=== PATIENT | male | born 1940 | race Caucasian/White ===

== ENCOUNTER 2018-02-12 11:02 | Inpatient (IN) | payer OTHER ==
[2018-02-12] MEDS ORDERED: ACETAMINOPHEN 1000 MG/100 ML VIAL (NON FORMULARY) IVPB ONE (12:28)
[2018-02-12] MEDS ORDERED: ACETAMINOPHEN INJECTION 100 ML IVPB ONE (12:29)
[2018-02-12 12:42] LABS: BASO % 0.3 % (0-2.0); EOS % 0.1 % (0-4.5); HEMATOCRIT 31.4 % (35.4-49); HEMOGLOBIN 10.2 GM/dL (11.7-16.9); LYMPH % 8.9 % (8-40); MCH 31.3 pg (25.7-33.7); MCHC 32.5 g/dl (32.0-35.9); MEAN CELL VOLUME 96.2 fl (80-96); MEAN PLT VOLUME 6.4 fl (7.5-11.1); MONO % 3.1 % (3.8-10.2); NEUT % 87.6 % (42.8-82.8); PLATELET COUNT 450 K/MM3 (134-434); RBC 3.26 M/mm3 (4.00-5.60); RDW 17.2 % (11.9-15.9); WHITE BLOOD COUNT 12.2 K/mm3 (4.0-10.0)
[2018-02-12 12:44] LABS: URINE APPEARANCE CLEAR; URINE BILIRUBIN NEGATIVE (<2.0 mg/dL); URINE COLOR LTYELLOW; URINE GLUCOSE (UA) NEGATIVE (NEGATIVE); URINE KETONE NEGATIVE (NEGATIVE); URINE LEUK ESTERASE NEGATIVE (NEGATIVE); URINE NITRITE NEGATIVE (NEGATIVE); URINE PROTEIN NEGATIVE (NEGATIVE); URINE UROBILINOGEN NEGATIVE mg/dL (0.2-1.0)
[2018-02-12] MEDS ORDERED: SODIUM CHLORIDE 500 ML IV STA (12:49)
[2018-02-12 12:55] LABS: INR 1.45 (0.83-1.09); PROTHROMBIN TIME (PATIENT) 16.4 SEC (9.7-13.0)
[2018-02-12 13:27] LABS: ALBUMIN 2.5 g/dl (3.4-5.0); ANION GAP 10 MMOL/L (8-16); BILIRUBIN,TOTAL 0.6 mg/dL (0.2-1.0); BLOOD UREA NITROGEN 9 mg/dL (7-18); CALCIUM 9.1 mg/dL (8.5-10.1); CHLORIDE 96 mmol/L (98-107); CO2 26 mmol/L (21-32); CREATININE 0.7 mg/dL (0.7-1.3); GLUCOSE,RANDOM 108 mg/dL (74-106); POTASSIUM 4.2 mmol/L (3.5-5.1); SGOT/AST 48 U/L (15-37); SGPT/ALT 34 U/L (12-78); SODIUM 132 mmol/L (136-145); TOT PROT 9.1 g/dl (6.4-8.2)
[2018-02-12 13:28] LABS: ALK PHOS 238 U/L (45-117)
--- NOTE | 2018-02-12 13:48 | PDOC ---
History of Present Illness - History of Present Illness Initial Comments: Fr. Rod is a 77 year old male with PMHx of 03/2014 (left occipital en plaque meningioma (removed) and smaller sub centimeter meningioma arising from floor of the anterior crainial fossa. 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 Patient reports right sided abdominal pain began last night and describes it as stabbing, worse with standing,worse with coughing, better when laying down, exacerbated when palpated. He states that his last bowel movement was yesterday during lunch time. Denies any nausea, vomiting, dysuria, or back pain. PCP: Denis Blanchard Allergies: NKA Surgical Hx: -Occipital craniotomy for meningioma resection (03/24/14) -Left total hip replacement (06/19/10) -B/L cataract extractions (2010) -Colonoscopy w/ lesion removal (2007) <Rajani Esteves - Last Filed: 02/12/18 14:51> <Edwar Sanchez - Last Filed: 02/12/18 17:13> - General Chief Complaint: Pain, Acute Stated Complaint: ABD PAIN Time Seen by Provider: 02/12/18 11:59 Past History <Rajani Esteves - Last Filed: 02/12/18 14:51> - Past Medical History CVA: Yes COPD: No HTN: Yes - Suicide/Smoking/Psychosocial Hx Smoking History: Former smoker Have you smoked in the past 12 months: No Information on smoking cessation initiated: No Hx Alcohol Use: No Drug/Substance Use Hx: No Hx Substance Use Treatment: No <Edwar Sanchez - Last Filed: 02/12/18 17:13> - Past Medical History Allergies/Adverse Reactions: Allergies Allergy/AdvReac Type Severity Reaction Status Date / Time No Known Allergies Allergy Verified 02/12/18 11:12 Home Medications: Ambulatory Orders Cholecalciferol (Vitamin D3) [Vitamin D3] 1,000 unit PO DAILY #0 07/22/14 Finasteride 5 mg PO DAILY #0 07/22/14 Latanoprost 0.005% Eye Drops [Xalatan 0.005% Eye Drops -] 1 drop OU HS #0 Lisinopril [Prinivil] 20 mg PO DAILY #0 07/22/14 Primidone 100 mg PO HS #0 07/22/14 Tamsulosin HCl [Flomax -] 0.4 mg PO HS #0 07/22/14 Timolol 0.5% [Timoptic 0.5%] 1 drop OU BID #0 07/22/14 levETIRAcetam [Keppra -] 750 mg PO HS #0 07/22/14 Amlodipine Besylate [Norvasc -] 7.5 mg PO DAILY 02/12/18 Aspirin [Ecotrin] 81 mg PO DAILY 02/12/18 Mag Hydrox/Al Hydrox/Simeth [Mylanta Oral Suspension -] 30 ml PO PRN PRN Magnesium Hydrox 2400MG/30Ml [Milk of Magnesia -] 30 ml PO PRN PRN 02/12/18 Mirtazapine [Remeron -] 15 mg PO DAILY 02/12/18 Sertraline HCl [Zoloft] 25 mg PO DAILY 02/12/18 Review of Systems - Review of Systems Comments:: CONSTITUTIONAL: No fever, no chills, no fatigue EYES: No visual changes ENT: No ear pain, no sore throat CARDIOVASCULAR: No chest pain, no palpitations RESPIRATORY: +cough, no SOB GI: +abdominal pain, no nausea, no vomiting, no constipation, no diarrhea GENITOURINARY: No dysuria, no frequency, no hematuria MUSKULOSKELETAL: No back pain, no joint pain, no myalgias SKIN: No rash NEURO: No headache <Rajani Esteves - Last Filed: 02/12/18 14:51> *Physical Exam - Vital Signs Last Vital Signs Temp Pulse Resp BP Pulse Ox 100.2 F H 72 16 124/68 98 02/12/18 13:03 02/12/18 13:03 02/12/18 13:03 02/12/18 13:03 02/12/18 13:03 - Physical Exam Comments: CONSTITUTIONAL: Well-appearing; well-nourished; in no apparent distress HEAD: Normocephalic; atraumatic EYES: PERRL; EOM intact ENMT: External appears normal; normal oropharynx NECK: Supple; nontender; no cervical lymphadenopathy CARD: Normal S1, S2; no murmurs, rubs, or gallops RESP: Normal chest excursion with respiration; breath sounds clear and equal bilaterally; no wheezes, rhonchi, or rales ABD: Soft, non-distended; RUQ and RLQ tenderness, no guarding or rebound; no palpable organomegaly, no palpable hernias EXT: Right upper extremity tremor. Normal ROM in all four extremities; non- tender to palpation; distal pulses intact SKIN: Warm, dry, no rash NEURO: Right upper extremity tremor. Normal testicular exam - no hernias. <Rajani Esteves - Last Filed: 02/12/18 14:51> - Vital Signs Last Vital Signs Temp Pulse Resp BP Pulse Ox 100.2 F H 72 16 124/68 98 02/12/18 13:03 02/12/18 13:03 02/12/18 13:03 02/12/18 13:03 02/12/18 13:03 <Edwar Sanchez - Last Filed: 02/12/18 17:13> ED Treatment Course - LABORATORY CBC & Chemistry Diagram: 02/12/18 12:20 02/12/18 12:20 - ADDITIONAL ORDERS Additional order review: Laboratory Results 02/12/18 02/12/18 02/12/18 12:20 12:20 12:20 PT with INR 16.40 H INR 1.45 H Sodium 132 L Potassium 4.2 Chloride 96 L Carbon Dioxide 26 Anion Gap 10 BUN 9 Creatinine 0.7 Creat Clearance w eGFR > 60 Random Glucose 108 H Calcium 9.1 Total Bilirubin 0.6 AST 48 H D ALT 34 D Alkaline Phosphatase 238 H Total Protein 9.1 H Albumin 2.5 L Urine Color Ltyellow Urine Appearance Clear Urine pH 7.0 Ur Specific [place] 1.009 Urine Protein Negative Urine Glucose (UA) Negative Urine Ketones Negative Urine Blood Negative Urine Nitrite Negative Urine Bilirubin Negative Urine Urobilinogen Negative Ur Leukocyte Esterase Negative 02/12/18 12:20 RBC 3.26 L MCV 96.2 H MCHC 32.5 RDW 17.2 H MPV 6.4 L D Neutrophils % 87.6 H Lymphocytes % 8.9 D Monocytes % 3.1 L Eosinophils % 0.1 D Basophils % 0.3 - Medications Given in the ED: ED Medications Discontinued Medications Generic Name Dose Route Start Last Admin Trade Name Adrienne PRN Reason Stop Dose Admin Acetaminophen 1,000 mg 02/12/18 12:28 02/12/18 12:40 Ofirmev Injection - IVPB 02/12/18 12:29 1,000 mg ONCE ONE Administration Sodium Chloride 500 mls @ 500 mls/hr 02/12/18 12:49 02/12/18 12:56 Normal Saline - IV 02/12/18 13:48 500 mls/hr ASDIR STA Administration <Rajani Esteves - Last Filed: 02/12/18 14:51> - LABORATORY CBC & Chemistry Diagram: 02/12/18 12:20 02/12/18 12:20 - ADDITIONAL ORDERS Additional order review: Laboratory Results 02/12/18 02/12/18 02/12/18 12:20 12:20 12:20 PT with INR 16.40 H INR 1.45 H Sodium 132 L Potassium 4.2 Chloride 96 L Carbon Dioxide 26 Anion Gap 10 BUN 9 Creatinine 0.7 Creat Clearance w eGFR > 60 Random Glucose 108 H Calcium 9.1 Total Bilirubin 0.6 AST 48 H D ALT 34 D Alkaline Phosphatase 238 H Total Protein 9.1 H Albumin 2.5 L Urine Color Ltyellow Urine Appearance Clear Urine pH 7.0 Ur Specific [place] 1.009 Urine Protein Negative Urine Glucose (UA) Negative Urine Ketones Negative Urine Blood Negative Urine Nitrite Negative Urine Bilirubin Negative Urine Urobilinogen Negative Ur Leukocyte Esterase Negative 02/12/18 12:20 RBC 3.26 L MCV 96.2 H MCHC 32.5 RDW 17.2 H MPV 6.4 L D Neutrophils % 87.6 H Lymphocytes % 8.9 D Monocytes % 3.1 L Eosinophils % 0.1 D Basophils % 0.3 - RADIOLOGY Radiology Studies Ordered: Category Date Time Status ABDOMEN & PELVIS CT W/O CONTR [CT] Stat CT Scan 02/12/18 12:48 Ordered - Medications Given in the ED: ED Medications Discontinued Medications Generic Name Dose Route Start Last Admin Trade Name Adrienne PRN Reason Stop Dose Admin Acetaminophen 1,000 mg 02/12/18 12:28 02/12/18 12:40 Ofirmev Injection - IVPB 02/12/18 12:29 1,000 mg ONCE ONE Administration Sodium Chloride 500 mls @ 500 mls/hr 02/12/18 12:49 02/12/18 12:56 Normal Saline - IV 02/12/18 13:48 500 mls/hr ASDIR STA Administration <Edwar Sanchez - Last Filed: 02/12/18 17:13> Medical Decision Making - Medical Decision Making 02/12/18 17:11 77-year-old male with multiple comorbidities presents with localized right lower quadrant pain. CBC reveals mild leukocytosis with predominance of neutrophils. Urinalysis reveals no evidence of pyuria. CT that and pelvis reveals a large cecal mass effacing the cecum, with a localized perforation, large amount of pericecal fat stranding, questionable L-spine involvement as well as fifth rib involvement. Metastatic cancer suspected. Case discussed with Dr. Salinas's and surgery. Will review the CAT scan. Of administered IV antibiotics and IV fluids. I discussed the case with Dr. Garcia and Dr. Altamirano of surgery. Will admit to the ICU further management. <Edwar Sanchez - Last Filed: 02/12/18 17:13> *DC/Admit/Observation/Transfer - Attestations Scribe Attestion: 02/12/18 14:57 Documentation prepared by Rajani Esteves, acting as certified medical technician for Edwar Sanchez MD. <Rajani Esteves - Last Filed: 02/12/18 14:51> - Discharge Dispostion Decision to Admit order: Yes <Edwar Sanchez - Last Filed: 02/12/18 17:13> Diagnosis at time of Disposition: Cecum mass, Pneumoperitoneum, Rib lesion - Discharge Dispostion Condition at time of disposition: Guarded
[2018-02-12] MEDS ORDERED: PIPERACILLIN/TAZOB 3.375 GM 3.375 GM in DEXTROSE 5%-WATER - 50 ML IVPB ONE (16:38)
[2018-02-12] MEDS ORDERED: PIPERACILLIN/TAZOB 3.375 GM 3.375 GM/50 ML BAG IVPB ONE (16:43)
[2018-02-12] MEDS ORDERED: DEXTROSE 5%-0.45% SALINE 1,000 ML IV SCH (16:45)
--- NOTE | 2018-02-12 17:59 | CONSULT ---
Consultation: REQUESTING PROVIDER: Dr. Sanchez CONSULT REQUEST: We have been asked to medically evaluate this patient for Dr. Sanchez. HISTORY OF PRESENT ILLNESS: Pt. states that he has been feeling under the weather for a few days now with "cold-like" symptoms. He says that the suprapubic pain began around 4am this morning. Pt. was unable to qualify and quantify the pain at that time. Pt. has a Hx. wilbert brain surgery and since the procedure has been "aphasic" as his fellow colleague states. Pt. denies change in BM but endorses varying bowel movements. Pt. denies difficulty passing stool , blood in stool or dark stool. Pt. denies pain on defecation. Pt. last had bowel movement this morning at 4 am. Pt. endorses frequent urination up to 4x per night. Pt denies dysuria, hematuria or urinary hesitancy. Pt. endorses medication compliance. Family Hx.: Mom-blood problem? Maternal Grandfather- Cancer(unable to qualify) Social Hx. Drinks 2 glasses of Red wine a day, Started smoking cigars and pipes in high school quit smoking 6-8 years ago, No other drugs. 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 Pt. ambulates at home with cane/ Allergies: None REVIEW OF SYSTEMS: CONSTITUTIONAL: Present: malaise Absent: fever, chills, diaphoresis, loss of appetite HEENT: Present: rhinorrhea, nasal congestion Absent: ear pain, eye pain, visual changes CARDIOVASCULAR: Absent: chest pain, syncope, palpitations, irregular heart rate , peripheral edema RESPIRATORY: Present:cough Absent: shortness of breath, dyspnea with exertion, orthopnea GASTROINTESTINAL: Present:abdominal pain Absent: abdominal distension, nausea, vomiting, diarrhea, constipation, melena, hematochezia GENITOURINARY: Present: frequency, urgency Absent: dysuria, hesitancy, hematuria , flank pain, genital pain MUSCULOSKELETAL: Absent: myalgia, arthralgia, joint swelling, back pain, neck pain SKIN: Absent: rash, itching, pallor ENDOCRINE: Present:cold intolerance NEUROLOGIC: Absent: headache, focal weakness or paresthesias, dizziness, unsteady gait, seizure, mental status changes, bladder or bowel incontinence PHYSICAL EXAMINATION Vital Signs - 24 hr 09/05/2002/12/18 02/12/18 11:12 11:55 13:03 Temperature 100.2 F H 100.8 F H 100.2 F H Pulse Rate 93 H Pulse Rate [ 72 Left Apical] Respiratory 20 16 Rate Blood Pressure 166/94 Blood Pressure 124/68 [Left Arm] O2 Sat by Pulse 96 98 Oximetry (%) 02/12/18 02/12/18 17:01 17:42 Temperature 100.1 F H Pulse Rate Pulse Rate [ 76 80 Left Apical] Respiratory 16 16 Rate Blood Pressure Blood Pressure 130/60 147/66 [Left Arm] O2 Sat by Pulse 95 98 Oximetry (%) GENERAL: Awake, alert, and fully oriented, in no acute distress. HEAD: Normal with no signs of trauma. EYES: Pupils equal, round and reactive to light, extraocular movements intact, sclera anicteric, conjunctiva clear. No lid lag. EARS, NOSE, THROAT: Ears normal, nares patent, oropharynx clear without exudates. Moist mucous membranes. NECK: no JVD LUNGS: Breath sounds equal, clear to auscultation bilaterally. No wheezes, and no crackles. No accessory muscle use. HEART: Regular rate and rhythm, normal S1 and S2 without murmur ABDOMEN: Soft, not distended, sluggish bowel sounds, tender to palpation in lower abdomen, with exquisite tenderness in RLQ, rebound tenderness present, guarding present, dull to percussion UPPER EXTREMITIES: warm, well-perfused. No cyanosis. No clubbing. No peripheral edema. LOWER EXTREMITIES: 2+ dorsal pedal pulses, warm, well-perfused. No calf tenderness. No peripheral edema. NEUROLOGICAL: Cranial nerves II-XII intact. Normal speech. Gait not assessed PSYCHIATRIC: Cooperative. Good eye contact. Appropriate mood and affect. SKIN: Warm, dry, normal turgor, no rashes or lesions noted. Laboratory Results - last 24 hr 02/12/18 02/12/18 02/12/18 12:20 12:20 12:20 WBC 12.2 H RBC 3.26 L Hgb 10.2 L Hct 31.4 L D MCV 96.2 H MCH 31.3 MCHC 32.5 RDW 17.2 H Plt Count 450 H D MPV 6.4 L D Absolute Neuts (auto) 10.7 H Neutrophils % 87.6 H Lymphocytes % 8.9 D Monocytes % 3.1 L Eosinophils % 0.1 D Basophils % 0.3 Nucleated RBC % 0 PT with INR 16.40 H INR 1.45 H Sodium Potassium Chloride Carbon Dioxide Anion Gap BUN Creatinine Creat Clearance w eGFR Random Glucose Calcium Total Bilirubin AST ALT Alkaline Phosphatase Total Protein Albumin Urine Color Ltyellow Urine Appearance Clear Urine pH 7.0 Ur Specific [place] 1.009 Urine Protein Negative Urine Glucose (UA) Negative Urine Ketones Negative Urine Blood Negative Urine Nitrite Negative Urine Bilirubin Negative Urine Urobilinogen Negative Ur Leukocyte Esterase Negative 02/12/18 12:20 WBC RBC Hgb Hct MCV MCH MCHC RDW Plt Count MPV Absolute Neuts (auto) Neutrophils % Lymphocytes % Monocytes % Eosinophils % Basophils % Nucleated RBC % PT with INR INR Sodium 132 L Potassium 4.2 Chloride 96 L Carbon Dioxide 26 Anion Gap 10 BUN 9 Creatinine 0.7 Creat Clearance w eGFR > 60 Random Glucose 108 H Calcium 9.1 Total Bilirubin 0.6 AST 48 H D ALT 34 D Alkaline Phosphatase 238 H Total Protein 9.1 H Albumin 2.5 L Urine Color Urine Appearance Urine pH Ur Specific [place] Urine Protein Urine Glucose (UA) Urine Ketones Urine Blood Urine Nitrite Urine Bilirubin Urine Urobilinogen Ur Leukocyte Esterase Active Medications Current Medications Chlorhexidine Gluconate (Hibiclens For Decolonization -) 1 applic TP HS BRIAN Dextrose/Sodium Chloride (D5-1/2ns -) 1,000 mls @ 100 mls/hr IV ASDIR BRIAN Last Admin: 02/12/18 16:41 Dose: 100 mls/hr Mupirocin (Bactroban Ointment (For Decolonization) -) 1 applic NS BID [facility] Stop: 02/17/18 21:59 ASSESSMENT/PLAN: A 77 y.o. M w/ PMHx. 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 Scan shows a mass in the cecum, air that is contained in the nini-cecal fat and osteolytic lesions in the right 5th rib and L3 vertebral body. #Gastroenterology -Abdominal pain 2/[address] Scan appreciated Surgical consult appreciated, Pt. will go straight to OR for Ex. Lap. f/u FOBT results Last colonoscopy was in 2007 with lesion removal. F/u with PCP Dose of Zosyn given in the ED. #F/E/N -c/w IVF -NPO for surgery -replete electrolytes as necessary #DVT Ppx. -SCDs Dispo: We will continue to follow the patient. Thank you for this consultative opportunity. Visit type - Emergency Visit Emergency Visit: Yes ED Registration Date: 02/12/18 Care time: The patient presented to the Emergency Department on the above date and was hospitalized for further evaluation of their emergent condition. - New Patient This patient is new to me today: Yes Date on this admission: 02/12/18 - Critical Care Critical Care patient: No
[2018-02-12] MEDS ORDERED: LIDOCAINE HCL/PF 2% SDV 5ML VIAL ONE (19:40)
[2018-02-12] MEDS ORDERED: PROPOFOL 20 ML ONE (19:40)
[2018-02-12] MEDS ORDERED: fentaNYL CITRATE 250 MCG/5 ML VIAL ONE (19:40)
[2018-02-12] MEDS ORDERED: ROCURONIUM BROMIDE 50 MG/5 ML VIAL ONE (19:44)
--- NOTE | 2018-02-12 20:20 | PN ---
Progress Note (short form) - Note Progress Note: surgery pt seen and examined. full consult dictated. 77m with rlq pain, fever, leukocytosis, and ct showing perforated cecal tumor with extraluminal air as well as lesions in right chest coming off of 5th rib and a vertebrae. On exam pt with peritoneal findings in rlq and tenderness in remainder of abd. Plan- peforated cecal neoplasm with peritonitis and early sepsis. will proceed with urgent exploratory surgery and likely right colectomy. Pt would do poorly without resection of this perforated tumor.
[2018-02-12] MEDS ORDERED: DEXAMETHASONE SOD PHOSPHATE 4 MG/1 ML VIAL ONE (20:46)
--- NOTE | 2018-02-12 21:02 | CONS ---
DATE OF CONSULTATION: 02/12/2018 The patient was seen and examined in the ER. REASON FOR CONSULTATION: Perforated viscus/colon. 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 He had a CAT scan of his abdomen and pelvis, which showed a large tumor in his cecum with a localized, contained perforation within the pericecal fat. He was also noted to have a tumor emanating from his right 5th rib. The patient was noted to have localized peritonitis by the emergency room physician as well as the automatic driller and reamer, low-grade fever of 100.8, and elevated white blood cell count of 12.2. Request was made for surgical evaluation. PAST MEDICAL HISTORY: Significant for brain tumor, glaucoma, arthritis, depression, hypertension. PAST SURGICAL HISTORY: Includes the brain surgery and an arm surgery. Never any surgeries on his abdomen. ALLERGIES: He has no known drug allergies. FAMILY HISTORY: Negative for malignancy in immediate family. HOME MEDICATIONS: Has been reviewed and include Norvasc, aspirin, Remeron, Zoloft, finasteride, Keppra, primidone, lisinopril, Flomax, and Timoptic eye drops. REVIEW OF SYSTEMS: General: Admits to fatigue. Cardiac: Denies chest pain. Respiratory: Denies shortness of breath or wheeze. Gastrointestinal: Denies diarrhea. Denies blood in the stool. Denies recent weight loss. Genitourinary: Denies dysuria. Musculoskeletal: Admits to some arthritic pain. Psychiatric: Admits to depression. PHYSICAL EXAMINATION: General: This is a well-developed, well-nourished 77-year-old male in no distress. Vital Signs: He is currently febrile at 100.1. His heart rate is 80. His blood pressure is 147/66. HEENT: His head is normocephalic. Sclerae anicteric. Neck: Supple. Chest: Clear. Abdomen: Soft. It is moderately distended. He has no surgical scars. He has severe tenderness in the right lower quadrant and moderate tenderness in the remaining portions of his abdomen. He has guarding in the right lower quadrant without guarding in the remainder of his abdomen. He also has rebound in the right lower quadrant. Extremities: Trace edema. LABORATORY: White blood cell count is elevated at 12.2, platelet count elevated at 450. He does have a shift. His INR is 1.45. His chemistry show hyponatremia with sodium 132, hypochloremia with a chloride of 96. His AST is mildly elevated at 48. His alkaline phosphatase is elevated at 238 possibly consistent with bone metastasis. On review of his imaging, his CAT scan is as stated in the HPI. In addition to the perforated tumor in the cecum and the tumor located inside his chest, he also appears to have a lesion at the L3 vertebral body. ASSESSMENT: This is a 77-year-old male with right lower quadrant pain, peritonitis localized to the right lower quadrant with tenderness in the remainder of the abdomen, a perforated colon tumor with currently contained air, and signs of possible metastasis in the spine and in the chest. At this point, the patient does have fever, leukocytosis, and likely developing sepsis. I agree with admission. I agree with Zosyn antibiotic. At this point, based on the patient's age, it is best to proceed with urgent surgical exploration and likely partial colectomy. If this is a perforated cancer, he will need to have the tumor removed even though he is metastatic because it is perforated, and he will be unable to undergo chemotherapy or have food and likely worsen with sepsis and . If this is an inflammatory process, he still is at risk of worsening sepsis and , and the safest thing would be to proceed with surgery at this point. I have explained this to the patient in detail. He is very agreeable to surgery, and we will move in that direction. Risks and benefits of surgery have been explained to the patient in detail. These are including, but not limited to, the possibility of injury to his ureter, injury to viscera, the possibility of requiring an ileostomy, the possibility of anastomotic breakdown, the possibility of blood loss requiring blood transfusion, the possibility of infection, the possibility of hernia, the possibility of future obstruction plus a multitude of medical risks including, but not limited to, cardiac, neurologic, pulmonary, and vascular complications even . The patient also understands that this may be a cancer, and it may have already metastasized making the surgery more emergent/palliative and not curative. Drummond catheter was already placed by the emergency room team. We will proceed with surgery. DO RAMON MUELLER/[id number]
[2018-02-12] MEDS ORDERED: GLYCOPYRROLATE 0.2 MG/1 ML VIAL ONE (21:29)
[2018-02-12] MEDS ORDERED: NEOSTIGMINE METHYLSULFATE 0.5 MG/ML - 10 ML MDV ONE (21:29)
[2018-02-12] MEDS ORDERED: MUPIROCIN 2% TOPICAL OINTMENT FOR DECOLONIZATION NS SCH (22:00)
[2018-02-12] MEDS ORDERED: CHLORHEXIDINE GLUCONATE 4% CLEANSER FOR DECOLONIZATION TP SCH (22:00)
--- NOTE | 2018-02-12 22:02 | OP ---
Operative Note - Note: Operative Date: 02/12/18 Pre-Operative Diagnosis: perforated viscous, sepsis, colon neoplasm Operation: exploratory laparotomy, right shmuel-colectomy, drainage of abscess, lavage Findings: large colon tumor invading abdominal wall and retroperitoneum, no metastatic disease seen, no ascites, contained abscess lateral to right colon Post-Operative Diagnosis: Same as Pre-op Surgeon: Papa Altamirano Anesthesiologist/SILVER PLATER: Nagi Farrell Anesthesia: General Specimens Removed: right colon with tumor and perforation Estimated Blood Loss (mls): 100 Drains & Tubes with Location: linda abscess cavity rlq Operative Report Dictated: Yes
[2018-02-12] MEDS ORDERED: oxyCODONE HCL 5 MG TABLET PO PRN (22:04)
[2018-02-12] MEDS ORDERED: ONDANSETRON 4 MG/2 ML VIAL IVPUSH PRN (22:04)
[2018-02-12] MEDS: DEXTROSE 5%-0.45% SALINE 1,000 ML IV SCH (22:15)
[2018-02-12] MEDS: morphine SULFATE 4 MG/ML VIAL IVPB PRN (23:27)
[2018-02-13] MEDS ORDERED: PIPERACILLIN/TAZOBACTAM 3.375 GM VIAL IVPB ONE ×3 (01:31→08:33)
[2018-02-13] MEDS ORDERED: DEXTROSE 5%-WATER - 50 ML IVPB ONE ×3 (01:31→08:33)
[2018-02-13] MEDS: PIPERACILLIN/TAZOB 3.375 GM 3.375 GM in DEXTROSE 5%-WATER - 50 ML IVPB SCH ×4 (03:00→12:57)
[2018-02-13] MEDS: morphine SULFATE 4 MG/ML VIAL IVPB PRN ×3 (03:19→21:25)
[2018-02-13] MEDS ORDERED: HYDROmorphone HCL CARPU-JECT 2 MG/1 ML DISP.SYRIN IVPB ONE (04:22)
[2018-02-13] MEDS ORDERED: MORPHINE SULFATE 2 MG/ML VIAL IVPUSH ONE (04:35)
[2018-02-13] MEDS ORDERED: ACETAMINOPHEN 1000 MG/100 ML VIAL (NON FORMULARY) IVPB ONE ×2 (04:35→17:01)
[2018-02-13 06:02] LABS: BASO % 0.2 % (0-2.0); HEMATOCRIT 28.5 % (35.4-49); HEMOGLOBIN 9.3 GM/dL (11.7-16.9); LYMPH % 7.1 % (8-40); MCH 31.3 pg (25.7-33.7); MCHC 32.6 g/dl (32.0-35.9); MEAN CELL VOLUME 96.2 fl (80-96); MEAN PLT VOLUME 6.7 fl (7.5-11.1); MONO % 5.1 % (3.8-10.2); NEUT % 87.6 % (42.8-82.8); PLATELET COUNT 429 K/MM3 (134-434); RBC 2.96 M/mm3 (4.00-5.60); RDW 17.2 % (11.9-15.9); WHITE BLOOD COUNT 11.4 K/mm3 (4.0-10.0)
[2018-02-13 06:33] LABS: ALBUMIN 1.8 g/dl (3.4-5.0); ANION GAP 10 MMOL/L (8-16); BILIRUBIN,TOTAL 0.5 mg/dL (0.2-1.0); BLOOD UREA NITROGEN 9 mg/dL (7-18); CALCIUM 8.1 mg/dL (8.5-10.1); CHLORIDE 100 mmol/L (98-107); CO2 23 mmol/L (21-32); CREATININE 0.6 mg/dL (0.7-1.3); GLUCOSE,RANDOM 198 mg/dL (74-106); MAGNESIUM 1.8 mg/dL (1.8-2.4); POTASSIUM 4.3 mmol/L (3.5-5.1); SGOT/AST 32 U/L (15-37); SGPT/ALT 45 U/L (13-61); SODIUM 133 mmol/L (136-145); TOT PROT 7.2 g/dl (6.4-8.2)
[2018-02-13 06:34] LABS: ALK PHOS 192 U/L (45-117); PHOSPHOROUS 2.7 mg/dL (2.5-4.9)
--- NOTE | 2018-02-13 08:21 | PN ---
Progress Note (short form) - Note Progress Note: POD #1 - s/p ex-lap/right colectomy. VSS. Pt. doing well, resting comfortably in bed. No complaints. No apparent anesthetic complications noted. Continue current care.
[2018-02-13] MEDS ORDERED: NAPH,MB-DB/K PH,MBDB POWDER PACKET PO ONE (08:45)
--- NOTE | 2018-02-13 09:00 | OP ---
DATE OF OPERATION: 02/12/2018 PREOPERATIVE DIAGNOSIS: Perforated viscus, colon neoplasm, sepsis. POSTOPERATIVE DIAGNOSIS: Perforated viscus, colon neoplasm, sepsis. PROCEDURE: Exploratory laparotomy, right colectomy, drainage of abscess, lavage. SURGEON: Papa Altamirano DO MANAGER CRITICAL CARE: None. ANESTHESIOLOGIST: Nagi Farrell MD (general) INTRAOPERATIVE FINDINGS: A large perforated colon mass with an abscess located contained between the right colon and the abdominal wall, with gross tumor invading the abdominal wall and the retroperitoneum without signs of metastatic disease. BLOOD LOSS: Approximately 100 mL. DRAINS: Cesar-Brandt drain in the right lower quadrant abscess cavity. SPECIMENS: Right colon. DISPOSITION: Intensive care unit. BRIEF HISTORY: A 77-year-old male who presented to [facility] with abdominal pain, fever, leukocytosis, and CAT scan evidence of a likely perforated right colon neoplasm. Patient was noted to have peritoneal findings in right lower quadrant and presents now for surgery. He was also noted to have possible metastatic disease in his chest as well as his spine. DESCRIPTION OF PROCEDURE: The patient was placed in supine position. After general anesthesia was initiated, the abdomen was prepped and draped in sterile fashion. A Drummond catheter had already been inserted. Next, a midline incision was made from approximately 4 inches above the umbilicus to approximately 3 inches below. Scalpel was used to go through the skin. Electrocautery was used to cut the subcutaneous tissue. The fascia was opened in the midline and the peritoneum was entered sharply. Upon entering the abdominal cavity, there was no ascites noted. Gross palpation was done of the liver, which was smooth. The spleen appeared to be smooth. The left colon had no obvious masses. The omentum appeared to be clean. Upon palpating the right lower quadrant, there was noted to be a large mass. The entire cecum and appendix appeared to be involving a large tumor that was adhesed to the abdominal wall. The cecum was carefully teased off the abdominal wall, exposing an abscess and abscess cavity. This was sent for culture and irrigated. At this point, finger fracture was done of the abnormal attachments between the cecum and this tumor and the abdominal wall. Posteriorly, the tumor appeared to be involving the mesentery of the cecum and the terminal ileum and eating into the retroperitoneum. The right colon was mobilized. The hepatic flexure was taken down. Attachments of the terminal ileum were also taken down. At this point, decision was made not to explore the retroperitoneum as this would be high risk of injury to the ureter or the iliacs, and the mesentery of the cecum and terminal ileum was divided very close to the cecum through obvious tumor, leaving clinical disease behind in the abdominal wall and the retroperitoneum. At this point, with the colon completely mobilized, metal clips were placed at the area of tumor invasion into the retroperitoneum and the abdominal wall for potential radiation targeting in the future. Next, a location was located approximately 10 cm from the terminal ileum as well as the proximal transverse colon. A jgme-me-cedi anastomosis was then created using a SASHA-80 blue load stapler. A TA90 green load stapler was used to close the enterotomy. The anastomosis was inspected. It was patent on visual inspection as well as palpation. A was able to be passed from proximal to distal, distal to proximal. At this point, with the anastomosis satisfactory, the LigaSure device was used to divided the mesentery of the resected portion of ileum as well as the mesocolon of the right colon. A clamp was used to tie the right colic artery. At this point, the specimen was sent to Pathology, marked as right colectomy with tumor and perforation. Next, the mesenteric defect was closed with running chromic suture. A vigorous lavage was done in all 4 quadrants of approximately 6 L of warm saline. The abscess cavity had clips placed in it from the tumor, and a Cesar-Brandt drain was placed in this area and brought out through the right lower quadrant and secured with a silk drain stitch. At this point, the fascia was closed with a combination of running No. 1 PDS sutures and interrupted No. 1 Vicryl sutures. The wound was irrigated and left open and packed with Iodoform gauze. At this point the operation terminated. The patient was brought to the intensive care unit where he was in guarded condition. Anesthesia was to make decisions regarding extubation. Drummond catheter which was placed prior to the operation was to remain in at the end, and the patient would remain without a nasogastric tube but be kept strict n.p.o. while we await return of bowel function. The patient would need to be evaluated by the oncology service as either an inpatient or an outpatient, where he will likely require chemotherapy and need further workup of his chest and spine lesions. DO RAMON MUELLER/[id number] MTDD
[2018-02-13] MEDS ORDERED: PANTOPRAZOLE SODIUM 40 MG VIAL IVPUSH SCH (10:00)
[2018-02-13] MEDS ORDERED: ENOXAPARIN NA (PORCINE) 40 MG/0.4 ML DISP.SYRIN SQ SCH (10:00)
[2018-02-13] MEDS ORDERED: MUPIROCIN 2% TOPICAL OINTMENT FOR DECOLONIZATION NS SCH (10:00)
[2018-02-13] MEDS: MUPIROCIN 2% TOPICAL OINTMENT FOR DECOLONIZATION NS SCH ×2 (10:24→21:46)
[2018-02-13] MEDS: DEXTROSE 5%-0.45% SALINE 1,000 ML IV SCH ×2 (10:30→22:30)
--- NOTE | 2018-02-13 10:57 | PN ---
Progress Note (short form) - Note Progress Note: 77 y/o male found sleeping comfortably, POD #1. States that he feels better than yesterday. Vital Signs Period Temp Pulse Resp BP Sys/Olivo Pulse Ox Last 24 Hr 97.6 F-100.8 F 71-93 15-29 124-175/60-94 89-98 CBC, BMP 02/13/18 05:30 02/13/18 05:30 HEENT- NL Neck- Supple Lungs- CTAB Heart- S1/S2 Abd- Soft, tender on palpation. Dsgs intact. JUNE Drain in place in RLQ Ext- No LE edema Active Medications Chlorhexidine Gluconate (Hibiclens For Decolonization -) 1 applic TP HS [facility] Enoxaparin Sodium (Lovenox -) 40 mg SQ DAILY BRIAN Piperacillin Sod/Tazobactam (Sod 3.375 gm/ Dextrose) 50 mls @ 100 mls/hr IVPB Q6H-IV BRIAN; Protocol Dextrose/Sodium Chloride (D5-1/2ns -) 1,000 mls @ 100 mls/hr IV ASDIR [facility] Last Admin: 02/13/18 10:30 Dose: 100 mls/hr Morphine Sulfate (Morphine Sulfate) 4 mg IVPB Q3H PRN PRN Reason: PAIN LEVEL 7 - 10 Last Admin: 02/13/18 03:19 Dose: 4 mg Mupirocin (Bactroban Ointment (For Decolonization) -) 1 applic NS BID [facility] Stop: 02/18/18 09:59 Last Admin: 02/13/18 10:24 Dose: 1 applic Ondansetron HCl (Zofran Injection) 4 mg IVPUSH Q6H PRN PRN Reason: NAUSEA Oxycodone HCl (Roxicodone -) 7.5 mg PO Q4H PRN PRN Reason: PAIN LEVEL 4 - 6 Pantoprazole Sodium (Protonix Iv) 40 mg IVPUSH DAILY [facility] Last Admin: 02/13/18 10:23 Dose: 40 mg #Colon Ca S/p rt shmuel-colectomy Drainage of abscess and lavage Cont IV antibiotics/ IV fluids Cont IV Zofran/ Protonix Trend WBC/ Renal #Abd Wd Local Wd care with Bactroban BID #Pain controlled with Morphine and Oxycodone Continue to monitor pain mgmt
--- NOTE | 2018-02-13 12:37 | PN ---
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
--- NOTE | 2018-02-13 12:53 | PN ---
Physical Exam: SUBJECTIVE: Patient seen and examined. Pt. underwent Exploratory laparotomy w/ right shmuel-colectomy. Pt. received pain medication to good effect and endorses decreased abdominal pain compared yesterday. Pt. is NPO and has not passed gas or stool since the procedure. Pt. had no additional complaints and denies n/v/f/ c CP or SOB. OBJECTIVE: Vital Signs Period Temp Pulse Resp BP Sys/Olivo Pulse Ox Last 24 Hr 97.6 F-100.2 F 71-87 15-29 124-175/60-87 89-98 GENERAL: The patient is awake, alert, and fully oriented, lying in bed in no acute distress. EYES: PERRL, extraocular movements intact, sclera anicteric, conjunctiva clear. No ptosis. ENT: Ears normal, nares patent dry mucous membranes. NECK: Trachea midline, full range of motion, supple. LUNGS: Breath sounds equal, clear to auscultation bilaterally, no wheezes, no crackles, no accessory muscle use. HEART: Regular rate and rhythm, S1, S2 without murmur, rub or gallop. ABDOMEN: Soft, nondistended, normoactive bowel sounds, no guarding, mild rebound tenderness, tender to palpation in RUQ and at incision site. Drummond was in place draining clear yellow urine. JUNE drain in place draining serosanguinous fluid. EXTREMITIES: 2+ dorsal pedal pulses, warm, well-perfused, no edema, no calf tenderness. NEUROLOGICAL: Normal speech, gait not observed. PSYCH: Normal mood, normal affect. SKIN: Warm, dry, normal turgor, small 1 cm scattered hemangiomas were visible on the patient's abdomen. Laboratory Results - last 24 hr 02/12/18 02/12/18 02/12/18 12:20 12:20 19:50 WBC RBC Hgb Hct MCV MCH MCHC RDW Plt Count MPV Absolute Neuts (auto) Neutrophils % Lymphocytes % Monocytes % Eosinophils % Basophils % Nucleated RBC % PT with INR 16.40 H INR 1.45 H Sodium 132 L Potassium 4.2 Chloride 96 L Carbon Dioxide 26 Anion Gap 10 BUN 9 Creatinine 0.7 Creat Clearance w eGFR > 60 Random Glucose 108 H Lactic Acid Calcium 9.1 Phosphorus Magnesium Total Bilirubin 0.6 AST 48 H D ALT 34 D Alkaline Phosphatase 238 H Total Protein 9.1 H Albumin 2.5 L Blood Type O POSITIVE Antibody Screen Negative 02/13/18 02/13/18 02/13/18 05:30 05:30 05:30 WBC 11.4 H RBC 2.96 L Hgb 9.3 L Hct 28.5 L MCV 96.2 H MCH 31.3 MCHC 32.6 RDW 17.2 H Plt Count 429 MPV 6.7 L Absolute Neuts (auto) 10.0 H Neutrophils % 87.6 H Lymphocytes % 7.1 L D Monocytes % 5.1 Eosinophils % 0.0 D Basophils % 0.2 Nucleated RBC % 0 PT with INR INR Sodium 133 L Potassium 4.3 Chloride 100 Carbon Dioxide 23 Anion Gap 10 BUN 9 Creatinine 0.6 L Creat Clearance w eGFR > 60 Random Glucose 198 H D Lactic Acid 1.6 Calcium 8.1 L Phosphorus 2.7 Magnesium 1.8 Total Bilirubin 0.5 AST 32 ALT 45 Alkaline Phosphatase 192 H D Total Protein 7.2 Albumin 1.8 L Blood Type Antibody Screen Active Medications Current Medications Chlorhexidine Gluconate (Hibiclens For Decolonization -) 1 applic TP HS [facility] Enoxaparin Sodium (Lovenox -) 40 mg SQ DAILY [facility] Last Admin: 02/13/18 12:36 Dose: 40 mg Dextrose/Sodium Chloride (D5-1/2ns -) 1,000 mls @ 100 mls/hr IV ASDIR [facility] Last Admin: 02/13/18 10:30 Dose: 100 mls/hr Piperacillin Sod/Tazobactam (Sod 4.5 gm/ Dextrose) 100 mls @ 200 mls/hr IVPB Q8H-IV [facility]; Protocol Morphine Sulfate (Morphine Sulfate) 4 mg IVPB Q3H PRN PRN Reason: PAIN LEVEL 7 - 10 Last Admin: 02/13/18 03:19 Dose: 4 mg Mupirocin (Bactroban Ointment (For Decolonization) -) 1 applic NS BID [facility] Stop: 02/18/18 09:59 Last Admin: 02/13/18 10:24 Dose: 1 applic Ondansetron HCl (Zofran Injection) 4 mg IVPUSH Q6H PRN PRN Reason: NAUSEA Oxycodone HCl (Roxicodone -) 7.5 mg PO Q4H PRN PRN Reason: PAIN LEVEL 4 - 6 Pantoprazole Sodium (Protonix Iv) 40 mg IVPUSH DAILY [facility] Last Admin: 02/13/18 10:23 Dose: 40 mg ASSESSMENT/PLAN: A 77 y.o. M w/ PMHx. 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 Scan shows a mass in the cecum, air that is contained in the nini-cecal fat and osteolytic lesions in the right 5th rib and L3 vertebral body. #Gastroenterology -Abdominal pain 2/[address] Scan appreciated Surgical consult appreciated, Pt. completed Ex. Lap. w/ right shmuel-colectomy Monitor drain output Last colonoscopy was in 2007 with lesion removal. F/u with PCP -Sepsis 2/2 cecal perforation C/w Zosyn TID per ID ID consult( Dr. Ferraro) appreciated #F/E/N -c/w D5-1/2NS -D/C-ed Drummond -NPO for surgery -replete electrolytes as necessary #DVT Ppx. -SCDs Dispo: We will continue to follow the patient. Thank you for this consultative opportunity. Visit type - Emergency Visit Emergency Visit: Yes ED Registration Date: 02/12/18 Care time: The patient presented to the Emergency Department on the above date and was hospitalized for further evaluation of their emergent condition. - New Patient This patient is new to me today: No - Critical Care Critical Care patient: No - Discharge Referral Referred to [facility] No
--- NOTE | 2018-02-13 13:43 | CONS ---
DATE OF CONSULTATION: DATE OF DICTATION: 02/13/2018 INFECTIOUS DISEASE CONSULTATION The patient is a 77-year-old male who was evaluated for sepsis. He presented to the hospital on February 12, 2018, with a 1-day history of abdominal pain. He reported onset of right lower quadrant abdominal pain described as constant and exacerbated by movement. He was evaluated in the emergency room where a CAT scan showed a large cecal mass and evidence of what appears to be metastatic lesions to the right fifth rib and L3 vertebral body. The patient was taken to the operating room where an exploratory laparotomy was performed. He underwent a right hemicolectomy with drainage of what appeared to be an intraabdominal abscess and lavage. The cecal mass appeared to be invading the abdominal wall and retroperitoneum. No gross metastases were seen. There was a contained abscess lateral to the right colon. Postoperatively he was transferred to the intensive care unit. His hospital course has been complicated by fever and elevated white blood cell count. At the present time, he is in the intensive care unit awake and alert and complains of right-sided abdominal pain with movement. Prior to admission, patient states he had been having normal bowel movements. He denied any constipation, no nausea or vomiting. Denied any otoniel red blood per rectum or melena. No recent hospitalizations. PAST MEDICAL HISTORY: Positive for meningioma resection 2013, history of stroke, diabetes mellitus, hypertension, glaucoma, osteoarthritis. PAST SURGICAL HISTORY: Status post left total hip replacement. ALLERGIES: No known allergies. OUTPATIENT MEDICATIONS: Included vitamin D, lisinopril, Flomax, Keppra, Norvasc, Ecotrin, Remeron, Zoloft. 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 SYSTEM REVIEW: Neurologic: No loss of consciousness, seizure activity, focal weakness. Cardiac: Negative for chest pain or palpitations. Respiratory: Negative cough or sputum production. Gastrointestinal: As per HPI. Genitourinary: Negative for urinary tract infection. LABORATORY DATA: White count on admission 12.2, presently 11.4, hematocrit 28.5, platelet count 429, creatinine 0.6. Liver enzymes normal. Urinalysis negative. Chest x-ray no acute disease. There is atelectasis at the bases. No evidence of free air. Preoperative CAT scan of the abdomen and pelvis showed a large cecal mass with a trace amount of localized pneumoperitoneum along the lateral aspect of the lesion suggestive of perforation, pericolonic soft tissue stranding, concentric wall thickening involving the terminal ileum, an osteolytic lesion involving the right fifth rib and possible L3 vertebral body osteolytic lesion. PHYSICAL EXAMINATION: General: On exam, he is awake and alert. He is supine in bed. He is in no acute distress lying still. Vital Signs: Temperature 97.6, T-max 100.8, blood pressure 135/66, pulse 71 regular, respirations 17 per minute. Eyes: Sclerae anicteric. Dry mucous membranes. Heart: Sounds S1, S2. Lungs: Diminished breath sounds bilaterally. Abdomen: Diffusely tender. There is a Cesar-Brandt drain present with serosanguinous fluid. Extremities: Negative for edema. Negative Brent sign. IMPRESSION: 1. Postoperative day number 1 exploratory laparotomy. 2. Resection of cecal mass and drainage of abscess. 3. Fever/leukocytosis, possible sepsis secondary to gastrointestinal source. 4. Probable metastatic lesions to the right fifth rib and L3 vertebral body. OPERATIVE FINDINGS NOTE: Patient with large tumor which appears to have perforated and caused a localized intraabdominal abscess. RECOMMENDATIONS: Await operative culture results. Blood cultures have been obtained. Pathology is pending. Empiric antibiotic coverage pending cultures with Zosyn 4.5 g IV piggyback every 8 hours. Continue IV fluid hydration and analgesics. Case discussed with family member present at the time of the examination. CRITICAL CARE TIME: Spent 35 minutes. Thank you for the kind referral. SHIMA MITCHELL M.D. [id number]
--- NOTE | 2018-02-13 14:16 | PN ---
Teaching Attending Note Name of Resident: Hima Lama ATTENDING PHYSICIAN STATEMENT I saw and evaluated the patient. I reviewed the resident's note and discussed the case with the resident. I agree with the resident's findings and plan as documented. SUBJECTIVE: Patient seen and examined in the ICU. Awake and alert. Reports abdominal pain , especially when moving and being examined. No CP or SOB. Urine appears dark and concentrated. No flatus or BM. JUNE drains intact and draining dark blood. CXR: Increased bibasilar rhonchi OBJECTIVE: Intake & Output 02/10/18 02/11/18 02/12/18 02/13/18 23:59 23:59 23:59 23:59 Intake Total 2500 950 Output Total 700 795 Balance 1800 155 Weight 176 lb 11.2 oz 176 lb 9.6 oz Last Vital Signs Temp Pulse Resp BP Pulse Ox 98.0 F 86 18 132/59 98 02/13/18 14:00 02/13/18 14:00 02/13/18 14:00 02/13/18 14:00 02/13/18 08:00 Active Medications Chlorhexidine Gluconate (Hibiclens For Decolonization -) 1 applic TP HS [facility] Enoxaparin Sodium (Lovenox -) 40 mg SQ DAILY [facility] Last Admin: 02/13/18 12:36 Dose: 40 mg Dextrose/Sodium Chloride (D5-1/2ns -) 1,000 mls @ 100 mls/hr IV ASDIR [facility] Last Admin: 02/13/18 10:30 Dose: 100 mls/hr Piperacillin Sod/Tazobactam (Sod 4.5 gm/ Dextrose) 100 mls @ 200 mls/hr IVPB Q8H-IV [facility]; Protocol Morphine Sulfate (Morphine Sulfate) 4 mg IVPB Q3H PRN PRN Reason: PAIN LEVEL 7 - 10 Last Admin: 02/13/18 13:04 Dose: 4 mg Mupirocin (Bactroban Ointment (For Decolonization) -) 1 applic NS BID [facility] Stop: 02/18/18 09:59 Last Admin: 02/13/18 10:24 Dose: 1 applic Ondansetron HCl (Zofran Injection) 4 mg IVPUSH Q6H PRN PRN Reason: NAUSEA Oxycodone HCl (Roxicodone -) 7.5 mg PO Q4H PRN PRN Reason: PAIN LEVEL 4 - 6 Pantoprazole Sodium (Protonix Iv) 40 mg IVPUSH DAILY [facility] Last Admin: 02/13/18 10:23 Dose: 40 mg GENERAL: awake, alert, and oriented, Mildly uncomfortable due to pain HEAD: Normal with no signs of trauma. EYES: PERRL, extraocular movements intact, sclera anicteric, conjunctiva clear. No ptosis. ENT: Ears normal, nares patent, oropharynx clear without exudates, dry mucous membranes. NECK: Trachea midline, supple. LUNGS: diminished at the bases HEART: Regular rate and rhythm, S1, S2 without murmur, rub or gallop. ABDOMEN: Soft, (+) tenderness to palpation, Hypoactive BS, no rebound, (+) intact JUNE drain EXTREMITIES: 2+ pulses, warm, well-perfused, no edema. NEUROLOGICAL: non-focal PSYCH: Normal mood, normal affect. Laboratory Results - last 24 hr 02/12/18 02/12/18 02/12/18 12:20 12:20 19:50 WBC RBC Hgb Hct MCV MCH MCHC RDW Plt Count MPV Absolute Neuts (auto) Neutrophils % Lymphocytes % Monocytes % Eosinophils % Basophils % Nucleated RBC % PT with INR 16.40 H INR 1.45 H Sodium 132 L Potassium 4.2 Chloride 96 L Carbon Dioxide 26 Anion Gap 10 BUN 9 Creatinine 0.7 Creat Clearance w eGFR > 60 Random Glucose 108 H Lactic Acid Calcium 9.1 Phosphorus Magnesium Total Bilirubin 0.6 AST 48 H D ALT 34 D Alkaline Phosphatase 238 H Total Protein 9.1 H Albumin 2.5 L Blood Type O POSITIVE Antibody Screen Negative 02/13/18 02/13/18 02/13/18 05:30 05:30 05:30 WBC 11.4 H RBC 2.96 L Hgb 9.3 L Hct 28.5 L MCV 96.2 H MCH 31.3 MCHC 32.6 RDW 17.2 H Plt Count 429 MPV 6.7 L Absolute Neuts (auto) 10.0 H Neutrophils % 87.6 H Lymphocytes % 7.1 L D Monocytes % 5.1 Eosinophils % 0.0 D Basophils % 0.2 Nucleated RBC % 0 PT with INR INR Sodium 133 L Potassium 4.3 Chloride 100 Carbon Dioxide 23 Anion Gap 10 BUN 9 Creatinine 0.6 L Creat Clearance w eGFR > 60 Random Glucose 198 H D Lactic Acid 1.6 Calcium 8.1 L Phosphorus 2.7 Magnesium 1.8 Total Bilirubin 0.5 AST 32 ALT 45 Alkaline Phosphatase 192 H D Total Protein 7.2 Albumin 1.8 L Blood Type Antibody Screen ASSESSMENT/PLAN: POD # 1: Ex. Lap. 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
--- NOTE | 2018-02-13 15:40 | EKG ---
Test Reason : Blood Pressure : / mmHG Vent. Rate : 108 BPM Atrial Rate : 108 BPM P-R Int : 174 ms QRS Dur : 132 ms QT Int : 362 ms P-R-T Axes : 064 -60 049 degrees QTc Int : 485 ms SINUS TACHYCARDIA WITH OCCASIONAL PREMATURE VENTRICULAR COMPLEXES RIGHT BUNDLE BRANCH BLOCK LEFT ANTERIOR FASCICULAR BLOCK BIFASCICULAR BLOCK ABNORMAL ECG WHEN COMPARED WITH ECG OF 16-JUL-2014 17:48, PREMATURE VENTRICULAR COMPLEXES ARE NOW PRESENT VENT. RATE HAS INCREASED BY 46 BPM RIGHT BUNDLE BRANCH BLOCK IS NOW PRESENT Confirmed by VENITA DOMINGO MD ([id number]) on 02/13/2018 3:40:05 PM Referred By: Confirmed By:VENITA DOMINGO MD
[2018-02-13] MEDS ORDERED: PIPERACILLIN/TAZOBACTAM 4.5 GM VIAL IVPB ONE (17:24)
[2018-02-13] MEDS ORDERED: DEXTROSE 5%-WATER 100 ML IVPB ONE (17:24)
[2018-02-13] MEDS: PIPERACILLIN/TAZOB 4.5 GM 4.5 GM in DEXTROSE 5%-WATER 100 ML IVPB SCH (17:32)
--- NOTE | 2018-02-13 20:18 | PN ---
Progress Note (short form) - Note Progress Note: surgery pt seen and examined. feels well. resting in bed. oob some earlier afebrile abd-soft, mild tenderness, dressing c/d/i, linda sero-sanguinous Laboratory Tests 02/13/18 02/13/18 05:30 05:30 WBC 11.4 H Hgb 9.3 L Plt Count 429 Albumin 1.8 L A/p 1) Pod#1- cont npo, ivf, linda. martinez per icu 2) pain- morphine, lortab 3) prophylaxis- lovenox, protonix. oob 4) perforated colon- suspect cancer. follow path. 5) lung lesion, bone lesion- unlikely related to colon neoplasm. per medical team.
--- NOTE | 2018-02-13 20:41 | CON.GI ---
Consult Consult Specialty:: Gastroenterology Referred by:: Dr Sanchez Reason for Consultation:: Perforated colon - History of Present Illness Chief Complaint: Abdominal pain History of Present Illness: I became aware of this consult upon entering the hospital tonight to do rounds. He has already undergone surgery. [facility] 77[facility] with RLQ pain. He denies recent constipation or rectal bleeding. He has noted recent weight loss. He has never had a colonoscopy and denies a FH of colon cancer. He was found to have a perforated tumor of the cecum with local wall invasion by Dr. Altamirano who performed a R hemicolectomy today. 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), Seizure, Other (occipital meningioma resected with residual meningioma, essential tremor) Cardio/Vascular: Yes: HTN Gastrointestinal: Yes: Cancer (cecal cancer just discovered), Diverticulosis, Other Renal/: Yes: BPH Psych: Yes: Depression Additional Medical History: Glaucoma - Past Surgical History Past Surgical History: Yes: Cataract Removal, Craniotomy (for ocipital meningioma), Joint Replacement (L THR) - Alcohol/Substance Use Hx Alcohol Use: Yes (2 glasses wine nightly) - Smoking History Smoking history: Former smoker Have you smoked in the past 12 months: No If you are a former smoker, when did you quit?: 6 years ago - Social History Usual Living Arrangement: Assisted Living ([facility]) ADL: Support Services Place of : [facility] Home Medications - Allergies Allergies/Adverse Reactions: Allergies Allergy/AdvReac Type Severity Reaction Status Date / Time No Known Allergies Allergy Verified 02/12/18 11:12 - Home Medications Home Medications: Ambulatory Orders Cholecalciferol (Vitamin D3) [Vitamin D3] 1,000 unit PO DAILY #0 07/22/14 Finasteride 5 mg PO DAILY #0 07/22/14 Latanoprost 0.005% Eye Drops [Xalatan 0.005% Eye Drops -] 1 drop OU HS #0 Lisinopril [Prinivil] 20 mg PO DAILY #0 07/22/14 Primidone 100 mg PO HS #0 07/22/14 Tamsulosin HCl [Flomax -] 0.4 mg PO HS #0 07/22/14 Timolol 0.5% [Timoptic 0.5%] 1 drop OU BID #0 07/22/14 levETIRAcetam [Keppra -] 750 mg PO HS #0 07/22/14 Amlodipine Besylate [Norvasc -] 7.5 mg PO DAILY 02/12/18 Aspirin [Ecotrin] 81 mg PO DAILY 02/12/18 Mag Hydrox/Al Hydrox/Simeth [Mylanta Oral Suspension -] 30 ml PO PRN PRN Magnesium Hydrox 2400MG/30Ml [Milk of Magnesia -] 30 ml PO PRN PRN 02/12/18 Mirtazapine [Remeron -] 15 mg PO DAILY 02/12/18 Sertraline HCl [Zoloft] 25 mg PO DAILY 02/12/18 Family Disease History - Family Disease History Family Disease History: Diabetes: Mother ( after leg amputations), CA: Father ( lung cancer) Other Family History: Grandfather had unknown cancer Review of Systems - Review of Systems Constitutional: reports: Unintentional Wgt. Loss Eyes: reports: No Symptoms HENT: reports: No Symptoms Neck: reports: No Symptoms Cardiovascular: reports: No Symptoms Respiratory: reports: No Symptoms Gastrointestinal: reports: No Symptoms Musculoskeletal: reports: Joint Pain Physical Exam-GI Vital Signs: Vital Signs Temperature 98.0 F 02/13/18 18:00 Pulse Rate 85 02/13/18 18:00 Respiratory Rate 15 02/13/18 18:00 Blood Pressure 122/99 02/13/18 18:00 O2 Sat by Pulse Oximetry (%) 98 02/13/18 08:00 CBC,CMP WBC 11.4 K/mm3 (4.0-10.0) H 02/13/18 05:30 RBC 2.96 M/mm3 (4.00-5.60) L 02/13/18 05:30 Hgb 9.3 GM/dL (11.7-16.9) L 02/13/18 05:30 Hct 28.5 % (35.4-49) L 02/13/18 05:30 MCV 96.2 fl (80-96) H 02/13/18 05:30 MCH 31.3 pg (25.7-33.7) 02/13/18 05:30 MCHC 32.6 g/dl (32.0-35.9) 02/13/18 05:30 RDW 17.2 % (11.9-15.9) H 02/13/18 05:30 Plt Count 429 K/MM3 (134-434) 02/13/18 05:30 MPV 6.7 fl (7.5-11.1) L 02/13/18 05:30 Absolute Neuts (auto) 10.0 K/mm3 (1.5-8.0) H 02/13/18 05:30 Neutrophils % 87.6 % (42.8-82.8) H 02/13/18 05:30 Lymphocytes % 7.1 % (8-40) L D 02/13/18 05:30 Monocytes % 5.1 % (3.8-10.2) 02/13/18 05:30 Eosinophils % 0.0 % (0-4.5) D 02/13/18 05:30 Basophils % 0.2 % (0-2.0) 02/13/18 05:30 Nucleated RBC % 0 % (0-0) 02/13/18 05:30 Sodium 133 mmol/L (136-145) L 02/13/18 05:30 Potassium 4.3 mmol/L (3.5-5.1) 02/13/18 05:30 Chloride 100 mmol/L (98-107) 02/13/18 05:30 Carbon Dioxide 23 mmol/L (21-32) 02/13/18 05:30 Anion Gap 10 MMOL/L (8-16) 02/13/18 05:30 BUN 9 mg/dL (7-18) 02/13/18 05:30 Creatinine 0.6 mg/dL (0.7-1.3) L 02/13/18 05:30 Creat Clearance w eGFR > 60 (>60) 02/13/18 05:30 Random Glucose 198 mg/dL (74-106) H D 02/13/18 05:30 Lactic Acid 1.6 mmol/L (0.0-2.0) 02/13/18 05:30 Calcium 8.1 mg/dL (8.5-10.1) L 02/13/18 05:30 Phosphorus 2.7 mg/dL (2.5-4.9) 02/13/18 05:30 Magnesium 1.8 mg/dL (1.8-2.4) 02/13/18 05:30 Total Bilirubin 0.5 mg/dL (0.2-1.0) 02/13/18 05:30 AST 32 U/L (15-37) 02/13/18 05:30 ALT 45 U/L (13-61) 02/13/18 05:30 Alkaline Phosphatase 192 U/L (45-117) H D 02/13/18 05:30 Total Protein 7.2 g/dl (6.4-8.2) 02/13/18 05:30 Albumin 1.8 g/dl (3.4-5.0) L 02/13/18 05:30 Current Medications Generic Name Dose Route Start Last Admin Trade Name Freq PRN Reason Stop Dose Admin Chlorhexidine Gluconate 1 applic 02/13/18 22:00 Hibiclens For Decolonization - TP HS BRIAN Enoxaparin Sodium 40 mg 02/13/18 10:00 02/13/18 12:36 Lovenox - SQ 40 mg DAILY BRIAN Administration Dextrose/Sodium Chloride 1,000 mls @ 100 mls/hr 02/12/18 22:11 02/13/18 10:30 D5-1/2ns - IV 100 mls/hr ASDIR BRIAN Administration Piperacillin Sod/Tazobactam 100 mls @ 200 mls/hr 02/13/18 18:00 02/13/18 17: 32 Sod 4.5 gm/ Dextrose IVPB 200 mls/hr Q8H-IV BRIAN Administration Protocol Morphine Sulfate 4 mg 02/12/18 22:04 02/13/18 13:04 Morphine Sulfate IVPB 4 mg Q3H PRN Administration PAIN LEVEL 7 - 10 Mupirocin 1 applic 02/13/18 10:00 02/13/18 10:24 Bactroban Ointment (For Decolonization) - NS 02/18/18 09:59 1 applic BID BRIAN Administration Ondansetron HCl 4 mg 02/12/18 22:04 Zofran Injection IVPUSH Q6H PRN NAUSEA Oxycodone HCl 7.5 mg 02/12/18 22:04 Roxicodone - PO Q4H PRN PAIN LEVEL 4 - 6 Pantoprazole Sodium 40 mg 02/13/18 10:00 02/13/18 10:23 Protonix Iv IVPUSH 40 mg DAILY BRIAN Administration Constitutional: Yes: Calm Eyes: Yes: Conjunctiva Clear HENT: Yes: Atraumatic Neck: Yes: Supple Cardiovascular: Yes: Regular Rate and Rhythm Respiratory: Yes: CTA Bilaterally Gastrointestinal Inspection: Yes: Other (bandaged incisions not removed, JUNE drain in place) ...Auscultate: Yes: No Bowel Sounds ...Palpate: Yes: Tenderness (at incisions) ...Rectal Exam: Yes: Deferred Labs: CBC, BMP 02/13/18 05:30 02/13/18 05:30 INR, PTT INR 1.45 (0.83-1.09) H 02/12/18 12:20 Imaging - Results Cat Scan: Image Reviewed (Natalya Albaradoesteban Name: [facility]PARTMENT OF RADIOLOG[facility] Phys: Edwar Sanchez MD : 1940 Age: 77 Sex: M [facility] Acct: [id number] Loc: [address] Exam Date: 02/12/18 Status: [place] [address] Unit Number: [id number] EXAM#: TYPE/EXAM: RESULT: [id number] CT/ABDOMEN PELVIS CT W/O CONTR Abdomen and pelvis CT (without contrast) CLINICAL INFORMATION: right lower quadrant pain Multiplanar imaging was performed. As requested intravenous contrast was not administered. Oral contrast was administered. No prior imaging studies are available at this facility for direct comparison. An expansile osteolytic lesion is seen involving the right fifth rib laterally with an associated extraosseous subpleural soft tissue component. There is a possible 1 cm nonexpansile osteolytic lesion within the ventral superior aspect of the L3 vertebral body. The remaining visualized osseous structures demonstrate diffusely a diffuse low -attenuation appearance which may be on the basis of osteoporosis and/or diffuse neoplastic infiltration. An approximate 8.7 x 5.4 cm oval-shaped soft tissue lesion is seen replacing the cecum suggestive of neoplastic disease and less likely representing an inflammatory lesion. Associated pericolonic soft tissue stranding is seen at that level as well several mildly enlarged adjacent mesenteric lymph nodes. There is associated mild concentric wall thickening involving the terminal ileum. There is a probable trace amount of extraluminal air along the lateral aspect of this lesion. The appendix cannot be definitely visualized. No evidence of abscess, ascites or bowel obstruction. Sigmoid diverticulosis is noted without evidence of acute diverticulitis The liver, spleen, pancreas, gallbladder, adrenal glands and kidneys demonstrate no obvious noncontrast pathology. Left renal cortical cyst. There is no aortic aneurysm. Moderate to marked prostate enlargement. Left hip prosthesis. IMPRESSION: An expansile osteolytic lesion is seen involving the right fifth rib laterally with associated extraosseous soft tissue component suggestive of neoplastic disease. There is a possible additional 1 cm L3 vertebral body osteolytic lesion. There is replacement of the cecum with an approximately 8.7 x 5.4 cm soft tissue lesion suggestive of neoplastic disease. There appears to be a trace amount of localized pneumoperitoneum along the lateral aspect of the lesion which may be due to focal perforation. Pericolonic soft tissue stranding is noted adjacent to the replaced cecum. Note is also made of mild concentric wall thickening involving the terminal ileum. There is also mild right lower quadrant mesenteric lymphadenopathy. 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 The patient is now postop. Will leave postop management to the surgical team. Will order CEA. The lumbar spine and ribs mets are not likely related to the cecal tumor and prostate cancer is suspected. Will order PSA. 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
[2018-02-13] MEDS ORDERED: PT OWN MED DRAWER 7, Y5N ONE (21:59)
[2018-02-13] MEDS ORDERED: CHLORHEXIDINE GLUCONATE 4% CLEANSER FOR DECOLONIZATION TP SCH (22:00)
[2018-02-14] MEDS ORDERED: ACETAMINOPHEN 1000 MG/100 ML VIAL (NON FORMULARY) IVPB ONE (02:20)
[2018-02-14] MEDS ORDERED: DEXTROSE 5%-WATER 100 ML IVPB ONE ×3 (02:33→16:47)
[2018-02-14] MEDS ORDERED: PIPERACILLIN/TAZOBACTAM 4.5 GM VIAL IVPB ONE ×3 (02:33→16:46)
[2018-02-14] MEDS: PIPERACILLIN/TAZOB 4.5 GM 4.5 GM in DEXTROSE 5%-WATER 100 ML IVPB SCH ×3 (02:36→18:07)
[2018-02-14 06:15] LABS: ANION GAP 8 MMOL/L (8-16); BLOOD UREA NITROGEN 14 mg/dL (7-18); CALCIUM 8.1 mg/dL (8.5-10.1); CHLORIDE 97 mmol/L (98-107); CO2 28 mmol/L (21-32); CREATININE 0.8 mg/dL (0.55-1.3); GLUCOSE,RANDOM 114 mg/dL (74-106); HEMATOCRIT 22.2 % (35.4-49); HEMOGLOBIN 7.3 GM/dL (11.7-16.9); MCH 31.2 pg (25.7-33.7); MCHC 32.8 g/dl (32.0-35.9); MEAN CELL VOLUME 95.1 fl (80-96); MEAN PLT VOLUME 6.6 fl (7.5-11.1); PLATELET COUNT 392 K/MM3 (134-434); POTASSIUM 4.1 mmol/L (3.5-5.1); RBC 2.34 M/mm3 (4.00-5.60); RDW 17.2 % (11.9-15.9); SODIUM 133 mmol/L (136-145); WHITE BLOOD COUNT 12.5 K/mm3 (4.0-10.0)
[2018-02-14] MEDS ORDERED: ACETAMINOPHEN 1000 MG/100 ML VIAL (NON FORMULARY) IVPB PRN ×3 (07:28→20:52)
[2018-02-14] MEDS: ACETAMINOPHEN 1000 MG/100 ML VIAL (NON FORMULARY) IVPB PRN ×2 (07:50→14:05)
[2018-02-14] MEDS: PANTOPRAZOLE SODIUM 40 MG VIAL IVPUSH SCH ×3 (08:52→23:15)
--- NOTE | 2018-02-14 09:01 | PN ---
Progress Note (short form) - Note Progress Note: 77 y/o male found lying comfortably in bed using urinal. Approx 80 cc clear, yellow urine noted. No BM yet but nurse reports some burping. no gas. Pt denies pain at present. Pain controllled with IV Tylenol. HGb/Hct low. Vital Signs Period Temp Pulse Resp BP Sys/Olivo Pulse Ox Last 24 Hr 97.6 F-98.8 F 71-93 12-18 122-169/58-99 96-98 CBC, BMP 02/14/18 05:30 02/14/18 05:30 HEENT- Normocephalic. Neck- Supple Lungs- CTAB Heart- S1/S2 Abd- soft, tender to palpation, JUNE drain in place Gu- Urine yellow and clear Ext- No LE edema Active Medications Acetaminophen (Ofirmev Injection -) 1,000 mg IVPB Q6H PRN PRN Reason: PAIN LEVEL 4 - 6 Last Admin: 02/14/18 07:50 Dose: 1,000 mg Chlorhexidine Gluconate (Hibiclens For Decolonization -) 1 applic TP HS BRIAN Last Admin: 02/13/18 21:47 Dose: 1 applic Enoxaparin Sodium (Lovenox -) 40 mg SQ DAILY BRIAN Dextrose/Sodium Chloride (D5-1/2ns -) 1,000 mls @ 100 mls/hr IV ASDIR BRIAN Last Admin: 02/13/18 22:30 Dose: 100 mls/hr Piperacillin Sod/Tazobactam (Sod 4.5 gm/ Dextrose) 100 mls @ 200 mls/hr IVPB Q8H-IV BRIAN; Protocol Last Admin: 02/14/18 02:36 Dose: 200 mls/hr Morphine Sulfate (Morphine Sulfate) 4 mg IVPB Q3H PRN PRN Reason: PAIN LEVEL 7 - 10 Last Admin: 02/13/18 21:25 Dose: 4 mg Mupirocin (Bactroban Ointment (For Decolonization) -) 1 applic NS BID BRIAN Stop: 02/18/18 09:59 Last Admin: 02/13/18 21:46 Dose: 1 applic Ondansetron HCl (Zofran Injection) 4 mg IVPUSH Q6H PRN PRN Reason: NAUSEA Oxycodone HCl (Roxicodone -) 7.5 mg PO Q4H PRN PRN Reason: PAIN LEVEL 4 - 6 Last Admin: 02/13/18 23:49 Dose: 7.5 mg Pantoprazole Sodium (Protonix Iv) 40 mg IVPUSH BID BRIAN Last Admin: 02/14/18 08:52 Dose: 40 mg # Anemia secondary to surgical blood loss 1 unit RBC to be transfused # Ca with mets Appreciate GI consult Lumbar and rib involvement with possible prostate involvement PSA/ CEA to be evaluated # Abd WD Continue local Wd care with Hibiclens/ Bactroban Continue IV antibiotics #Pain- Controlled at present IV Tylenol effective with pain relief
[2018-02-14] MEDS: MUPIROCIN 2% TOPICAL OINTMENT FOR DECOLONIZATION NS SCH (09:07)
[2018-02-14] MEDS: DEXTROSE 5%-0.45% SALINE 1,000 ML IV SCH (09:08)
[2018-02-14] MEDS ORDERED: ENOXAPARIN NA (PORCINE) 40 MG/0.4 ML DISP.SYRIN SQ SCH (10:00)
--- NOTE | 2018-02-14 10:08 | CONSULT ---
Consultation: REQUESTING PROVIDER: CONSULT REQUEST: We have been asked to medically evaluate this patient for ( cecal tumor). HISTORY OF PRESENT ILLNESS: Patient is an 77 year old male was brought in to the ED via 911 with the chief complaint of severe abdominal pain x 1 day. As per the patient, he was apparently well until 3 days ago, then he started developing severe abdominal pain, 10/10 in intensity, non radiating, aggravated on movement. He was then brought to the ED for further evaluation. Was found to have perforated viscus and underwent ex lap with right colectomy, drainage of abscess (02/12) Prior to admission, denies chest pain, sob, cough, palpitation, nausea or vomiting. Last bowel movement was a day prior to admission. Bladder habit normal, sleep/Appetite normal prior to illness. Has lost about 30 lbs in few months, has normal appetite. Also has lower back pain. Patient seen and examined in the ICU today. Feels well. Complaining of mild abdominal pain at the surgical site. Receiving first unit of PRBC. PAST MEDICAL HISTORY: CVA, 03/2014 (left occipital en plaque meningioma (removed ) and smaller sub centimeter meningioma arising from floor of the anterior crainial fossa. 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 Walks with a cane. 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 REVIEW OF SYSTEMS: CONSTITUTIONAL: Absent: fever, chills, diaphoresis, generalized weakness, malaise, loss of appetite, weight change HEENT: Absent: rhinorrhea, nasal congestion, throat pain, throat swelling, difficulty swallowing, mouth swelling, ear pain, eye pain, visual changes CARDIOVASCULAR: Absent: chest pain, syncope, palpitations, irregular heart rate, lightheadedness , peripheral edema RESPIRATORY: Absent: cough, shortness of breath, dyspnea with exertion, orthopnea, wheezing, stridor, hemoptysis GASTROINTESTINAL: Present: abdominal pain, Absent: abdominal distension, nausea, vomiting, diarrhea, constipation, melena, hematochezia GENITOURINARY: Absent: dysuria, frequency, urgency, hesitancy, hematuria, flank pain, genital pain MUSCULOSKELETAL: Absent: myalgia, arthralgia, joint swelling, back pain, neck pain SKIN: Absent: rash, itching, pallor HEMATOLOGIC/IMMUNOLOGIC: Absent: easy bleeding, easy bruising, lymphadenopathy, frequent infections ENDOCRINE: Absent: unexplained weight gain, unexplained weight loss, heat intolerance, cold intolerance NEUROLOGIC: Absent: headache, focal weakness or paresthesias, dizziness, unsteady gait, seizure, mental status changes, bladder or bowel incontinence PSYCHIATRIC: Absent: anxiety, depression, suicidal or homicidal ideation, hallucinations. PHYSICAL EXAMINATION Vital Signs - 24 hr 02/13/18 02/13/18 02/13/18 12:00 14:00 16:00 Temperature 97.8 F 98.0 F 98.1 F Pulse Rate 83 86 87 Respiratory 18 18 15 Rate Blood Pressure 149/76 132/59 162/68 O2 Sat by Pulse Oximetry (%) 02/13/18 02/13/18 02/13/18 18:00 20:00 22:00 Temperature 98.0 F 98 F 98.7 F Pulse Rate 85 81 88 Respiratory 15 17 16 Rate Blood Pressure 122/99 152/69 156/64 O2 Sat by Pulse 98 Oximetry (%) 02/13/18 02/14/18 02/14/18 22:17 00:00 02:00 Temperature 98.5 F Pulse Rate 91 H 93 H Respiratory 14 18 12 Rate Blood Pressure 164/70 169/71 O2 Sat by Pulse 98 Oximetry (%) 02/14/18 02/14/18 02/14/18 04:00 06:00 08:00 Temperature 98.2 F 98.8 F Pulse Rate 80 81 86 Respiratory 12 12 14 Rate Blood Pressure 157/58 147/69 166/81 O2 Sat by Pulse 96 Oximetry (%) GENERAL: Elderly male, lying in bed, Awake, alert, and fully oriented, in no acute distress. HEAD: Normal with no signs of trauma. EYES: EOM intact, pallor +, no icterus. Right visual field loss-chronic. EARS, NOSE, THROAT: Ears normal. Moist mucous membranes. NECK: Supple. LUNGS: B/L Breath sounds equal. No wheezes, and no crackles. No accessory muscle use. HEART: Regular rate and rhythm, normal S1 and S2 without murmur. INGUINAL LYMPH NODES not palpable SCROTUM/TESTICLES-normal. ABDOMEN: JUNE drain in place, dressing soaked over the surgical scar todd, Soft, tender to palpation. MUSCULOSKELETAL: Normal range of motion at all joints. No bony deformities or tenderness. No CVA tenderness. UPPER EXTREMITIES: 2+ pulses, warm, well-perfused. No cyanosis. No clubbing. Cap refill <2 seconds. No peripheral edema. LOWER EXTREMITIES: 2+ pulses, warm, well-perfused. No calf tenderness. No peripheral edema. NEUROLOGICAL: No facial droop. Normal speech. Gait not observed. PSYCHIATRIC: Cooperative. Good eye contact. Appropriate mood and affect. SKIN: Warm, dry, normal turgor, no rashes or lesions noted. Laboratory Results - last 24 hr 02/12/18 02/14/18 02/14/18 19:50 05:30 05:30 WBC 12.5 H RBC 2.34 L Hgb 7.3 L Hct 22.2 L D MCV 95.1 MCH 31.2 MCHC 32.8 RDW 17.2 H Plt Count 392 MPV 6.6 L Sodium 133 L Potassium 4.1 Chloride 97 L Carbon Dioxide 28 Anion Gap 8 BUN 14 Creatinine 0.8 Creat Clearance w eGFR > 60 Random Glucose 114 H Calcium 8.1 L Phosphorus 3.0 Magnesium 2.0 C-Reactive Protein Blood Type O POSITIVE Antibody Screen Negative Crossmatch See Detail 02/14/18 05:30 WBC RBC Hgb Hct MCV MCH MCHC RDW Plt Count MPV Sodium Potassium Chloride Carbon Dioxide Anion Gap BUN Creatinine Creat Clearance w eGFR Random Glucose Calcium Phosphorus Magnesium C-Reactive Protein 31.0 H Blood Type Antibody Screen Crossmatch Active Medications Generic Name Dose Route Start Last Admin Trade Name Freq PRN Reason Stop Dose Admin Acetaminophen 1,000 mg 02/14/18 07:33 02/14/18 07:50 Ofirmev Injection - IVPB 1,000 mg Q6H PRN Administration PAIN LEVEL 4 - 6 Chlorhexidine Gluconate 1 applic 02/13/18 22:00 02/13/18 21:47 Hibiclens For Decolonization - TP 1 applic HS BRIAN Administration Enoxaparin Sodium 40 mg 02/14/18 10:00 02/14/18 09:06 Lovenox - SQ 40 mg DAILY BRIAN Administration Dextrose/Sodium Chloride 1,000 mls @ 100 mls/hr 02/12/18 22:11 02/14/18 09:08 D5-1/2ns - IV 100 mls/hr ASDIR BRIAN Administration Piperacillin Sod/Tazobactam 100 mls @ 200 mls/hr 02/13/18 18:00 02/14/18 09: 06 Sod 4.5 gm/ Dextrose IVPB 200 mls/hr Q8H-IV BRIAN Administration Protocol Morphine Sulfate 4 mg 02/12/18 22:04 02/13/18 21:25 Morphine Sulfate IVPB 4 mg Q3H PRN Administration PAIN LEVEL 7 - 10 Mupirocin 1 applic 02/13/18 10:00 02/14/18 09:07 Bactroban Ointment (For Decolonization) - NS 02/18/18 09:59 1 applic BID BRIAN Administration Ondansetron HCl 4 mg 02/12/18 22:04 Zofran Injection IVPUSH Q6H PRN NAUSEA Oxycodone HCl 7.5 mg 02/12/18 22:04 02/13/18 23:49 Roxicodone - PO 7.5 mg Q4H PRN Administration PAIN LEVEL 4 - 6 Pantoprazole Sodium 40 mg 02/14/18 08:15 02/14/18 08:52 Protonix Iv IVPUSH 40 mg BID BRIAN Administration Patient is an 87 year old male was brought in to the ED via 911 with the chief complaint of severe abdominal pain x 1 day was found to have perforated viscus and underwent ex lap with right colectomy, drainage of abscess (02/12) ASSESSMENT Perforated viscus and underwent ex lap with right colectomy, drainage of abscess (02/12) Newly diagnosed Cecal mass Osteolytic lesion right 5th rib/1 cm L3 vertebral body Acute blood loss anemia Hyponatremia 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 Meningioma removed 03/2014 Right homonymous hemianopsia 04/16 post-op diabetes HTN Glaucoma Arthritis Depression Right hand tremor (dx in 2003) PLAN Newly diagnosed Presumptive diagnosis Colon Stage IV with lytic lesion Found in CT abdomen/Pelvis: 8.7 x 5.4 cm oval shaped soft tissue lesion is seen replacing cecum suggestive of neoplastic disease. Enlarged mesenteric lymph nodes. Osteolytic lesion Would recommend CT Chest CEA, PSA pending Acute blood loss anemia Could be secondary to surgery. EBL 100ml H/H 9.3/28.5 (02/13)---> 7.3/22.2 (today) got 2 Units of PRBC, repeat CBC pending Transfuse if Hct is < 25 Monitor active bleeding and repeat CBC in AM Osteolytic lesion- marked reverse A/G ratio with elevation of Total protein R/O Multiple myeloma Will send SPEP, UPEP, IPEP, Quantitative Immunoglobulins, Immunofixation Plan of care explained to the patient. He verbalized understanding. Case discussed with Dr. Funes. Dispo: We will continue to follow the patient. Thank you for this consultative opportunity. Visit type - Emergency Visit Emergency Visit: Yes ED Registration Date: 02/12/18 Care time: The patient presented to the Emergency Department on the above date and was hospitalized for further evaluation of their emergent condition. - New Patient This patient is new to me today: Yes Date on this admission: 02/14/18 - Critical Care Critical Care patient: Yes Total Critical Care Time (in minutes): 35 Critical Care Statement: The care of this patient involved high complexity decision making to prevent further life threatening deterioration of the patient 's condition and/or to evaluate & treat vital organ system(s) failure or risk of failure.
--- NOTE | 2018-02-14 11:38 | PN ---
Teaching Attending Note Name of Resident: Hima Lama ATTENDING PHYSICIAN STATEMENT I saw and evaluated the patient. I reviewed the resident's note and discussed the case with the resident. I agree with the resident's findings and plan as documented. SUBJECTIVE: Patient seen and examined in the ICU. Awake and alert. Still with abdominal pain, especially when moving and being examined. Seems better with IV Tylenol. Noted drop in H & H, but no occult bleeding. No CP or SOB. No flatus or BM. JUNE drains intact and draining dark blood. CXR: No gross change OBJECTIVE: Intake & Output 02/11/18 02/12/18 02/13/18 02/14/18 23:59 23:59 23:59 23:59 Intake Total 2500 2650 1350 Output Total 700 825 525 Balance 1800 1825 825 Weight 176 lb 11.2 oz 176 lb 9.6 oz 177 lb 4.8 oz Last Vital Signs Temp Pulse Resp BP Pulse Ox 98.9 F 86 15 166/77 96 02/14/18 10:00 02/14/18 10:00 02/14/18 10:00 02/14/18 10:00 02/14/18 08:00 Active Medications Acetaminophen (Ofirmev Injection -) 1,000 mg IVPB Q6H PRN PRN Reason: PAIN LEVEL 4 - 6 Last Admin: 02/14/18 07:50 Dose: 1,000 mg Chlorhexidine Gluconate (Hibiclens For Decolonization -) 1 applic TP HS [facility] Last Admin: 02/13/18 21:47 Dose: 1 applic Enoxaparin Sodium (Lovenox -) 40 mg SQ DAILY [facility] Last Admin: 02/14/18 09:06 Dose: 40 mg Dextrose/Sodium Chloride (D5-1/2ns -) 1,000 mls @ 100 mls/hr IV ASDIR BRIAN Last Admin: 02/14/18 09:08 Dose: 100 mls/hr Piperacillin Sod/Tazobactam (Sod 4.5 gm/ Dextrose) 100 mls @ 200 mls/hr IVPB Q8H-IV BRIAN; Protocol Last Admin: 02/14/18 09:06 Dose: 200 mls/hr Morphine Sulfate (Morphine Sulfate) 4 mg IVPB Q3H PRN PRN Reason: PAIN LEVEL 7 - 10 Last Admin: 02/13/18 21:25 Dose: 4 mg Mupirocin (Bactroban Ointment (For Decolonization) -) 1 applic NS BID [facility] Stop: 02/18/18 09:59 Last Admin: 02/14/18 09:07 Dose: 1 applic Ondansetron HCl (Zofran Injection) 4 mg IVPUSH Q6H PRN PRN Reason: NAUSEA Oxycodone HCl (Roxicodone -) 7.5 mg PO Q4H PRN PRN Reason: PAIN LEVEL 4 - 6 Last Admin: 02/13/18 23:49 Dose: 7.5 mg Pantoprazole Sodium (Protonix Iv) 40 mg IVPUSH BID [facility] Last Admin: 02/14/18 08:52 Dose: 40 mg GENERAL: awake, alert, and oriented, Mildly uncomfortable due to pain HEAD: Normal with no signs of trauma. EYES: PERRL, extraocular movements intact, sclera anicteric, conjunctiva clear. No ptosis. ENT: Ears normal, nares patent, oropharynx clear without exudates, dry mucous membranes. NECK: Trachea midline, supple. LUNGS: diminished at the bases HEART: Regular rate and rhythm, S1, S2 without murmur, rub or gallop. ABDOMEN: Soft, (+) tenderness to palpation, Hypoactive BS, no rebound, (+) intact JUNE drain EXTREMITIES: 2+ pulses, warm, well-perfused, no edema. NEUROLOGICAL: non-focal PSYCH: Normal mood, normal affect. Laboratory Results - last 24 hr 02/12/18 02/14/18 02/14/18 19:50 05:30 05:30 WBC 12.5 H RBC 2.34 L Hgb 7.3 L Hct 22.2 L D MCV 95.1 MCH 31.2 MCHC 32.8 RDW 17.2 H Plt Count 392 MPV 6.6 L Sodium 133 L Potassium 4.1 Chloride 97 L Carbon Dioxide 28 Anion Gap 8 BUN 14 Creatinine 0.8 Creat Clearance w eGFR > 60 Random Glucose 114 H Calcium 8.1 L Phosphorus 3.0 Magnesium 2.0 C-Reactive Protein Stool Occult Blood Blood Type O POSITIVE Antibody Screen Negative Crossmatch See Detail 02/14/18 02/14/18 05:30 07:24 WBC RBC Hgb Hct MCV MCH MCHC RDW Plt Count MPV Sodium Potassium Chloride Carbon Dioxide Anion Gap BUN Creatinine Creat Clearance w eGFR Random Glucose Calcium Phosphorus Magnesium C-Reactive Protein 31.0 H Stool Occult Blood Negative Blood Type Antibody Screen Crossmatch ASSESSMENT/PLAN: POD # 2: Ex. Lap. 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
[2018-02-14] MEDS ORDERED: DEXTROSE 5%-LACTATED RINGERS 1,000 ML IV SCH ×2 (11:45→18:41)
--- NOTE | 2018-02-14 13:02 | PN ---
Physical Exam: SUBJECTIVE: Patient seen and examined. Pt. endorses feeling better than yesterday. Pt received blood transfusion today. OBJECTIVE: Vital Signs Period Temp Pulse Resp BP Sys/Olivo Pulse Ox Last 24 Hr 98 F-98.9 F 80-93 12-18 122-169/58-99 96-98 GENERAL: The patient is awake, alert, and fully oriented, lying in bed in no acute distress. EYES: PERRL, extraocular movements intact, sclera anicteric, conjunctiva clear. No ptosis. ENT: Ears normal, nares patent dry mucous membranes. NECK: Trachea midline, full range of motion, supple. LUNGS: Breath sounds equal, clear to auscultation bilaterally, no wheezes, no crackles, no accessory muscle use. HEART: Regular rate and rhythm, S1, S2 without murmur, rub or gallop. ABDOMEN: Soft, nondistended, normoactive bowel sounds, no guarding, mild rebound tenderness, tender to palpation in RUQ and at incision site. Drummond was in place draining clear yellow urine. JUNE drain in place draining serosanguinous fluid. EXTREMITIES: 2+ dorsal pedal pulses, warm, well-perfused, no edema, no calf tenderness. NEUROLOGICAL: Normal speech, gait not observed. PSYCH: Normal mood, normal affect. SKIN: Warm, dry, normal turgor, small 1 cm scattered hemangiomas were visible on the patient's abdomen. Laboratory Results - last 24 hr 02/12/18 02/14/18 02/14/18 19:50 05:30 05:30 WBC 12.5 H RBC 2.34 L Hgb 7.3 L Hct 22.2 L D MCV 95.1 MCH 31.2 MCHC 32.8 RDW 17.2 H Plt Count 392 MPV 6.6 L Sodium 133 L Potassium 4.1 Chloride 97 L Carbon Dioxide 28 Anion Gap 8 BUN 14 Creatinine 0.8 Creat Clearance w eGFR > 60 Random Glucose 114 H Calcium 8.1 L Phosphorus 3.0 Magnesium 2.0 C-Reactive Protein Stool Occult Blood Blood Type O POSITIVE Antibody Screen Negative Crossmatch See Detail 02/14/18 02/14/18 05:30 07:24 WBC RBC Hgb Hct MCV MCH MCHC RDW Plt Count MPV Sodium Potassium Chloride Carbon Dioxide Anion Gap BUN Creatinine Creat Clearance w eGFR Random Glucose Calcium Phosphorus Magnesium C-Reactive Protein 31.0 H Stool Occult Blood Negative Blood Type Antibody Screen Crossmatch Active Medications Current Medications Acetaminophen (Ofirmev Injection -) 1,000 mg IVPB Q6H PRN PRN Reason: PAIN LEVEL 4 - 6 Last Admin: 02/14/18 07:50 Dose: 1,000 mg Chlorhexidine Gluconate (Hibiclens For Decolonization -) 1 applic TP HS [facility] Last Admin: 02/13/18 21:47 Dose: 1 applic Enoxaparin Sodium (Lovenox -) 40 mg SQ DAILY [facility] Last Admin: 02/14/18 09:06 Dose: 40 mg Piperacillin Sod/Tazobactam (Sod 4.5 gm/ Dextrose) 100 mls @ 200 mls/hr IVPB Q8H-IV BRIAN; Protocol Last Admin: 02/14/18 09:06 Dose: 200 mls/hr Dextrose/Lactated Ringer's (D5-Lr -) 1,000 mls @ 75 mls/hr IV ASDIR [facility] Morphine Sulfate (Morphine Sulfate) 4 mg IVPB Q3H PRN PRN Reason: PAIN LEVEL 7 - 10 Last Admin: 02/13/18 21:25 Dose: 4 mg Mupirocin (Bactroban Ointment (For Decolonization) -) 1 applic NS BID [facility] Stop: 02/18/18 09:59 Last Admin: 02/14/18 09:07 Dose: 1 applic Ondansetron HCl (Zofran Injection) 4 mg IVPUSH Q6H PRN PRN Reason: NAUSEA Oxycodone HCl (Roxicodone -) 7.5 mg PO Q4H PRN PRN Reason: PAIN LEVEL 4 - 6 Last Admin: 02/13/18 23:49 Dose: 7.5 mg Pantoprazole Sodium (Protonix Iv) 40 mg IVPUSH BID [facility] Last Admin: 02/14/18 08:52 Dose: 40 mg ASSESSMENT/PLAN: A 77 y.o. M w/ PMHx. of meningioma (removed 03/2014), right homonymous hemianopsia 04/16 post-op, CVA- left cerebral thrombosis (07/16/14), HTN, glaucoma, arthritis, depression, right hand tremor (dx in 2003) present to the ED with abdominal pain for [address] Scan showed a mass in the cecum, air that is contained in the nini-cecal fat and osteolytic lesions in the right 5th rib and L3 vertebral body. #Gastroenterology -Abdominal pain 2/[address] Scan appreciated Surgical consult appreciated, Pt. completed Ex. Lap. w/ right shmuel-colectomy Monitor drain output Last colonoscopy was in 2007 with lesion removal. F/u with PCP -Sepsis 2/2 cecal perforation C/w Zosyn TID per ID ID consult( Dr. Ferraro) appreciated #F/E/N -c/w D5-1/2NS -D/C-ed Drummond -NPO - advance diet as tolerated. -replete electrolytes as necessary #DVT Ppx. -SCDs Dispo: We will continue to follow the patient. Thank you for this consultative opportunity. Visit type - Emergency Visit Emergency Visit: Yes ED Registration Date: 02/12/18 Care time: The patient presented to the Emergency Department on the above date and was hospitalized for further evaluation of their emergent condition. - New Patient This patient is new to me today: No - Critical Care Critical Care patient: Yes Total Critical Care Time (in minutes): 42 Critical Care Statement: The care of this patient involved high complexity decision making to prevent further life threatening deterioration of the patient 's condition and/or to evaluate & treat vital organ system(s) failure or risk of failure.
[2018-02-14] MEDS ORDERED: hydrALAZINE HCL 20 MG/ML VIAL IVPUSH PRN ×3 (13:04→13:28)
[2018-02-14] MEDS ORDERED: hydrALAZINE HCL 20 MG/ML VIAL IVPUSH SCH (14:45)
[2018-02-14 14:59] LABS: HEMATOCRIT 27.6 % (35.4-49); HEMOGLOBIN 9.1 GM/dL (11.7-16.9); MCH 31.3 pg (25.7-33.7); MCHC 32.9 g/dl (32.0-35.9); MEAN CELL VOLUME 95.1 fl (80-96); MEAN PLT VOLUME 6.6 fl (7.5-11.1); PLATELET COUNT 401 K/MM3 (134-434); WHITE BLOOD COUNT 14.6 K/mm3 (4.0-10.0)
[2018-02-14 15:17] VITALS: BMI 25.4
--- NOTE | 2018-02-14 15:44 | PN ---
Progress Note (short form) - Note Progress Note: surgery pt seen and examined. feels well. resting in bed. had blood transfusion today afebrile abd-soft, mild tenderness more on right, dressing c/d/i, linda sero-sanguinous Laboratory Tests 02/14/18 05:30 WBC 12.5 H Hgb 7.3 L A/p 1) Pod#2- cont npo, ivf, linda. 2) pain- morphine, lortab 3) prophylaxis- lovenox, protonix. oob 4) perforated colon- suspect cancer. follow path. 5) lung lesion, bone lesion- unlikely related to colon neoplasm. per medical team. 6) anemia- acute from surgery on chronic
--- NOTE | 2018-02-14 16:15 | PN ---
GI Progress Note Subjective: GI NOte: Got up and walked today. Pain is under control. JUNE drain reveal source of anemia with bleeding from the surgical site - Objective Vital Signs: Vital Signs Temperature 98.6 F 02/14/18 14:00 Pulse Rate 105 H 02/14/18 14:00 Respiratory Rate 16 02/14/18 14:00 Blood Pressure 185/80 02/14/18 14:00 O2 Sat by Pulse Oximetry (%) 96 02/14/18 08:00 Laboratory Tests 02/12/18 02/14/18 02/14/18 12:20 05:30 14:50 Hgb 10.2 L 7.3 L 9.1 L Laboratory Tests 02/14/18 05:30 Carcinoembryonic Ag Pending Prostate Specific Ag Pending Constitutional: Calm ...Auscultate: Yes: No Bowel Sounds Labs: CBC, BMP 02/14/18 14:50 02/14/18 05:30 INR, PTT INR 1.45 (0.83-1.09) H 02/12/18 12:20 Problem List - Problems (1) Perforated intestine Assessment/Plan: Day 1 postop with ileus. Will leave postop management to the surgical team. Await CEA and PSA . Dr Swanson rosi be covering this weekend. 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
--- NOTE | 2018-02-14 16:29 | PN ---
Progress Note, Physician History of Present Illness: Awake, responsive Mildly confused Reports less abdominal pain Temps down Cultures pending - Current Medication List Current Medications: Active Medications Acetaminophen (Ofirmev Injection -) 1,000 mg IVPB Q6H PRN PRN Reason: PAIN LEVEL 4 - 6 Last Admin: 02/14/18 14:05 Dose: 1,000 mg Chlorhexidine Gluconate (Hibiclens For Decolonization -) 1 applic TP HS [facility] Last Admin: 02/13/18 21:47 Dose: 1 applic Enoxaparin Sodium (Lovenox -) 40 mg SQ DAILY [facility] Last Admin: 02/14/18 09:06 Dose: 40 mg Hydralazine HCl (Apresoline Injection -) 10 mg IVPUSH Q6H [facility] Last Admin: 02/14/18 14:45 Dose: Not Given Piperacillin Sod/Tazobactam (Sod 4.5 gm/ Dextrose) 100 mls @ 200 mls/hr IVPB Q8H-IV BRIAN; Protocol Last Admin: 02/14/18 09:06 Dose: 200 mls/hr Dextrose/Lactated Ringer's (D5-Lr -) 1,000 mls @ 75 mls/hr IV ASDIR [facility] Last Admin: 02/14/18 11:45 Dose: 75 mls/hr Morphine Sulfate (Morphine Sulfate) 4 mg IVPB Q3H PRN PRN Reason: PAIN LEVEL 7 - 10 Last Admin: 02/13/18 21:25 Dose: 4 mg Mupirocin (Bactroban Ointment (For Decolonization) -) 1 applic NS BID [facility] Stop: 02/18/18 09:59 Last Admin: 02/14/18 09:07 Dose: 1 applic Ondansetron HCl (Zofran Injection) 4 mg IVPUSH Q6H PRN PRN Reason: NAUSEA Oxycodone HCl (Roxicodone -) 7.5 mg PO Q4H PRN PRN Reason: PAIN LEVEL 4 - 6 Last Admin: 02/13/18 23:49 Dose: 7.5 mg Pantoprazole Sodium (Protonix Iv) 40 mg IVPUSH BID [facility] Last Admin: 02/14/18 10:00 Dose: Not Given - Objective Vital Signs: Vital Signs Temperature 98.7 F 02/14/18 16:00 Pulse Rate 90 02/14/18 16:00 Respiratory Rate 17 02/14/18 16:00 Blood Pressure 154/63 02/14/18 16:00 O2 Sat by Pulse Oximetry (%) 96 02/14/18 08:00 Constitutional: Yes: No Distress Cardiovascular: Yes: Regular Rate and Rhythm, S1, S2 Respiratory: Yes: Diminished Gastrointestinal: Yes: Normal Bowel Sounds, Soft, Other (JUNE drain in place + serosanguinous fluid) Edema: No Labs: CBC, BMP 02/14/18 14:50 02/14/18 05:30 INR, PTT INR 1.45 (0.83-1.09) H 02/12/18 12:20 Assessment/Plan POD #2 exploratory laparotomy, excision of colonic mass, drainage of abscess Fever/ leukocytosis- improved await c/s Continue empiric zosyn
--- NOTE | 2018-02-14 18:09 | PN ---
Teaching Attending Note Name of Resident: Caitie Rod ATTENDING PHYSICIAN STATEMENT I saw and evaluated the patient. I reviewed the resident's note and discussed the case with the resident. I agree with the resident's findings and plan as documented. SUBJECTIVE: Patient seen and examined Presented with perforated cecal mass. Localized perforation. Loocalized extension of tumor into abdominal wall Lytic disease L1 and right ribs. Last Vital Signs Temp Pulse Resp BP Pulse Ox 98.7 F 90 17 154/63 96 02/14/18 16:00 02/14/18 16:00 02/14/18 16:00 02/14/18 16:00 02/14/18 08:00 HEENT: MARIE, EOM Intact Oropharynx: No thrush, No mucositis Neck: Supple Nodes: Without adenopathy Cor: RSR, No murmurs, No gallops Lungs: diminished breath sounds Abd: mild tenderness, surgical dressing, J-P catheter Ext:No significant edema,SCD Skin: No rashes, Integument intact CBC, BMP 02/14/18 14:50 02/14/18 05:30 Current Medications Generic Name Dose Route Start Last Admin Trade Name Freq PRN Reason Stop Dose Admin Acetaminophen 1,000 mg 02/14/18 07:33 02/14/18 14:05 Ofirmev Injection - IVPB 1,000 mg Q6H PRN Administration PAIN LEVEL 4 - 6 Chlorhexidine Gluconate 1 applic 02/13/18 22:00 02/13/18 21:47 Hibiclens For Decolonization - TP 1 applic HS [facility]RIAN Administration Enoxaparin Sodium 40 mg 02/14/18 10:00 02/14/18 09:06 Lovenox - SQ 40 mg DAILY [facility] Administration Hydralazine HCl 10 mg 02/14/18 14:45 02/14/18 14:45 Apresoline Injection - IVPUSH Not Given Q6H BRIAN Piperacillin Sod/Tazobactam 100 mls @ 200 mls/hr 02/13/18 18:00 02/14/18 09: 06 Sod 4.5 gm/ Dextrose IVPB 200 mls/hr Q8H-IV BRIAN Administration Protocol Dextrose/Lactated Ringer's 1,000 mls @ 75 mls/hr 02/14/18 11:45 02/14/18 11: 45 D5-Lr - IV 75 mls/hr ASDIR [facility]RIAN Administration Morphine Sulfate 4 mg 02/12/18 22:04 02/13/18 21:25 Morphine Sulfate IVPB 4 mg Q3H PRN Administration PAIN LEVEL 7 - 10 Mupirocin 1 applic 02/13/18 10:00 02/14/18 09:07 Bactroban Ointment (For Decolonization) - NS 02/18/18 09:59 1 applic BID [facility]RIAN Administration Ondansetron HCl 4 mg 02/12/18 22:04 Zofran Injection IVPUSH Q6H PRN NAUSEA Oxycodone HCl 7.5 mg 02/12/18 22:04 02/13/18 23:49 Roxicodone - PO 7.5 mg Q4H PRN Administration PAIN LEVEL 4 - 6 Pantoprazole Sodium 40 mg 02/14/18 08:15 02/14/18 10:00 Protonix Iv IVPUSH Not Given BID [facility] OBJECTIVE:Impression: Cecal mass, localized perforation - await path- will need systemic chemotherapy Lytic disease- elevated protein and reverse a/g ratio - to r/o dysproteinemia ASSESSMENT AND PLAN:
[2018-02-14] MEDS ORDERED: morphine SULFATE 4 MG/ML VIAL IVPB PRN (18:41)
[2018-02-14] MEDS ORDERED: ONDANSETRON 4 MG/2 ML VIAL IVPUSH PRN ×2 (18:41→20:52)
[2018-02-14] MEDS ORDERED: oxyCODONE HCL 5 MG TABLET PO PRN ×2 (18:41→20:52)
[2018-02-14] MEDS ORDERED: PANTOPRAZOLE SODIUM 40 MG VIAL IVPUSH SCH (22:00)
[2018-02-14] MEDS ORDERED: MUPIROCIN 2% TOPICAL OINTMENT FOR DECOLONIZATION NS SCH (22:00)
[2018-02-14] MEDS ORDERED: CHLORHEXIDINE GLUCONATE 4% CLEANSER FOR DECOLONIZATION TP SCH (22:00)
[2018-02-14] MEDS: CHLORHEXIDINE GLUCONATE 4% CLEANSER FOR DECOLONIZATION TP SCH (23:15)
[2018-02-14] MEDS: DEXTROSE 5%-LACTATED RINGERS 1,000 ML IV SCH (23:17)
[2018-02-15] MEDS ORDERED: DEXTROSE 5%-WATER 100 ML IVPB ONE ×3 (00:40→17:02)
[2018-02-15] MEDS ORDERED: PIPERACILLIN/TAZOBACTAM 4.5 GM VIAL IVPB ONE ×3 (00:40→17:02)
[2018-02-15] MEDS: MUPIROCIN 2% TOPICAL OINTMENT FOR DECOLONIZATION NS SCH ×2 (01:46→08:59)
[2018-02-15] MEDS: PIPERACILLIN/TAZOB 4.5 GM 4.5 GM in DEXTROSE 5%-WATER 100 ML IVPB SCH ×3 (01:47→17:18)
[2018-02-15] MEDS ORDERED: PIPERACILLIN/TAZOB 4.5 GM 4.5 GM in DEXTROSE 5%-WATER 100 ML IVPB SCH (02:00)
[2018-02-15] MEDS: hydrALAZINE HCL 20 MG/ML VIAL IVPUSH SCH ×4 (02:03→22:02)
[2018-02-15 07:20] LABS: HEMATOCRIT 25.3 % (35.4-49); HEMOGLOBIN 8.4 GM/dL (11.7-16.9); MCHC 33.1 g/dl (32.0-35.9); MEAN CELL VOLUME 93.9 fl (80-96); MEAN PLT VOLUME 6.4 fl (7.5-11.1); PLATELET COUNT 407 K/MM3 (134-434); RBC 2.69 M/mm3 (4.00-5.60); RDW 17.3 % (11.9-15.9); WHITE BLOOD COUNT 14.2 K/mm3 (4.0-10.0)
[2018-02-15] MEDS: PANTOPRAZOLE SODIUM 40 MG VIAL IVPUSH SCH ×2 (09:00→21:59)
[2018-02-15] MEDS: ENOXAPARIN NA (PORCINE) 40 MG/0.4 ML DISP.SYRIN SQ SCH (09:00)
[2018-02-15] MEDS ORDERED: ACETAMINOPHEN 325 MG TABLET (FP) ONE (09:43)
[2018-02-15] MEDS: ACETAMINOPHEN 325 MG TABLET (FP) PO PRN ×3 (09:48→21:58)
[2018-02-15] MEDS ORDERED: ENOXAPARIN NA (PORCINE) 40 MG/0.4 ML DISP.SYRIN SQ SCH (10:00)
--- NOTE | 2018-02-15 12:40 | PN ---
Progress Note (short form) - Note Progress Note: surgery pt seen and examined. feels well. resting in bed. no bm. afebrile abd-soft, minimal tenderness on right, incision clean, linda dark serous with old blood Laboratory Tests 02/15/ 06:00 WBC 14.2 H Hgb 8.4 L A/p 1) Pod#3- cont npo, ivf, linda. 2) pain- morphine, lortab 3) prophylaxis- lovenox, protonix. oob 4) perforated colon- suspect cancer. follow path. abd cultures sensitive to abx. 5) lung lesion, bone lesion- unlikely related to colon neoplasm. per medical team. 6) anemia- acute from surgery on chronic. no active bleeding
--- NOTE | 2018-02-15 12:47 | PN ---
Progress Note (short form) - Note Progress Note: Resting in bed. Feels overall better. No CP or SOB. No BM. Intake & Output 02/12/18 02/13/18 02/14/18 02/15/18 23:59 23:59 23:59 23:59 Intake Total 2500 2650 2625 710 Output Total 839 631 0240 450 Balance 1800 1825 1520 260 Weight 176 lb 11.2 oz 176 lb 9.6 oz 177 lb Last Vital Signs Temp Pulse Resp BP Pulse Ox 98.2 F 89 18 160/96 97 02/15/18 08:00 02/15/18 08:00 02/15/18 08:00 02/15/18 08:00 02/15/18 10:00 Active Medications Acetaminophen (Tylenol -) 650 mg PO Q4H PRN PRN Reason: PAIN Last Admin: 02/15/18 09:48 Dose: 650 mg Chlorhexidine Gluconate (Hibiclens For Decolonization -) 1 applic TP HS [facility] Last Admin: 02/14/18 23:15 Dose: 1 applic Enoxaparin Sodium (Lovenox -) 40 mg SQ DAILY [facility] Last Admin: 02/15/18 09:00 Dose: 40 mg Hydralazine HCl (Apresoline Injection -) 10 mg IVPUSH Q6H [facility] Last Admin: 02/15/18 08:18 Dose: 10 mg Dextrose/Lactated Ringer's (D5-Lr -) 1,000 mls @ 75 mls/hr IV ASDIR [facility] Last Admin: 02/14/18 23:17 Dose: 75 mls/hr Piperacillin Sod/Tazobactam (Sod 4.5 gm/ Dextrose) 100 mls @ 200 mls/hr IVPB Q8H-IV BRIAN; Protocol Last Admin: 02/15/18 09:00 Dose: 200 mls/hr Morphine Sulfate (Morphine Sulfate) 4 mg IVPB Q3H PRN PRN Reason: PAIN LEVEL 7 - 10 Mupirocin (Bactroban Ointment (For Decolonization) -) 1 applic NS BID [facility] Stop: 02/18/18 09:59 Last Admin: 02/15/18 08:59 Dose: Not Given Ondansetron HCl (Zofran Injection) 4 mg IVPUSH Q6H PRN PRN Reason: NAUSEA Oxycodone HCl (Roxicodone -) 7.5 mg PO Q4H PRN PRN Reason: PAIN LEVEL 4 - 6 Pantoprazole Sodium (Protonix Iv) 40 mg IVPUSH BID [facility] Last Admin: 02/15/18 09:00 Dose: 40 mg GENERAL: awake, alert, and oriented, NAD HEAD: Normal with no signs of trauma. EYES: PERRL, extraocular movements intact, sclera anicteric, conjunctiva clear. No ptosis. ENT: Ears normal, nares patent, oropharynx clear without exudates, dry mucous membranes. NECK: Trachea midline, supple. LUNGS: diminished at the bases HEART: Regular rate and rhythm, S1, S2 without murmur, rub or gallop. ABDOMEN: Soft, (+) tenderness to palpation, Hypoactive BS, no rebound, (+) intact JUNE drain EXTREMITIES: 2+ pulses, warm, well-perfused, no edema. NEUROLOGICAL: non-focal PSYCH: Normal mood, normal affect. Laboratory Results - last 24 hr 02/14/18 02/15/18 14:50 06:00 WBC 14.6 H 14.2 H RBC 2.90 L 2.69 L Hgb 9.1 L 8.4 L Hct 27.6 L D 25.3 L MCV 95.1 93.9 MCH 31.3 31.0 MCHC 32.9 33.1 RDW 17.0 H 17.3 H Plt Count 401 407 MPV 6.6 L 6.4 L ASSESSMENT/PLAN: POD # 3: Ex. Lap. 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
--- NOTE | 2018-02-15 14:58 | PN ---
Progress Note, Physician History of Present Illness: Awake, responsive Reports less abdominal pain Temps remain down Cultures mixed judith - Current Medication List Current Medications: Active Medications Acetaminophen (Tylenol -) 650 mg PO Q4H PRN PRN Reason: PAIN Last Admin: 02/15/18 09:48 Dose: 650 mg Chlorhexidine Gluconate (Hibiclens For Decolonization -) 1 applic TP HS [facility] Last Admin: 02/14/18 23:15 Dose: 1 applic Enoxaparin Sodium (Lovenox -) 40 mg SQ DAILY [facility] Last Admin: 02/15/18 09:00 Dose: 40 mg Hydralazine HCl (Apresoline Injection -) 10 mg IVPUSH Q6H [facility] Last Admin: 02/15/18 14:32 Dose: Not Given Dextrose/Lactated Ringer's (D5-Lr -) 1,000 mls @ 75 mls/hr IV ASDIR [facility] Last Admin: 02/14/18 23:17 Dose: 75 mls/hr Piperacillin Sod/Tazobactam (Sod 4.5 gm/ Dextrose) 100 mls @ 200 mls/hr IVPB Q8H-IV [facility]; Protocol Last Admin: 02/15/18 09:00 Dose: 200 mls/hr Morphine Sulfate (Morphine Sulfate) 4 mg IVPB Q3H PRN PRN Reason: PAIN LEVEL 7 - 10 Mupirocin (Bactroban Ointment (For Decolonization) -) 1 applic NS BID [facility] Stop: 02/18/18 09:59 Last Admin: 02/15/18 08:59 Dose: Not Given Ondansetron HCl (Zofran Injection) 4 mg IVPUSH Q6H PRN PRN Reason: NAUSEA Oxycodone HCl (Roxicodone -) 7.5 mg PO Q4H PRN PRN Reason: PAIN LEVEL 4 - 6 Pantoprazole Sodium (Protonix Iv) 40 mg IVPUSH BID [facility] Last Admin: 02/15/18 09:00 Dose: 40 mg - Objective Vital Signs: Vital Signs Temperature 97.8 F 02/15/18 14:00 Pulse Rate 89 02/15/18 14:00 Respiratory Rate 18 02/15/18 14:00 Blood Pressure 152/78 02/15/18 14:00 O2 Sat by Pulse Oximetry (%) 97 02/15/18 10:00 Constitutional: Yes: No Distress Cardiovascular: Yes: Regular Rate and Rhythm, S1, S2 Respiratory: Yes: CTA Bilaterally Gastrointestinal: Yes: Normal Bowel Sounds, Soft, Tenderness, Other (surgical wound no erythema/ drainage + JUNE with serosanguinous fluid) Edema: No Labs: CBC, BMP 02/15/18 06:00 02/14/18 05:30 INR, PTT INR 1.45 (0.83-1.09) H 02/12/18 12:20 Assessment/Plan POD #3 exploratory laparotomy, excision of colonic mass, drainage of abscess Fever/ leukocytosis- improved Continue zosyn Discussed with family at bedside
[2018-02-15] MEDS: DEXTROSE 5%-LACTATED RINGERS 1,000 ML IV SCH ×2 (18:58→22:04)
[2018-02-16] MEDS ORDERED: PIPERACILLIN/TAZOBACTAM 4.5 GM VIAL IVPB ONE ×2 (01:19→09:02)
[2018-02-16] MEDS ORDERED: DEXTROSE 5%-WATER 100 ML IVPB ONE ×2 (01:19→09:02)
[2018-02-16] MEDS: PIPERACILLIN/TAZOB 4.5 GM 4.5 GM in DEXTROSE 5%-WATER 100 ML IVPB SCH ×2 (01:38→09:27)
[2018-02-16] MEDS: hydrALAZINE HCL 20 MG/ML VIAL IVPUSH SCH ×4 (02:50→21:09)
[2018-02-16] MEDS: CHLORHEXIDINE GLUCONATE 4% CLEANSER FOR DECOLONIZATION TP SCH ×2 (06:17→21:10)
[2018-02-16] MEDS: MUPIROCIN 2% TOPICAL OINTMENT FOR DECOLONIZATION NS SCH ×3 (06:18→21:10)
[2018-02-16] MEDS: ACETAMINOPHEN 325 MG TABLET (FP) PO PRN (06:18)
[2018-02-16 06:39] LABS: CARCINOEMBRYONIC ANTIGEN 1.6 ng/mL (0.0-4.7)
[2018-02-16 07:05] LABS: BASO % 0.2 % (0-2.0); EOS % 0.4 % (0-4.5); HEMATOCRIT 26.1 % (35.4-49); HEMOGLOBIN 8.5 GM/dL (11.7-16.9); LYMPH % 13.5 % (8-40); MCHC 32.6 g/dl (32.0-35.9); MEAN PLT VOLUME 6.5 fl (7.5-11.1); MONO % 7.7 % (3.8-10.2); NEUT % 78.2 % (42.8-82.8); PLATELET COUNT 424 K/MM3 (134-434); RBC 2.75 M/mm3 (4.00-5.60); WHITE BLOOD COUNT 13.1 K/mm3 (4.0-10.0)
[2018-02-16 07:44] LABS: ALBUMIN 1.6 g/dl (3.4-5.0); ANION GAP 13 MMOL/L (8-16); BILIRUBIN,TOTAL 0.4 mg/dL (0.2-1.0); BLOOD UREA NITROGEN 11 mg/dL (7-18); CALCIUM 8.4 mg/dL (8.5-10.1); CHLORIDE 103 mmol/L (98-107); CO2 25 mmol/L (21-32); CREATININE 0.5 mg/dL (0.55-1.3); GLUCOSE,RANDOM 99 mg/dL (74-106); POTASSIUM 3.7 mmol/L (3.5-5.1); SGOT/AST 22 U/L (15-37); SGPT/ALT 22 U/L (13-61); SODIUM 141 mmol/L (136-145); TOT PROT 6.9 g/dl (6.4-8.2)
[2018-02-16 07:45] LABS: ALK PHOS 179 U/L (45-117)
[2018-02-16 08:09] LABS: IGA IMMUNOGLOBULIN 2983 mg/dL (61-437); IGM IMMUNOGLOBULIN 12 mg/dL (15-143)
[2018-02-16] MEDS ORDERED: PT OWN MED DRAWER 7, Y5N ONE ×2 (09:01→16:41)
[2018-02-16] MEDS: PANTOPRAZOLE SODIUM 40 MG VIAL IVPUSH SCH ×2 (09:27→21:11)
[2018-02-16] MEDS: ENOXAPARIN NA (PORCINE) 40 MG/0.4 ML DISP.SYRIN SQ SCH (09:29)
--- NOTE | 2018-02-16 12:38 | PN ---
Progress Note (short form) - Note Progress Note: Resting in bed. Feels OK today. No CP or SOB. No BM. Intake & Output 02/13/18 02/14/18 02/15/18 02/16/18 23:59 23:59 23:59 23:59 Intake Total 2650 2625 2014 710 Output Total 825 1105 600 112 Balance 1825 1520 1415 598 Weight 176 lb 9.6 oz 177 lb Last Vital Signs Temp Pulse Resp BP Pulse Ox 98.6 F 96 H 19 151/82 97 02/16/18 02:00 02/16/18 10:00 02/16/18 10:00 02/16/18 10:00 02/16/18 10:00 Active Medications Acetaminophen (Tylenol -) 650 mg PO Q4H PRN PRN Reason: PAIN Last Admin: 02/16/18 06:18 Dose: 650 mg Chlorhexidine Gluconate (Hibiclens For Decolonization -) 1 applic TP HS [facility] Last Admin: 02/16/18 06:17 Dose: Not Given Enoxaparin Sodium (Lovenox -) 40 mg SQ DAILY [facility] Last Admin: 02/16/18 09:29 Dose: 40 mg Hydralazine HCl (Apresoline Injection -) 10 mg IVPUSH Q6H [facility] Last Admin: 02/16/18 09:27 Dose: 10 mg Dextrose/Lactated Ringer's (D5-Lr -) 1,000 mls @ 75 mls/hr IV ASDIR [facility] Last Admin: 02/15/18 22:04 Dose: 75 mls/hr Piperacillin Sod/Tazobactam (Sod 4.5 gm/ Dextrose) 100 mls @ 200 mls/hr IVPB Q8H-IV [facility]; Protocol Last Admin: 02/16/18 09:27 Dose: 200 mls/hr Morphine Sulfate (Morphine Sulfate) 4 mg IVPB Q3H PRN PRN Reason: PAIN LEVEL 7 - 10 Mupirocin (Bactroban Ointment (For Decolonization) -) 1 applic NS BID [facility] Stop: 02/18/18 09:59 Last Admin: 02/16/18 09:28 Dose: Not Given Ondansetron HCl (Zofran Injection) 4 mg IVPUSH Q6H PRN PRN Reason: NAUSEA Oxycodone HCl (Roxicodone -) 7.5 mg PO Q4H PRN PRN Reason: PAIN LEVEL 4 - 6 Pantoprazole Sodium (Protonix Iv) 40 mg IVPUSH BID [facility] Last Admin: 02/16/18 09:27 Dose: 40 mg GENERAL: awake, alert, and oriented, NAD HEAD: Normal with no signs of trauma. EYES: PERRL, extraocular movements intact, sclera anicteric, conjunctiva clear. No ptosis. ENT: Ears normal, nares patent, oropharynx clear without exudates, dry mucous membranes. NECK: Trachea midline, supple. LUNGS: diminished at the bases HEART: Regular rate and rhythm, S1, S2 without murmur, rub or gallop. ABDOMEN: Soft, (+) tenderness to palpation, Hypoactive BS, no rebound, (+) intact JUNE drain EXTREMITIES: 2+ pulses, warm, well-perfused, no edema. NEUROLOGICAL: non-focal PSYCH: Normal mood, normal affect. Laboratory Results - last 24 hr 02/14/18 02/15/18 02/15/18 05:30 06:00 06:00 WBC RBC Hgb Hct MCV MCH MCHC RDW Plt Count MPV Absolute Neuts (auto) Neutrophils % Lymphocytes % Monocytes % Eosinophils % Basophils % Nucleated RBC % Sodium Potassium Chloride Carbon Dioxide Anion Gap BUN Creatinine Creat Clearance w eGFR Random Glucose Calcium Total Bilirubin AST ALT Alkaline Phosphatase Total Protein Albumin Carcinoembryonic Ag 1.6 IgG 169 L 169 L IgA 2983 H IgM 12 L 02/16/18 02/16/18 06:23 06:23 WBC 13.1 H RBC 2.75 L Hgb 8.5 L Hct 26.1 L MCV 95.0 MCH 31.0 MCHC 32.6 RDW 17.0 H Plt Count 424 MPV 6.5 L Absolute Neuts (auto) 10.2 H Neutrophils % 78.2 Lymphocytes % 13.5 D Monocytes % 7.7 Eosinophils % 0.4 D Basophils % 0.2 Nucleated RBC % 0 Sodium 141 Potassium 3.7 Chloride 103 Carbon Dioxide 25 Anion Gap 13 BUN 11 Creatinine 0.5 L Creat Clearance w eGFR > 60 Random Glucose 99 Calcium 8.4 L Total Bilirubin 0.4 AST 22 ALT 22 Alkaline Phosphatase 179 H Total Protein 6.9 Albumin 1.6 L Carcinoembryonic Ag IgG IgA IgM ASSESSMENT/PLAN: POD # 3: Ex. Lap. 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
--- NOTE | 2018-02-16 14:41 | PN ---
Progress Note, Physician History of Present Illness: Awake, alert Supine in bed No complaints of abdominal pain at rest Temps remain down WBC remains slightly elevated Operative c/s mixed judith - Current Medication List Current Medications: Active Medications Acetaminophen (Tylenol -) 650 mg PO Q4H PRN PRN Reason: PAIN Last Admin: 02/16/18 06:18 Dose: 650 mg Chlorhexidine Gluconate (Hibiclens For Decolonization -) 1 applic TP HS [facility] Last Admin: 02/16/18 06:17 Dose: Not Given Enoxaparin Sodium (Lovenox -) 40 mg SQ DAILY [facility] Last Admin: 02/16/18 09:29 Dose: 40 mg Hydralazine HCl (Apresoline Injection -) 10 mg IVPUSH Q6H [facility] Last Admin: 02/16/18 09:27 Dose: 10 mg Dextrose/Lactated Ringer's (D5-Lr -) 1,000 mls @ 75 mls/hr IV ASDIR [facility] Last Admin: 02/15/18 22:04 Dose: 75 mls/hr Piperacillin Sod/Tazobactam (Sod 4.5 gm/ Dextrose) 100 mls @ 200 mls/hr IVPB Q8H-IV [facility]; Protocol Last Admin: 02/16/18 09:27 Dose: 200 mls/hr Morphine Sulfate (Morphine Sulfate) 4 mg IVPB Q3H PRN PRN Reason: PAIN LEVEL 7 - 10 Mupirocin (Bactroban Ointment (For Decolonization) -) 1 applic NS BID [facility] Stop: 02/18/18 09:59 Last Admin: 02/16/18 09:28 Dose: Not Given Ondansetron HCl (Zofran Injection) 4 mg IVPUSH Q6H PRN PRN Reason: NAUSEA Oxycodone HCl (Roxicodone -) 7.5 mg PO Q4H PRN PRN Reason: PAIN LEVEL 4 - 6 Pantoprazole Sodium (Protonix Iv) 40 mg IVPUSH BID [facility] Last Admin: 02/16/18 09:27 Dose: 40 mg - Objective Vital Signs: Vital Signs Temperature 98.8 F 02/16/18 14:00 Pulse Rate 89 02/16/18 14:00 Respiratory Rate 18 02/16/18 14:00 Blood Pressure 150/75 02/16/18 14:00 O2 Sat by Pulse Oximetry (%) 97 02/16/18 10:00 Constitutional: Yes: No Distress Eyes: Yes: Conjunctiva Clear Cardiovascular: Yes: Regular Rate and Rhythm, S1, S2 Respiratory: Yes: Diminished Gastrointestinal: Yes: Normal Bowel Sounds, Soft, Other (mild diffuse tenderness ) Labs: CBC, BMP 02/16/18 06:23 02/16/18 06:23 INR, PTT INR 1.45 (0.83-1.09) H 02/12/18 12:20 Assessment/Plan POD #4 exploratory laparotomy, excision of colonic mass, drainage of abscess Fever/ leukocytosis- improved Discontinue zosyn Substitute ceftriaxone/ flagyl
--- NOTE | 2018-02-16 15:36 | PN ---
Progress Note (short form) - Note Progress Note: surgery pt seen and examined. feels well. flatus afebrile abd-soft, nt, nd, incision clean, linda serous Laboratory Tests 02/16/18 06:23 WBC 13.1 H Laboratory Tests A/p 1) Pod#4-full liquids, stop ivf, cont linda. 2) pain- morphine, lortab 3) prophylaxis- lovenox, protonix. oob 4) perforated colon- suspect cancer. follow path. abd cultures sensitive to abx. changed per id. wbc down today. if rises again will get ct. 5) lung lesion, bone lesion- unlikely related to colon neoplasm. per medical team. 6) anemia- acute from surgery on chronic. no active bleeding
[2018-02-16] MEDS: CEFTRIAXONE 2 GM-D5W BAG 2 GM/50 ML BAG IVPB SCH (16:48)
--- NOTE | 2018-02-16 20:07 | PN ---
Progress Note (short form) - Note Progress Note: transfer from ICU s/p exploratory lap with right hemicolectomy / to perforation patinet comfortable - still reporting right lower quadrant pain Vital Signs Period Temp Pulse Resp BP Sys/Olivo Pulse Ox Last 24 Hr 98.4 F-98.8 F 88-96 18-19 132-177/72-88 97-97 neck supple heart S1/S2 reg lung clear bilat decreased BS at bases abd diffusely tender / distended / mid line dressing dry and clean/ right LLQ drain ext with DVT boot Active Medications Acetaminophen (Tylenol -) 650 mg PO Q4H PRN PRN Reason: PAIN Last Admin: 02/15/18 09:48 Dose: 650 mg Chlorhexidine Gluconate (Hibiclens For Decolonization -) 1 applic TP HS [facility] Last Admin: 02/14/18 23:15 Dose: 1 applic Enoxaparin Sodium (Lovenox -) 40 mg SQ DAILY [facility] Last Admin: 02/15/18 09:00 Dose: 40 mg Hydralazine HCl (Apresoline Injection -) 10 mg IVPUSH Q6H [facility] Last Admin: 02/15/18 08:18 Dose: 10 mg Dextrose/Lactated Ringer's (D5-Lr -) 1,000 mls @ 75 mls/hr IV ASDIR [facility] Last Admin: 02/14/18 23:17 Dose: 75 mls/hr Piperacillin Sod/Tazobactam (Sod 4.5 gm/ Dextrose) 100 mls @ 200 mls/hr IVPB Q8H-IV [facility]; Protocol Last Admin: 02/15/18 09:00 Dose: 200 mls/hr Morphine Sulfate (Morphine Sulfate) 4 mg IVPB Q3H PRN PRN Reason: PAIN LEVEL 7 - 10 Mupirocin (Bactroban Ointment (For Decolonization) -) 1 applic NS BID [facility] Stop: 02/18/18 09:59 Last Admin: 02/15/18 08:59 Dose: Not Given Ondansetron HCl (Zofran Injection) 4 mg IVPUSH Q6H PRN PRN Reason: NAUSEA Oxycodone HCl (Roxicodone -) 7.5 mg PO Q4H PRN PRN Reason: PAIN LEVEL 4 - 6 Pantoprazole Sodium (Protonix Iv) 40 mg IVPUSH BID [facility] Last Admin: 02/15/18 09:00 Dose: 40 mg #POD # 3: Ex. Lap. w/ right shmuel-colectomy due to perforation, drainage of abscess, lavage due to a large colon tumor invading abdominal wall and retroperitoneum pain management abx jalen ID activity as tolerated oncology follow up # HTN off bp meds trend - will resume whenstable #CVA - left cerebral thrombosis #meningioma resected 2013 # metastasis ?? 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
[2018-02-16] MEDS: DEXTROSE 5%-LACTATED RINGERS 1,000 ML IV SCH ×2 (21:10→23:30)
--- NOTE | 2018-02-16 23:59 | PN ---
Progress Note (short form) - Note Progress Note: feeling better ambulated with PT afebrile Right LLQ pain Vital Signs Period Temp Pulse Resp BP Sys/Olivo Pulse Ox Last 24 Hr 98.4 F-98.8 F 88-96 18-19 132-177/72-88 97-97 neck supple heart S1/S2 reg lung clear bilat decreased BS at bases abd diffusely tender / distended / mid line dressing dry and clean/ right LLQ drain ext with DVT boot CBC, BMP 02/16/18 06:23 02/16/18 06:23 Microbiology 02/12/18 12:20 Blood - Peripheral Venous Blood Culture - Preliminary NO GROWTH OBTAINED AFTER 96 HOURS, INCUBATION TO CONTINUE FOR 1 DAYS. 02/12/18 12:20 Blood - Peripheral Venous Blood Culture - Preliminary NO GROWTH OBTAINED AFTER 96 HOURS, INCUBATION TO CONTINUE FOR 1 DAYS. 02/12/18 11:14 Abdomen Gram Stain - Final 02/12/18 11:14 Abdomen Body Fluid Culture - Final Escherichia Coli Beta Hem Streptococcus Group C 02/12/18 11:14 Abdomen Anaerobic Culture - Final Odoribacter Splanchnicus 02/12/18 12:20 Urine - Urine - Catheterized Urine Culture - Final NO GROWTH OBTAINED Active Medications Acetaminophen (Tylenol -) 650 mg PO Q4H PRN PRN Reason: PAIN Last Admin: 02/16/18 06:18 Dose: 650 mg Chlorhexidine Gluconate (Hibiclens For Decolonization -) 1 applic TP HS [facility] Last Admin: 02/16/18 21:10 Dose: Not Given Enoxaparin Sodium (Lovenox -) 40 mg SQ DAILY [facility] Last Admin: 02/16/18 09:29 Dose: 40 mg Hydralazine HCl (Apresoline Injection -) 10 mg IVPUSH Q6H [facility] Last Admin: 02/16/18 21:09 Dose: Not Given Dextrose/Lactated Ringer's (D5-Lr -) 1,000 mls @ 75 mls/hr IV ASDIR [facility] Last Admin: 02/16/18 21:10 Dose: Not Given Metronidazole (Flagyl 500mg Premixed Ivpb -) 500 mg in 100 mls @ 100 mls/hr IVPB Q8H-IV [facility] Last Admin: 02/16/18 18:31 Dose: 100 mls/hr Ceftriaxone Sodium (Ceftriaxone 2 Gm-D5w Bag) 2 gm in 50 mls @ 100 mls/hr IVPB DAILY [facility]; Protocol Last Admin: 02/16/18 16:48 Dose: 100 mls/hr Morphine Sulfate (Morphine Sulfate) 4 mg IVPB Q3H PRN PRN Reason: PAIN LEVEL 7 - 10 Mupirocin (Bactroban Ointment (For Decolonization) -) 1 applic NS BID [facility] Stop: 02/18/18 09:59 Last Admin: 02/16/18 21:10 Dose: Not Given Ondansetron HCl (Zofran Injection) 4 mg IVPUSH Q6H PRN PRN Reason: NAUSEA Oxycodone HCl (Roxicodone -) 7.5 mg PO Q4H PRN PRN Reason: PAIN LEVEL 4 - 6 Pantoprazole Sodium (Protonix Iv) 40 mg IVPUSH BID [facility] Last Admin: 02/16/18 21:11 Dose: 40 mg #POD # 3: Ex. Lap. w/ right shmuel-colectomy due to perforation, drainage of abscess, lavage due to a large colon tumor invading abdominal wall and retroperitoneum pain management abx jalen ID activity as tolerated oncology follow up # HTN off bp meds trend - will resume whenstable #CVA - left cerebral thrombosis #meningioma resected 2013 # metastasis ?? 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
[2018-02-17] MEDS: hydrALAZINE HCL 20 MG/ML VIAL IVPUSH SCH ×4 (04:30→23:30)
[2018-02-17] MEDS: MUPIROCIN 2% TOPICAL OINTMENT FOR DECOLONIZATION NS SCH (09:04)
[2018-02-17] MEDS: PANTOPRAZOLE SODIUM 40 MG VIAL IVPUSH SCH ×2 (09:05→23:55)
[2018-02-17] MEDS: ENOXAPARIN NA (PORCINE) 40 MG/0.4 ML DISP.SYRIN SQ SCH (09:05)
--- NOTE | 2018-02-17 10:02 | PN ---
Physical Exam: SUBJECTIVE: Patient seen and examined at bed side this morning. Has been having loose bowel movements. Also complaining of pain at the surgical site. Denies chest pain, sob, cough, palpitation. No bone or back pain. Using Incentive Spirometer. As per RN, has passed 6 bowel movements since 7 am this morning. OBJECTIVE: Vital Signs Period Temp Pulse Resp BP Sys/Olivo Pulse Ox Last 24 Hr 98.3 F-99.2 F 82-97 16-18 142-160/75-99 97-97 GENERAL: Elderly male, lying in bed, Awake, alert, and fully oriented, in no acute distress. HEAD: Normal with no signs of trauma. EYES: EOM intact, pallor +, no icterus. Right visual field loss-chronic. EARS, NOSE, THROAT: Ears normal. Moist mucous membranes. NECK: Supple. LUNGS: B/L Breath sounds equal. No wheezes, and no crackles. No accessory muscle use. HEART: Regular rate and rhythm, normal S1 and S2 without murmur. INGUINAL LYMPH NODES not palpable SCROTUM/TESTICLES-normal. ABDOMEN: JUNE drain in place, dressing soaked over the surgical scar todd, Soft, tender to palpation. MUSCULOSKELETAL: Normal range of motion at all joints. No bony deformities or tenderness. No CVA tenderness. UPPER EXTREMITIES: 2+ pulses, warm, well-perfused. No cyanosis. No clubbing. Cap refill <2 seconds. No peripheral edema. LOWER EXTREMITIES: 2+ pulses, warm, well-perfused. No calf tenderness. No peripheral edema. NEUROLOGICAL: No facial droop. Normal speech. Gait not observed. PSYCHIATRIC: Cooperative. Good eye contact. Appropriate mood and affect. SKIN: Warm, dry, normal turgor, no rashes or lesions noted. Laboratory Results - last 24 hr 02/12/18 19:50 Blood Type O POSITIVE Antibody Screen Negative Crossmatch See Detail Active Medications Generic Name Dose Route Start Last Admin Trade Name Freq PRN Reason Stop Dose Admin Acetaminophen 650 mg 02/15/18 09:37 02/16/18 06:18 Tylenol - PO 650 mg Q4H PRN Administration PAIN Chlorhexidine Gluconate 1 applic 02/14/18 22:00 02/16/18 21:10 Hibiclens For Decolonization - TP Not Given HS [facility] Enoxaparin Sodium 40 mg 02/15/18 10:00 02/17/18 09:05 Lovenox - SQ 40 mg DAILY [facility] Administration Hydralazine HCl 10 mg 02/15/18 02:45 02/17/18 09:04 Apresoline Injection - IVPUSH 10 mg Q6H [facility] Administration Dextrose/Lactated Ringer's 1,000 mls @ 75 mls/hr 02/14/18 20:52 02/16/18 23: 30 D5-Lr - IV 75 mls/hr ASDIR [facility] Administration Metronidazole 500 mg in 100 mls @ 100 mls/hr 02/16/18 14:45 02/17/18 09:03 Flagyl 500mg Premixed Ivpb - IVPB 100 mls/hr Q8H-IV [facility] Administration Ceftriaxone Sodium 2 gm in 50 mls @ 100 mls/hr 02/16/18 14:45 02/16/18 16:48 Ceftriaxone 2 Gm-D5w Bag IVPB 100 mls/hr DAILY [facility] Administration Protocol Morphine Sulfate 4 mg 02/14/18 20:52 Morphine Sulfate IVPB Q3H PRN PAIN LEVEL 7 - 10 Mupirocin 1 applic 02/14/18 22:00 02/17/18 09:04 Bactroban Ointment (For Decolonization) - NS 02/18/18 09:59 Not Given BID [facility] Ondansetron HCl 4 mg 02/14/18 20:52 Zofran Injection IVPUSH Q6H PRN NAUSEA Oxycodone HCl 7.5 mg 02/14/18 20:52 Roxicodone - PO Q4H PRN PAIN LEVEL 4 - 6 Pantoprazole Sodium 40 mg 02/14/18 22:00 02/17/18 09:05 Protonix Iv IVPUSH 40 mg BID [facility] Administration Patient is an 87 year old male was brought in to the ED via 911 with the chief complaint of severe abdominal pain x 1 day was found to have perforated viscus and underwent ex lap with right colectomy, drainage of abscess (02/12) ASSESSMENT Perforated viscus and underwent ex lap with right colectomy, drainage of abscess (02/12) Newly diagnosed Cecal mass Osteolytic lesion right 5th rib/1 cm L3 vertebral body Acute blood loss anemia Hyponatremia 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 Meningioma removed 03/2014 Right homonymous hemianopsia 04/16 post-op diabetes HTN Glaucoma Arthritis Depression Right hand tremor (dx in 2003) PLAN Newly diagnosed Presumptive diagnosis Colon Stage IV with lytic lesion - Awaiting biopsy results. Found in CT abdomen/Pelvis: 8.7 x 5.4 cm oval shaped soft tissue lesion is seen replacing cecum suggestive of neoplastic disease. Enlarged mesenteric lymph nodes. Osteolytic lesion. CT Chest showed: CEA-1.6 PSA pending Acute blood loss anemia Could be secondary to surgery. EBL 100ml H/H 9.3/28.5 (02/13)---> 7.3/22.2 (02/14) got 2 Units of PRBC, H/H today 8.5/ 26.1 Transfuse if Hct is < 25 Monitor active bleeding and repeat CBC in AM Osteolytic lesion- marked reverse A/G ratio with elevation of Total protein Although the possibility of mets to the bone is high, he could also have another disease causing lytic lesions of the bone. R/O Multiple myeloma CT chest suggestive of: Bulky right anterolateral fifth rib mass consistent with a metastatic lesion. Bony mets at T2, T7 and T12. Immunoglobulins: IgA high, IgM/IgG low. SPEP, UPEP, IPEP, Immunofixation pending Plan of care explained to the patient. He verbalized understanding. Case discussed with Dr. Varner. Dispo: We will continue to follow the patient. Thank you for this consultative opportunity. Visit type - Emergency Visit Emergency Visit: Yes ED Registration Date: 02/12/18 Care time: The patient presented to the Emergency Department on the above date and was hospitalized for further evaluation of their emergent condition. - New Patient This patient is new to me today: No - Critical Care Critical Care patient: No - Discharge Referral Referred to [facility] Med P.C.: No
[2018-02-17] MEDS: morphine SULFATE 4 MG/ML VIAL IVPB PRN ×3 (12:04→16:16)
[2018-02-17] MEDS: ACETAMINOPHEN 325 MG TABLET (FP) PO PRN (12:09)
[2018-02-17] MEDS ORDERED: CEFTRIAXONE 2 GM in DEXTROSE 5%-WATER 100 ML IVPB SCH (12:20)
--- NOTE | 2018-02-17 12:53 | PN ---
Progress Note (short form) - Note Progress Note: surgery pt seen and examined. has some lower abd pain today. lot of small bowel movements without blood. tolerated liquids. afebrile abd-soft, minimal lower abd tenderness, linda dark serous, incision clean A/p 1) Pod#5-full liquids, cont linda. 2) pain- morphine, lortab 3) prophylaxis- lovenox, protonix. oob 4) perforated colon- suspect cancer. follow path. abd cultures sensitive to abx. changed per id. wbc down today. repeat cbc for tomorrow. 5) lung lesion, bone lesion- unlikely related to colon neoplasm. per medical team. 6) anemia- acute from surgery on chronic. no active bleeding
[2018-02-17] MEDS: CEFTRIAXONE 2 GM-D5W BAG 2 GM/50 ML BAG IVPB SCH (14:33)
--- NOTE | 2018-02-17 15:09 | PN ---
Progress Note, Physician History of Present Illness: Awake, alert Supine in bed c/o lower abdominal pain Having BMs Temps remain down WBC remains slightly elevated - Current Medication List Current Medications: Active Medications Acetaminophen (Tylenol -) 650 mg PO Q4H PRN PRN Reason: PAIN Last Admin: 02/17/18 12:09 Dose: 650 mg Chlorhexidine Gluconate (Hibiclens For Decolonization -) 1 applic TP HS [facility] Last Admin: 02/16/18 21:10 Dose: Not Given Enoxaparin Sodium (Lovenox -) 40 mg SQ DAILY [facility] Last Admin: 02/17/18 09:05 Dose: 40 mg Hydralazine HCl (Apresoline Injection -) 10 mg IVPUSH Q6H [facility] Last Admin: 02/17/18 14:37 Dose: 10 mg Dextrose/Lactated Ringer's (D5-Lr -) 1,000 mls @ 75 mls/hr IV ASDIR [facility] Last Admin: 02/16/18 23:30 Dose: 75 mls/hr Metronidazole (Flagyl 500mg Premixed Ivpb -) 500 mg in 100 mls @ 100 mls/hr IVPB Q8H-IV [facility] Last Admin: 02/17/18 09:03 Dose: 100 mls/hr Ceftriaxone Sodium 2 gm/ (Dextrose) 100 mls @ 100 mls/hr IVPB DAILY [facility]; Protocol Morphine Sulfate (Morphine Sulfate) 4 mg IVPB Q3H PRN PRN Reason: PAIN LEVEL 7 - 10 Last Admin: 02/17/18 13:02 Dose: 4 mg Mupirocin (Bactroban Ointment (For Decolonization) -) 1 applic NS BID [facility] Stop: 02/18/18 09:59 Last Admin: 02/17/18 09:04 Dose: Not Given Ondansetron HCl (Zofran Injection) 4 mg IVPUSH Q6H PRN PRN Reason: NAUSEA Oxycodone HCl (Roxicodone -) 7.5 mg PO Q4H PRN PRN Reason: PAIN LEVEL 4 - 6 Last Admin: 02/17/18 13:43 Dose: 7.5 mg Pantoprazole Sodium (Protonix Iv) 40 mg IVPUSH BID [facility] Last Admin: 02/17/18 09:05 Dose: 40 mg - Objective Vital Signs: Vital Signs Temperature 99.2 F 02/17/18 09:14 Pulse Rate 82 02/17/18 09:14 Respiratory Rate 16 02/17/18 09:14 Blood Pressure 151/99 02/17/18 09:14 O2 Sat by Pulse Oximetry (%) 97 02/17/18 09:14 Constitutional: Yes: No Distress Eyes: Yes: Conjunctiva Clear Cardiovascular: Yes: Regular Rate and Rhythm, S1, S2 Respiratory: Yes: Diminished Gastrointestinal: Yes: Soft, Tenderness, Other (slightly distended + bilateral lower abdominal tenderness) Extremities: No: Calf Tenderness Edema: Yes Labs: CBC, BMP 02/16/18 06:23 02/16/18 06:23 INR, PTT INR 1.45 (0.83-1.09) H 02/12/18 12:20 Assessment/Plan POD #5 exploratory laparotomy, excision of colonic mass, drainage of abscess Fever/ leukocytosis- improved Continue ceftriaxone/ flagyl
[2018-02-17] MEDS ORDERED: CEFTRIAXONE 2 GM in DEXTROSE 5%-WATER 100 ML IVPB ONE (15:45)
[2018-02-17] MEDS ORDERED: DEXTROSE 5%-WATER 100 ML IVPB ONE (16:14)
[2018-02-17 18:42] LABS: HEMOGLOBIN 9.1 GM/dL (11.7-16.9); MCHC 32.6 g/dl (32.0-35.9); MEAN CELL VOLUME 95.2 fl (80-96); MEAN PLT VOLUME 6.6 fl (7.5-11.1); PLATELET COUNT 481 K/MM3 (134-434); RBC 2.94 M/mm3 (4.00-5.60); RDW 17.2 % (11.9-15.9); WHITE BLOOD COUNT 14.3 K/mm3 (4.0-10.0)
--- NOTE | 2018-02-17 21:18 | PN ---
GI Progress Note Subjective: GI NOte: Was c/o abdominal pain when seen earlier today. Path pending - Objective Vital Signs: Vital Signs Temperature 98.3 F 02/17/18 14:00 Pulse Rate 109 H 02/17/18 14:00 Respiratory Rate 20 02/17/18 14:00 Blood Pressure 138/93 02/17/18 14:00 O2 Sat by Pulse Oximetry (%) 97 02/17/18 09:14 Laboratory Tests 02/16/18 02/17/18 06:23 17:40 Hgb 8.5 L 9.1 L Constitutional: Anxious ...Auscultate: Yes: No Bowel Sounds ...Palpate: Yes: Guarding, Other (no ostomy output yet) Labs: CBC, BMP 02/17/18 17:40 02/16/18 06:23 INR, PTT INR 1.45 (0.83-1.09) H 02/12/18 12:20 Problem List - Problems (1) Ileus, postoperative Assessment/Plan: Has anticipated postop pain and ileus. Morphine held due to confusion. 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
--- NOTE | 2018-02-17 23:01 | PN ---
Teaching Attending Note Name of Resident: Caitie Rod ATTENDING PHYSICIAN STATEMENT I saw and evaluated the patient. I reviewed the resident's note and discussed the case with the resident. I agree with the resident's findings and plan as documented. Cecal mass, localized perforation - await path- will need systemic chemotherapy Lytic disease- elevated protein and reverse a/g ratio --f/u protein studies
[2018-02-18] MEDS: MUPIROCIN 2% TOPICAL OINTMENT FOR DECOLONIZATION NS SCH (00:12)
[2018-02-18] MEDS: CHLORHEXIDINE GLUCONATE 4% CLEANSER FOR DECOLONIZATION TP SCH ×2 (00:12→22:29)
[2018-02-18] MEDS: hydrALAZINE HCL 20 MG/ML VIAL IVPUSH SCH ×4 (02:53→19:55)
[2018-02-18] MEDS: ACETAMINOPHEN 325 MG TABLET (FP) PO PRN (03:28)
[2018-02-18] MEDS ORDERED: morphine SULFATE 4 MG/ML VIAL IVPUSH ONE (04:00)
[2018-02-18] MEDS ORDERED: LACTATED RINGERS SOLUTION 1,000 ML IV SCH (04:00)
[2018-02-18] MEDS: DEXTROSE 5%-LACTATED RINGERS 1,000 ML IV SCH (04:13)
[2018-02-18 06:50] LABS: BASO % 0.2 % (0-2.0); EOS % 0.2 % (0-4.5); HEMATOCRIT 27.8 % (35.4-49); HEMOGLOBIN 8.9 GM/dL (11.7-16.9); LYMPH % 8.2 % (8-40); MCH 30.6 pg (25.7-33.7); MCHC 32.1 g/dl (32.0-35.9); MEAN CELL VOLUME 95.1 fl (80-96); MEAN PLT VOLUME 6.6 fl (7.5-11.1); MONO % 6.9 % (3.8-10.2); NEUT % 84.5 % (42.8-82.8); PLATELET COUNT 458 K/MM3 (134-434); RBC 2.92 M/mm3 (4.00-5.60); RDW 16.9 % (11.9-15.9); WHITE BLOOD COUNT 11.9 K/mm3 (4.0-10.0)
[2018-02-18 07:23] LABS: ANION GAP 14 MMOL/L (8-16); BLOOD UREA NITROGEN 18 mg/dL (7-18); CALCIUM 8.5 mg/dL (8.5-10.1); CHLORIDE 106 mmol/L (98-107); CO2 23 mmol/L (21-32); CREATININE 0.6 mg/dL (0.55-1.3); GLUCOSE,RANDOM 129 mg/dL (74-106); POTASSIUM 3.3 mmol/L (3.5-5.1); SODIUM 143 mmol/L (136-145)
[2018-02-18] MEDS ORDERED: DEXTROSE 5%-WATER 100 ML IVPB ONE (08:55)
--- NOTE | 2018-02-18 09:05 | PN ---
Progress Note (short form) - Note Progress Note: feeling better afebrile Right LLQ pain worse today Vital Signs Period Temp Pulse Resp BP Sys/Olivo Pulse Ox Last 24 Hr 98.4 F-98.8 F 88-96 18-19 132-177/72-88 97-97 neck supple heart S1/S2 reg lung clear bilat decreased BS at bases abd diffusely tender / distended / mid line dressing dry and clean/ right LLQ drain ext with DVT boot Microbiology 02/12/18 12:20 Blood - Peripheral Venous Blood Culture - Preliminary NO GROWTH OBTAINED AFTER 96 HOURS, INCUBATION TO CONTINUE FOR 1 DAYS. 02/12/18 12:20 Blood - Peripheral Venous Blood Culture - Preliminary NO GROWTH OBTAINED AFTER 96 HOURS, INCUBATION TO CONTINUE FOR 1 DAYS. 02/12/18 11:14 Abdomen Gram Stain - Final 02/12/18 11:14 Abdomen Body Fluid Culture - Final Escherichia Coli Beta Hem Streptococcus Group C 02/12/18 11:14 Abdomen Anaerobic Culture - Final Odoribacter Splanchnicus 02/12/18 12:20 Urine - Urine - Catheterized Urine Culture - Final NO GROWTH OBTAINED Active Medications Acetaminophen (Tylenol -) 650 mg PO Q4H PRN PRN Reason: PAIN Last Admin: 02/16/18 06:18 Dose: 650 mg Chlorhexidine Gluconate (Hibiclens For Decolonization -) 1 applic TP HS [facility] Last Admin: 02/16/18 21:10 Dose: Not Given Enoxaparin Sodium (Lovenox -) 40 mg SQ DAILY [facility] Last Admin: 02/16/18 09:29 Dose: 40 mg Hydralazine HCl (Apresoline Injection -) 10 mg IVPUSH Q6H [facility]AN Last Admin: 02/16/18 21:09 Dose: Not Given Dextrose/Lactated Ringer's (D5-Lr -) 1,000 mls @ 75 mls/hr IV ASDIR BRIAN Last Admin: 02/16/18 21:10 Dose: Not Given Metronidazole (Flagyl 500mg Premixed Ivpb -) 500 mg in 100 mls @ 100 mls/hr IVPB Q8H-IV BRIAN Last Admin: 02/16/18 18:31 Dose: 100 mls/hr Ceftriaxone Sodium (Ceftriaxone 2 Gm-D5w Bag) 2 gm in 50 mls @ 100 mls/hr IVPB DAILY BRIAN; Protocol Last Admin: 02/16/18 16:48 Dose: 100 mls/hr Morphine Sulfate (Morphine Sulfate) 4 mg IVPB Q3H PRN PRN Reason: PAIN LEVEL 7 - 10 Mupirocin (Bactroban Ointment (For Decolonization) -) 1 applic NS BID [facility] Stop: 02/18/18 09:59 Last Admin: 02/16/18 21:10 Dose: Not Given Ondansetron HCl (Zofran Injection) 4 mg IVPUSH Q6H PRN PRN Reason: NAUSEA Oxycodone HCl (Roxicodone -) 7.5 mg PO Q4H PRN PRN Reason: PAIN LEVEL 4 - 6 Pantoprazole Sodium (Protonix Iv) 40 mg IVPUSH BID [facility] Last Admin: 02/16/18 21:11 Dose: 40 mg #POD # 3: Ex. Lap. w/ right shmuel-colectomy due to perforation, drainage of abscess, lavage due to a large colon tumor invading abdominal wall and retroperitoneum pain management / increased pain -- ???CT -- defer to Surgery abx jalen ID oncology follow up # HTN off bp meds trend - will resume when stable #CVA - left cerebral thrombosis #meningioma resected 2013 # metastasis ?? 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
--- NOTE | 2018-02-18 09:15 | PN ---
Progress Note (short form) - Note Progress Note: today more confused had urinary obstruction early am -- straight cath >900cc now "doesnt remember having a problem" NAD Vital Signs Period Temp Pulse Resp BP Sys/Olivo Pulse Ox Last 24 Hr 97.8 F-99.2 F 82-116 16-20 132-152/73-99 97-97 neck supple heart S1/S2 reg lung clear bilat decreased BS at bases abd diffusely tender / distended / mid linestaples in place -- clean drain remains in place with bloody d/c ext with DVT boot Microbiology 02/12/18 12:20 Blood - Peripheral Venous Blood Culture - Final NO GROWTH AFTER 5 DAYS INCUBATION 02/12/18 12:20 Blood - Peripheral Venous Blood Culture - Final NO GROWTH AFTER 5 DAYS INCUBATION 02/12/18 11:14 Abdomen Gram Stain - Final 02/12/18 11:14 Abdomen Body Fluid Culture - Final Escherichia Coli Beta Hem Streptococcus Group C 02/12/18 11:14 Abdomen Anaerobic Culture - Final Odoribacter Splanchnicus 02/12/18 12:20 Urine - Urine - Catheterized Urine Culture - Final NO GROWTH OBTAINED Active Medications Acetaminophen (Tylenol -) 650 mg PO Q4H PRN PRN Reason: PAIN Last Admin: 02/16/18 06:18 Dose: 650 mg Chlorhexidine Gluconate (Hibiclens For Decolonization -) 1 applic TP HS [facility] Last Admin: 02/16/18 21:10 Dose: Not Given Enoxaparin Sodium (Lovenox -) 40 mg SQ DAILY [facility]RIAN Last Admin: 02/16/18 09:29 Dose: 40 mg Hydralazine HCl (Apresoline Injection -) 10 mg IVPUSH Q6H BRIAN Last Admin: 02/16/18 21:09 Dose: Not Given Dextrose/Lactated Ringer's (D5-Lr -) 1,000 mls @ 75 mls/hr IV ASDIR BRIAN Last Admin: 02/16/18 21:10 Dose: Not Given Metronidazole (Flagyl 500mg Premixed Ivpb -) 500 mg in 100 mls @ 100 mls/hr IVPB Q8H-IV BRIAN Last Admin: 02/16/18 18:31 Dose: 100 mls/hr Ceftriaxone Sodium (Ceftriaxone 2 Gm-D5w Bag) 2 gm in 50 mls @ 100 mls/hr IVPB DAILY BRIAN; Protocol Last Admin: 02/16/18 16:48 Dose: 100 mls/hr Morphine Sulfate (Morphine Sulfate) 4 mg IVPB Q3H PRN PRN Reason: PAIN LEVEL 7 - 10 Mupirocin (Bactroban Ointment (For Decolonization) -) 1 applic NS BID [facility] Stop: 02/18/18 09:59 Last Admin: 02/16/18 21:10 Dose: Not Given Ondansetron HCl (Zofran Injection) 4 mg IVPUSH Q6H PRN PRN Reason: NAUSEA Oxycodone HCl (Roxicodone -) 7.5 mg PO Q4H PRN PRN Reason: PAIN LEVEL 4 - 6 Pantoprazole Sodium (Protonix Iv) 40 mg IVPUSH BID [facility] Last Admin: 02/16/18 21:11 Dose: 40 mg #POD # : Ex. Lap. w/ right shmuel-colectomy due to perforation, drainage of abscess, lavage due to a large colon tumor invading abdominal wall and retroperitoneum abx per ID oncology follow up # increased confusion ?? medication / narcotics ?? infection ?? remains afebrile c/s urine done this am # HTN off bp meds trend - will resume when stable #CVA - left cerebral thrombosis #meningioma resected 2013 # metastasis ?? 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
[2018-02-18] MEDS: PANTOPRAZOLE SODIUM 40 MG VIAL IVPUSH SCH (09:51)
[2018-02-18] MEDS: CEFTRIAXONE 2 GM in DEXTROSE 5%-WATER 100 ML IVPB SCH (09:51)
[2018-02-18] MEDS: ENOXAPARIN NA (PORCINE) 40 MG/0.4 ML DISP.SYRIN SQ SCH (09:51)
--- NOTE | 2018-02-18 12:43 | PN ---
Progress Note (short form) - Note Progress Note: surgery pt seen and examined. no pain today. confused ct done awaiting report but no obstruction, no large collection, expected induration and fluid in mesentery with recent surgery and residual tumor under anastamosis. large amound of air in transverse colon distal to anastamosis afebrile abd-soft, linda serous, incision clean, mild distension A/p 1) Pod#6-resume full liquids, cont linda. 2) pain- hold narcotics 3) prophylaxis- lovenox, protonix. oob 4) perforated colon- suspect cancer. follow path. abd cultures sensitive to abx. changed per id. wbc back down to 11 today. 5) lung lesion, bone lesion- unlikely related to colon neoplasm. per medical team. 6) anemia- acute from surgery on chronic. no active bleeding
--- NOTE | 2018-02-18 16:31 | PN ---
Progress Note (short form) - Note Progress Note: Patient seen and examined Some abdominal discomfort Last Vital Signs Temp Pulse Resp BP Pulse Ox 98.0 F 106 H 20 162/80 97 02/18/18 14:17 02/18/18 14:17 02/18/18 14:17 02/18/18 14:17 02/17/18 22:00 HEENT: MARIE, EOM Intact Oropharynx: No thrush, No mucositis Cor: RSR, No murmurs, No gallops Lungs: diminished breath sounds Abd: mild tenderness Ext:No significant edema Skin: No rashes, Integument intact CBC, BMP 02/18/18 06:00 02/18/18 06:00 Current Medications Generic Name Dose Route Start Last Admin Trade Name Freq PRN Reason Stop Dose Admin Acetaminophen 650 mg 02/15/18 09:37 02/17/18 12:09 Tylenol - PO 650 mg Q4H PRN Administration PAIN Chlorhexidine Gluconate 1 applic 02/14/18 22:00 02/18/18 00:12 Hibiclens For Decolonization - TP 1 applic HS BRIAN Administration Enoxaparin Sodium 40 mg 02/15/18 10:00 02/18/18 09:51 Lovenox - SQ 40 mg DAILY BRIAN Administration Hydralazine HCl 10 mg 02/15/18 02:45 02/18/18 14:31 Apresoline Injection - IVPUSH 10 mg Q6H BRIAN Administration Metronidazole 500 mg in 100 mls @ 100 mls/hr 02/16/18 14:45 02/18/18 12:53 Flagyl 500mg Premixed Ivpb - IVPB 100 mls/hr Q8H-IV BRIAN Administration Ceftriaxone Sodium 2 gm/ 100 mls @ 200 mls/hr 02/18/18 10:00 02/18/18 09:51 Dextrose IVPB 200 mls/hr DAILY BRIAN Administration Protocol Ondansetron HCl 4 mg 02/14/18 20:52 Zofran Injection IVPUSH Q6H PRN NAUSEA Pantoprazole Sodium 40 mg 02/19/18 10:00 Protonix - PO DAILY BRIAN Impression: Path pending Likely ca with residual disease post surgery Lytic bone disease Elevated IgA of almost 3000 with reciprocal depression of IgG and IgM raises strong possibility of dysproteinemia . Thus may well have 2 concurrent malignancies. Continue to monitor- await path and further work up when feasible. Will need skeletal survey , possible bone marrow in future. Has "M" component on immunofixation
--- NOTE | 2018-02-18 16:43 | PN ---
GI Progress Note Subjective: GI NOte: Tolerating full liquids. CT reveals minimal fluid at surgical site. Pain free. - Objective Vital Signs: Vital Signs Temperature 98.0 F 02/18/18 14:17 Pulse Rate 106 H 02/18/18 14:17 Respiratory Rate 20 02/18/18 14:17 Blood Pressure 162/80 02/18/18 14:17 O2 Sat by Pulse Oximetry (%) 97 02/17/18 22:00 Laboratory Tests 02/14/18 02/14/18 02/14/18 05:30 05:30 14:50 Hgb 7.3 L 9.1 L Carcinoembryonic Ag 1.6 02/17/18 02/18/18 17:40 06:00 Hgb 9.1 L 8.9 L Carcinoembryonic Ag Constitutional: Calm Gastrointestinal Inspection: Yes: Scars (wounds are clean) ...Auscultate: Yes: Hypoactive Bowel Sounds ...Palpate: Yes: Soft Labs: CBC, BMP 02/18/18 06:00 02/18/18 06:00 INR, PTT INR 1.45 (0.83-1.09) H 02/12/18 12:20 Problem List - Problems (1) Ileus, postoperative Assessment/Plan: Resolving postop ileus. Await path. Normal CEA noted. 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
[2018-02-19] MEDS: hydrALAZINE HCL 20 MG/ML VIAL IVPUSH SCH ×4 (02:34→20:39)
[2018-02-19 06:32] LABS: BASO % 0.2 % (0-2.0); EOS % 1.1 % (0-4.5); HEMATOCRIT 25.4 % (35.4-49); HEMOGLOBIN 8.2 GM/dL (11.7-16.9); MCH 30.9 pg (25.7-33.7); MCHC 32.4 g/dl (32.0-35.9); MEAN CELL VOLUME 95.4 fl (80-96); MEAN PLT VOLUME 6.6 fl (7.5-11.1); MONO % 7.5 % (3.8-10.2); NEUT % 78.2 % (42.8-82.8); PLATELET COUNT 434 K/MM3 (134-434); RBC 2.66 M/mm3 (4.00-5.60); RDW 17.1 % (11.9-15.9); WHITE BLOOD COUNT 11.7 K/mm3 (4.0-10.0)
[2018-02-19 07:10] LABS: ALBUMIN 1.7 g/dl (3.4-5.0); ALK PHOS 173 U/L (45-117); ANION GAP 12 MMOL/L (8-16); BILIRUBIN,TOTAL 0.3 mg/dL (0.2-1); BLOOD UREA NITROGEN 22 mg/dL (7-18); CALCIUM 8.5 mg/dL (8.5-10.1); CHLORIDE 109 mmol/L (98-107); CO2 24 mmol/L (21-32); CREATININE 0.5 mg/dL (0.55-1.3); GLUCOSE,RANDOM 95 mg/dL (74-106); POTASSIUM 3.6 mmol/L (3.5-5.1); SGOT/AST 20 U/L (15-37); SGPT/ALT 20 U/L (13-61); SODIUM 145 mmol/L (136-145); TOT PROT 6.5 g/dl (6.4-8.2)
--- NOTE | 2018-02-19 08:06 | CON.GU ---
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 The patient has a baseline history of urinary frequency and urgency, decreased force of urinary stream, and nocturia x4. The patient denies previous episodes of urinary retention or urologic surgery. - History Source History Provided By: Patient, Medical Record, Caregiver Limitations to Obtaining History: Clinical Condition - Past Medical History FAMILY INDEPENDENCE CASE MANAGER: Yes: CVA (left CVA 07/18), Seizure, Other (occipital meningioma resected with residual meningioma, essential tremor) Cardio/Vascular: Yes: HTN Gastrointestinal: Yes: Cancer (cecal cancer just discovered), Diverticulosis, Other Renal/: Yes: BPH Psych: Yes: Depression Additional Medical History: Glaucoma - Past Surgical History Past Surgical History: Yes: Cataract Removal, Craniotomy (for ocipital meningioma), Joint Replacement (L THR) - Alcohol/Substance Use Hx Alcohol Use: Yes (2 glasses wine nightly) - Smoking History Smoking history: Former smoker Have you smoked in the past 12 months: No If you are a former smoker, when did you quit?: 6 years ago - Social History Usual Living Arrangement: Assisted Living ([facility]) ADL: Support Services Home Medications - Allergies Allergies/Adverse Reactions: Allergies Allergy/AdvReac Type Severity Reaction Status Date / Time No Known Allergies Allergy Verified 02/12/18 11:12 - Home Medications Home Medications: Ambulatory Orders Cholecalciferol (Vitamin D3) [Vitamin D3] 1,000 unit PO DAILY #0 07/22/14 Finasteride 5 mg PO DAILY #0 07/22/14 Latanoprost 0.005% Eye Drops [Xalatan 0.005% Eye Drops -] 1 drop OU HS #0 Lisinopril [Prinivil] 20 mg PO DAILY #0 07/22/14 Primidone 100 mg PO HS #0 07/22/14 Tamsulosin HCl [Flomax -] 0.4 mg PO HS #0 07/22/14 Timolol 0.5% [Timoptic 0.5%] 1 drop OU BID #0 07/22/14 levETIRAcetam [Keppra -] 750 mg PO HS #0 07/22/14 Amlodipine Besylate [Norvasc -] 7.5 mg PO DAILY 02/12/18 Aspirin [Ecotrin] 81 mg PO DAILY 02/12/18 Mag Hydrox/Al Hydrox/Simeth [Mylanta Oral Suspension -] 30 ml PO PRN PRN Magnesium Hydrox 2400MG/30Ml [Milk of Magnesia -] 30 ml PO PRN PRN 02/12/18 Mirtazapine [Remeron -] 15 mg PO DAILY 02/12/18 Sertraline HCl [Zoloft] 25 mg PO DAILY 02/12/18 Family Disease History - Family Disease History Family Disease History: Diabetes: Mother ( after leg amputations), CA: Father ( lung cancer) Other Family History: Grandfather had unknown cancer Physical Exam- Vital Signs: Vital Signs Temperature 98.7 F 02/19/18 06:00 Pulse Rate 100 H 02/19/18 06:00 Respiratory Rate 20 02/19/18 06:00 Blood Pressure 149/84 02/19/18 06:00 O2 Sat by Pulse Oximetry (%) 96 02/18/18 21:00 Labs: CBC, BMP 02/19/18 06:00 02/19/18 06:00 Imaging - Results Cat Scan: Report Reviewed (enlargement of prostate noted) Assessment/Plan impression bph urinary retention s/p hemicolectomy for mass/abscess/perforation plan start flomax 0.4 mg daily ambulation as tolerated thank you for this kind consultation 25 minutes devoted to consultation
[2018-02-19] MEDS ORDERED: TAMSULOSIN HCL 0.4 MG CAP PO ONE (08:45)
[2018-02-19] MEDS ORDERED: DEXTROSE 5%-WATER 100 ML IVPB ONE (10:08)
[2018-02-19] MEDS: ENOXAPARIN NA (PORCINE) 40 MG/0.4 ML DISP.SYRIN SQ SCH (10:15)
[2018-02-19] MEDS: PANTOPRAZOLE 40 MG TABLET (FP) PO SCH (10:16)
[2018-02-19] MEDS: CEFTRIAXONE 2 GM in DEXTROSE 5%-WATER 100 ML IVPB SCH (10:17)
[2018-02-19] MEDS: ACETAMINOPHEN 325 MG TABLET (FP) PO PRN (11:10)
--- NOTE | 2018-02-19 11:30 | PN ---
Progress Note (short form) - Note Progress Note: Feels OK today. No CP or SOB. Tolerating POI intake. Intake & Output 02/16/18 02/17/18 02/18/18 02/19/18 23:59 23:59 23:59 23:59 Intake Total 910 2195 2400 830 Output Total 401 378 4047 75 Balance 718 1955 -745 755 Last Vital Signs Temp Pulse Resp BP Pulse Ox 98.7 F 100 H 20 149/84 96 02/19/18 06:00 02/19/18 06:00 02/19/18 06:00 02/19/18 06:00 02/18/18 21:00 Active Medications Acetaminophen (Tylenol -) 650 mg PO Q4H PRN PRN Reason: PAIN Last Admin: 02/17/18 12:09 Dose: 650 mg Chlorhexidine Gluconate (Hibiclens For Decolonization -) 1 applic TP HS [facility] Last Admin: 02/18/18 22:29 Dose: Not Given Enoxaparin Sodium (Lovenox -) 40 mg SQ DAILY [facility] Last Admin: 02/19/18 10:15 Dose: 40 mg Hydralazine HCl (Apresoline Injection -) 10 mg IVPUSH Q6H [facility]RIAN Last Admin: 02/19/18 10:12 Dose: Not Given Metronidazole (Flagyl 500mg Premixed Ivpb -) 500 mg in 100 mls @ 100 mls/hr IVPB Q8H-IV [facility]RIAN Last Admin: 02/19/18 10:15 Dose: 100 mls/hr Ceftriaxone Sodium 2 gm/ (Dextrose) 100 mls @ 200 mls/hr IVPB DAILY [facility]; Protocol Last Admin: 02/19/18 10:17 Dose: 200 mls/hr Ondansetron HCl (Zofran Injection) 4 mg IVPUSH Q6H PRN PRN Reason: NAUSEA Pantoprazole Sodium (Protonix -) 40 mg PO DAILY [facility] Last Admin: 02/19/18 10:16 Dose: 40 mg GENERAL: awake, alert, and oriented, NAD HEAD: Normal with no signs of trauma. EYES: PERRL, extraocular movements intact, sclera anicteric, conjunctiva clear. No ptosis. ENT: Ears normal, nares patent, oropharynx clear without exudates, dry mucous membranes. NECK: Trachea midline, supple. LUNGS: diminished at the bases HEART: Regular rate and rhythm, S1, S2 without murmur, rub or gallop. ABDOMEN: Soft, (+) less tenderness to palpation, (+) BS, no rebound EXTREMITIES: 2+ pulses, warm, well-perfused, no edema. NEUROLOGICAL: non-focal PSYCH: Normal mood, normal affect. Laboratory Results - last 24 hr 02/19/18 02/19/18 06:00 06:00 WBC 11.7 H RBC 2.66 L Hgb 8.2 L Hct 25.4 L MCV 95.4 MCH 30.9 MCHC 32.4 RDW 17.1 H Plt Count 434 MPV 6.6 L Absolute Neuts (auto) 9.1 H Neutrophils % 78.2 Lymphocytes % 13.0 D Monocytes % 7.5 Eosinophils % 1.1 D Basophils % 0.2 Nucleated RBC % 0 Sodium 145 Potassium 3.6 Chloride 109 H Carbon Dioxide 24 Anion Gap 12 BUN 22 H Creatinine 0.5 L Creat Clearance w eGFR > 60 Random Glucose 95 Calcium 8.5 Total Bilirubin 0.3 AST 20 ALT 20 Alkaline Phosphatase 173 H Total Protein 6.5 Albumin 1.7 L ASSESSMENT/PLAN: POD # 3: Ex. Lap. 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
--- NOTE | 2018-02-19 12:21 | PN ---
GI Progress Note Subjective: GI NOte: Sitting up in chair and pain free. Tolerating liquid diet - Objective Vital Signs: Vital Signs Temperature 98.7 F 02/19/18 06:00 Pulse Rate 100 H 02/19/18 06:00 Respiratory Rate 20 02/19/18 06:00 Blood Pressure 149/84 02/19/18 06:00 O2 Sat by Pulse Oximetry (%) 96 02/18/18 21:00 Laboratory Tests 02/14/18 02/19/18 02/19/18 14:50 06:00 06:00 WBC 14.6 H 11.7 H Hgb 8.2 L Total Bilirubin 0.3 AST 20 ALT 20 Alkaline Phosphatase 173 H Albumin 1.7 L Constitutional: Calm ...Auscultate: Yes: Hypoactive Bowel Sounds ...Palpate: Yes: Soft, Other (nontender) Labs: CBC, BMP 02/19/18 06:00 02/19/18 06:00 INR, PTT INR 1.45 (0.83-1.09) H 02/12/18 12:20 Problem List - Problems (1) Ileus, postoperative Assessment/Plan: Resolved postop ileus. Await path. 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
--- NOTE | 2018-02-19 15:59 | PN ---
Physical Exam: SUBJECTIVE:Patient seen and examined at bed side this morning. States he feels better than yesterday. Frequency of bowel movements has decreased.Minimal pain at the surgical site. Denies chest pain, sob, cough, palpitation. No bone or back pain. Using Incentive Spirometry. No acute overnight events. OBJECTIVE: Vital Signs Period Temp Pulse Resp BP Sys/Olivo Pulse Ox Last 24 Hr 97.9 F-99 F 91-111 18-20 136-154/75-84 96-96 GENERAL: Elderly male, lying in bed, Awake, alert, and fully oriented, in no acute distress. HEAD: Normal with no signs of trauma. EYES: EOM intact, pallor +, no icterus. Right visual field loss-chronic. EARS, NOSE, THROAT: Ears normal. Moist mucous membranes. NECK: Supple. LUNGS: B/L Breath sounds equal. No wheezes, and no crackles. No accessory muscle use. HEART: Regular rate and rhythm, normal S1 and S2 without murmur. INGUINAL LYMPH NODES not palpable SCROTUM/TESTICLES-normal. ABDOMEN: JUNE drain in place, dinh+, area looks clean and dry. Soft, tender to palpation. MUSCULOSKELETAL: Normal range of motion at all joints. No bony deformities or tenderness. No CVA tenderness. UPPER EXTREMITIES: 2+ pulses, warm, well-perfused. No cyanosis. No clubbing. Cap refill <2 seconds. No peripheral edema. LOWER EXTREMITIES: 2+ pulses, warm, well-perfused. No calf tenderness. No peripheral edema. NEUROLOGICAL: No facial droop. Normal speech. Gait not observed. PSYCHIATRIC: Cooperative. Good eye contact. Appropriate mood and affect. SKIN: Warm, dry, normal turgor, no rashes or lesions noted. Laboratory Results - last 24 hr 02/19/18 02/19/18 02/19/18 06:00 06:00 11:56 WBC 11.7 H RBC 2.66 L Hgb 8.2 L Hct 25.4 L MCV 95.4 MCH 30.9 MCHC 32.4 RDW 17.1 H Plt Count 434 MPV 6.6 L Absolute Neuts (auto) 9.1 H Neutrophils % 78.2 Lymphocytes % 13.0 D Monocytes % 7.5 Eosinophils % 1.1 D Basophils % 0.2 Nucleated RBC % 0 Sodium 145 Potassium 3.6 Chloride 109 H Carbon Dioxide 24 Anion Gap 12 BUN 22 H Creatinine 0.5 L Creat Clearance w eGFR > 60 POC Glucometer 128 Random Glucose 95 Calcium 8.5 Total Bilirubin 0.3 AST 20 ALT 20 Alkaline Phosphatase 173 H Total Protein 6.5 Albumin 1.7 L Active Medications Generic Name Dose Route Start Last Admin Trade Name Freq PRN Reason Stop Dose Admin Acetaminophen 650 mg 02/15/18 09:37 02/17/18 12:09 Tylenol - PO 650 mg Q4H PRN Administration PAIN Chlorhexidine Gluconate 1 applic 02/14/18 22:00 02/18/18 22:29 Hibiclens For Decolonization - TP Not Given HS BRIAN Enoxaparin Sodium 40 mg 02/15/18 10:00 02/19/18 10:15 Lovenox - SQ 40 mg DAILY BRIAN Administration Hydralazine HCl 10 mg 02/15/18 02:45 02/19/18 15:14 Apresoline Injection - IVPUSH Not Given Q6H BRIAN Metronidazole 500 mg in 100 mls @ 100 mls/hr 02/16/18 14:45 02/19/18 10:15 Flagyl 500mg Premixed Ivpb - IVPB 100 mls/hr Q8H-IV BRIAN Administration Ceftriaxone Sodium 2 gm/ 100 mls @ 200 mls/hr 02/18/18 10:00 02/19/18 10:17 Dextrose IVPB 200 mls/hr DAILY BRIAN Administration Protocol Ondansetron HCl 4 mg 02/14/18 20:52 Zofran Injection IVPUSH Q6H PRN NAUSEA Pantoprazole Sodium 40 mg 02/19/18 10:00 02/19/18 10:16 Protonix - PO 40 mg DAILY BRIAN Administration Patient is an 87 year old male was brought in to the ED via 911 with the chief complaint of severe abdominal pain x 1 day was found to have perforated viscus and underwent ex lap with right colectomy, drainage of abscess (02/12) ASSESSMENT Perforated viscus and underwent ex lap with right colectomy, drainage of abscess (02/12) Newly diagnosed colon cancer stage IV Osteolytic lesion right 5th rib/1 cm L3 vertebral body Acute blood loss anemia Hyponatremia 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 Meningioma removed 03/2014 Right homonymous hemianopsia 04/16 post-op diabetes HTN Glaucoma Arthritis Depression Right hand tremor (dx in 2003) PLAN Newly diagnosed Presumptive diagnosis Colon Stage IV with lytic lesion - Awaiting biopsy results. Repeat CT abdomen/Pelvis 02/18/18: Trace ascites, no evidence of bowel obstruction. s/p right hemicolectomy with small amoutn of fluid about the surgical site, could represent developing abscess. Osteolytic lesion. CEA-1.6 PSA pending Acute blood loss anemia Could be secondary to surgery. EBL 100ml H/H 8.2/25.4 today Transfuse if Hct is < 25 Monitor active bleeding and repeat CBC in AM Osteolytic lesion- marked reverse A/G ratio with elevation of Total protein Although the possibility of mets to the bone is high, he could also have another disease causing lytic lesions of the bone. R/O Multiple myeloma CT chest suggestive of: Bulky right anterolateral fifth rib mass consistent with a metastatic lesion. Bony mets at T2, T7 and T12. Immunoglobulins: IgA high, IgM/IgG low. SPEP, UPEP, IPEP, Immunofixation pending Plan of care explained to the patient. He verbalized understanding. Case discussed with Dr. Varner. Dispo: We will continue to follow the patient. Thank you for this consultative opportunity. Visit type - Emergency Visit Emergency Visit: Yes ED Registration Date: 02/12/18 Care time: The patient presented to the Emergency Department on the above date and was hospitalized for further evaluation of their emergent condition. - New Patient This patient is new to me today: No - Critical Care Critical Care patient: No
[2018-02-19] MEDS ORDERED: TAMSULOSIN HCL 0.4 MG CAP PO SCH (18:45)
[2018-02-19] MEDS: CHLORHEXIDINE GLUCONATE 4% CLEANSER FOR DECOLONIZATION TP SCH (21:02)
--- NOTE | 2018-02-19 22:44 | PN ---
Progress Note (short form) - Note Progress Note: laying in bed comfortable / has been tolerating liquid diet Vital Signs Period Temp Pulse Resp BP Sys/Olivo Pulse Ox Last 24 Hr 97.8 F-99.2 F 82-116 16-20 132-152/73-99 97-97 neck supple heart S1/S2 reg lung clear bilat decreased BS at bases abd diffusely tender / distended / mid line dinh in place -- clean drain remains in place with bloody d/c ext with DVT boot CBC, BMP 02/19/18 06:00 02/19/18 06:00 Microbiology 02/18/18 05:10 Urine - Urine - Catheterized Urine Culture - Final NO GROWTH OBTAINED 02/12/18 12:20 Blood - Peripheral Venous Blood Culture - Final NO GROWTH AFTER 5 DAYS INCUBATION 02/12/18 12:20 Blood - Peripheral Venous Blood Culture - Final NO GROWTH AFTER 5 DAYS INCUBATION 02/12/18 11:14 Abdomen Gram Stain - Final 02/12/18 11:14 Abdomen Body Fluid Culture - Final Escherichia Coli Beta Hem Streptococcus Group C 02/12/18 11:14 Abdomen Anaerobic Culture - Final Odoribacter Splanchnicus 02/12/18 12:20 Urine - Urine - Catheterized Urine Culture - Final NO GROWTH OBTAINED Active Medications Acetaminophen (Tylenol -) 650 mg PO Q4H PRN PRN Reason: PAIN Last Admin: 02/19/18 11:10 Dose: 650 mg Chlorhexidine Gluconate (Hibiclens For Decolonization -) 1 applic TP HS [facility] Last Admin: 02/19/18 21:02 Dose: Not Given Enoxaparin Sodium (Lovenox -) 40 mg SQ DAILY [facility] Last Admin: 02/19/18 10:15 Dose: 40 mg Hydralazine HCl (Apresoline Injection -) 10 mg IVPUSH Q6H [facility] Last Admin: 02/19/18 20:39 Dose: Not Given Metronidazole (Flagyl 500mg Premixed Ivpb -) 500 mg in 100 mls @ 100 mls/hr IVPB Q8H-IV [facility] Last Admin: 02/19/18 17:11 Dose: 100 mls/hr Ceftriaxone Sodium 2 gm/ (Dextrose) 100 mls @ 200 mls/hr IVPB DAILY [facility]; Protocol Last Admin: 02/19/18 10:17 Dose: 200 mls/hr Ondansetron HCl (Zofran Injection) 4 mg IVPUSH Q6H PRN PRN Reason: NAUSEA Pantoprazole Sodium (Protonix -) 40 mg PO DAILY [facility] Last Admin: 02/19/18 10:16 Dose: 40 mg Tamsulosin HCl (Flomax -) 0.4 mg PO DAILY@0830 [facility] #POD : Ex. Lap. w/ right shmuel-colectomy due to perforation, drainage of abscess, lavage due to a large colon tumor invading abdominal wall and retroperitoneum abx per ID oncology follow up # obstructive uropathy required martinez start flomax consult # increased confusion ? baseline dementia # HTN off bp meds trend - will resume when stable #CVA - left cerebral thrombosis #meningioma resected 2013 # metastasis ?? 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
[2018-02-20] MEDS: hydrALAZINE HCL 20 MG/ML VIAL IVPUSH SCH ×4 (01:52→21:17)
[2018-02-20 06:18] LABS: BASO % 0.2 % (0-2.0); EOS % 1.6 % (0-4.5); HEMATOCRIT 24.6 % (35.4-49); HEMOGLOBIN 7.9 GM/dL (11.7-16.9); LYMPH % 10.8 % (8-40); MCH 30.7 pg (25.7-33.7); MEAN PLT VOLUME 6.5 fl (7.5-11.1); MONO % 5.8 % (3.8-10.2); NEUT % 81.6 % (42.8-82.8); PLATELET COUNT 440 K/MM3 (134-434); RBC 2.57 M/mm3 (4.00-5.60); RDW 17.1 % (11.9-15.9); WHITE BLOOD COUNT 15.6 K/mm3 (4.0-10.0)
[2018-02-20 06:40] LABS: ANION GAP 6 MMOL/L (8-16); BLOOD UREA NITROGEN 16 mg/dL (7-18); CALCIUM 7.8 mg/dL (8.5-10.1); CHLORIDE 106 mmol/L (98-107); CO2 28 mmol/L (21-32); CREATININE 0.6 mg/dL (0.55-1.3); GLUCOSE,RANDOM 96 mg/dL (74-106); POTASSIUM 3.4 mmol/L (3.5-5.1); SODIUM 140 mmol/L (136-145)
[2018-02-20] MEDS ORDERED: DEXTROSE 5%-WATER 100 ML IVPB ONE (10:06)
[2018-02-20] MEDS: CEFTRIAXONE 2 GM in DEXTROSE 5%-WATER 100 ML IVPB SCH (10:11)
[2018-02-20] MEDS: TAMSULOSIN HCL 0.4 MG CAP PO SCH (10:13)
[2018-02-20] MEDS: ENOXAPARIN NA (PORCINE) 40 MG/0.4 ML DISP.SYRIN SQ SCH (10:13)
[2018-02-20] MEDS: PANTOPRAZOLE 40 MG TABLET (FP) PO SCH (10:13)
--- NOTE | 2018-02-20 10:22 | PN ---
Progress Note (short form) - Note Progress Note: 77 y/o male found sleeping comfortably. Denies pain. Vital Signs Period Temp Pulse Resp BP Sys/Olivo Pulse Ox Last 24 Hr 98.0 F-98.9 F 82-91 18-18 142-157/79-94 94 CBC, BMP 02/20/18 06:00 02/20/18 06:00 HEENT- NL Neck- supple Lungs- CTAB Heart- S1/S2 Abd- soft, JUNE drain in place. Dsgs intact Ext- No le edema Active Medications Acetaminophen (Tylenol -) 650 mg PO Q4H PRN PRN Reason: PAIN Last Admin: 02/19/18 11:10 Dose: 650 mg Chlorhexidine Gluconate (Hibiclens For Decolonization -) 1 applic TP HS [facility] Last Admin: 02/19/18 21:02 Dose: Not Given Enoxaparin Sodium (Lovenox -) 40 mg SQ DAILY [facility] Last Admin: 02/20/18 10:13 Dose: 40 mg Hydralazine HCl (Apresoline Injection -) 10 mg IVPUSH Q6H [facility] Last Admin: 02/20/18 10:17 Dose: Not Given Metronidazole (Flagyl 500mg Premixed Ivpb -) 500 mg in 100 mls @ 100 mls/hr IVPB Q8H-IV [facility] Last Admin: 02/20/18 10:16 Dose: 100 mls/hr Ceftriaxone Sodium 2 gm/ (Dextrose) 100 mls @ 200 mls/hr IVPB DAILY [facility]; Protocol Last Admin: 02/20/18 10:11 Dose: 200 mls/hr Potassium Chloride (Potassium Chloride 10 Meq Premix Ivpb -) 10 meq in 100 mls @ 100 mls/hr IVPB Q60M [facility] Stop: 02/20/18 11:29 Ondansetron HCl (Zofran Injection) 4 mg IVPUSH Q6H PRN PRN Reason: NAUSEA Pantoprazole Sodium (Protonix -) 40 mg PO DAILY [facility] Last Admin: 02/20/18 10:13 Dose: 40 mg Tamsulosin HCl (Flomax -) 0.4 mg PO DAILY@0830 [facility] Last Admin: 02/20/18 10:13 Dose: 0.4 mg #Acute blood loss Anemia Hgb/ HCT 7.9/24.6 Transfuse 2 u RBC # Low potassium Potassium ordered # S/p Ex. Lap. w/ right shmuel-colectomy due to perforation IV abx per ID oncology follow up # obstructive uropathy consult appreciated Enlarged prostate flomax 0.4 mg qd PSA pending # increased confusion ? baseline dementia # HTN BP stable # metastasis ?? 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
[2018-02-20] MEDS ORDERED: KCL 10 MEQ IVPB 10 MEQ/100 ML INFUS.BAG IVPB SCH (10:30)
--- NOTE | 2018-02-20 13:14 | PN ---
Progress Note (short form) - Note Progress Note: surgery pt seen and examined. feels well. tolerating full liquids. bm and flatus. no abd pain. wants more food. abd-soft, linda serous/minimal, incision clean, non distened A/p 1) Pod#8- low fiber diet, cont linda. 2) pain- hold narcotics 3) prophylaxis- lovenox, protonix. oob 4) perforated colon- suspect cancer. follow path. abd cultures sensitive to abx. changed per id. wbc 15? unclear source. abd exam benign.. 5) lung lesion, bone lesion- unlikely related to colon neoplasm. per medical team. 6) anemia- acute from surgery on chronic. no active bleeding
--- NOTE | 2018-02-20 16:16 | PATH ---
Surgical Pathology Report Patient Name: KRISHAN MOCK [facility]. Rec. #: [id number] /Age/Gender: 1940 (Age: 77) / M Account: [id number] Location: 4 SO PEDS/ADOL Taken: 02/12/2018 Received: 02/13/2018 Reported: 02/20/2018 Physicians: Papa Altamirano M.D. PHYSICIAN EMERGENCY DEPT Asia Sinha M.D. Specimen(s) Received A: MASS OF SKIN B: PERFORATED RIGHT COLON WITH TUMOR Clinical History Mass of cecum, colon neoplasm Postoperative diagnosis: Perforated viscus Final Diagnosis A. SKIN, MASS, EXCISION: EPIDERMAL INCLUSION CYST. B. COLON, RIGHT, EXPLORATORY LAPAROTOMY/COLECTOMY: INVASIVE ADENOCARCINOMA, MODERATELY DIFFERENTIATED, PRESENT AT CECUM EXTENDING INTO APPENDIX WITH ASSOCIATED PERFORATION. TUMOR MEASURES 6.0 x 5.5 CM (GROSS MEASUREMENT). LYMPHOVASCULAR INVASION IDENTIFIED (LARGE VESSEL/VENOUS, EXTRAMURAL). NO PERINEURAL INVASION IDENTIFIED. THREE (3) TUBULAR ADENOMAS. MARKED ACUTE SEROSITIS AND FIBROSIS. SURGICAL MARGINS (PROXIMAL, DISTAL, MESENTERIC) ARE NEGATIVE. TWENTY SEVEN BENIGN LYMPH NODES (0/27). PATHOLOGIC STAGE: pT4a pN0. SEE INVASIVE SUMMARY BELOW. Comment: Immunohistochemical and special stains performed at [place], [place] ([id number]) and interpreted at [facility] for AE1/3, CK20 and Elastic stain were utilized to evaluate this case. Comments Colorectal Carcinoma :Surgical Pathology Cancer Case Summary (Based on AJCC TNM 8 th edition) Procedure _X__ Right colectomy/Exploratory Laparotomy Tumor Site _X_ Cecum _X_ Appendix (extending to) Tumor Size Greatest dimension (centimeters): 6.0 x 5.5 cm Macroscopic Tumor Perforation _X__ Present Histologic Type _X__ Adenocarcinoma Histologic Grade _X_ G2: Moderately differentiated Tumor Extension _X__ Tumor invades the visceral peritoneum (including tumor continuous with serosal surface through area of inflammation) Margins _X__ All margins are uninvolved by invasive carcinoma, high-grade dysplasia, intramucosal adenocarcinoma, and adenoma Margins examined: Proximal, distal, mesenteric Treatment Effect _X_ No known presurgical therapy Lymphovascular Invasion _X__ Present _X__ Large vessel (venous) invasion _X__ Extramural Perineural Invasion _X__ Not identified Tumor Deposits _X__ Not identified Regional Lymph Nodes Lymph Node Examination Number of Lymph Nodes Involved: _0_ Number of Lymph Nodes Examined: _27_ Pathologic Stage Classification (pTNM, AJCC 8th Edition) Primary Tumor (pT) _X__ pT4a: Tumor invades through the visceral peritoneum (including gross perforation of the bowel through tumor and continuous invasion of tumor through areas of inflammation to the surface of the visceral peritoneum) Regional Lymph Nodes (pN) _X__ pN0: No regional lymph node metastasis MisMatch Repair Protein Analysis (IHC) performed at [facility] in [place], [place] ([id number]) and interpreted at [facility] show the following: RESULTS: HMLH-1 INTACT NUCLEAR EXPRESSION HMSH-2 INTACT NUCLEAR EXPRESSION HMSH-6 INTACT NUCLEAR EXPRESSION PMS2 INTACT NUCLEAR EXPRESSION INTERPRETATION: No loss of nuclear expression of MMR proteins: low probability of microsatellite instability-high (MSI-H). Electronically Signed Analy Pollard M.D. Gross Description A. Received in formalin labeled "skin mass," is a 1.8 x 0.7 cm zamora, elliptical, unoriented portion of skin excised to a depth of 0.8 cm. Sectioning reveals an intact cystic structure. Linen Folder sections are submitted in one cassette. B. Received in formalin labeled "perforated right colon with tumor," is a 20 cm in length portion of small bowel with an attached 18 cm in length portion of cecum and right colon. The specimen displays two open mucosal margins and abundant attached pericolonic adipose tissue. The serosa is zamora-poe with abundant attached exudate and a focal perforation adjacent to the base of the appendix. The mucosa displays a 6.0 x 5.5 cm zamora, polypoid, ulcerated mass in the cecum extending into the proximal appendix. The mass extends to the serosa and focally perforates through the serosa, adjacent to the base of the appendix. The mass invades into the pericolonic adipose tissue. The mass is 2.5 cm from the mesenteric margin of resection. The proximal appendix is dilated and contains mucinous material. The distal appendix displays an occluded lumen. The appendix is surrounded by firm fibrosis. The remaining mucosa displays 3 mucosal polyps averaging 1.2 cm in greatest dimension. The polyps are 4, 5 and 7 cm distal to the mass. The remaining mucosa is zamora with normal folds. Sectioning of the pericolonic adipose tissue reveals abundant zamora lymph nodes. Linen Folder sections are submitted in 35 cassettes as follows: 1-proximal mucosal margin; 2-distal mucosal margin; 3-shave mesenteric margin; 4-distal tip of appendix; 5-distal cross sections of appendix; 6-proximal appendix with perforation site; 8-7-uuhrprtlgy perforation site; 9-13-cecal mass; 14-cecal mass with base of appendix; 12-50-qpxzzao polyps sequentially submitted from proximal to distal; 18-uninvolved terminal ileum; 19-uninvolved distal right colon; 20-one quadrisected lymph node; 21-22-one trisected lymph node each; 23-30-one bisected lymph node each; 26-79-hgmoitji lymph nodes each. 36-45: Additional sections of tumor, appendix, and areas of perforation. 02/14/201802/13/2018
--- NOTE | 2018-02-20 21:16 | PN ---
Progress Note, Physician History of Present Illness: Awake, alert Supine in bed Reports less abdominal pain. Tolerating diet Temps remain down Afebrile WBC remains slightly elevated 15k Path report + adenocarcinoma - Current Medication List Current Medications: Active Medications Acetaminophen (Tylenol -) 650 mg PO Q4H PRN PRN Reason: PAIN Last Admin: 02/19/18 11:10 Dose: 650 mg Chlorhexidine Gluconate (Hibiclens For Decolonization -) 1 applic TP HS [facility] Last Admin: 02/19/18 21:02 Dose: Not Given Enoxaparin Sodium (Lovenox -) 40 mg SQ DAILY [facility] Last Admin: 02/20/18 10:13 Dose: 40 mg Hydralazine HCl (Apresoline Injection -) 10 mg IVPUSH Q6H [facility] Last Admin: 02/20/18 14:23 Dose: Not Given Metronidazole (Flagyl 500mg Premixed Ivpb -) 500 mg in 100 mls @ 100 mls/hr IVPB Q8H-IV [facility] Last Admin: 02/20/18 18:30 Dose: 100 mls/hr Ceftriaxone Sodium 2 gm/ (Dextrose) 100 mls @ 200 mls/hr IVPB DAILY [facility]; Protocol Last Admin: 02/20/18 10:11 Dose: 200 mls/hr Ondansetron HCl (Zofran Injection) 4 mg IVPUSH Q6H PRN PRN Reason: NAUSEA Pantoprazole Sodium (Protonix -) 40 mg PO DAILY [facility] Last Admin: 02/20/18 10:13 Dose: 40 mg Tamsulosin HCl (Flomax -) 0.4 mg PO DAILY@0830 [facility] Last Admin: 02/20/18 10:13 Dose: 0.4 mg - Objective Vital Signs: Vital Signs Temperature 98.6 F 02/20/18 20:52 Pulse Rate 95 H 02/20/18 20:52 Respiratory Rate 18 02/20/18 20:52 Blood Pressure 165/75 02/20/18 20:52 O2 Sat by Pulse Oximetry (%) 95 02/20/18 20:49 Constitutional: Yes: No Distress Eyes: Yes: Conjunctiva Clear Cardiovascular: Yes: Regular Rate and Rhythm, S1, S2 Respiratory: Yes: CTA Bilaterally Gastrointestinal: Yes: Normal Bowel Sounds, Soft, Other (surgical wound no erythema/drainage) Edema: No Labs: CBC, BMP 02/20/18 06:00 09/20/18 06:00 INR, PTT INR 1.45 (0.83-1.09) H 02/12/18 12:20 Assessment/Plan POD #8 exploratory laparotomy, excision of colonic mass, drainage of abscess Operative c/s polymicrobial Continue ceftriaxone/ flagyl
[2018-02-20] MEDS: CHLORHEXIDINE GLUCONATE 4% CLEANSER FOR DECOLONIZATION TP SCH (21:17)
[2018-02-21] MEDS: hydrALAZINE HCL 20 MG/ML VIAL IVPUSH SCH ×4 (01:59→21:12)
[2018-02-21 06:49] LABS: BASO % 0.2 % (0-2.0); EOS % 0.7 % (0-4.5); HEMATOCRIT 31.1 % (35.4-49); HEMOGLOBIN 10.1 GM/dL (11.7-16.9); LYMPH % 9.2 % (8-40); MCH 29.1 pg (25.7-33.7); MCHC 32.4 g/dl (32.0-35.9); MEAN PLT VOLUME 6.6 fl (7.5-11.1); MONO % 4.9 % (3.8-10.2); PLATELET COUNT 464 K/MM3 (134-434); RBC 3.45 M/mm3 (4.00-5.60); RDW 21.4 % (11.9-15.9); WHITE BLOOD COUNT 19.3 K/mm3 (4.0-10.0)
[2018-02-21 07:04] LABS: INR 1.21 (0.83-1.09); PROTHROMBIN TIME (PATIENT) 13.7 SEC (9.7-13.0)
[2018-02-21 07:06] LABS: ACTIVATED PTT 28.4 SECONDS (25.2-36.5)
[2018-02-21 07:54] LABS: ALBUMIN 1.9 g/dl (3.4-5.0); ALK PHOS 179 U/L (45-117); ANION GAP 10 MMOL/L (8-16); BILIRUBIN,TOTAL 0.4 mg/dL (0.2-1); BLOOD UREA NITROGEN 12 mg/dL (7-18); CALCIUM 7.9 mg/dL (8.5-10.1); CHLORIDE 105 mmol/L (98-107); CO2 25 mmol/L (21-32); CREATININE 0.6 mg/dL (0.55-1.3); GLUCOSE,RANDOM 87 mg/dL (74-106); POTASSIUM 3.5 mmol/L (3.5-5.1); SGOT/AST 20 U/L (15-37); SGPT/ALT 20 U/L (13-61); SODIUM 140 mmol/L (136-145); TOT PROT 6.9 g/dl (6.4-8.2)
[2018-02-21] MEDS ORDERED: DEXTROSE 5%-WATER 100 ML IVPB ONE (09:18)
[2018-02-21] MEDS: TAMSULOSIN HCL 0.4 MG CAP PO SCH (09:30)
[2018-02-21] MEDS: PANTOPRAZOLE 40 MG TABLET (FP) PO SCH (09:30)
[2018-02-21] MEDS: CEFTRIAXONE 2 GM in DEXTROSE 5%-WATER 100 ML IVPB SCH (09:31)
[2018-02-21] MEDS: ENOXAPARIN NA (PORCINE) 40 MG/0.4 ML DISP.SYRIN SQ SCH (09:31)
--- NOTE | 2018-02-21 10:33 | PN ---
Progress Note (short form) - Note Progress Note: 77 y/o male found lying comfortably in bed. States that he wants to eat omelette. Denies pain. Vital Signs Period Temp Pulse Resp BP Sys/Olivo Pulse Ox Last 24 Hr 98.0 F-98.8 F 95-108 18-18 142-165/75-89 95 CBC, BMP 02/21/18 06:00 02/21/18 06:00 HEENT- NL Neck-Supple Lungs- CTAB Heart- S1/S2 Abd- Soft, NT, JUNE drain in place. Patterson present. - Dehiscence noted between 3-4 dinh. No erythema. - Small amt exudate Skin- B/L groin erythema Ext- No LE edema Active Medications Acetaminophen (Tylenol -) 650 mg PO Q4H PRN PRN Reason: PAIN Last Admin: 02/19/18 11:10 Dose: 650 mg Chlorhexidine Gluconate (Hibiclens For Decolonization -) 1 applic TP HS [facility] Last Admin: 02/20/18 21:17 Dose: Not Given Enoxaparin Sodium (Lovenox -) 40 mg SQ DAILY [facility] Last Admin: 02/21/18 09:31 Dose: 40 mg Hydralazine HCl (Apresoline Injection -) 10 mg IVPUSH Q6H [facility] Last Admin: 02/21/18 08:27 Dose: Not Given Metronidazole (Flagyl 500mg Premixed Ivpb -) 500 mg in 100 mls @ 100 mls/hr IVPB Q8H-IV [facility] Last Admin: 02/21/18 09:31 Dose: 100 mls/hr Ceftriaxone Sodium 2 gm/ (Dextrose) 100 mls @ 200 mls/hr IVPB DAILY [facility]; Protocol Last Admin: 02/21/18 09:31 Dose: 200 mls/hr Ondansetron HCl (Zofran Injection) 4 mg IVPUSH Q6H PRN PRN Reason: NAUSEA Pantoprazole Sodium (Protonix -) 40 mg PO DAILY [facility] Last Admin: 02/21/18 09:30 Dose: 40 mg Tamsulosin HCl (Flomax -) 0.4 mg PO DAILY@0830 [facility] Last Admin: 02/21/18 09:30 Dose: 0.4 mg #Acute blood loss Anemia Hgb/ HCT 10.1/ 31.1 s/p 2 unit transfusion yest Transfused 2 u RBC #Elevated WBC wbc 19.3 Afebrile- no inf source noted Cont IV antibiotics/ monitor #Groin rash Nystatin oint BID # Low potassium Potassium corrected yest. Now 3.5 # S/p Ex. Lap. w/ right shmuel-colectomy due to perforation IV abx per ID oncology follow up # obstructive uropathy Enlarged prostate flomax 0.4 mg qd PSA pending # increased confusion ? baseline dementia # HTN BP stable # metastasis? 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
[2018-02-21 12:10] LABS: ANISOCYTOSIS 2+; MACROCYTOSIS 0; PLATELET ESTIMATE INCREASED
--- NOTE | 2018-02-21 15:57 | PN ---
Progress Note (short form) - Note Progress Note: surgery pt seen and examined. feels well. eating regular diet. bms. abd-soft, linda serous/minimal, incision clean, non distened Laboratory Tests 02/18/18 02/21/18 06:00 06:00 WBC 11.9 H 19.3 H Plt Count 464 H A/p 1) Pod#9- low fiber diet, cont linda. 2) pain- hold narcotics 3) prophylaxis- lovenox, protonix. oob 4) perforated colon- confirms adeno ca, perforated, node negative 5) lung lesion, bone lesion- unlikely related to colon neoplasm. per medical team. 6) anemia- acute from surgery on chronic. no active bleeding 7) elevated wbc and plt. unclear etiology. doubt abd with benign exam and tolerating diet. will check c-diff. consider dvt study. may repeat ct next week if no improvement. follow per ID. poss reactive?
--- NOTE | 2018-02-21 16:54 | PN ---
Progress Note, Physician History of Present Illness: Awake, alert Supine in bed No c/o abdominal pain. Tolerating diet Temps remain down Afebrile WBC elevated 19k Path report + adenocarcinoma - Current Medication List Current Medications: Active Medications Acetaminophen (Tylenol -) 650 mg PO Q4H PRN PRN Reason: PAIN Last Admin: 02/19/18 11:10 Dose: 650 mg Chlorhexidine Gluconate (Hibiclens For Decolonization -) 1 applic TP HS [facility] Last Admin: 02/20/18 21:17 Dose: Not Given Enoxaparin Sodium (Lovenox -) 40 mg SQ DAILY [facility] Last Admin: 02/21/18 09:31 Dose: 40 mg Hydralazine HCl (Apresoline Injection -) 10 mg IVPUSH Q6H [facility] Last Admin: 02/21/18 14:45 Dose: Not Given Metronidazole (Flagyl 500mg Premixed Ivpb -) 500 mg in 100 mls @ 100 mls/hr IVPB Q8H-IV [facility] Last Admin: 02/21/18 09:31 Dose: 100 mls/hr Ceftriaxone Sodium 2 gm/ (Dextrose) 100 mls @ 200 mls/hr IVPB DAILY [facility]; Protocol Last Admin: 02/21/18 09:31 Dose: 200 mls/hr Nystatin (Mycostatin Ointment -) 1 applic TP BID [facility] Ondansetron HCl (Zofran Injection) 4 mg IVPUSH Q6H PRN PRN Reason: NAUSEA Pantoprazole Sodium (Protonix -) 40 mg PO DAILY [facility] Last Admin: 02/21/18 09:30 Dose: 40 mg Tamsulosin HCl (Flomax -) 0.4 mg PO DAILY@0830 [facility] Last Admin: 02/21/18 09:30 Dose: 0.4 mg - Objective Vital Signs: Vital Signs Temperature 98.9 F 02/21/18 14:15 Pulse Rate 97 H 02/21/18 14:15 Respiratory Rate 16 02/21/18 14:15 Blood Pressure 151/87 02/21/18 14:15 O2 Sat by Pulse Oximetry (%) 95 02/21/18 09:00 Constitutional: Yes: No Distress Eyes: Yes: Conjunctiva Clear Cardiovascular: Yes: Regular Rate and Rhythm, S1, S2 Respiratory: Yes: CTA Bilaterally Gastrointestinal: Yes: Normal Bowel Sounds, Soft, Other (seosanguinous fluid in drain). No: Tenderness Edema: Yes Edema: LLE: 1+, RLE: 1+ Labs: CBC, BMP 02/21/18 06:00 02/21/18 06:00 INR, PTT INR 1.21 (0.83-1.09) H 02/21/18 06:00 Assessment/Plan POD #9 exploratory laparotomy, excision of colonic mass, drainage of abscess Operative c/s polymicrobial Leukocytosis Continue ceftriaxone/ flagyl Would repeat CT A/P for worsening leukocytosis or recurrent fever
[2018-02-21] MEDS: CHLORHEXIDINE GLUCONATE 4% CLEANSER FOR DECOLONIZATION TP SCH (21:12)
[2018-02-21] MEDS: NYSTATIN 100000 UNIT/GM TOPICAL OINTMENT 15 GM TUBE TP SCH (21:14)
[2018-02-22] MEDS: NYSTATIN 100000 UNIT/GM TOPICAL OINTMENT 15 GM TUBE TP SCH ×3 (01:10→21:08)
[2018-02-22] MEDS: hydrALAZINE HCL 20 MG/ML VIAL IVPUSH SCH ×4 (02:06→21:03)
[2018-02-22 07:28] LABS: BASO % 0.4 % (0-2.0); EOS % 0.8 % (0-4.5); HEMATOCRIT 31.2 % (35.4-49); HEMOGLOBIN 10.1 GM/dL (11.7-16.9); LYMPH % 8.4 % (8-40); MCH 29.2 pg (25.7-33.7); MCHC 32.3 g/dl (32.0-35.9); MEAN CELL VOLUME 90.4 fl (80-96); MEAN PLT VOLUME 6.9 fl (7.5-11.1); MONO % 5.2 % (3.8-10.2); NEUT % 85.2 % (42.8-82.8); PLATELET COUNT 482 K/MM3 (134-434); RBC 3.46 M/mm3 (4.00-5.60); RDW 20.9 % (11.9-15.9); WHITE BLOOD COUNT 19.7 K/mm3 (4.0-10.0)
[2018-02-22] MEDS ORDERED: DEXTROSE 5%-WATER 100 ML IVPB ONE (08:42)
[2018-02-22] MEDS: TAMSULOSIN HCL 0.4 MG CAP PO SCH (08:59)
[2018-02-22] MEDS: PANTOPRAZOLE 40 MG TABLET (FP) PO SCH (09:00)
[2018-02-22] MEDS: CEFTRIAXONE 2 GM in DEXTROSE 5%-WATER 100 ML IVPB SCH (09:00)
[2018-02-22 09:22] LABS: ALBUMIN 1.8 g/dl (3.4-5.0); ALK PHOS 169 U/L (45-117); ANION GAP 11 MMOL/L (8-16); BILIRUBIN,TOTAL 0.4 mg/dL (0.2-1); BLOOD UREA NITROGEN 13 mg/dL (7-18); CALCIUM 7.9 mg/dL (8.5-10.1); CHLORIDE 104 mmol/L (98-107); CO2 25 mmol/L (21-32); CREATININE 0.6 mg/dL (0.55-1.3); GLUCOSE,RANDOM 85 mg/dL (74-106); POTASSIUM 3.4 mmol/L (3.5-5.1); SGOT/AST 22 U/L (15-37); SGPT/ALT 22 U/L (13-61); SODIUM 140 mmol/L (136-145); TOT PROT 6.9 g/dl (6.4-8.2)
--- NOTE | 2018-02-22 16:01 | PN ---
Progress Note (short form) - Note Progress Note: laying in bed comfortable / has been tolerating diet Vital Signs Period Temp Pulse Resp BP Sys/Olivo Pulse Ox Last 24 Hr 98.2 F-98.8 F 75-102 18-20 122-164/71-95 94-94 neck supple heart S1/S2 reg lung clear bilat decreased BS at bases abd diffusely tender / distended / mid line dinh in place -- clean drain remains in place with bloody d/c ext with DVT boot CBC, BMP 02/22/18 06:00 02/22/18 06:00 Microbiology 02/18/18 05:10 Urine - Urine - Catheterized Urine Culture - Final NO GROWTH OBTAINED 02/12/18 12:20 Blood - Peripheral Venous Blood Culture - Final NO GROWTH AFTER 5 DAYS INCUBATION 02/12/18 12:20 Blood - Peripheral Venous Blood Culture - Final NO GROWTH AFTER 5 DAYS INCUBATION 02/12/18 11:14 Abdomen Gram Stain - Final 02/12/18 11:14 Abdomen Body Fluid Culture - Final Escherichia Coli Beta Hem Streptococcus Group C 02/12/18 11:14 Abdomen Anaerobic Culture - Final Odoribacter Splanchnicus 02/12/18 12:20 Urine - Urine - Catheterized Urine Culture - Final NO GROWTH OBTAINED Active Medications Acetaminophen (Tylenol -) 650 mg PO Q4H PRN PRN Reason: PAIN Last Admin: 02/19/18 11:10 Dose: 650 mg Chlorhexidine Gluconate (Hibiclens For Decolonization -) 1 applic TP HS [facility] Last Admin: 02/19/18 21:02 Dose: Not Given Enoxaparin Sodium (Lovenox -) 40 mg SQ DAILY [facility] Last Admin: 02/19/18 10:15 Dose: 40 mg Hydralazine HCl (Apresoline Injection -) 10 mg IVPUSH Q6H [facility] Last Admin: 02/19/18 20:39 Dose: Not Given Metronidazole (Flagyl 500mg Premixed Ivpb -) 500 mg in 100 mls @ 100 mls/hr IVPB Q8H-IV [facility] Last Admin: 02/19/18 17:11 Dose: 100 mls/hr Ceftriaxone Sodium 2 gm/ (Dextrose) 100 mls @ 200 mls/hr IVPB DAILY [facility]; Protocol Last Admin: 02/19/18 10:17 Dose: 200 mls/hr Ondansetron HCl (Zofran Injection) 4 mg IVPUSH Q6H PRN PRN Reason: NAUSEA Pantoprazole Sodium (Protonix -) 40 mg PO DAILY [facility] Last Admin: 02/19/18 10:16 Dose: 40 mg Tamsulosin HCl (Flomax -) 0.4 mg PO DAILY@0830 [facility] #POD 10 : Ex. Lap. w/ right shmuel-colectomy due to perforation, drainage of abscess, lavage due to a large colon tumor invading abdominal wall and retroperitoneum Path Invasive adenocarcinoma, moderately differentiated surgical margins Neg / lymph nodes Neg (27) oncology follow up # obstructive uropathy required martinez flomax consult # cognitive improvement off pain meds patient informed of Path report -- asked appropriate questions seems to understand # HTN off bp meds trend - will resume when stable #CVA - left cerebral thrombosis #meningioma resected 2013 # lesions 5th rib and L3 vertebra unlikely from Colon case discussed with brother -- informed of path report
[2018-02-22] MEDS ORDERED: PT OWN MED DRAWER 7, Y5N ONE (21:08)
[2018-02-22] MEDS: ACETAMINOPHEN 325 MG TABLET (FP) PO PRN (22:28)
[2018-02-23] MEDS: hydrALAZINE HCL 20 MG/ML VIAL IVPUSH SCH ×4 (01:47→21:00)
[2018-02-23 07:58] LABS: BASO % 0.2 % (0-2.0); EOS % 0.4 % (0-4.5); HEMATOCRIT 30.7 % (35.4-49); HEMOGLOBIN 10.2 GM/dL (11.7-16.9); LYMPH % 8.5 % (8-40); MCHC 33.2 g/dl (32.0-35.9); MEAN CELL VOLUME 90.5 fl (80-96); MEAN PLT VOLUME 7.1 fl (7.5-11.1); MONO % 6.6 % (3.8-10.2); NEUT % 84.3 % (42.8-82.8); PLATELET COUNT 477 K/MM3 (134-434); RBC 3.39 M/mm3 (4.00-5.60); RDW 20.5 % (11.9-15.9); WHITE BLOOD COUNT 18.4 K/mm3 (4.0-10.0)
[2018-02-23 09:07] LABS: ANION GAP 14 MMOL/L (8-16); BLOOD UREA NITROGEN 16 mg/dL (7-18); CALCIUM 8.5 mg/dL (8.5-10.1); CHLORIDE 104 mmol/L (98-107); CO2 24 mmol/L (21-32); CREATININE 0.5 mg/dL (0.55-1.3); GLUCOSE,RANDOM 84 mg/dL (74-106); POTASSIUM 3.4 mmol/L (3.5-5.1); SODIUM 142 mmol/L (136-145)
[2018-02-23] MEDS ORDERED: DEXTROSE 5%-WATER 100 ML IVPB ONE (09:13)
[2018-02-23] MEDS: CEFTRIAXONE 2 GM in DEXTROSE 5%-WATER 100 ML IVPB SCH (09:32)
[2018-02-23] MEDS: NYSTATIN 100000 UNIT/GM TOPICAL OINTMENT 15 GM TUBE TP SCH ×2 (09:33→22:26)
[2018-02-23] MEDS: PANTOPRAZOLE 40 MG TABLET (FP) PO SCH (09:33)
[2018-02-23] MEDS: TAMSULOSIN HCL 0.4 MG CAP PO SCH (09:33)
[2018-02-23 12:15] LABS: PLATELET ESTIMATE SLT INCREASE
[2018-02-23] MEDS: ACETAMINOPHEN 325 MG TABLET (FP) PO PRN (12:54)
--- NOTE | 2018-02-23 16:49 | PN ---
Progress Note (short form) - Note Progress Note: laying in bed comfortable / has been tolerating diet Has remained with low grade temp No Fever or chills Vital Signs Period Temp Pulse Resp BP Sys/Olivo Pulse Ox Last 24 Hr 97.9 F-99.0 F 95-103 18-20 143-161/79-92 94-94 neck supple heart S1/S2 reg lung clear bilat decreased BS at bases abd diffusely tender / distended / mid line dinh in place -- clean drain remains in place with bloody d/c martinez with cluody urine ext with DVT boot CBC, BMP 02/23/18 06:00 02/23/18 06:00 CBC, BMP 02/22/18 06:00 02/22/18 06:00 Microbiology 02/22/18 22:25 Stool Clostridium difficile Antigen (YEHUDA) - Final 02/22/18 22:25 Stool Clostridium difficile Toxin Assay - Final 02/18/18 05:10 Urine - Urine - Catheterized Urine Culture - Final NO GROWTH OBTAINED 02/12/18 12:20 Blood - Peripheral Venous Blood Culture - Final NO GROWTH AFTER 5 DAYS INCUBATION 02/12/18 12:20 Blood - Peripheral Venous Blood Culture - Final NO GROWTH AFTER 5 DAYS INCUBATION 02/12/18 11:14 Abdomen Gram Stain - Final 02/12/18 11:14 Abdomen Body Fluid Culture - Final Escherichia Coli Beta Hem Streptococcus Group C 02/12/18 11:14 Abdomen Anaerobic Culture - Final Odoribacter Splanchnicus 02/12/18 12:20 Urine - Urine - Catheterized Urine Culture - Final NO GROWTH OBTAINED Active Medications Acetaminophen (Tylenol -) 650 mg PO Q4H PRN PRN Reason: PAIN Last Admin: 02/23/18 12:54 Dose: 650 mg Hydralazine HCl (Apresoline Injection -) 10 mg IVPUSH Q6H [facility] Last Admin: 02/23/18 09:33 Dose: Not Given Metronidazole (Flagyl 500mg Premixed Ivpb -) 500 mg in 100 mls @ 100 mls/hr IVPB Q8H-IV [facility] Last Admin: 02/23/18 09:33 Dose: 100 mls/hr Ceftriaxone Sodium 2 gm/ (Dextrose) 100 mls @ 200 mls/hr IVPB DAILY [facility]; Protocol Last Admin: 02/23/18 09:32 Dose: 200 mls/hr Nystatin (Mycostatin Ointment -) 1 applic TP BID [facility] Last Admin: 02/23/18 09:33 Dose: 1 applic Ondansetron HCl (Zofran Injection) 4 mg IVPUSH Q6H PRN PRN Reason: NAUSEA Pantoprazole Sodium (Protonix -) 40 mg PO DAILY [facility] Last Admin: 02/23/18 09:33 Dose: 40 mg Tamsulosin HCl (Flomax -) 0.4 mg PO DAILY@0830 [facility] Last Admin: 02/23/18 09:33 Dose: 0.4 mg #POD 11 : Ex. Lap. w/ right shmuel-colectomy due to perforation, drainage of abscess, lavage due to a large colon tumor invading abdominal wall and retroperitoneum Path Invasive adenocarcinoma, moderately differentiated surgical margins Neg / lymph nodes Neg (27) persistent inc in WBC hx of abcess -- will repeat CT in am oncology follow up # obstructive uropathy required martinez -- now with cloudy urine -- will c/s continue flomax consult # cognitive improvement off pain meds patient informed of Path report -- asked appropriate questions seems to understand # HTN off bp meds trend - will resume when stable #CVA - left cerebral thrombosis #meningioma resected 2013 # lesions 5th rib and L3 vertebra unlikely from Colon work up for MM pending appreciate Heme-Onc follow up case discussed with brother -- informed of path report
[2018-02-23] MEDS: ENOXAPARIN NA (PORCINE) 40 MG/0.4 ML DISP.SYRIN SQ SCH (17:30)
[2018-02-23] MEDS ORDERED: PT OWN MED DRAWER 7, Y5N ONE (18:35)
[2018-02-23] MEDS ORDERED: POTASSIUM CHLORIDE TABS 20 MEQ TABLET.ER (FP) PO STA (18:40)
[2018-02-24] MEDS: hydrALAZINE HCL 20 MG/ML VIAL IVPUSH SCH ×4 (02:45→20:40)
[2018-02-24 07:04] LABS: BASO % 0.2 % (0-2.0); EOS % 0.9 % (0-4.5); HEMATOCRIT 30.8 % (35.4-49); HEMOGLOBIN 9.9 GM/dL (11.7-16.9); LYMPH % 11.4 % (8-40); MCH 29.5 pg (25.7-33.7); MCHC 32.2 g/dl (32.0-35.9); MEAN CELL VOLUME 91.7 fl (80-96); MEAN PLT VOLUME 7.2 fl (7.5-11.1); MONO % 8.6 % (3.8-10.2); NEUT % 78.9 % (42.8-82.8); PLATELET COUNT 455 K/MM3 (134-434); RBC 3.36 M/mm3 (4.00-5.60); RDW 20.3 % (11.9-15.9); WHITE BLOOD COUNT 14.6 K/mm3 (4.0-10.0)
[2018-02-24] MEDS ORDERED: PT OWN MED DRAWER 7, Y5N ONE (08:27)
[2018-02-24] MEDS ORDERED: DEXTROSE 5%-WATER 100 ML IVPB ONE (08:27)
[2018-02-24] MEDS: TAMSULOSIN HCL 0.4 MG CAP PO SCH (08:41)
[2018-02-24] MEDS: PANTOPRAZOLE 40 MG TABLET (FP) PO SCH (09:36)
[2018-02-24] MEDS: CEFTRIAXONE 2 GM in DEXTROSE 5%-WATER 100 ML IVPB SCH (09:38)
[2018-02-24] MEDS: NYSTATIN 100000 UNIT/GM TOPICAL OINTMENT 15 GM TUBE TP SCH (09:39)
[2018-02-24] MEDS: ENOXAPARIN NA (PORCINE) 40 MG/0.4 ML DISP.SYRIN SQ SCH (09:39)
[2018-02-24 10:40] LABS: ALBUMIN 1.7 g/dl (3.4-5.0); ALK PHOS 165 U/L (45-117); ANION GAP 9 MMOL/L (8-16); BILIRUBIN,TOTAL 0.4 mg/dL (0.2-1); BLOOD UREA NITROGEN 15 mg/dL (7-18); CHLORIDE 106 mmol/L (98-107); CO2 25 mmol/L (21-32); CREATININE 0.5 mg/dL (0.55-1.3); GLUCOSE,RANDOM 89 mg/dL (74-106); POTASSIUM 3.9 mmol/L (3.5-5.1); SGOT/AST 20 U/L (15-37); SGPT/ALT 16 U/L (13-61); SODIUM 140 mmol/L (136-145); TOT PROT 6.8 g/dl (6.4-8.2)
--- NOTE | 2018-02-24 11:08 | PN ---
Physical Exam: SUBJECTIVE: Patient seen and examined at bedside. No overnight events. He endorses some left sided rib pain. Pain is well controlled. Drain is patent and draining serosanguinus fluid. Denies CP,GUZMAN, SOB, nausea or vomiting. OBJECTIVE: Vital Signs Period Temp Pulse Resp BP Sys/Olivo Pulse Ox Last 24 Hr 97.7 F-98.6 F 92-99 18-20 150-156/74-89 94-97 GENERAL:awake and alert, NAD HEAD: NC/AT ENT:moist mucous membranes. NECK: supple. LUNGS: CTAB, No wheezing or rales. no accessory muscle use. HEART: RRR, NL S1S2, No M/G/R ABDOMEN: Soft, JUNE drain in place, dinh+, area looks clean and dry. Soft, tender to palpation. EXTREMITIES: 2+ pulses, warm, well-perfused, no edema. NEUROLOGICAL: Normal speech, gait not observed. PSYCH: Normal mood, normal affect. Laboratory Results - last 24 hr 02/20/18 02/23/18 02/24/18 12:06 06:00 06:00 WBC 14.6 H RBC 3.36 L Hgb 9.9 L Hct 30.8 L MCV 91.7 MCH 29.5 MCHC 32.2 RDW 20.3 H Plt Count 455 H MPV 7.2 L Absolute Neuts (auto) 11.5 H Neutrophils % 78.9 Lymphocytes % 11.4 D Monocytes % 8.6 Eosinophils % 0.9 D Basophils % 0.2 Nucleated RBC % 0 Platelet Estimate Slt increase Platelet Comment No clotting detected Sodium Potassium Chloride Carbon Dioxide Anion Gap BUN Creatinine Creat Clearance w eGFR Random Glucose Calcium Total Bilirubin AST ALT Alkaline Phosphatase Total Protein Albumin Blood Type O POSITIVE Antibody Screen Negative Crossmatch See Detail 02/24/18 06:00 WBC RBC Hgb Hct MCV MCH MCHC RDW Plt Count MPV Absolute Neuts (auto) Neutrophils % Lymphocytes % Monocytes % Eosinophils % Basophils % Nucleated RBC % Platelet Estimate Platelet Comment Sodium 140 Potassium 3.9 Chloride 106 Carbon Dioxide 25 Anion Gap 9 BUN 15 Creatinine 0.5 L Creat Clearance w eGFR > 60 Random Glucose 89 Calcium 8.0 L Total Bilirubin 0.4 AST 20 ALT 16 Alkaline Phosphatase 165 H Total Protein 6.8 Albumin 1.7 L Blood Type Antibody Screen Crossmatch Active Medications Generic Name Dose Route Start Last Admin Trade Name Freq PRN Reason Stop Dose Admin Acetaminophen 650 mg 02/15/18 09:37 02/23/18 12:54 Tylenol - PO 650 mg Q4H PRN Administration PAIN Enoxaparin Sodium 40 mg 02/23/18 17:30 02/24/18 09:39 Lovenox - SQ 40 mg DAILY [facility]AN Administration Hydralazine HCl 10 mg 02/15/18 02:45 02/24/18 08:51 Apresoline Injection - IVPUSH 10 mg Q6H B[facility]AN Administration Metronidazole 500 mg in 100 mls @ 100 mls/hr 02/16/18 14:45 02/24/18 09:38 Flagyl 500mg Premixed Ivpb - IVPB 100 mls/hr Q8H-IV [facility]AN Administration Ceftriaxone Sodium 2 gm/ 100 mls @ 200 mls/hr 02/18/18 10:00 02/24/18 09:38 Dextrose IVPB 200 mls/hr DAILY [facility] Administration Protocol Nystatin 1 applic 02/21/18 22:00 02/24/18 09:39 Mycostatin Ointment - TP 1 applic BID [facility]AN Administration Ondansetron HCl 4 mg 02/14/18 20:52 Zofran Injection IVPUSH Q6H PRN NAUSEA Pantoprazole Sodium 40 mg 02/19/18 10:00 02/24/18 09:36 Protonix - PO 40 mg DAILY [facility] Administration Tamsulosin HCl 0.4 mg 02/20/18 08:30 02/24/18 08:41 Flomax - PO 0.4 mg DAILY@0830 [facility] Administration ASSESSMENT/PLAN: 87 year old male was brought in to the ED via 911 with the chief complaint of severe abdominal pain x 1 day was found to have perforated viscus and underwent ex lap with right colectomy, drainage of abscess (02/12) Problem List - Problems (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 * Repeat CT abdomen/Pelvis 02/18/18: Trace ascites, no evidence of bowel obstruction. s/p right hemicolectomy with small amount of fluid about the surgical site, RUQ developing abscess. * Osteolytic lesion. 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 * marked reverse A/G ratio with elevation of Total protein * Although the possibility of mets to the bone is high, he could also have another disease causing lytic lesions of the bone. R/O Multiple myeloma * CT chest suggestive of: Bulky right anterolateral fifth rib mass consistent with a metastatic lesion. Bony mets at T2, T7 and T12. * Immunoglobulins: IgA high, IgM/IgG low. * SPEP, UPEP, IPEP, Immunofixation pending (3) Acute blood loss anemia Assessment/Plan: Most likely 2/2 intra-op blood loss. * H/H has remained stable * will continue to monitor. Visit type - Emergency Visit Emergency Visit: Yes ED Registration Date: 02/12/18 Care time: The patient presented to the Emergency Department on the above date and was hospitalized for further evaluation of their emergent condition. - New Patient This patient is new to me today: Yes Date on this admission: 02/25/18 - Critical Care Critical Care patient: No - Discharge Referral Referred to [facility] Med P.C.: No
[2018-02-24 12:43] LABS: INR 1.36 (0.83-1.09); PROTHROMBIN TIME (PATIENT) 15.4 SEC (9.7-13.0)
[2018-02-24 12:46] LABS: ACTIVATED PTT 31.1 SECONDS (25.2-36.5)
[2018-02-24] MEDS: ACETAMINOPHEN 325 MG TABLET (FP) PO PRN ×2 (14:58→20:40)
--- NOTE | 2018-02-24 16:32 | PN ---
Progress Note, Physician History of Present Illness: Awake, alert Supine in bed No c/o abdominal pain. Tolerating diet Low grade temp WBC improved CT findings noted - Current Medication List Current Medications: Active Medications Acetaminophen (Tylenol -) 650 mg PO Q4H PRN PRN Reason: PAIN Last Admin: 02/24/18 14:58 Dose: 650 mg Hydralazine HCl (Apresoline Injection -) 10 mg IVPUSH Q6H [facility] Last Admin: 02/24/18 15:07 Dose: Not Given Metronidazole (Flagyl 500mg Premixed Ivpb -) 500 mg in 100 mls @ 100 mls/hr IVPB Q8H-IV [facility]AN Last Admin: 02/24/18 09:38 Dose: 100 mls/hr Ceftriaxone Sodium 2 gm/ (Dextrose) 100 mls @ 200 mls/hr IVPB DAILY [facility]; Protocol Last Admin: 02/24/18 09:38 Dose: 200 mls/hr Nystatin (Mycostatin Ointment -) 1 applic TP BID [facility] Last Admin: 02/24/18 09:39 Dose: 1 applic Ondansetron HCl (Zofran Injection) 4 mg IVPUSH Q6H PRN PRN Reason: NAUSEA Pantoprazole Sodium (Protonix -) 40 mg PO DAILY [facility] Last Admin: 02/24/18 09:36 Dose: 40 mg Tamsulosin HCl (Flomax -) 0.4 mg PO DAILY@0830 [facility] Last Admin: 02/24/18 08:41 Dose: 0.4 mg - Objective Vital Signs: Vital Signs Temperature 100.4 F H 02/24/18 15:04 Pulse Rate 115 H 02/24/18 15:04 Respiratory Rate 20 02/24/18 15:04 Blood Pressure 151/88 02/24/18 15:04 O2 Sat by Pulse Oximetry (%) 96 02/24/18 09:00 Constitutional: Yes: No Distress Cardiovascular: Yes: Regular Rate and Rhythm, S1, S2 Respiratory: Yes: Diminished Gastrointestinal: Yes: Normal Bowel Sounds, Soft, Tenderness, Other (+ mild diffuse tenderness) Labs: CBC, BMP 02/24/18 06:00 02/24/18 06:00 INR, PTT INR 1.36 (0.83-1.09) H 02/24/18 11:50 Assessment/Plan Post op exploratory laparotomy, excision of colonic mass, drainage of abscess Operative c/s polymicrobial Leukocytosis/ low grade temp Continue ceftriaxone/ flagyl
--- NOTE | 2018-02-24 20:57 | PN ---
Teaching Attending Note Name of Resident: Miller Bob ATTENDING PHYSICIAN STATEMENT I saw and evaluated the patient. I reviewed the resident's note and discussed the case with the resident. I agree with the resident's findings and plan as documented. 77 y/o patient with HTN, mild cognitive impairment perforated cecal mass , s/p rt. hemicolectomy. Path c/w T4a, N0 adenocarcinoma with LVI, margins negative, MSI high Post op. now with fevers RUQ abscess ? For drainage per ID/IR Also with lytic bone disease --? mets vs myelona M spike with elevated Ig A Checking biopsy of rib lesion will request palliative care consult
--- NOTE | 2018-02-24 23:06 | PN ---
Progress Note (short form) - Note Progress Note: laying in bed comfortable / has been tolerating diet repeat CT today Vital Signs Period Temp Pulse Resp BP Sys/Olivo Pulse Ox Last 24 Hr 97.7 F-100.4 F 92-115 18-20 151-156/74-89 96-97 neck supple heart S1/S2 reg lung clear bilat decreased BS at bases abd diffusely tender / distended / mid line dinh in place -- clean drain remains in place with bloody d/c ext with DVT boot CBC, BMP 02/24/18 06:00 02/24/18 06:00 CBC, BMP 02/22/18 06:00 02/22/18 06:00 Microbiology 02/22/18 22:25 Stool Clostridium difficile Antigen (YEHUDA) - Final 02/22/18 22:25 Stool Clostridium difficile Toxin Assay - Final 02/18/18 05:10 Urine - Urine - Catheterized Urine Culture - Final NO GROWTH OBTAINED 02/12/18 12:20 Blood - Peripheral Venous Blood Culture - Final NO GROWTH AFTER 5 DAYS INCUBATION 02/12/18 12:20 Blood - Peripheral Venous Blood Culture - Final NO GROWTH AFTER 5 DAYS INCUBATION 02/12/18 11:14 Abdomen Gram Stain - Final 02/12/18 11:14 Abdomen Body Fluid Culture - Final Escherichia Coli Beta Hem Streptococcus Group C 02/12/18 11:14 Abdomen Anaerobic Culture - Final Odoribacter Splanchnicus 02/12/18 12:20 Urine - Urine - Catheterized Urine Culture - Final NO GROWTH OBTAINED Active Medications Acetaminophen (Tylenol -) 650 mg PO Q4H PRN PRN Reason: PAIN Last Admin: 02/24/18 20:40 Dose: 650 mg Hydralazine HCl (Apresoline Injection -) 10 mg IVPUSH Q6H [facility] Last Admin: 02/24/18 20:40 Dose: Not Given Metronidazole (Flagyl 500mg Premixed Ivpb -) 500 mg in 100 mls @ 100 mls/hr IVPB Q8H-IV [facility] Last Admin: 02/24/18 17:03 Dose: 100 mls/hr Ceftriaxone Sodium 2 gm/ (Dextrose) 100 mls @ 200 mls/hr IVPB DAILY [facility]; Protocol Last Admin: 02/24/18 09:38 Dose: 200 mls/hr Nystatin (Mycostatin Ointment -) 1 applic TP BID [facility] Last Admin: 02/24/18 09:39 Dose: 1 applic Ondansetron HCl (Zofran Injection) 4 mg IVPUSH Q6H PRN PRN Reason: NAUSEA Pantoprazole Sodium (Protonix -) 40 mg PO DAILY [facility] Last Admin: 02/24/18 09:36 Dose: 40 mg Tamsulosin HCl (Flomax -) 0.4 mg PO DAILY@0830 [facility] Last Admin: 02/24/18 08:41 Dose: 0.4 mg #POD 11: Ex. Lap. w/ right shmuel-colectomy due to perforation, drainage of abscess, lavage due to a large colon tumor invading abdominal wall and retroperitoneum Path Invasive adenocarcinoma, moderately differentiated surgical margins Neg / lymph nodes Neg (27) # persistent inc WBC repeat CT with persistent fluid collection to discuss with surgery - as may need aspiration consult with IR continue abx # obstructive uropathy required martinez flomax consult # cognitive improvement still forgetful / i have explained path report several times # HTN off bp meds trend - will resume when stable #CVA - left cerebral thrombosis #meningioma resected 2013 # lesions 5th rib and L3 vertebra unlikely from Colon path reports discussed with HCP / Fr Chavez / all questions answered
[2018-02-25] MEDS: hydrALAZINE HCL 20 MG/ML VIAL IVPUSH SCH ×4 (01:49→21:51)
[2018-02-25 06:16] LABS: BASO % 0.4 % (0-2.0); EOS % 0.7 % (0-4.5); HEMATOCRIT 29.1 % (35.4-49); HEMOGLOBIN 9.5 GM/dL (11.7-16.9); LYMPH % 10.6 % (8-40); MCH 29.8 pg (25.7-33.7); MCHC 32.6 g/dl (32.0-35.9); MEAN CELL VOLUME 91.3 fl (80-96); MONO % 7.5 % (3.8-10.2); NEUT % 80.8 % (42.8-82.8); PLATELET COUNT 451 K/MM3 (134-434); RBC 3.18 M/mm3 (4.00-5.60); RDW 19.7 % (11.9-15.9); WHITE BLOOD COUNT 14.3 K/mm3 (4.0-10.0)
[2018-02-25 07:04] LABS: ANION GAP 8 MMOL/L (8-16); BLOOD UREA NITROGEN 15 mg/dL (7-18); CALCIUM 8.1 mg/dL (8.5-10.1); CHLORIDE 105 mmol/L (98-107); CO2 26 mmol/L (21-32); CREATININE 0.5 mg/dL (0.55-1.3); GLUCOSE,RANDOM 91 mg/dL (74-106); POTASSIUM 3.6 mmol/L (3.5-5.1); SODIUM 139 mmol/L (136-145)
[2018-02-25] MEDS: TAMSULOSIN HCL 0.4 MG CAP PO SCH (08:58)
[2018-02-25] MEDS: ACETAMINOPHEN 325 MG TABLET (FP) PO PRN ×4 (08:59→21:49)
[2018-02-25] MEDS ORDERED: DEXTROSE 5%-WATER 100 ML IVPB ONE (09:01)
[2018-02-25] MEDS: CEFTRIAXONE 2 GM in DEXTROSE 5%-WATER 100 ML IVPB SCH (09:03)
[2018-02-25] MEDS: PANTOPRAZOLE 40 MG TABLET (FP) PO SCH (09:04)
--- NOTE | 2018-02-25 10:53 | PN ---
Progress Note (short form) - Note Progress Note: laying in bed comfortable / currently NPO awaiting for bone BX I have explained planned BX -- but keeps saying "that procedure " unable to explain what procedure and why is he having it done also discussed finding of "fluid collection" on repeat CT -- unclear level of comprehension will consult IR for drainage Vital Signs Period Temp Pulse Resp BP Sys/Olivo Pulse Ox Last 24 Hr 99.0 F-100.4 F 97-115 16-20 143-152/76-88 96-96 neck supple heart S1/S2 reg lung clear bilat decreased BS at bases abd diffusely tender / distended / mid line dinh in place -- clean drain remains in place with bloody d/c ext with DVT boot CBC, BMP 02/25/18 06:00 02/25/18 06:00 CBC, BMP 02/24/18 06:00 02/24/18 06:00 CBC, BMP 02/22/18 06:00 02/22/18 06:00 Microbiology 02/22/18 22:25 Stool Clostridium difficile Antigen (YEHUDA) - Final 02/22/18 22:25 Stool Clostridium difficile Toxin Assay - Final 02/18/18 05:10 Urine - Urine - Catheterized Urine Culture - Final NO GROWTH OBTAINED 02/12/18 12:20 Blood - Peripheral Venous Blood Culture - Final NO GROWTH AFTER 5 DAYS INCUBATION 02/12/18 12:20 Blood - Peripheral Venous Blood Culture - Final NO GROWTH AFTER 5 DAYS INCUBATION 02/12/18 11:14 Abdomen Gram Stain - Final 02/12/18 11:14 Abdomen Body Fluid Culture - Final Escherichia Coli Beta Hem Streptococcus Group C 02/12/18 11:14 Abdomen Anaerobic Culture - Final Odoribacter Splanchnicus 02/12/18 12:20 Urine - Urine - Catheterized Urine Culture - Final NO GROWTH OBTAINED Active Medications Acetaminophen (Tylenol -) 650 mg PO Q4H PRN PRN Reason: PAIN Last Admin: 02/25/18 08:59 Dose: 650 mg Hydralazine HCl (Apresoline Injection -) 10 mg IVPUSH Q6H [facility] Last Admin: 02/25/18 08:58 Dose: 10 mg Metronidazole (Flagyl 500mg Premixed Ivpb -) 500 mg in 100 mls @ 100 mls/hr IVPB Q8H-IV [facility] Last Admin: 02/25/18 01:49 Dose: 100 mls/hr Ceftriaxone Sodium 2 gm/ (Dextrose) 100 mls @ 200 mls/hr IVPB DAILY [facility]; Protocol Last Admin: 02/25/18 09:03 Dose: 200 mls/hr Nystatin (Mycostatin Ointment -) 1 applic TP BID [facility] Last Admin: 02/24/18 09:39 Dose: 1 applic Ondansetron HCl (Zofran Injection) 4 mg IVPUSH Q6H PRN PRN Reason: NAUSEA Pantoprazole Sodium (Protonix -) 40 mg PO DAILY [facility] Last Admin: 02/25/18 09:04 Dose: 40 mg Tamsulosin HCl (Flomax -) 0.4 mg PO DAILY@0830 [facility] Last Admin: 02/25/18 08:58 Dose: 0.4 mg #POD : Ex. Lap. w/ right shmuel-colectomy due to perforation, drainage of abscess, lavage due to a large colon tumor invading abdominal wall and retroperitoneum Path Invasive adenocarcinoma, moderately differentiated surgical margins Neg / lymph nodes Neg (27) # persistent inc WBC repeat CT with persistent fluid collection to discuss with surgery - as may need aspiration consult with IR continue abx # obstructive uropathy required martinez flomax consult # cognitive improvement still forgetful / i have explained path report several times # HTN off bp meds trend - will resume when stable #CVA - left cerebral thrombosis #meningioma resected 2013 # lesions 5th rib and L3 vertebra unlikely from Colon awaiting bone marrow Bx today path reports discussed with HCP / Fr Chavez /
[2018-02-25] MEDS: NYSTATIN 100000 UNIT/GM TOPICAL OINTMENT 15 GM TUBE TP SCH ×2 (13:30→21:51)
[2018-02-25] MEDS ORDERED: diazePAM 2 MG TABLET PO ONE (13:30)
--- NOTE | 2018-02-25 15:04 | PN ---
Physical Exam: SUBJECTIVE: Patient seen and examined at bedside. No overnight events. He endorses some left sided rib pain. Pain is well controlled. Drain is patent and draining serosanguinus fluid. Denies CP,GUZMAN, SOB, nausea or vomiting. OBJECTIVE: Vital Signs Period Temp Pulse Resp BP Sys/Olivo Pulse Ox Last 24 Hr 98.0 F-100.4 F 77-115 16-29 118-164/65-88 95-96 GENERAL:awake and alert, NAD HEAD: NC/AT ENT:moist mucous membranes. NECK: supple. LUNGS: CTAB, No wheezing or rales. no accessory muscle use. HEART: RRR, NL S1S2, No M/G/R ABDOMEN: Soft, JUNE drain in place, dinh+, area looks clean and dry. Soft, tender to palpation. EXTREMITIES: 2+ pulses, warm, well-perfused, no edema. NEUROLOGICAL: Normal speech, gait not observed. PSYCH: Normal mood, normal affect. Laboratory Results - last 24 hr 02/15/18 02/25/18 02/25/18 06:00 06:00 06:00 WBC 14.3 H RBC 3.18 L Hgb 9.5 L Hct 29.1 L MCV 91.3 MCH 29.8 MCHC 32.6 RDW 19.7 H Plt Count 451 H MPV 7.0 L Absolute Neuts (auto) 11.5 H Neutrophils % 80.8 Lymphocytes % 10.6 Monocytes % 7.5 Eosinophils % 0.7 Basophils % 0.4 Nucleated RBC % 0 Sodium 139 Potassium 3.6 Chloride 105 Carbon Dioxide 26 Anion Gap 8 BUN 15 Creatinine 0.5 L Creat Clearance w eGFR > 60 Random Glucose 91 Calcium 8.1 L Beta Globulins 2.7 H SALMA & SPEP Interp Total Protein (SALMA) 7.0 Albumin (SALMA) 2.1 L Albumin/Globulin (SALMA) 0.5 L [id number] SALMA 0.7 H Mvkhs-[id number] SALMA 1.2 H Gamma Globulins (SALMA) 0.3 L SALMA M-Miki 2.2 H SALMA Comments IEP IgG 189 L IEP IgA 3083 H IEP IgM 13 L Active Medications Generic Name Dose Route Start Last Admin Trade Name Freq PRN Reason Stop Dose Admin Acetaminophen 650 mg 02/15/18 09:37 02/25/18 14:32 Tylenol - PO 650 mg Q4H PRN Administration PAIN Hydralazine HCl 10 mg 02/15/18 02:45 02/25/18 08:58 Apresoline Injection - IVPUSH 10 mg Q6H [facility]RIAN Administration Metronidazole 500 mg in 100 mls @ 100 mls/hr 02/16/18 14:45 02/25/18 13:29 Flagyl 500mg Premixed Ivpb - IVPB 100 mls/hr Q8H-IV BRIAN Administration Ceftriaxone Sodium 2 gm/ 100 mls @ 200 mls/hr 02/18/18 10:00 02/25/18 09:03 Dextrose IVPB 200 mls/hr DAILY [facility]AN Administration Protocol Nystatin 1 applic 02/21/18 22:00 02/25/18 13:30 Mycostatin Ointment - TP 1 applic BID [facility]RIAN Administration Ondansetron HCl 4 mg 02/14/18 20:52 Zofran Injection IVPUSH Q6H PRN NAUSEA Pantoprazole Sodium 40 mg 02/19/18 10:00 02/25/18 09:04 Protonix - PO 40 mg DAILY [facility]RIAN Administration Tamsulosin HCl 0.4 mg 02/20/18 08:30 02/25/18 08:58 Flomax - PO 0.4 mg DAILY@0830 [facility] Administration ASSESSMENT/PLAN: 87 year old male was brought in to the ED via 911 with the chief complaint of severe abdominal pain x 1 day was found to have perforated viscus and underwent ex lap with right colectomy, drainage of abscess (02/12) Problem List - Problems (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 * Repeat CT abdomen/Pelvis 02/18/18: Trace ascites, no evidence of bowel obstruction. s/p right hemicolectomy with small amount of fluid about the surgical site, RUQ developing abscess. * Osteolytic lesion. 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 * marked reverse A/G ratio with elevation of Total protein * Although the possibility of mets to the bone is high, he could also have another disease causing lytic lesions of the bone. R/O Multiple myeloma * CT chest suggestive of: Bulky right anterolateral fifth rib mass consistent with a metastatic lesion. Bony mets at T2, T7 and T12. * Immunoglobulins: IgA high, IgM/IgG low. * SPEP, UPEP, IPEP, Immunofixation pending (3) Acute blood loss anemia Assessment/Plan: Most likely 2/2 intra-op blood loss. * H/H has remained stable * will continue to monitor. Visit type - Emergency Visit Emergency Visit: Yes ED Registration Date: 02/12/18 Care time: The patient presented to the Emergency Department on the above date and was hospitalized for further evaluation of their emergent condition. - New Patient This patient is new to me today: No - Critical Care Critical Care patient: No - Discharge Referral Referred to [facility] Med P.C.: No
--- NOTE | 2018-02-25 16:52 | PN ---
Progress Note (short form) - Note Progress Note: Patient seen and examined Underwent bone biopsy Complains of neck pains Last Vital Signs Temp Pulse Resp BP Pulse Ox 98.5 F 102 H 20 127/68 95 02/25/18 16:25 02/25/18 16:25 02/25/18 16:25 02/25/18 16:25 02/25/18 12:05 HEENT: MARIE, EOM Intact Oropharynx: No thrush, No mucositis Neck: -pain on motion Cor: RSR, No murmurs, No gallops Lungs:diminished breath sounds bilaterally Abd: tender J-P drainage Drummond catheter Ext:No significant edema Skin: No rashes, Integument intact CBC, BMP 02/25/18 06:00 02/25/18 06:00 Current Medications Generic Name Dose Route Start Last Admin Trade Name Freq PRN Reason Stop Dose Admin Acetaminophen 650 mg 02/15/18 09:37 02/25/18 14:32 Tylenol - PO 650 mg Q4H PRN Administration PAIN Hydralazine HCl 10 mg 02/15/18 02:45 02/25/18 16:20 Apresoline Injection - IVPUSH Not Given Q6H [facility]AN Metronidazole 500 mg in 100 mls @ 100 mls/hr 02/16/18 14:45 02/25/18 13:29 Flagyl 500mg Premixed Ivpb - IVPB 100 mls/hr Q8H-IV [facility] Administration Ceftriaxone Sodium 2 gm/ 100 mls @ 200 mls/hr 02/18/18 10:00 02/25/18 09:03 Dextrose IVPB 200 mls/hr DAILY [facility] Administration Protocol Nystatin 1 applic 02/21/18 22:00 02/25/18 13:30 Mycostatin Ointment - TP 1 applic BID [facility]AN Administration Ondansetron HCl 4 mg 02/14/18 20:52 Zofran Injection IVPUSH Q6H PRN NAUSEA Pantoprazole Sodium 40 mg 02/19/18 10:00 02/25/18 09:04 Protonix - PO 40 mg DAILY [facility] Administration Tamsulosin HCl 0.4 mg 02/20/18 08:30 02/25/18 08:58 Flomax - PO 0.4 mg DAILY@0830 [facility] Administration Impression: Colon ca- s/p surgery Lytic bone disease S/P biopsy Neck pain - for x-rays
[2018-02-26] MEDS: hydrALAZINE HCL 20 MG/ML VIAL IVPUSH SCH ×4 (02:14→21:24)
[2018-02-26] MEDS: ACETAMINOPHEN 325 MG TABLET (FP) PO PRN ×2 (05:46→22:47)
[2018-02-26 07:09] LABS: BASO % 0.3 % (0-2.0); EOS % 0.7 % (0-4.5); HEMATOCRIT 28.7 % (35.4-49); HEMOGLOBIN 9.2 GM/dL (11.7-16.9); LYMPH % 12.3 % (8-40); MCH 29.6 pg (25.7-33.7); MCHC 32.1 g/dl (32.0-35.9); MEAN CELL VOLUME 92.1 fl (80-96); MONO % 7.2 % (3.8-10.2); NEUT % 79.5 % (42.8-82.8); PLATELET COUNT 462 K/MM3 (134-434); RBC 3.11 M/mm3 (4.00-5.60); RDW 19.5 % (11.9-15.9); WHITE BLOOD COUNT 13.1 K/mm3 (4.0-10.0)
[2018-02-26 08:12] LABS: ANION GAP 12 MMOL/L (8-16); BLOOD UREA NITROGEN 16 mg/dL (7-18); CALCIUM 8.5 mg/dL (8.5-10.1); CHLORIDE 105 mmol/L (98-107); CO2 23 mmol/L (21-32); CREATININE 0.5 mg/dL (0.55-1.3); GLUCOSE,RANDOM 75 mg/dL (74-106); POTASSIUM 3.9 mmol/L (3.5-5.1); SODIUM 141 mmol/L (136-145)
[2018-02-26] MEDS: TAMSULOSIN HCL 0.4 MG CAP PO SCH (09:32)
[2018-02-26] MEDS: PANTOPRAZOLE 40 MG TABLET (FP) PO SCH (09:32)
[2018-02-26] MEDS ORDERED: DEXTROSE 5%-WATER 100 ML IVPB ONE (10:21)
[2018-02-26] MEDS: CEFTRIAXONE 2 GM in DEXTROSE 5%-WATER 100 ML IVPB SCH (10:26)
[2018-02-26] MEDS: NYSTATIN 100000 UNIT/GM TOPICAL OINTMENT 15 GM TUBE TP SCH ×2 (13:20→21:30)
--- NOTE | 2018-02-26 23:03 | PN ---
Progress Note (short form) - Note Progress Note: laying in bed C/O of neck pain C- spine ordered Vital Signs Period Temp Pulse Resp BP Sys/Olivo Pulse Ox Last 24 Hr 99.0 F-100.4 F 97-115 16-20 143-152/76-88 96-96 neck pain on lateral movement heart S1/S2 reg no M/R/G lung clear bilat decreased BS at bases abd diffusely tender / distended / mid line dinh in place -- clean J-P drain remains in place with bloody d/c ext with DVT boot / no edema CBC, BMP 02/26/18 06:00 02/26/18 06:00 CBC, BMP 02/25/18 06:00 02/25/18 06:00 Microbiology 02/23/18 17:30 Urine - Urine Martinez Urine Culture - Final NO GROWTH OBTAINED 02/22/18 22:25 Stool Clostridium difficile Antigen (YEHUDA) - Final 02/22/18 22:25 Stool Clostridium difficile Toxin Assay - Final 02/18/18 05:10 Urine - Urine - Catheterized Urine Culture - Final NO GROWTH OBTAINED 02/12/18 12:20 Blood - Peripheral Venous Blood Culture - Final NO GROWTH AFTER 5 DAYS INCUBATION 02/12/18 12:20 Blood - Peripheral Venous Blood Culture - Final NO GROWTH AFTER 5 DAYS INCUBATION 02/12/18 11:14 Abdomen Gram Stain - Final 02/12/18 11:14 Abdomen Body Fluid Culture - Final Escherichia Coli Beta Hem Streptococcus Group C 02/12/18 11:14 Abdomen Anaerobic Culture - Final Odoribacter Splanchnicus 02/12/18 12:20 Urine - Urine - Catheterized Urine Culture - Final NO GROWTH OBTAINED Active Medications Acetaminophen (Tylenol -) 650 mg PO Q4H PRN PRN Reason: PAIN Last Admin: 02/26/18 22:47 Dose: 650 mg Hydralazine HCl (Apresoline Injection -) 10 mg IVPUSH Q6H [facility] Last Admin: 02/26/18 21:24 Dose: Not Given Metronidazole (Flagyl 500mg Premixed Ivpb -) 500 mg in 100 mls @ 100 mls/hr IVPB Q8H-IV [facility] Last Admin: 02/26/18 17:38 Dose: 100 mls/hr Ceftriaxone Sodium 2 gm/ (Dextrose) 100 mls @ 200 mls/hr IVPB DAILY [facility]; Protocol Last Admin: 02/26/18 10:26 Dose: 200 mls/hr Nystatin (Mycostatin Ointment -) 1 applic TP BID [facility] Last Admin: 02/26/18 21:30 Dose: 1 applic Ondansetron HCl (Zofran Injection) 4 mg IVPUSH Q6H PRN PRN Reason: NAUSEA Pantoprazole Sodium (Protonix -) 40 mg PO DAILY [facility] Last Admin: 02/26/18 09:32 Dose: 40 mg Tamsulosin HCl (Flomax -) 0.4 mg PO DAILY@0830 [facility] Last Admin: 02/26/18 09:32 Dose: 0.4 mg # repeat CT with persistent fluid collection to discuss with surgery - as may need aspiration consult with IR continue abx # lesions 5th rib and L3 vertebra unlikely from Colon bone marrow Bx done awaiting results # Neck pain c- spine ?? additional lesions ? # obstructive uropathy required martinez flomax consult # cognitive improvement still forgetful / # HTN off bp meds trend - will resume when stable #CVA - left cerebral thrombosis #meningioma resected 2013 #POD : Ex. Lap. w/ right shmuel-colectomy due to perforation, drainage of abscess, lavage due to a large colon tumor invading abdominal wall and retroperitoneum Path Invasive adenocarcinoma, moderately differentiated surgical margins Neg / lymph nodes Neg (27) path reports discussed with HCP / Fr Chavez /
[2018-02-27] MEDS: hydrALAZINE HCL 20 MG/ML VIAL IVPUSH SCH ×4 (03:38→21:48)
[2018-02-27 06:12] LABS: BASO % 0.7 % (0-2.0); EOS % 1.2 % (0-4.5); HEMATOCRIT 28.1 % (35.4-49); HEMOGLOBIN 9.1 GM/dL (11.7-16.9); LYMPH % 11.5 % (8-40); MCH 29.8 pg (25.7-33.7); MCHC 32.5 g/dl (32.0-35.9); MEAN CELL VOLUME 91.6 fl (80-96); MEAN PLT VOLUME 6.9 fl (7.5-11.1); MONO % 5.9 % (3.8-10.2); NEUT % 80.7 % (42.8-82.8); PLATELET COUNT 451 K/MM3 (134-434); RBC 3.07 M/mm3 (4.00-5.60); RDW 19.6 % (11.9-15.9); WHITE BLOOD COUNT 13.2 K/mm3 (4.0-10.0)
[2018-02-27 06:25] LABS: ANION GAP 8 MMOL/L (8-16); BLOOD UREA NITROGEN 14 mg/dL (7-18); CALCIUM 8.1 mg/dL (8.5-10.1); CHLORIDE 102 mmol/L (98-107); CO2 28 mmol/L (21-32); CREATININE 0.4 mg/dL (0.55-1.3); GLUCOSE,RANDOM 97 mg/dL (74-106); POTASSIUM 3.6 mmol/L (3.5-5.1); SODIUM 139 mmol/L (136-145)
[2018-02-27] MEDS: TAMSULOSIN HCL 0.4 MG CAP PO SCH (08:18)
[2018-02-27] MEDS ORDERED: DEXTROSE 5%-WATER 100 ML IVPB ONE (10:19)
[2018-02-27] MEDS: CEFTRIAXONE 2 GM in DEXTROSE 5%-WATER 100 ML IVPB SCH (10:21)
[2018-02-27] MEDS: ACETAMINOPHEN 325 MG TABLET (FP) PO PRN ×2 (10:21→16:13)
[2018-02-27] MEDS: PANTOPRAZOLE 40 MG TABLET (FP) PO SCH (10:21)
[2018-02-27] MEDS: NYSTATIN 100000 UNIT/GM TOPICAL OINTMENT 15 GM TUBE TP SCH ×2 (10:22→21:51)
[2018-02-27] MEDS ORDERED: PT OWN MED DRAWER 7, Y5N ONE ×2 (10:32→21:51)
--- NOTE | 2018-02-27 14:29 | PN ---
Progress Note (short form) - Note Progress Note: 77 y/o male s/p colon resection. Lying comfortably in bed. Vital Signs Period Temp Pulse Resp BP Sys/Olivo Pulse Ox Last 24 Hr 97.6 F-98.5 F 90-96 18-20 136-161/75-90 99 CBC, BMP 02/27/18 05:30 02/27/18 05:30 HEENT- NL Neck-supple Lungs- CTAB Heart- S1/S2 Abd- Soft, NT, JUNE drain in place. Incision site clean/dry Olesya in place Ext- No LE edema Active Medications Acetaminophen (Tylenol -) 650 mg PO Q4H PRN PRN Reason: PAIN Last Admin: 02/27/18 10:21 Dose: 650 mg Hydralazine HCl (Apresoline Injection -) 10 mg IVPUSH Q6H [facility] Last Admin: 02/27/18 13:57 Dose: Not Given Metronidazole (Flagyl 500mg Premixed Ivpb -) 500 mg in 100 mls @ 100 mls/hr IVPB Q8H-IV [facility] Last Admin: 02/27/18 11:04 Dose: 100 mls/hr Ceftriaxone Sodium 2 gm/ (Dextrose) 100 mls @ 200 mls/hr IVPB DAILY [facility]; Protocol Last Admin: 02/27/18 10:21 Dose: 200 mls/hr Nystatin (Mycostatin Ointment -) 1 applic TP BID [facility] Last Admin: 02/27/18 10:22 Dose: 1 applic Ondansetron HCl (Zofran Injection) 4 mg IVPUSH Q6H PRN PRN Reason: NAUSEA Pantoprazole Sodium (Protonix -) 40 mg PO DAILY [facility] Last Admin: 02/27/18 10:21 Dose: 40 mg Tamsulosin HCl (Flomax -) 0.8 mg PO DAILY@0830 [facility] # WBC ct 13.2 Discussed with IR Abscess drainage today continue abx # lesions 5th rib and L3 vertebra unlikely from Colon bone marrow Bx results pending # Neck pain xray showed c- spine narrowing additional lesions ? # obstructive uropathy required martinez flomax increased to 0.8 mg consult # cognitive improvement still forgetful # HTN BP normalizing #CVA - left cerebral thrombosis #meningioma resected 2013 #POD : Ex. Lap. w/ right shmuel-colectomy due to perforation, drainage of abscess, lavage due to a large colon tumor invading abdominal wall and retroperitoneum Path Invasive adenocarcinoma, moderately differentiated surgical margins Neg / lymph nodes Neg (27)
--- NOTE | 2018-02-27 16:06 | PN ---
Physical Exam: SUBJECTIVE:Patient seen and examined at bedside. No overnight events. He endorses some left sided rib pain. Pain is well controlled. Drain is patent and draining serosanguinus fluid. Denies CP,GUZMAN, SOB, nausea or vomiting. OBJECTIVE: Vital Signs Period Temp Pulse Resp BP Sys/Olivo Pulse Ox Last 24 Hr 97.6 F-98.5 F 90-96 17-25 136-161/75-90 98-100 GENERAL:awake and alert, NAD HEAD: NC/AT ENT:moist mucous membranes. NECK: supple. LUNGS: CTAB, No wheezing or rales. no accessory muscle use. HEART: RRR, NL S1S2, No M/G/R ABDOMEN: Soft, JUNE drain in place, dinh+, area looks clean and dry. Soft, tender to palpation. EXTREMITIES: 2+ pulses, warm, well-perfused, no edema. NEUROLOGICAL: Normal speech, gait not observed. PSYCH: Normal mood, normal affect. Laboratory Results - last 24 hr 02/27/18 02/27/18 05:30 05:30 WBC 13.2 H RBC 3.07 L Hgb 9.1 L Hct 28.1 L MCV 91.6 MCH 29.8 MCHC 32.5 RDW 19.6 H Plt Count 451 H MPV 6.9 L Absolute Neuts (auto) 10.7 H Neutrophils % 80.7 Lymphocytes % 11.5 Monocytes % 5.9 Eosinophils % 1.2 Basophils % 0.7 Nucleated RBC % 0 Sodium 139 Potassium 3.6 Chloride 102 Carbon Dioxide 28 Anion Gap 8 BUN 14 Creatinine 0.4 L Creat Clearance w eGFR > 60 Random Glucose 97 Calcium 8.1 L Active Medications Generic Name Dose Route Start Last Admin Trade Name Freq PRN Reason Stop Dose Admin Acetaminophen 650 mg 02/15/18 09:37 02/27/18 10:21 Tylenol - PO 650 mg Q4H PRN Administration PAIN Hydralazine HCl 10 mg 02/15/18 02:45 02/27/18 13:57 Apresoline Injection - IVPUSH Not Given Q6H [facility] Metronidazole 500 mg in 100 mls @ 100 mls/hr 02/16/18 14:45 02/27/18 11:04 Flagyl 500mg Premixed Ivpb - IVPB 100 mls/hr Q8H-IV [facility] Administration Ceftriaxone Sodium 2 gm/ 100 mls @ 200 mls/hr 02/18/18 10:00 02/27/18 10:21 Dextrose IVPB 200 mls/hr DAILY [facility] Administration Protocol Nystatin 1 applic 02/21/18 22:00 02/27/18 10:22 Mycostatin Ointment - TP 1 applic BID [facility] Administration Ondansetron HCl 4 mg 02/14/18 20:52 Zofran Injection IVPUSH Q6H PRN NAUSEA Pantoprazole Sodium 40 mg 02/19/18 10:00 02/27/18 10:21 Protonix - PO 40 mg DAILY [facility] Administration Tamsulosin HCl 0.8 mg 02/28/18 08:30 Flomax - PO DAILY@0830 [facility] ASSESSMENT/PLAN: 87 year old male was brought in to the ED via 911 with the chief complaint of severe abdominal pain x 1 day was found to have perforated viscus and underwent ex lap with right colectomy, drainage of abscess (02/12) Problem List - Problems (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 * Repeat CT abdomen/Pelvis 02/18/18: Trace ascites, no evidence of bowel obstruction. s/p right hemicolectomy with small amount of fluid about the surgical site, RUQ developing abscess. * Osteolytic lesion. 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 Bony mets at T2, T7 and T12. * Immunoglobulins: IgA high, IgM/IgG low. * SPEP, UPEP, IPEP, Immunofixation done (3) Acute blood loss anemia Assessment/Plan: Most likely 2/2 intra-op blood loss. * H/H has remained stable * will continue to monitor. Visit type - Emergency Visit Emergency Visit: Yes ED Registration Date: 02/12/18 Care time: The patient presented to the Emergency Department on the above date and was hospitalized for further evaluation of their emergent condition. - New Patient This patient is new to me today: No - Critical Care Critical Care patient: No - Discharge Referral Referred to [facility] No
[2018-02-28] MEDS: hydrALAZINE HCL 20 MG/ML VIAL IVPUSH SCH ×4 (01:45→21:21)
[2018-02-28] MEDS: ACETAMINOPHEN 325 MG TABLET (FP) PO PRN ×2 (02:59→14:51)
[2018-02-28 06:52] LABS: BASO % 0.4 % (0-2.0); EOS % 0.8 % (0-4.5); HEMATOCRIT 30.7 % (35.4-49); HEMOGLOBIN 9.8 GM/dL (11.7-16.9); LYMPH % 8.3 % (8-40); MCH 29.3 pg (25.7-33.7); MEAN CELL VOLUME 91.6 fl (80-96); MEAN PLT VOLUME 7.2 fl (7.5-11.1); MONO % 5.2 % (3.8-10.2); NEUT % 85.3 % (42.8-82.8); PLATELET COUNT 470 K/MM3 (134-434); RBC 3.36 M/mm3 (4.00-5.60); RDW 19.1 % (11.9-15.9); WHITE BLOOD COUNT 14.1 K/mm3 (4.0-10.0)
[2018-02-28 08:32] LABS: ALBUMIN 1.6 g/dl (3.4-5.0); ALK PHOS 202 U/L (45-117); ANION GAP 15 MMOL/L (8-16); BILIRUBIN,TOTAL 0.3 mg/dL (0.2-1); BLOOD UREA NITROGEN 11 mg/dL (7-18); CALCIUM 8.5 mg/dL (8.5-10.1); CHLORIDE 102 mmol/L (98-107); CO2 23 mmol/L (21-32); CREATININE 0.4 mg/dL (0.55-1.3); GLUCOSE,RANDOM 85 mg/dL (74-106); POTASSIUM 4.1 mmol/L (3.5-5.1); SGOT/AST 13 U/L (15-37); SGPT/ALT 11 U/L (13-61); SODIUM 140 mmol/L (136-145); TOT PROT 6.9 g/dl (6.4-8.2)
[2018-02-28] MEDS ORDERED: DEXTROSE 5%-WATER 100 ML IVPB ONE (09:20)
--- NOTE | 2018-02-28 09:21 | PN ---
Progress Note (short form) - Note Progress Note: 77 y/o male s/p abscess drainage yest. Pt found lying comfortably in bed. No c/ o pain or discomfort. States that he is hungry and wants breakfast. Vital Signs Period Temp Pulse Resp BP Sys/Olivo Pulse Ox Last 24 Hr 98.3 F-98.6 F 91-106 17-25 137-182/76-102 96-100 CBC, BMP 02/28/18 06:00 02/28/18 06:00 HEENT- NL Neck- Supple Lungs- CTAB Heart- S1/S2 Abd- Soft, NT, JUNE drain in place Dsg in place over drainage site Ext- No LE edema Active Medications Acetaminophen (Tylenol -) 650 mg PO Q4H PRN PRN Reason: PAIN Last Admin: 02/28/18 02:59 Dose: 650 mg Hydralazine HCl (Apresoline Injection -) 10 mg IVPUSH Q6H [facility] Last Admin: 02/28/18 01:45 Dose: 10 mg Metronidazole (Flagyl 500mg Premixed Ivpb -) 500 mg in 100 mls @ 100 mls/hr IVPB Q8H-IV [facility] Last Admin: 02/28/18 01:37 Dose: 100 mls/hr Ceftriaxone Sodium 2 gm/ (Dextrose) 100 mls @ 200 mls/hr IVPB DAILY [facility]; Protocol Last Admin: 02/27/18 10:21 Dose: 200 mls/hr Nystatin (Mycostatin Ointment -) 1 applic TP BID [facility] Last Admin: 02/27/18 21:51 Dose: 1 applic Ondansetron HCl (Zofran Injection) 4 mg IVPUSH Q6H PRN PRN Reason: NAUSEA Pantoprazole Sodium (Protonix -) 40 mg PO DAILY [facility] Last Admin: 02/27/18 10:21 Dose: 40 mg Tamsulosin HCl (Flomax -) 0.8 mg PO DAILY@0830 [facility] # WBC ct 14.1 Abscess drained yest continue abx/ monitor CBC # lesions 5th rib and L3 vertebra unlikely from Colon bone marrow Bx results pending # Neck pain xray showed c- spine narrowing additional lesions ? # obstructive uropathy required martinez flomax increased to 0.8 mg consult # cognitive improvement still forgetful # HTN BP 170/96 Metoprolol 25 mg started #CVA - left cerebral thrombosis #meningioma resected 2013 #POD : Ex. Lap. w/ right shmuel-colectomy due to perforation, drainage of abscess, lavage due to a large colon tumor invading abdominal wall and retroperitoneum Path Invasive adenocarcinoma, moderately differentiated surgical margins Neg / lymph nodes Neg (27)
[2018-02-28] MEDS: TAMSULOSIN HCL 0.4 MG CAP PO SCH (09:24)
[2018-02-28] MEDS: PANTOPRAZOLE 40 MG TABLET (FP) PO SCH (09:24)
[2018-02-28] MEDS: CEFTRIAXONE 2 GM in DEXTROSE 5%-WATER 100 ML IVPB SCH (09:24)
[2018-02-28] MEDS: metoPROLOL SUCCINATE 25 MG TAB.SR.24H (FP) PO SCH (09:38)
[2018-02-28] MEDS: NYSTATIN 100000 UNIT/GM TOPICAL OINTMENT 15 GM TUBE TP SCH ×2 (13:25→21:22)
--- NOTE | 2018-02-28 17:35 | PN ---
Progress Note (short form) - Note Progress Note: Patient seen and examined Awaiting final pathology on bone biopsy Last Vital Signs Temp Pulse Resp BP Pulse Ox 98.6 F 98 H 20 153/84 97 02/28/18 13:53 02/28/18 13:53 02/28/18 13:53 02/28/18 13:53 02/28/18 10:00 Cor: RSR, No murmurs, No gallops Lungs: ecreased breath sounds bilateral Abd: Soft, Normal bowel sounds, No organomegaly,J-P drain Ext:No significant edema Skin: No rashes, Integument intact CBC, BMP 02/28/18 06:00 02/28/18 06:00 Current Medications Generic Name Dose Route Start Last Admin Trade Name Freq PRN Reason Stop Dose Admin Acetaminophen 650 mg 02/15/18 09:37 02/28/18 14:51 Tylenol - PO 650 mg Q4H PRN Administration PAIN Hydralazine HCl 10 mg 02/15/18 02:45 02/28/18 16:16 Apresoline Injection - IVPUSH Not Given Q6H [facility] Ceftriaxone Sodium 2 gm/ 100 mls @ 200 mls/hr 02/18/18 10:00 02/28/18 09:24 Dextrose IVPB 200 mls/hr DAILY [facility] Administration Protocol Metoprolol Succinate 25 mg 02/28/18 10:00 02/28/18 09:38 Toprol Xl - PO 25 mg DAILY [facility] Administration Nystatin 1 applic 02/21/18 22:00 02/28/18 13:25 Mycostatin Ointment - TP 1 applic BID [facility] Administration Ondansetron HCl 4 mg 02/14/18 20:52 Zofran Injection IVPUSH Q6H PRN NAUSEA Pantoprazole Sodium 40 mg 02/19/18 10:00 02/28/18 09:24 Protonix - PO 40 mg DAILY [facility] Administration Tamsulosin HCl 0.8 mg 02/28/18 08:30 02/28/18 09:24 Flomax - PO 0.8 mg DAILY@0830 [facility] Administration Impression: Colon ca Dysproteinemia Deconditioning Awaiting path Will need immunofixation and freekappa and free lambda light chains.
[2018-03-01] MEDS: hydrALAZINE HCL 20 MG/ML VIAL IVPUSH SCH ×4 (03:14→21:04)
[2018-03-01 07:16] LABS: BASO % 0.6 % (0-2.0); EOS % 1.2 % (0-4.5); HEMATOCRIT 30.1 % (35.4-49); HEMOGLOBIN 9.7 GM/dL (11.7-16.9); LYMPH % 12.5 % (8-40); MCH 29.3 pg (25.7-33.7); MCHC 32.2 g/dl (32.0-35.9); MEAN PLT VOLUME 6.8 fl (7.5-11.1); NEUT % 79.7 % (42.8-82.8); PLATELET COUNT 476 K/MM3 (134-434); RBC 3.31 M/mm3 (4.00-5.60); RDW 19.3 % (11.9-15.9); WHITE BLOOD COUNT 11.6 K/mm3 (4.0-10.0)
[2018-03-01 07:57] LABS: ALBUMIN 1.6 g/dl (3.4-5.0); ALK PHOS 209 U/L (45-117); ANION GAP 8 MMOL/L (8-16); BILIRUBIN,TOTAL 0.2 mg/dL (0.2-1); BLOOD UREA NITROGEN 12 mg/dL (7-18); CALCIUM 8.6 mg/dL (8.5-10.1); CHLORIDE 102 mmol/L (98-107); CO2 27 mmol/L (21-32); CREATININE 0.5 mg/dL (0.55-1.3); GLUCOSE,RANDOM 93 mg/dL (74-106); POTASSIUM 4.4 mmol/L (3.5-5.1); SGOT/AST 19 U/L (15-37); SGPT/ALT 11 U/L (13-61); SODIUM 137 mmol/L (136-145); TOT PROT 7.3 g/dl (6.4-8.2)
[2018-03-01] MEDS ORDERED: DEXTROSE 5%-WATER 100 ML IVPB ONE (08:22)
[2018-03-01] MEDS: TAMSULOSIN HCL 0.4 MG CAP PO SCH (08:41)
[2018-03-01] MEDS ORDERED: PT OWN MED DRAWER 7, Y5N ONE (08:43)
[2018-03-01] MEDS: metoPROLOL SUCCINATE 25 MG TAB.SR.24H (FP) PO SCH (09:41)
[2018-03-01] MEDS: PANTOPRAZOLE 40 MG TABLET (FP) PO SCH (09:41)
[2018-03-01] MEDS: CEFTRIAXONE 2 GM in DEXTROSE 5%-WATER 100 ML IVPB SCH (11:49)
[2018-03-01] MEDS: NYSTATIN 100000 UNIT/GM TOPICAL OINTMENT 15 GM TUBE TP SCH ×2 (13:12→23:28)
[2018-03-01] MEDS: ACETAMINOPHEN 325 MG TABLET (FP) PO PRN ×2 (14:15→23:27)
[2018-03-02] MEDS: hydrALAZINE HCL 20 MG/ML VIAL IVPUSH SCH ×4 (04:04→21:01)
[2018-03-02] MEDS: ACETAMINOPHEN 325 MG TABLET (FP) PO PRN ×3 (04:42→21:02)
[2018-03-02 07:28] LABS: BASO % 0.6 % (0-2.0); EOS % 1.3 % (0-4.5); HEMATOCRIT 29.5 % (35.4-49); HEMOGLOBIN 9.7 GM/dL (11.7-16.9); LYMPH % 14.5 % (8-40); MCHC 32.8 g/dl (32.0-35.9); MEAN CELL VOLUME 91.4 fl (80-96); MEAN PLT VOLUME 6.7 fl (7.5-11.1); MONO % 6.7 % (3.8-10.2); NEUT % 76.9 % (42.8-82.8); PLATELET COUNT 469 K/MM3 (134-434); RBC 3.23 M/mm3 (4.00-5.60); RDW 19.3 % (11.9-15.9); WHITE BLOOD COUNT 10.5 K/mm3 (4.0-10.0)
[2018-03-02 08:58] LABS: ALBUMIN 1.7 g/dl (3.4-5.0); ALK PHOS 196 U/L (45-117); ANION GAP 12 MMOL/L (8-16); BILIRUBIN,TOTAL 0.2 mg/dL (0.2-1); BLOOD UREA NITROGEN 11 mg/dL (7-18); CHLORIDE 101 mmol/L (98-107); CO2 25 mmol/L (21-32); CREATININE 0.5 mg/dL (0.55-1.3); GLUCOSE,RANDOM 80 mg/dL (74-106); POTASSIUM 4.3 mmol/L (3.5-5.1); SGOT/AST 15 U/L (15-37); SGPT/ALT 14 U/L (13-61); SODIUM 138 mmol/L (136-145); TOT PROT 7.3 g/dl (6.4-8.2)
[2018-03-02] MEDS ORDERED: PT OWN MED DRAWER 7, Y5N ONE (09:10)
[2018-03-02] MEDS ORDERED: DEXTROSE 5%-WATER 100 ML IVPB ONE (09:11)
[2018-03-02] MEDS: TAMSULOSIN HCL 0.4 MG CAP PO SCH (09:21)
[2018-03-02] MEDS: metoPROLOL SUCCINATE 25 MG TAB.SR.24H (FP) PO SCH (09:23)
[2018-03-02] MEDS: PANTOPRAZOLE 40 MG TABLET (FP) PO SCH (09:23)
[2018-03-02] MEDS: CEFTRIAXONE 2 GM in DEXTROSE 5%-WATER 100 ML IVPB SCH (09:24)
[2018-03-02] MEDS: NYSTATIN 100000 UNIT/GM TOPICAL OINTMENT 15 GM TUBE TP SCH ×2 (09:28→21:07)
--- NOTE | 2018-03-02 12:24 | PN ---
Progress Note (short form) - Note Progress Note: laying in bed having lunch -- has been tolerating meals well Vital Signs Period Temp Pulse Resp BP Sys/Olivo Pulse Ox Last 24 Hr 97.9 F-98.5 F 88-93 18-18 123-152/65-90 96-97 neck pain on lateral movement heart S1/S2 reg no M/R/G lung clear bilat decreased BS at bases abd diffusely tender / distended / mid line dinh in place -- clean J-P drain remains in place with bloody d/c ext with DVT boot / no edema CBC, BMP 03/02/18 06:22 03/02/18 06:22 Microbiology 02/27/18 16:00 Abscess Gram Stain - Final 02/27/18 16:00 Abscess Body Fluid Culture - Final NO GROWTH OF AEROBIC ORGANISMS AFTER 48 HOURS INCUBATION 02/27/18 16:00 Abscess Anaerobic Culture - Final NO ANAEROBES WERE ISOLATED 02/27/18 16:00 Abscess JOSE MANUEL Preparation - Preliminary 02/27/18 16:00 Abscess Fungal Culture - Preliminary 02/27/18 16:00 Abscess AFB Smear Concentration - Preliminary 02/27/18 16:00 Abscess Mycobacterial Culture - Preliminary 02/23/18 17:30 Urine - Urine Martinez Urine Culture - Final NO GROWTH OBTAINED 02/22/18 22:25 Stool Clostridium difficile Antigen (YEHUDA) - Final 02/22/18 22:25 Stool Clostridium difficile Toxin Assay - Final 02/18/18 05:10 Urine - Urine - Catheterized Urine Culture - Final NO GROWTH OBTAINED 02/12/18 12:20 Blood - Peripheral Venous Blood Culture - Final NO GROWTH AFTER 5 DAYS INCUBATION 02/12/18 12:20 Blood - Peripheral Venous Blood Culture - Final NO GROWTH AFTER 5 DAYS INCUBATION 02/12/18 11:14 Abdomen Gram Stain - Final 02/12/18 11:14 Abdomen Body Fluid Culture - Final Escherichia Coli Beta Hem Streptococcus Group C 02/12/18 11:14 Abdomen Anaerobic Culture - Final Odoribacter Splanchnicus 02/12/18 12:20 Urine - Urine - Catheterized Urine Culture - Final NO GROWTH OBTAINED Active Medications Acetaminophen (Tylenol -) 650 mg PO Q4H PRN PRN Reason: PAIN Last Admin: 03/02/18 04:42 Dose: 650 mg Hydralazine HCl (Apresoline Injection -) 10 mg IVPUSH Q6H [facility] Last Admin: 03/02/18 09:20 Dose: 10 mg Ceftriaxone Sodium 2 gm/ (Dextrose) 100 mls @ 200 mls/hr IVPB DAILY [facility]; Protocol Last Admin: 03/02/18 09:24 Dose: 200 mls/hr Metoprolol Succinate (Toprol Xl -) 25 mg PO DAILY [facility] Last Admin: 03/02/18 09:23 Dose: 25 mg Nystatin (Mycostatin Ointment -) 1 applic TP BID [facility] Last Admin: 03/02/18 09:28 Dose: 1 applic Ondansetron HCl (Zofran Injection) 4 mg IVPUSH Q6H PRN PRN Reason: NAUSEA Pantoprazole Sodium (Protonix -) 40 mg PO DAILY [facility] Last Admin: 03/02/18 09:23 Dose: 40 mg Tamsulosin HCl (Flomax -) 0.8 mg PO DAILY@0830 [facility] Last Admin: 03/02/18 09:21 Dose: 0.8 mg # repeat CT with persistent fluid collection s/p aspiration # lesions 5th rib and L3 vertebra s/p bone Bx awaiting results # obstructive uropathy required martinez flomax consult # HTN off bp meds trend - will resume when stable #CVA - left cerebral thrombosis #meningioma resected 2013 #POD : Ex. Lap. w/ right shmuel-colectomy due to perforation, drainage of abscess, lavage due to a large colon tumor invading abdominal wall and retroperitoneum Path Invasive adenocarcinoma, moderately differentiated surgical margins Neg / lymph nodes Neg (27) palliative care on board
[2018-03-03] MEDS: hydrALAZINE HCL 20 MG/ML VIAL IVPUSH SCH ×4 (01:51→21:18)
[2018-03-03] MEDS: TAMSULOSIN HCL 0.4 MG CAP PO SCH (09:30)
[2018-03-03] MEDS: metoPROLOL SUCCINATE 25 MG TAB.SR.24H (FP) PO SCH (09:41)
[2018-03-03] MEDS: PANTOPRAZOLE 40 MG TABLET (FP) PO SCH (09:41)
[2018-03-03] MEDS: NYSTATIN 100000 UNIT/GM TOPICAL OINTMENT 15 GM TUBE TP SCH ×2 (09:46→21:18)
--- NOTE | 2018-03-03 15:34 | PN ---
Progress Note (short form) - Note Progress Note: laying in bed confused --poor recall doesn't remember previous conversations continues to ask same questions Vital Signs Period Temp Pulse Resp BP Sys/Olivo Pulse Ox Last 24 Hr 97.9 F-98.5 F 88-93 18-18 123-152/65-90 96-97 neck pain on lateral movement heart S1/S2 reg no M/R/G lung clear bilat decreased BS at bases abd diffusely tender / distended / mid line dinh in place -- clean J-P drain remains in place with bloody d/c ext with DVT boot / no edema CBC, BMP 03/02/18 06:22 03/02/18 06:22 Microbiology 02/27/18 16:00 Abscess Gram Stain - Final 02/27/18 16:00 Abscess Body Fluid Culture - Final NO GROWTH OF AEROBIC ORGANISMS AFTER 48 HOURS INCUBATION 02/27/18 16:00 Abscess Anaerobic Culture - Final NO ANAEROBES WERE ISOLATED 02/27/18 16:00 Abscess JOSE MANUEL Preparation - Preliminary 02/27/18 16:00 Abscess Fungal Culture - Preliminary 02/27/18 16:00 Abscess AFB Smear Concentration - Preliminary 02/27/18 16:00 Abscess Mycobacterial Culture - Preliminary 02/23/18 17:30 Urine - Urine Martinez Urine Culture - Final NO GROWTH OBTAINED 02/22/18 22:25 Stool Clostridium difficile Antigen (YEHUDA) - Final 02/22/18 22:25 Stool Clostridium difficile Toxin Assay - Final 02/18/18 05:10 Urine - Urine - Catheterized Urine Culture - Final NO GROWTH OBTAINED 02/12/18 12:20 Blood - Peripheral Venous Blood Culture - Final NO GROWTH AFTER 5 DAYS INCUBATION 02/12/18 12:20 Blood - Peripheral Venous Blood Culture - Final NO GROWTH AFTER 5 DAYS INCUBATION 02/12/18 11:14 Abdomen Gram Stain - Final 02/12/18 11:14 Abdomen Body Fluid Culture - Final Escherichia Coli Beta Hem Streptococcus Group C 02/12/18 11:14 Abdomen Anaerobic Culture - Final Odoribacter Splanchnicus 02/12/18 12:20 Urine - Urine - Catheterized Urine Culture - Final NO GROWTH OBTAINED Active Medications Acetaminophen (Tylenol -) 650 mg PO Q4H PRN PRN Reason: PAIN Last Admin: 03/02/18 04:42 Dose: 650 mg Hydralazine HCl (Apresoline Injection -) 10 mg IVPUSH Q6H [facility] Last Admin: 03/02/18 09:20 Dose: 10 mg Ceftriaxone Sodium 2 gm/ (Dextrose) 100 mls @ 200 mls/hr IVPB DAILY [facility]; Protocol Last Admin: 03/02/18 09:24 Dose: 200 mls/hr Metoprolol Succinate (Toprol Xl -) 25 mg PO DAILY [facility] Last Admin: 03/02/18 09:23 Dose: 25 mg Nystatin (Mycostatin Ointment -) 1 applic TP BID [facility] Last Admin: 03/02/18 09:28 Dose: 1 applic Ondansetron HCl (Zofran Injection) 4 mg IVPUSH Q6H PRN PRN Reason: NAUSEA Pantoprazole Sodium (Protonix -) 40 mg PO DAILY [facility] Last Admin: 03/02/18 09:23 Dose: 40 mg Tamsulosin HCl (Flomax -) 0.8 mg PO DAILY@0830 [facility] Last Admin: 03/02/18 09:21 Dose: 0.8 mg # repeat CT with persistent fluid collection s/p aspiration # lesions 5th rib and L3 vertebra s/p bone Bx awaiting results # obstructive uropathy required martinez flomax consult # HTN off bp meds trend - will resume when stable #CVA - left cerebral thrombosis #meningioma resected 2013 #POD : Ex. Lap. w/ right shmuel-colectomy due to perforation, drainage of abscess, lavage due to a large colon tumor invading abdominal wall and retroperitoneum Path Invasive adenocarcinoma, moderately differentiated surgical margins Neg / lymph nodes Neg (27) palliative care on board
--- NOTE | 2018-03-03 21:17 | PN ---
Progress Note (short form) - Note Progress Note: PAtient seen and examined c/o lower back pain Last Vital Signs Temp Pulse Resp BP Pulse Ox 98.0 F 87 18 143/82 95 03/03/18 20:20 03/03/18 20:20 03/03/18 20:20 03/03/18 20:20 03/03/18 20:28 Neck- Supple Lungs- CTAB Heart- S1/S2 Abd- Soft, NT, JUNE drain in place Dsg in place over drainage site Ext- No LE edema Labs/Meds reviewed A/P77 y/o patient with HTN, mild cognitive impairment perforated cecal mass , s/ p rt. hemicolectomy. Path c/w T4a, N0 adenocarcinoma with LVI, margins negative , MSI high RUQ abscess --s/p drainage Also with lytic bone disease --? mets vs myelona M spike with elevated Ig A--3 grams Checking biopsy of rib lesion---preliminarily suggestive of myeloma Discussed with patient, his brother and other priests from [facility]. Discussed the unusual scenario of colon cancer and myeloma being diagnosed at the same time. discussed that final path on rib lesion still awaited. Discussed les check MRI C/T/L spineto r/o cord compression prior to discharge Check MRI c/T/L spine
[2018-03-04] MEDS: hydrALAZINE HCL 20 MG/ML VIAL IVPUSH SCH ×4 (02:50→20:58)
[2018-03-04 07:16] LABS: BASO % 0.5 % (0-2.0); EOS % 1.3 % (0-4.5); HEMATOCRIT 31.2 % (35.4-49); HEMOGLOBIN 9.9 GM/dL (11.7-16.9); MCH 29.4 pg (25.7-33.7); MCHC 31.8 g/dl (32.0-35.9); MEAN CELL VOLUME 92.4 fl (80-96); MEAN PLT VOLUME 6.9 fl (7.5-11.1); MONO % 8.5 % (3.8-10.2); NEUT % 75.7 % (42.8-82.8); PLATELET COUNT 486 K/MM3 (134-434); RBC 3.38 M/mm3 (4.00-5.60); RDW 19.3 % (11.9-15.9); WHITE BLOOD COUNT 11.7 K/mm3 (4.0-10.0)
[2018-03-04 07:52] LABS: ANION GAP 11 MMOL/L (8-16); BLOOD UREA NITROGEN 12 mg/dL (7-18); CALCIUM 9.5 mg/dL (8.5-10.1); CHLORIDE 101 mmol/L (98-107); CO2 26 mmol/L (21-32); CREATININE 0.5 mg/dL (0.55-1.3); GLUCOSE,RANDOM 82 mg/dL (74-106); POTASSIUM 4.4 mmol/L (3.5-5.1); SODIUM 138 mmol/L (136-145)
[2018-03-04] MEDS: TAMSULOSIN HCL 0.4 MG CAP PO SCH (09:13)
[2018-03-04] MEDS: PANTOPRAZOLE 40 MG TABLET (FP) PO SCH (09:14)
[2018-03-04] MEDS: NYSTATIN 100000 UNIT/GM TOPICAL OINTMENT 15 GM TUBE TP SCH ×2 (09:14→21:49)
[2018-03-04] MEDS: metoPROLOL SUCCINATE 25 MG TAB.SR.24H (FP) PO SCH (09:14)
--- NOTE | 2018-03-04 10:25 | PN ---
Progress Note (short form) - Note Progress Note: laying in bed having lunch -- has been tolerating meals well Vital Signs Period Temp Pulse Resp BP Sys/Olivo Pulse Ox Last 24 Hr 97.9 F-98.5 F 88-93 18-18 123-152/65-90 96-97 neck pain on lateral movement heart S1/S2 reg no M/R/G lung clear bilat decreased BS at bases abd diffusely tender / distended / mid line dinh in place -- clean J-P drain remains in place with bloody d/c ext with DVT boot / no edema CBC, BMP 03/02/18 06:22 03/02/18 06:22 Microbiology 02/27/18 16:00 Abscess Gram Stain - Final 02/27/18 16:00 Abscess Body Fluid Culture - Final NO GROWTH OF AEROBIC ORGANISMS AFTER 48 HOURS INCUBATION 02/27/18 16:00 Abscess Anaerobic Culture - Final NO ANAEROBES WERE ISOLATED 02/27/18 16:00 Abscess JOSE MANUEL Preparation - Preliminary 02/27/18 16:00 Abscess Fungal Culture - Preliminary 02/27/18 16:00 Abscess AFB Smear Concentration - Preliminary 02/27/18 16:00 Abscess Mycobacterial Culture - Preliminary 02/23/18 17:30 Urine - Urine Martinez Urine Culture - Final NO GROWTH OBTAINED 02/22/18 22:25 Stool Clostridium difficile Antigen (YEHUDA) - Final 02/22/18 22:25 Stool Clostridium difficile Toxin Assay - Final 02/18/18 05:10 Urine - Urine - Catheterized Urine Culture - Final NO GROWTH OBTAINED 02/12/18 12:20 Blood - Peripheral Venous Blood Culture - Final NO GROWTH AFTER 5 DAYS INCUBATION 02/12/18 12:20 Blood - Peripheral Venous Blood Culture - Final NO GROWTH AFTER 5 DAYS INCUBATION 02/12/18 11:14 Abdomen Gram Stain - Final 02/12/18 11:14 Abdomen Body Fluid Culture - Final Escherichia Coli Beta Hem Streptococcus Group C 02/12/18 11:14 Abdomen Anaerobic Culture - Final Odoribacter Splanchnicus 02/12/18 12:20 Urine - Urine - Catheterized Urine Culture - Final NO GROWTH OBTAINED Active Medications Acetaminophen (Tylenol -) 650 mg PO Q4H PRN PRN Reason: PAIN Last Admin: 03/02/18 04:42 Dose: 650 mg Hydralazine HCl (Apresoline Injection -) 10 mg IVPUSH Q6H [facility] Last Admin: 03/02/18 09:20 Dose: 10 mg Ceftriaxone Sodium 2 gm/ (Dextrose) 100 mls @ 200 mls/hr IVPB DAILY [facility]; Protocol Last Admin: 03/02/18 09:24 Dose: 200 mls/hr Metoprolol Succinate (Toprol Xl -) 25 mg PO DAILY [facility] Last Admin: 03/02/18 09:23 Dose: 25 mg Nystatin (Mycostatin Ointment -) 1 applic TP BID [facility] Last Admin: 03/02/18 09:28 Dose: 1 applic Ondansetron HCl (Zofran Injection) 4 mg IVPUSH Q6H PRN PRN Reason: NAUSEA Pantoprazole Sodium (Protonix -) 40 mg PO DAILY [facility] Last Admin: 03/02/18 09:23 Dose: 40 mg Tamsulosin HCl (Flomax -) 0.8 mg PO DAILY@0830 [facility] Last Admin: 03/02/18 09:21 Dose: 0.8 mg # lesions 5th rib and L3 vertebra s/p bone Bx awaiting results await Oncology follow up suggestive of Myeloma / HCP made aware # obstructive uropathy required martinez flomax consult # HTN off bp meds trend - will resume when stable #CVA - left cerebral thrombosis #meningioma resected 2013 #POD : Ex. Lap. w/ right shmuel-colectomy due to perforation, drainage of abscess, lavage due to a large colon tumor invading abdominal wall and retroperitoneum Path Invasive adenocarcinoma, moderately differentiated surgical margins Neg / lymph nodes Neg (27) palliative care on board
--- NOTE | 2018-03-04 11:24 | PN ---
Progress Note (short form) - Note Progress Note: laying in bed forgetful doesnt remember speaking to oncology tremors to right hand Vital Signs Period Temp Pulse Resp BP Sys/Olivo Pulse Ox Last 24 Hr 98.0 F-98.7 F 86-87 16-18 143-150/80-86 94-95 neck pain on lateral movement heart S1/S2 reg no M/R/G lung clear bilat decreased BS at bases abd diffusely tender / distended / mid line dinh in place-covered with gauze -- clean J-P drain remains in place with bloody d/c martinez remains in place ext with DVT boot / no edema CBC, BMP 03/04/18 06:00 03/04/18 06:00 CBC, BMP 03/02/18 06:22 03/02/18 06:22 Microbiology 02/27/18 16:00 Abscess AFB Smear Concentration - Final 02/27/18 16:00 Abscess Mycobacterial Culture - Preliminary 02/27/18 16:00 Abscess Gram Stain - Final 02/27/18 16:00 Abscess Body Fluid Culture - Final NO GROWTH OF AEROBIC ORGANISMS AFTER 48 HOURS INCUBATION 02/27/18 16:00 Abscess Anaerobic Culture - Final NO ANAEROBES WERE ISOLATED 02/27/18 16:00 Abscess JOSE MANUEL Preparation - Preliminary 02/27/18 16:00 Abscess Fungal Culture - Preliminary 02/23/18 17:30 Urine - Urine Martinez Urine Culture - Final NO GROWTH OBTAINED 02/22/18 22:25 Stool Clostridium difficile Antigen (YEHUDA) - Final 02/22/18 22:25 Stool Clostridium difficile Toxin Assay - Final 02/18/18 05:10 Urine - Urine - Catheterized Urine Culture - Final NO GROWTH OBTAINED 02/12/18 12:20 Blood - Peripheral Venous Blood Culture - Final NO GROWTH AFTER 5 DAYS INCUBATION 02/12/18 12:20 Blood - Peripheral Venous Blood Culture - Final NO GROWTH AFTER 5 DAYS INCUBATION 02/12/18 11:14 Abdomen Gram Stain - Final 02/12/18 11:14 Abdomen Body Fluid Culture - Final Escherichia Coli Beta Hem Streptococcus Group C 02/12/18 11:14 Abdomen Anaerobic Culture - Final Odoribacter Splanchnicus 02/12/18 12:20 Urine - Urine - Catheterized Urine Culture - Final NO GROWTH OBTAINED Active Medications Acetaminophen (Tylenol -) 650 mg PO Q4H PRN PRN Reason: PAIN Last Admin: 03/02/18 21:02 Dose: 650 mg Hydralazine HCl (Apresoline Injection -) 10 mg IVPUSH Q6H [facility] Last Admin: 03/04/18 09:30 Dose: Not Given Metoprolol Succinate (Toprol Xl -) 25 mg PO DAILY [facility] Last Admin: 03/04/18 09:14 Dose: 25 mg Nystatin (Mycostatin Ointment -) 1 applic TP BID [facility] Last Admin: 03/04/18 09:14 Dose: 1 applic Ondansetron HCl (Zofran Injection) 4 mg IVPUSH Q6H PRN PRN Reason: NAUSEA Pantoprazole Sodium (Protonix -) 40 mg PO DAILY [facility] Last Admin: 03/04/18 09:14 Dose: 40 mg Tamsulosin HCl (Flomax -) 0.8 mg PO DAILY@0830 [facility] Last Admin: 03/04/18 09:13 Dose: 0.8 mg # lesions 5th rib and L3 vertebra s/p bone Bx awaiting results await Oncology follow up suggestive of Myeloma / HCP made aware per onc # obstructive uropathy required martinez flomax trial of voiding consult # HTN off bp meds trend - will resume when stable #CVA - left cerebral thrombosis #meningioma resected 2013 #POD : Ex. Lap. w/ right shmuel-colectomy due to perforation, drainage of abscess, lavage due to a large colon tumor invading abdominal wall and retroperitoneum Path Invasive adenocarcinoma, moderately differentiated surgical margins Neg / lymph nodes Neg (27) palliative care on board arrangements for STR at [facility]
--- NOTE | 2018-03-04 13:44 | PATH ---
Surgical Pathology Report Patient Name: KRISHAN MOCK [facility]. Rec. #: [id number] /Age/Gender: 1940 (Age: 77) / M Account: [id number] Location: 4 SO PEDS/ADOL Taken: 02/25/2018 Received: 02/25/2018 Reported: 03/04/2018 Physicians: Asia Salas MD Specimen(s) Received RIB BONE BX Clinical History Large lytic right 5th rib lesion Final Diagnosis BONE, RIB, BIOPSY: PLASMA CELL NEOPLASM (LAMBDA-RESTRICTED). Microscopic Description: Sections show scant fragments of bone with sheets of plasma cells. Immunohistochemical stains were performed with the appropriate controls. The sheets of plasma cells are positive for CD138 and MUM-1. A stain for CD20 is essentially negative. A stain for CD3 highlights scattered small T-cells. Immunohistochemical stains for [place] and Lambda light chains show the plasma to be lambda light chain restricted. In situ hybridization for [place] and Lambda light chains likewise shows the plasma cells to be lambda light chain restricted. See [facility] report ([id number]) for additional details. This case was discussed with Dr. Lei on Mar 04, 2018. Electronically Signed Stephan Love M.D. Gross Description Received in formalin, labeled "rib bone biopsy" are multiple zamora, cylindric portion tissue ranging from 0.4-1 cm in length and less than 1 mm in diameter. The specimen is submitted in toto in one cassette. __ RENE/02/25/2018 michele/02/25/2018
--- NOTE | 2018-03-04 19:59 | PN ---
Progress Note (short form) - Note Progress Note: Patient seen and examined Bone biopsy positive for myeloma MRI of spine - extensive lytic disease with compression fractures No cord compression ; discogenic disease and nerve root impingement. Making progress with PT Plan for rehab consult Can follow up thereafter and decisions about management.
[2018-03-04] MEDS ORDERED: FLU VACCINE QUAD 60 MCG/0.5 ML (MDV 18-19) IM ONE (20:00)
[2018-03-05] MEDS: hydrALAZINE HCL 20 MG/ML VIAL IVPUSH SCH ×4 (02:37→21:35)
[2018-03-05 06:35] LABS: BASO % 0.7 % (0-2.0); EOS % 1.4 % (0-4.5); HEMATOCRIT 31.4 % (35.4-49); LYMPH % 13.8 % (8-40); MCH 29.3 pg (25.7-33.7); MCHC 31.9 g/dl (32.0-35.9); MEAN CELL VOLUME 91.9 fl (80-96); MEAN PLT VOLUME 6.8 fl (7.5-11.1); MONO % 7.2 % (3.8-10.2); NEUT % 76.9 % (42.8-82.8); PLATELET COUNT 478 K/MM3 (134-434); RBC 3.42 M/mm3 (4.00-5.60); WHITE BLOOD COUNT 12.3 K/mm3 (4.0-10.0)
[2018-03-05 06:54] LABS: ANION GAP 9 MMOL/L (8-16); BLOOD UREA NITROGEN 14 mg/dL (7-18); CALCIUM 9.1 mg/dL (8.5-10.1); CHLORIDE 99 mmol/L (98-107); CO2 29 mmol/L (21-32); CREATININE 0.6 mg/dL (0.55-1.3); GLUCOSE,RANDOM 96 mg/dL (74-106); POTASSIUM 4.5 mmol/L (3.5-5.1); SODIUM 137 mmol/L (136-145)
[2018-03-05] MEDS ORDERED: PT OWN MED DRAWER 7, Y5N ONE ×2 (09:57→21:44)
[2018-03-05] MEDS: TAMSULOSIN HCL 0.4 MG CAP PO SCH (10:03)
[2018-03-05] MEDS: PANTOPRAZOLE 40 MG TABLET (FP) PO SCH (10:03)
[2018-03-05] MEDS: NYSTATIN 100000 UNIT/GM TOPICAL OINTMENT 15 GM TUBE TP SCH ×2 (10:04→21:46)
[2018-03-05] MEDS: metoPROLOL SUCCINATE 25 MG TAB.SR.24H (FP) PO SCH (10:04)
--- NOTE | 2018-03-05 23:53 | PN ---
Progress Note (short form) - Note Progress Note: laying in bed comfortable / failed voiding trial - martinez ordered back will need follow up Vital Signs Period Temp Pulse Resp BP Sys/Olivo Pulse Ox Last 24 Hr 97.7 F-100.4 F 92-115 18-20 151-156/74-89 96-97 neck supple heart S1/S2 reg lung clear bilat decreased BS at bases abd diffusely tender / distended / mid line dinh in place -- clean drain remains in place with bloody d/c martinez in place - clear yellow urine ext with DVT boot CBC, BMP 03/05/18 06:00 03/05/18 06:00 CBC, BMP 02/24/18 06:00 02/24/18 06:00 Microbiology 02/27/18 16:00 Abscess AFB Smear Concentration - Final 02/27/18 16:00 Abscess Mycobacterial Culture - Preliminary 02/27/18 16:00 Abscess Gram Stain - Final 02/27/18 16:00 Abscess Body Fluid Culture - Final NO GROWTH OF AEROBIC ORGANISMS AFTER 48 HOURS INCUBATION 02/27/18 16:00 Abscess Anaerobic Culture - Final NO ANAEROBES WERE ISOLATED 02/27/18 16:00 Abscess JOSE MANUEL Preparation - Preliminary 02/27/18 16:00 Abscess Fungal Culture - Preliminary 02/23/18 17:30 Urine - Urine Martinez Urine Culture - Final NO GROWTH OBTAINED 02/22/18 22:25 Stool Clostridium difficile Antigen (YEHUDA) - Final 02/22/18 22:25 Stool Clostridium difficile Toxin Assay - Final 02/18/18 05:10 Urine - Urine - Catheterized Urine Culture - Final NO GROWTH OBTAINED 02/12/18 12:20 Blood - Peripheral Venous Blood Culture - Final NO GROWTH AFTER 5 DAYS INCUBATION 02/12/18 12:20 Blood - Peripheral Venous Blood Culture - Final NO GROWTH AFTER 5 DAYS INCUBATION 02/12/18 11:14 Abdomen Gram Stain - Final 02/12/18 11:14 Abdomen Body Fluid Culture - Final Escherichia Coli Beta Hem Streptococcus Group C 02/12/18 11:14 Abdomen Anaerobic Culture - Final Odoribacter Splanchnicus 02/12/18 12:20 Urine - Urine - Catheterized Urine Culture - Final NO GROWTH OBTAINED Active Medications Acetaminophen (Tylenol -) 650 mg PO Q4H PRN PRN Reason: PAIN Last Admin: 03/02/18 21:02 Dose: 650 mg Hydralazine HCl (Apresoline Injection -) 10 mg IVPUSH Q6H [facility] Last Admin: 03/05/18 21:35 Dose: Not Given Metoprolol Succinate (Toprol Xl -) 25 mg PO DAILY [facility] Last Admin: 03/05/18 10:04 Dose: 25 mg Nystatin (Mycostatin Ointment -) 1 applic TP BID [facility] Last Admin: 03/05/18 21:46 Dose: 1 applic Ondansetron HCl (Zofran Injection) 4 mg IVPUSH Q6H PRN PRN Reason: NAUSEA Pantoprazole Sodium (Protonix -) 40 mg PO DAILY [facility] Last Admin: 03/05/18 10:03 Dose: 40 mg Tamsulosin HCl (Flomax -) 0.8 mg PO DAILY@0830 [facility] Last Admin: 03/05/18 10:03 Dose: 0.8 mg # obstructive uropathy required martinez flomax o.8 >5 days / failed voiding trial consult # s/p bone bx plasma cells -- c/w Myeloma Oncology has spoke to patient and HCP patient continues to ask same questions - forgets recent ans. # cognitive improvement still forgetful # HTN off bp meds trend - will resume when stable #CVA - left cerebral thrombosis #meningioma resected 2013 #POD 11: Ex. Lap. w/ right shmuel-colectomy due to perforation, drainage of abscess, lavage due to a large colon tumor invading abdominal wall and retroperitoneum Path Invasive adenocarcinoma, moderately differentiated surgical margins Neg / lymph nodes Neg (27) still J-P drain - will recall surgery
[2018-03-06] MEDS: hydrALAZINE HCL 20 MG/ML VIAL IVPUSH SCH ×3 (02:27→14:48)
--- NOTE | 2018-03-06 08:38 | CONSULT ---
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 The patient is currently with a martinez catheter. VSS; afeb abd soft with incisional tenderness with light drainage from RLQ drain/ no CVAT genitalia-nl phallus and testes; martinez draining clear urine imp s/p colectomy for cecal malignancy urinary retention plan discussed TURP with patient vs maintaining martinez vs suprapubic tube patient would prefer to void on his own and would prefer a TURP will discuss with Dr. Garcia discussed risks and benefits of all treatment options with patient 25 minutes devoted to patient care
[2018-03-06] MEDS: TAMSULOSIN HCL 0.4 MG CAP PO SCH (08:53)
[2018-03-06] MEDS: metoPROLOL SUCCINATE 25 MG TAB.SR.24H (FP) PO SCH (09:54)
[2018-03-06] MEDS: PANTOPRAZOLE 40 MG TABLET (FP) PO SCH (09:54)
[2018-03-06] MEDS: NYSTATIN 100000 UNIT/GM TOPICAL OINTMENT 15 GM TUBE TP SCH (09:54)
--- NOTE | 2018-03-06 12:39 | DS ---
Physical Examination Vital Signs: Vital Signs Temperature 98.4 F 03/06/18 10:00 Pulse Rate 84 03/06/18 10:00 Respiratory Rate 18 03/06/18 10:00 Blood Pressure 150/80 03/06/18 10:00 O2 Sat by Pulse Oximetry (%) 96 03/05/18 21:00 Constitutional: Yes: Well Nourished Eyes: Yes: Conjunctiva Clear HENT: Yes: Atraumatic, Normocephalic Neck: Yes: Supple, Trachea Midline Cardiovascular: Yes: Regular Rate and Rhythm Respiratory: Yes: Regular, CTA Bilaterally Gastrointestinal: Yes: Normal Bowel Sounds, Soft ...Rectal Exam: Yes: Deferred Renal/: Yes: Drummond Present Breast(s): Yes: WNL Musculoskeletal: Yes: WNL Extremities: Yes: WNL Edema: No Peripheral Pulses WNL: No Integumentary: Yes: WNL Wound/Incision: Yes: Clean/Dry, Well Approximated Neurological: Yes: Alert ...Motor Strength: WNL Psychiatric: Yes: Alert Labs: CBC, BMP 03/05/18 06:00 03/05/18 06:00 Discharge Summary Reason For Visit: MASS OF CECUM Current Active Problems Acute blood loss anemia (Acute) Cecal neoplasm (Acute) Cecum mass (Acute) Depression (Acute) Diverticula of colon (Acute) Essential tremor (Acute) Glaucoma (Acute) Ileus, postoperative (Acute) Lesion of lumbar spine (Acute) 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 Rt hemicolectomy secondary to perforation and abscess drainage. Bx of bone shows myeloma. Difficulty voiding. Drummond in place. Plan for TURP on Saturday as output. Pt to return to [facility] today. No c/o pain or discomfort. Pleasantly confused. Condition: Guarded - Instructions Referrals: Gardenia Lei MD [Staff Physician] - 1 Week (Please follow up with Dr. Varner or Dr. Funes within a week after discharge. ) Disposition: HOME - Home Medications Comprehensive Discharge Medication List: Ambulatory Orders Cholecalciferol (Vitamin D3) [Vitamin D3] 1,000 unit PO DAILY #0 07/22/14 Finasteride 5 mg PO DAILY #0 07/22/14 Latanoprost 0.005% Eye Drops [Xalatan 0.005% Eye Drops -] 1 drop OU HS #0 Lisinopril [Prinivil] 20 mg PO DAILY #0 07/22/14 Primidone 100 mg PO HS #0 07/22/14 Tamsulosin HCl [Flomax -] 0.4 mg PO HS #0 07/22/14 Timolol 0.5% [Timoptic 0.5%] 1 drop OU BID #0 07/22/14 levETIRAcetam [Keppra -] 750 mg PO HS #0 07/22/14 Amlodipine Besylate [Norvasc -] 7.5 mg PO DAILY 02/12/18 Aspirin [Ecotrin] 81 mg PO DAILY 02/12/18 Mag Hydrox/Al Hydrox/Simeth [Mylanta Oral Suspension -] 30 ml PO PRN PRN Magnesium Hydrox 2400MG/30Ml [Milk of Magnesia -] 30 ml PO PRN PRN 02/12/18 Mirtazapine [Remeron -] 15 mg PO DAILY 02/12/18 Sertraline HCl [Zoloft] 25 mg PO DAILY 02/12/18
[2018-03-06] MEDS: ACETAMINOPHEN 325 MG TABLET (FP) PO PRN (12:45)
[2018-03-06 15:22] VITALS: BP 126/76; PULSE 89; TEMP 97.7
--- NOTE | 2018-03-06 15:29 | PN ---
Progress Note (short form) - Note Progress Note: Surgery: Pt seen and today. [place] removed from midline incision. Incision c/d/i.
--- NOTE | 2018-03-06 15:35 | PN ---
Physical Exam: SUBJECTIVE: Patient seen and examined at bedside. No overnight events. No new complaints. Eager to go to [facility]. Denies CP,GUZMAN,SOB, abdominal pain, nausea or vomiting. OBJECTIVE: Vital Signs Period Temp Pulse Resp BP Sys/Olivo Pulse Ox Last 24 Hr 97.7 F-98.8 F 84-93 16-20 126-153/71-83 96-96 GENERAL:awake and alert, NAD HEAD: NC/AT ENT:moist mucous membranes. NECK: supple. LUNGS: CTAB, No wheezing or rales. no accessory muscle use. HEART: RRR, NL S1S2, No M/G/R ABDOMEN: Soft, JUNE drain in place, dinh+, area looks clean and dry. Soft, tender to palpation. EXTREMITIES: 2+ pulses, warm, well-perfused, no edema. NEUROLOGICAL: Normal speech, gait not observed. PSYCH: Normal mood, normal affect. Active Medications Generic Name Dose Route Start Last Admin Trade Name Freq PRN Reason Stop Dose Admin Acetaminophen 650 mg 02/15/18 09:37 03/06/18 12:45 Tylenol - PO 650 mg Q4H PRN Administration PAIN Hydralazine HCl 10 mg 02/15/18 02:45 03/06/18 14:48 Apresoline Injection - IVPUSH 10 mg Q6H BRIAN Administration Metoprolol Succinate 25 mg 02/28/18 10:00 03/06/18 09:54 Toprol Xl - PO 25 mg DAILY BRIAN Administration Nystatin 1 applic 02/21/18 22:00 03/06/18 09:54 Mycostatin Ointment - TP 1 applic BID BRIAN Administration Ondansetron HCl 4 mg 02/14/18 20:52 Zofran Injection IVPUSH Q6H PRN NAUSEA Pantoprazole Sodium 40 mg 02/19/18 10:00 03/06/18 09:54 Protonix - PO 40 mg DAILY BRIAN Administration Tamsulosin HCl 0.8 mg 02/28/18 08:30 03/06/18 08:53 Flomax - PO 0.8 mg DAILY@0830 BRIAN Administration ASSESSMENT/PLAN: 87 year old male was brought in to the ED via 911 with the chief complaint of severe abdominal pain x 1 day was found to have perforated viscus and underwent ex lap with right colectomy, drainage of abscess (9/12). Found to have MM on biopsy. 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 s/p right hemicolectomy with small amount of fluid about the surgical site, RUQ developing abscess. * Osteolytic lesion. * CEA-1.6 * PSA 15.9 (3) Acute blood loss anemia Assessment/Plan: Most likely 2/2 intra-op blood loss. * H/H has remained stable Visit type - Emergency Visit Emergency Visit: Yes ED Registration Date: 02/12/18 Care time: The patient presented to the Emergency Department on the above date and was hospitalized for further evaluation of their emergent condition. - New Patient This patient is new to me today: No - Critical Care Critical Care patient: No
--- NOTE | 2018-03-06 16:10 | PROC ---
Procedure Note Procedure: Area around drain cleansed. JUNE drain removed with distal tip intact. Steri strips applied to ostium. Clean dry dressing. Tolerated well.
== END 2018-03-06 15:59 | DRG 329 ==
LOC: JER 11:02 → JERBED 17:10 → JICU 19:24 → J4S 02-14 20:57
PROVIDERS: ADMIT Family Medicine; ATTEND Family Medicine
PROC: 3E1M38X Irrigation of Peritoneal Cavity using Irrigating Substance, Percutaneous Approach, Diagnostic (ICD-10-PCS; 2018-02-12)
PROC: 0W9G3ZX Drainage of Peritoneal Cavity, Percutaneous Approach, Diagnostic (ICD-10-PCS; 2018-02-12)
PROC: 0DTF0ZZ Resection of Right Large Intestine, Open Approach (ICD-10-PCS; principal; 2018-02-12 20:00)
PROC: 30233N1 Transfusion of Nonautologous Red Blood Cells into Peripheral Vein, Percutaneous Approach (ICD-10-PCS; 2018-02-14)
PROC: 0PB13ZX Excision of 1 to 2 Ribs, Percutaneous Approach, Diagnostic (ICD-10-PCS; 2018-02-25)
DX: C18.2 Malignant neoplasm of ascending colon (principal); K63.1 Perforation of intestine (nontraumatic); K65.1 Peritoneal abscess; K91.89 Other postprocedural complications and disorders of digestive system; D62 Acute posthemorrhagic anemia; E87.1 Hypo-osmolality and hyponatremia; I69.354 Hemiplegia and hemiparesis following cerebral infarction affecting left non-dominant side; C79.51 Secondary malignant neoplasm of bone; R18.8 Other ascites; C90.00 Multiple myeloma not having achieved remission; K56.7 Ileus, unspecified; T81.4XXA Infection following a procedure, initial encounter; H53.461 Homonymous bilateral field defects, right side; D18.03 Hemangioma of intra-abdominal structures; R63.4 Abnormal weight loss; Z68.25 Body mass index [BMI] 25.0-25.9, adult; I10 Essential (primary) hypertension; N13.9 Obstructive and reflux uropathy, unspecified; E88.09 Other disorders of plasma-protein metabolism, not elsewhere classified; F32.9 Major depressive disorder, single episode, unspecified; Z96.642 Presence of left artificial hip joint; C80.1 Malignant (primary) neoplasm, unspecified; Z87.891 Personal history of nicotine dependence; D18.00 Hemangioma unspecified site; R56.9 Unspecified convulsions; K57.30 Diverticulosis of large intestine without perforation or abscess without bleeding; N40.0 Benign prostatic hyperplasia without lower urinary tract symptoms; I66.8 Occlusion and stenosis of other cerebral arteries; R25.1 Tremor, unspecified; H40.9 Unspecified glaucoma; M19.91 Primary osteoarthritis, unspecified site; Y83.9 Surgical procedure, unspecified as the cause of abnormal reaction of the patient, or of later complication, without mention of misadventure at the time of the procedure; R21 Rash and other nonspecific skin eruption; B96.29 Other Escherichia coli [E. coli] as the cause of diseases classified elsewhere; B95.4 Other streptococcus as the cause of diseases classified elsewhere
CPT/HCPCS: 20225; 36415; 36430; 36511; 49406; 71045-TC-FY; 71260-TC; 72050-TC-FY; 72142-TC; 72147-TC; 72149-TC; 74176-TC; 74177-TC; 76098-TC-FY; 76380-TC; 80048; 80053; 81003; 82272; 82378; 82784; 82962; 83605; 83735; 84100; 84153; 84155; 84165; 85025; 85027; 85610; 85730; 86140; 86334; 86850; 86900; 86901; 86922; 87040; 87070; 87075; 87086; 87102; 87116; 87186; 87205; 87206; 87210; 87324; 87449; 87899; 88304-TC; 88305-TC; 88309-TC; 90688; 93005; 93010; 93970-TC; 97116-GP; 97161-GP; 99284-25; C1729; C1769; G0008; J0131; P9038; P9058; Q9967

== ENCOUNTER 2018-03-24 06:15 | Day surgery (SDC) | payer OTHER ==
[2018-03-07 13:05] VITALS: BMI 25.2
[2018-03-24 06:56] LABS: INR 1.32 (0.83-1.09); PROTHROMBIN TIME (PATIENT) 15.6 SEC (9.7-13.0)
--- NOTE | 2018-03-24 10:01 | CONSULT ---
Consult - text type - Consultation Consultation Note: attending note patient seen and examined in ambulatory waiting room Chart reviewed from previous admission. 77 y/o male with Hx of hemicoloctomy 2/2 to perforation, abscess, colonic mass on 02/12/18. Pathology reviewed localized disease -- Colon Ca with clean borders and negative lymphnodes. Significant findings at that time included lytic bone lesions-- work up revealed Myeloma. He is currently at STR recovering and scheduled for chemo in near future. Review of chart from 02/12/18 shows mildly elevated INR ( 1.4-1.2) with no a/c, and no abnormal bleeding. discussed with HCP no ASA / ETOH / NSAIDs in past several weeks Patient is awake alert comfortable afeblrile 98.4 neck supple heart S1/S2 reg lungs clear bilat abd soft non tender / dressing to mid abd- clean and dry ext no edema / no calf tenderness DX Colon Ca Myeloma BPH with obstruction elevated INR -- no hx of abnormal bleeding scheduled for TURP no contra indications to OR procedure as benefits out weigh risk. will follow post procedure may consider overnight hospital stay
[2018-03-24] MEDS ORDERED: PROPOFOL 20 ML ONE (11:08)
[2018-03-24] MEDS ORDERED: ONDANSETRON 4 MG/2 ML VIAL IVPUSH PRN (13:23)
[2018-03-24] MEDS ORDERED: LACTATED RINGERS SOLUTION 1,000 ML IV SCH (13:30)
--- NOTE | 2018-03-24 14:20 | OP ---
Operative Note - Note: Operative Date: 03/24/18 Pre-Operative Diagnosis: bph/urinary retention Operation: transurethral resection and vaporization utilizing bipolar system Findings: obstructive prostate with 2+ bladder trabeculation with cellules Post-Operative Diagnosis: Same as Pre-op Surgeon: Berry Bhakta Anesthesia: General Specimens Removed: prostatic chips Estimated Blood Loss (mls): 20 Drains & Tubes with Location: 24 macedonian martinez catheter
[2018-03-24] MEDS ORDERED: ACETAMINOPHEN INJECTION 100 ML IVPB ONE (14:25)
[2018-03-24] MEDS ORDERED: ACETAMINOPHEN 1000 MG/100 ML VIAL (NON FORMULARY) IVPB ONE ×2 (14:30→15:30)
[2018-03-24 15:35] VITALS: PULSE 66
[2018-03-24 16:00] VITALS: BP 125/58; TEMP 98
--- NOTE | 2018-03-24 19:43 | OP ---
DATE OF OPERATION: 03/24/2018 PREOPERATIVE DIAGNOSES: Benign prostatic hypertrophy and urinary retention. POSTOPERATIVE DIAGNOSES: Benign prostatic hypertrophy and urinary retention. ATTENDING: Radha George MD ANESTHESIA: General. PROCEDURE: Transurethral resection and vaporization of the prostate utilizing bipolar system. DESCRIPTION OF OPERATION: The patient was brought in the operating room, placed in supine position on the operating room table. Anesthesia and preoperative antibiotics were administered without complications. Patient was then placed in the dorsal lithotomy position and prepped and draped in the usual sterile manner. A resectoscope was placed under visualization into the bladder. The bladder was investigated and noted to have no evidence of stones or neoplasm. A 3+ obstructive prostate was noted. Resection of the prostate in order to debulk the prostate was performed initially. The margins of the resection were the bladder neck proximally and the verumontanum distally. The resection was performed in a 360-degree fashion. The resection was taken down to the level of the pseudocapsule of the prostate. Once this was performed, all prostatic chips were evacuated from the bladder utilizing the Unidesk evacuator. At this point, the working element, which had been the loop, was changed to a button. Vaporization and cauterization was then ensured utilizing the button element of the bipolar system. Residual tissue was vaporized, and excellent hemostasis was attained within the prostatic fossa. The margins of the vaporization and cauterization were the bladder neck proximally and the verumontanum distally. This was done again in a 360-degree fashion. Excellent hemostasis was attained. The bladder was investigated and noted to have no evidence of residual prostatic tissue. There was no evidence of perforation of the bladder. The abdomen was soft on examination during the procedure. With excellent hemostasis, the resectoscope was removed, and a [place] catheter placed, 30 mL were inflated into the balloon of the catheter and placed on light traction. Excellent drainage was noted which was light pink in color. The disposition of the patient was to the recovery room. The catheter had been placed to straight drainage. The patient will be observed in the recovery room and the postop area. If the patient continues to do well, he will be discharged home. RADHA GEORGE M.D. [id number]
--- NOTE | 2018-03-26 11:03 | PATH ---
Surgical Pathology Report Patient Name: KRISHAN MOCK [facility]. Rec. #: [id number] /Age/Gender: 1940 (Age: 77) / M Account: [id number] Location: [facility] SURGICAL Taken: 03/24/2018 Received: 03/24/2018 Reported: 03/26/2018 Physicians: Berry Bhakta Specimen(s) Received PROSTATE CHIPS Clinical History BPH with lower urinary tract symptoms Final Diagnosis PROSTATE, TRANSURETHRAL RESECTION OF PROSTATE: BENIGN PROSTATIC TISSUE WITH PREDOMINANTLY CHRONIC AND FOCAL ACUTE INFLAMMATION, ACINAR ATROPHY, CYSTIC CHANGES, SQUAMOUS METAPLASIA, STROMAL AND BASAL CELL HYPERPLASIA. BENIGN UROTHELIUM WITH CYSTITIS CYSTICA. Electronically Signed Analy Pollard M.D. Gross Description Received in formalin labeled "prostate," is a 17 g, 10.5 x 8.5 x 0.6 cm aggregate of zamora, irregular, rubbery portions of tissue, consistent with prostate chips. A retention representative portion is submitted in 10 cassettes. /03/24/2018 saudi/03/24/2018
== END 2018-03-24 16:35 ==
LOC: JASU-SURG 06:15
PROVIDERS: ATTEND Urology
PROC: 0V508ZZ Destruction of Prostate, Via Natural or Artificial Opening Endoscopic (ICD-10-PCS; principal; 2018-03-24 08:00)
DX: N40.1 Benign prostatic hyperplasia with lower urinary tract symptoms (principal); R33.8 Other retention of urine; I10 Essential (primary) hypertension; E11.9 Type 2 diabetes mellitus without complications; D64.9 Anemia, unspecified
CPT/HCPCS: 36415; 85610; 88305-TC; 94760; J0131

== ENCOUNTER 2018-06-06 13:52 | Inpatient (IN) | payer OTHER ==
--- NOTE | 2018-06-06 14:08 | PDOC ---
History of Present Illness - General Chief Complaint: Pain Stated Complaint: RT ARM PAIN,WEAKNESS Time Seen by Provider: 06/06/18 14:07 History Source: Patient, Old Records Exam Limitations: No Limitations - History of Present Illness Initial Comments: HPI: 78 y/o male presenting to [facility] ER from [facility] with complaints of right finger pain for the past 4-5 days. Pt states the pain started spontaneously and has progressively worsened to the point where he is not able to move the extremity. Initially indicates the pain is only in his right 2nd digit then states it is in his forearm, then in his elbow, then in his right shoulder. Denies trauma to the area. Known baseline tremor in right hand. Denies change in bowel or bladder habits. Denies numbness or tingling. Telephone conversation with Dr. Romero who reports the pt started complaining of right arm pain starting yesterday during radiation therapy. Initially believes this pain to be secondary to the treatment. Pts colleague come to Dr. Romero today and expressed concern that the pt would not come out of his room today because of pain and would not move his right arm. Concern was raised for cord compression as the pt has a known metastatic lesion at T2 that was noted on MRI in March 2018. Recommended pt receive dexamethasone 4mg q6h to reduce edema, pain management, and repeat MRI to evaluate for progression of lesion. Also indicates pt had a recent PET scan with showed uptake at right distal humerus. 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) - HTN - Glaucoma - Arthritis, depression, right hand tremor (dx in 2003) Past History - Past Medical History Allergies/Adverse Reactions: Allergies Allergy/AdvReac Type Severity Reaction Status Date / Time No Known Allergies Allergy Verified 06/06/18 14:06 Home Medications: Ambulatory Orders Finasteride 5 mg PO DAILY #0 07/22/14 Lisinopril [Prinivil] 20 mg PO DAILY #0 07/22/14 Aspirin [Ecotrin] 81 mg PO DAILY 02/12/18 Acetaminophen [Tylenol .Regular Strength -] 650 mg PO Q4H PRN 30 Days #180 tablet 03/06/18 Aa/Hydrolyzed Collagen, Whey [Lps Neutral Flavor Liquid] 30 ml PO TID 06/06/18 HYDROmorphone [Dilaudid -] 2 mg PO Q4H PRN 06/06/18 Loperamide HCl [Imodium -] 2 mg PO DAILY PRN 06/06/18 Morphine *Sr* [Ms Contin -] 15 mg PO Q12H 06/06/18 Multivitamin [Multiple Vitamins] 1 each PO DAILY 06/06/18 Tamsulosin HCl [Flomax] 0.4 mg PO DAILY 06/06/18 levETIRAcetam [Keppra -] 500 mg PO BID 06/06/18 Anemia: No Asthma: No Cancer: No Cardiac Disorders: No CVA: Yes (left cerebral thrombosis 07/16/14) COPD: No CHF: No Dementia: No Diabetes: Yes (post op dm) GI Disorders: No Disorders: No HTN: Yes Hypercholesterolemia: No Liver Disease: No Seizures: No Thyroid Disease: No - Surgical History Abdominal Surgery: No Appendectomy: No Cardiac Surgery: No Cholecystectomy: No Lung Surgery: No Neurologic Surgery: Yes (occipital craniotomy) Orthopedic Surgery: Yes (L total hip) - Suicide/Smoking/Psychosocial Hx Smoking History: Former smoker Have you smoked in the past 12 months: No If you are a former smoker, when did you quit?: 6 years ago Hx Alcohol Use: Yes (2 glasses wine nightly) Drug/Substance Use Hx: No Substance Use Type: None Hx Substance Use Treatment: No Review of Systems - Review of Systems Able to Perform ROS?: Yes Comments:: In addition to that documented in the HPI above, the additional ROS was obtained : Constitutional: Denies fevers or chills ENMT: Denies sore throat CV: Denies chest pain Resp: Denies SOB GI: Denies vomiting or diarrhea : Denies dysuria, hematuria, or urinary frequency Neuro: Per HPI Bleeding: Denies bleeding or bruising Trauma: Denies *Physical Exam - Physical Exam Comments: Constitutional: Sickly adult male in no acute distress or obvious discomfort. Found semi-fowlers on hospital bed. Alert and oriented to person, events, and time (month and recent new holiday, but confused about year). Answered all questions appropriately and completely. Speech was non-labored, non-pressured. Head: Normocephalic. No obvious external signs of trauma. Eyes: Sclerae white. EARS: Hearing grossly intact. NOSE: No nasal discharge. Neck: Supple, trachea is midline. Cardiovascular: Regular rate and regular rhythm. No murmur, rubs, clicks, or gallops. Peripheral pulses: Radial pulses full. Respiratory: Breathing unlabored. Equal chest rise and fall. Clear to auscultation bilaterally. No stridor, no wheezing, no rhonchi. Gastrointestinal: abdomen is soft, non-tender, non-distended. Neuro: Alert. Right upper extremity: Pain to light touch throughout right upper extremity, strength 2/5. Lotus Notes Administrator strength 5/5 and equal and symmetrical. No obvious bony deformities. Unable to test reflexes as pt will not allow arm to be moved secondary to pain. Strength 5/5 in left arm and bilateral lower extremities. Skin: Warm, dry, and intact. No bruising, rashes, or other lesions. No palpable nodules. Psych: Affect: appropriate. Mood: normal. MALE RECTAL: Good sphincter tone. Stool light brown. No right red blood or melanotic stool. RN chaperoned exam. ED Treatment Course - LABORATORY CBC & Chemistry Diagram: 06/06/18 15:05 06/06/18 15:05 - RADIOLOGY Radiograph Interpretation: MRI Cervical Spine Quincy Reyes MD wrote on Jun 06, 2018 at 09:57 PM: Referring Physician: BISHOP LÓPEZ Patient Name: KRISHAN MURILLOJUNIE THIS IS A PRELIMINARY REPORT FROM [facility] DATE OF SERVICE: 2018-06-06 20:39:34 IMAGES: 148 EXAM: MRI cervical spine without contrast HISTORY: Thoracic neoplastic lesion at T2 COMPARISON: None. FINDINGS: Heterogeneous marrow signal noted suspicious for metastatic disease. Clinical correlation needed. There is mild compression fracture of the T2 vertebral body. See thoracic spine MRI report. No obvious cervical spine fracture is seen. Disc osteophyte formation is noted at multiple levels most pronounced at C3?C4 and C7-T1. There is mild associated central stenosis. Osteophytic encroachment of the neural foramina is noted at multiple levels. There is grossly normal cervical cord signal. THIS DOCUMENT HAS BEEN ELECTRONICALLY SIGNED Quincy Reyes MD 06/06/2018 21:55 EST MRI Thoracic Spine: Quincy Reyes MD wrote on Jun 06, 2018 at 10:03 PM: Referring Physician: BISHOP LÓPEZ Patient Name: KRISHAN MURILLOJUNIE THIS IS A PRELIMINARY REPORT FROM [facility] DATE OF SERVICE: 2018-06-06 20:39:34 IMAGES: 235 EXAM: MRI thoracic spine without contrast HISTORY: Thoracic neoplastic lesion at T2, new arm neurologic symptoms, evaluate for cord compression COMPARISON: None. FINDINGS: There is heterogeneous marrow signal with multiple lesions throughout the axial skeleton suspicious for skeletal metastatic disease. There is mild compression of the T2 vertebral body with approximately 2?3 mm of retropulsion. This could be a pathologic fracture. There is associated central spinal stenosis. Retropulsed vertebral body minimally indents the cord at this level without significant cord compression. There are likely chronic anterior wedge compressions of the T7, T8 and T12 vertebral bodies. There is very slight retropulsion of the superior endplate of T12. There are small right paracentral disc protrusions noted at T6?T7, T7?T8 and T8- T9 disc protrusions mildly encroach on the central canal.. There is no obvious significant thoracic spinal cord compression. There is normal cord signal throughout without obvious cord edema, hemorrhage or syrinx. THIS DOCUMENT HAS BEEN ELECTRONICALLY SIGNED Quincy Reyes MD 06/06/2018 22:02 EST Medical Decision Making - Medical Decision Making *Reviewed vital signs, nursing notes, and prior visit documentation (if available). 78 y/o male complaining of spontaneous, atraumatic right arm pain. History provided by pt and by pts oncologist (who evaluated the pt yesterday) is varied. Suspect pt is a poor historian secondary to level of orientation. D/D includes acute cord compression, MSK injury, pain secondary to known metastatic bone lesions. Will obtain plain films of R shoulder and humerus as well as MRI of cervical and thoracic spine. 15:[address] Lazar of radiology regarding MRI. States he will approve the scan but will not provide priority. 15:25 Telephone page sent for Dr. Garcia to discuss possibility of observation admission for pain control and MRI. 15:[address] Solano DRAFTER PATENT. Made aware of possible admission. Will call back if admission becomes necessary. CBC revealed anemia to 6.8. Pt denies symptoms. Hemoccult negative. Will transfuse as pt is below 7. 16:14 Second telephone conversation with Dr. Solano DRAFTER PATENT. Will admit pt to med/surg on inpatient status for anemia and right arm pain awaiting MRI. Plain film of humerus revealed right humeral neck fracture. Suspect pathologic. Will place pt in sling. Given 2mg Dilaudid for pain management while pt undergoes MRI. MRI unremarkable for acute cord compression. Discussed current workup with pt's HPOA. *DC/Admit/Observation/Transfer Diagnosis at time of Disposition: Right arm pain Anemia Qualifiers: Anemia type: unspecified type Qualified Code(s): D64.9 - Anemia, unspecified Fracture of neck of humerus Qualifiers: Encounter type: initial encounter Fracture type: closed Laterality: right Qualified Code(s): S42.211A - Unspecified displaced fracture of surgical neck of right humerus, initial encounter for closed fracture - Discharge Dispostion Condition at time of disposition: Stable Decision to Admit order: Yes - Referrals - Patient Instructions - Post Discharge Activity
--- NOTE | 2018-06-06 14:35 | PDOC ---
Attending Attestation - HPI HPI: 06/06/18 16:18 The patient is a 78 year old male with a significant PMH of hypertension, glaucoma, arthritis, depression, right hand tremor, and CVA (left cerebral thrombosis )who presents to the emergency department with right arm pain for about 5 days. The patient reports that his arm pain radiates from his back. He states that he takes tylenol for the pain but denies any significant relief. He states that he has trouble ambulating his arm secondary to pain. It is noted that the patient negan his first radiation treatment yesterday. The patient denies any other symptoms or complaints. - Physicial Exam PE: 06/06/18 16:18 GENERAL: The patient is in no acute distress. HEAD: Normal with no signs of trauma. EYES: PERRLA, EOMI, sclera anicteric, conjunctiva clear. ENT: Ears normal, nares patent, oropharynx clear without exudates. Moist mucous membranes. NECK: Normal range of motion, supple without lymphadenopathy, JVD, or masses. LUNGS: Breath sounds equal, clear to auscultation bilaterally. No wheezes, and no crackles. HEART:Regular rate and rhythm, normal S1 and S2 without murmur, rub or gallop. ABDOMEN: Soft, nontender, normoactive bowel sounds. No guarding, no rebound. No masses palpable. EXTREMITIES:(+)right arm weakness, difficulty with hand national facilities manager. no edema. No clubbing or cyanosis. No erythema, or tenderness. NEUROLOGICAL: Cranial nerves II through XII grossly intact. Normal speech. No focal neurological deficits. MUSCULOSKELETAL: Back non-tender to palpation, no CVA tenderness SKIN: Warm, Dry, normal turgor, no rashes or lesions noted. Documentation prepared by Jared Hardin, acting as medical device assembler for Tiff Carcamo MD. <Jared Hardin - Last Filed: 06/06/18 16:18> - Resident Resident Name: Salvador Duque - ED Attending Attestation I have performed the following: I have examined & evaluated the patient, The case was reviewed & discussed with the resident, I agree w/resident's findings & plan, Exceptions are as noted - Medical Decision Making 06/06/18 15:20 Mr Rod is an 78 yo M h/o myeloma, h/o epidural mass, currently undergoing radiation Pt sent in to the ER by oncologist due to concern for spinal cord compression Pt reports severe right arm pain Difficulty moving due to pain Weakness with hand national facilities manager 06/06/18 15:21 EKG: NSR rate of 90 bpm, left axis deviation, no st elevation or depression, RBBB Pending Xray Pending MRI thoracic spine Given morphine, Decadron 06/06/18 16:14 Laboratory Tests 06/06/18 06/06/18 15:05 15:05 WBC 7.2 Hgb 6.8 L* Hct 21.4 L D Plt Count 267 D INR 1.[address] priest for anemia Will give 2 units PRBC Pending MRI Pending Xray shoulder/ arm <Tiff Carcamo - Last Filed: 06/07/18 11:37>
[2018-06-06] MEDS ORDERED: morphine CARPU-JECT 4 MG/1 ML DISP.SYRIN IVPUSH ONE (15:21)
[2018-06-06] MEDS ORDERED: DEXAMETHASONE SOD PHOSPHATE 4 MG/1 ML VIAL IVPUSH ONE (15:21)
[2018-06-06 15:32] LABS: BASO % 0.2 % (0-2.0); EOS % 0.2 % (0-4.5); HEMATOCRIT 21.4 % (35.4-49); LYMPH % 12.3 % (8-40); MCH 30.7 pg (25.7-33.7); MCHC 31.7 g/dl (32.0-35.9); MEAN CELL VOLUME 96.8 fl (80-96); MEAN PLT VOLUME 7.6 fl (7.5-11.1); MONO % 9.4 % (3.8-10.2); NEUT % 77.9 % (42.8-82.8); PLATELET COUNT 267 K/MM3 (134-434); RBC 2.21 M/mm3 (4.00-5.60); RDW 22.3 % (11.9-15.9); WHITE BLOOD COUNT 7.2 K/mm3 (4.0-10.0)
[2018-06-06] MEDS ORDERED: DEXAMETHASONE SOD PHOSPHATE 4 MG/1 ML VIAL ONE (15:35)
[2018-06-06] MEDS ORDERED: morphine SULFATE 4 MG/ML VIAL ONE (15:35)
[2018-06-06 15:47] LABS: HEMOGLOBIN 6.8 GM/dL (11.7-16.9)
[2018-06-06 16:09] LABS: INR 1.32 (0.83-1.09); PROTHROMBIN TIME (PATIENT) 15.6 SEC (9.7-13.0)
[2018-06-06] MEDS ORDERED: TAMSULOSIN HCL 0.4 MG CAP PO ONE (16:47)
[2018-06-06 17:15] LABS: ALBUMIN 1.7 g/dl (3.4-5.0); ALK PHOS 651 U/L (45-117); ANION GAP 13 MMOL/L (8-16); BILIRUBIN,TOTAL 0.6 mg/dL (0.2-1); BLOOD UREA NITROGEN 33 mg/dL (7-18); CALCIUM 9.7 mg/dL (8.5-10.1); CHLORIDE 97 mmol/L (98-107); CO2 27 mmol/L (21-32); GLUCOSE,RANDOM 98 mg/dL (74-106); POTASSIUM 4.4 mmol/L (3.5-5.1); SGOT/AST 334 U/L (15-37); SGPT/ALT 288 U/L (13-61); SODIUM 136 mmol/L (136-145); TOT PROT 10.3 g/dl (6.4-8.2)
[2018-06-06 17:19] LABS: ANISOCYTOSIS 3+; PLATELET ESTIMATE ADEQUATE
--- NOTE | 2018-06-06 18:20 | EKG ---
Test Reason : Blood Pressure : / mmHG Vent. Rate : 090 BPM Atrial Rate : 090 BPM P-R Int : 154 ms QRS Dur : 132 ms QT Int : 404 ms P-R-T Axes : 023 -54 030 degrees QTc Int : 494 ms NORMAL SINUS RHYTHM WITH SINUS ARRHYTHMIA RIGHT BUNDLE BRANCH BLOCK LEFT ANTERIOR FASCICULAR BLOCK BIFASCICULAR BLOCK MODERATE VOLTAGE CRITERIA FOR LVH, MAY BE NORMAL VARIANT ABNORMAL ECG WHEN COMPARED WITH ECG OF 12-FEB-2018 11:52, PREMATURE VENTRICULAR COMPLEXES ARE NO LONGER PRESENT Confirmed by LACI PAUL MD ([id number]) on 06/06/2018 6:19:39 PM Referred By: Confirmed By:LACI PAUL MD
[2018-06-06] MEDS ORDERED: TAMSULOSIN HCL 0.4 MG CAP ONE (18:49)
[2018-06-06] MEDS ORDERED: HYDROmorphone HCL CARPU-JECT 2 MG/1 ML DISP.SYRIN IVPUSH ONE (20:16)
[2018-06-06] MEDS ORDERED: HYDROmorphone HCl 2 MG/ML VIAL ONE (20:17)
[2018-06-06] MEDS ORDERED: morphine SO4 SUSTAINED ACTING 15 MG TABLET.SA ONE (22:21)
[2018-06-06] MEDS ORDERED: levETIRAcetam 500 MG TABLET (FP) PO ONE (22:21)
[2018-06-06] MEDS: FINASTERIDE 5 MG TABLET (FP) PO SCH (23:03)
[2018-06-06] MEDS: levETIRAcetam 500 MG TABLET (FP) PO SCH (23:04)
[2018-06-06] MEDS: morphine SO4 SUSTAINED ACTING 15 MG TABLET.SA PO SCH (23:04)
--- NOTE | 2018-06-06 23:32 | HP ---
Admitting History and Physical - Admission History of Present Illness: 78 y/o male presenting to [facility] ER from [facility] with complaints of right finger pain for the past 4-5 days. Pt states the pain started spontaneously and has progressively worsened to the point where he is not able to move the extremity. Initially indicates the pain is only in his right 2nd digit then states it is in his forearm, then in his elbow, then in his right shoulder. Denies trauma to the area. Known baseline tremor in right hand. Denies change in bowel or bladder habits. Denies numbness or tingling. ER had telephone conversation with Dr. Romero who reports the pt started complaining of right arm pain starting yesterday during radiation therapy. Initially believes this pain to be secondary to the treatment. Pts colleague come to Dr. Romero today and expressed concern that the pt would not come out of his room today because of pain and would not move his right arm. Concern was raised for cord compression as the pt has a known metastatic lesion at T2 that was noted on MRI in March 2018. Recommended pt receive dexamethasone 4mg q6h to reduce edema, pain management, and repeat MRI to evaluate for progression of lesion. Also indicates pt had a recent PET scan with showed uptake at right distal humerus. 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: CVA (left CVA 07/18), Seizure, Other (occipital meningioma resected with residual meningioma, essential tremor) Cardiovascular: Yes: HTN Gastrointestinal: Yes: Cancer (cecal cancer just discovered), Diverticulosis, Other Renal/: Yes: BPH Psych: Yes: Depression - Past Surgical History Past Surgical History: Yes: Cataract Removal, Craniotomy (for ocipital meningioma), Joint Replacement (L THR) - Smoking History Smoking history: Former smoker Have you smoked in the past 12 months: No If you are a former smoker, when did you quit?: 6 years ago - Alcohol/Substance Use Hx Alcohol Use: Yes (2 glasses wine nightly) - Social History Usual Living Arrangement: Yes: [facility] ADL: Support Services History of Recent Travel: No Home Medications - Allergies Allergies/Adverse Reactions: Allergies Allergy/AdvReac Type Severity Reaction Status Date / Time No Known Allergies Allergy Verified 06/06/18 14:06 - Home Medications Home Medications: Ambulatory Orders Finasteride 5 mg PO DAILY #0 07/22/14 Lisinopril [Prinivil] 20 mg PO DAILY #0 07/22/14 Aspirin [Ecotrin] 81 mg PO DAILY 02/12/18 Acetaminophen [Tylenol .Regular Strength -] 650 mg PO Q4H PRN 30 Days #180 tablet 03/06/18 Aa/Hydrolyzed Collagen, Whey [Lps Neutral Flavor Liquid] 30 ml PO TID 06/06/18 HYDROmorphone [Dilaudid -] 2 mg PO Q4H PRN 06/06/18 Loperamide HCl [Imodium -] 2 mg PO DAILY PRN 06/06/18 Morphine *Sr* [Ms Contin -] 15 mg PO Q12H 06/06/18 Multivitamin [Multiple Vitamins] 1 each PO DAILY 06/06/18 Tamsulosin HCl [Flomax] 0.4 mg PO DAILY 06/06/18 levETIRAcetam [Keppra -] 500 mg PO BID 06/06/18 Family Disease History - Family Disease History Family Disease History: Diabetes: Mother ( after leg amputations), CA: Father ( lung cancer) Review of Systems - Review of Systems Constitutional: reports: Malaise, Weakness Eyes: reports: No Symptoms HENT: reports: No Symptoms Neck: reports: Decreased ROM, Swollen Glands Cardiovascular: reports: No Symptoms, Palpitations Respiratory: reports: SOB on Exertion Gastrointestinal: reports: No Symptoms Genitourinary: reports: No Symptoms Breasts: reports: No Symptoms Reported Musculoskeletal: reports: Back Pain Physical Examination Vital Signs: Vital Signs Temperature 98.1 F 06/06/18 18:30 Pulse Rate 84 06/06/18 18:30 Respiratory Rate 20 06/06/18 19:29 Blood Pressure 131/65 06/06/18 18:30 O2 Sat by Pulse Oximetry (%) 97 06/06/18 19:29 Labs: CBC, BMP 06/06/18 15:05 01/04/19 15:05 Problem List - Problems (1) Cord compression Code(s): G95.20 - UNSPECIFIED CORD COMPRESSION (2) Spinal cord compression due to malignant neoplasm metastatic to spine Code(s): G95.29 - OTHER CORD COMPRESSION; C79.51 - SECONDARY MALIGNANT NEOPLASM OF BONE (3) Anemia Code(s): D64.9 - ANEMIA, UNSPECIFIED Qualifiers: Anemia type: unspecified type Qualified Code(s): D64.9 - Anemia, unspecified (4) Right arm pain Code(s): M79.601 - PAIN IN RIGHT ARM (5) CVA (cerebral infarction) Code(s): I63.9 - CEREBRAL INFARCTION, UNSPECIFIED (6) Cecal neoplasm Code(s): D49.0 - NEOPLASM OF UNSPECIFIED BEHAVIOR OF DIGESTIVE SYSTEM (7) Depression Code(s): F32.9 - MAJOR DEPRESSIVE DISORDER, SINGLE EPISODE, UNSPECIFIED (8) Epilepsy Code(s): G40.909 - EPILEPSY, UNSP, NOT INTRACTABLE, WITHOUT STATUS EPILEPTICUS (9) Essential tremor Code(s): G25.0 - ESSENTIAL TREMOR (10) Hyperlipidemia Code(s): E78.5 - HYPERLIPIDEMIA, UNSPECIFIED (11) Hypertension Code(s): I10 - ESSENTIAL (PRIMARY) HYPERTENSION Qualifiers: Hypertension type: essential hypertension Qualified Code(s): I10 - Essential (primary) hypertension (12) Lesion of lumbar spine Code(s): M89.9 - DISORDER OF BONE, UNSPECIFIED (13) 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
[2018-06-07] MEDS: PANTOPRAZOLE 40 MG TABLET (FP) PO SCH ×3 (01:09→21:56)
[2018-06-07] MEDS: DEXAMETHASONE SOD PHOSPHATE 4 MG/1 ML VIAL IVPUSH SCH ×5 (01:10→21:56)
[2018-06-07 04:01] VITALS: BMI 21.9
[2018-06-07] MEDS: morphine SO4 SUSTAINED ACTING 15 MG TABLET.SA PO SCH ×2 (09:52→21:55)
[2018-06-07] MEDS: levETIRAcetam 500 MG TABLET (FP) PO SCH ×2 (09:52→21:56)
[2018-06-07] MEDS: LISINOPRIL 20 MG TABLET (FP) PO SCH (09:54)
[2018-06-07] MEDS: ASPIRIN COATED 81 MG TABLET.EC PO SCH (09:54)
[2018-06-07] MEDS: FINASTERIDE 5 MG TABLET (FP) PO SCH (09:55)
--- NOTE | 2018-06-07 13:28 | PN ---
Progress Note (short form) - Note Progress Note: Radiation Oncology Pt seen/evaluated, films/chart reviewed, my office H&P placed on chart. Father Carlton is known to me with multiple myeloma and hx of perforated cecal adenocarcinoma (T4aN0) s/p rt hemicolectomy and abscess drainage in Feb 2018, currently receiving palliative RT to right chest wall metastasis (30Gy completed ) and T1-T3 spine where he has known epidural metastasis (4Gy received to date, last 06/05/18). Sent to ER for reported increasing pain in rt arm to fingers and inability to move 2/2 pain. MRI C-T spine shows multi-level vertebral fractures with progression of epidural disease at T2 causing right nerve root compression and thecal sac impingement/impending cord compression. Decadron 4q6 has started. In addition, plain films demonstrate a fracture of proximal right humerus where he has known disease and thus likely pathologic. Labs significant for Hgb 6.8. He reports pain in rt upper arm with any movement or palpation but is comfortable at rest. Denies numbness/tingling, leg weakness, incontinence or difficulty emptying bladder or BMs. Neurologic exam signifcant for right blood bank custodian 4/5 and proximal arm strength limited by pain. No sensory level. Upper right arm tender to palpation. Studies as above. Impression: Progressive multiple myeloma associated with RUE radiculopathy from cord impingement and a pathologic fracture of right humerus. Possible recurrent colon carcinoma with evidence of peritoneal disease on PET. Recs: -Orthopedic surgery consult (Dr. Montes or Cody) to determine if candidate for surgical stabilization of fracture. Keep right arm in sling until ortho eval. Will benefit from RT to humerus in future. -To continue RT to T-spine epidural disease, will request approval for inpatient tx on Mon. Cont decadron for impending cord compression, May decrease to 4q12 if surgery being considered. -Anemia likely secondary to myeloma and RT, agree with PRBC transfusion. -Hem Onc consult -Pain management
--- NOTE | 2018-06-07 15:49 | PN ---
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 / no edema / + 2 pulses CBC, BMP 06/06/18 15:05 06/06/18 15:05 Active Medications Aspirin (Ecotrin -) 81 mg PO DAILY [facility] Last Admin: 06/07/18 09:54 Dose: 81 mg Dexamethasone Sodium Phosphate (Decadron Injection -) 4 mg IVPUSH Q6H-IV [facility] Last Admin: 06/07/18 09:54 Dose: 4 mg Finasteride (Proscar -) 5 mg PO DAILY [facility] Last Admin: 06/07/18 09:55 Dose: 5 mg Hydromorphone HCl (Dilaudid -) 2 mg PO Q4HWA PRN PRN Reason: PAIN LEVEL 4 - 6 Levetiracetam (Keppra -) 500 mg PO BID [facility] Last Admin: 06/07/18 09:52 Dose: 500 mg Lisinopril (Prinivil) 20 mg PO DAILY [facility] Last Admin: 06/07/18 09:54 Dose: 20 mg Morphine Sulfate (Ms Contin -) 15 mg PO BID [facility] Last Admin: 06/07/18 09:52 Dose: 15 mg Pantoprazole Sodium (Protonix -) 40 mg PO BID [facility] Last Admin: 06/07/18 09:54 Dose: 40 mg #Severe anemia s/p transfusion at ER #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 start decadron IV + PPi BID pain control #Pathological right humerus fx ortho consult pain mangemnt # 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 -- receiving RT for pain control Heme - onc consult RT follow up Problem List - Problems (1) Cord compression Code(s): G95.20 - UNSPECIFIED CORD COMPRESSION (2) Spinal cord compression due to malignant neoplasm metastatic to spine Code(s): G95.29 - OTHER CORD COMPRESSION; C79.51 - SECONDARY MALIGNANT NEOPLASM OF BONE (3) Anemia Code(s): D64.9 - ANEMIA, UNSPECIFIED Qualifiers: Anemia type: unspecified type Qualified Code(s): D64.9 - Anemia, unspecified (4) Right arm pain Code(s): M79.601 - PAIN IN RIGHT ARM (5) CVA (cerebral infarction) Code(s): I63.9 - CEREBRAL INFARCTION, UNSPECIFIED (6) Cecal neoplasm Code(s): D49.0 - NEOPLASM OF UNSPECIFIED BEHAVIOR OF DIGESTIVE SYSTEM (7) Depression Code(s): F32.9 - MAJOR DEPRESSIVE DISORDER, SINGLE EPISODE, UNSPECIFIED (8) Epilepsy Code(s): G40.909 - EPILEPSY, UNSP, NOT INTRACTABLE, WITHOUT STATUS EPILEPTICUS (9) Essential tremor Code(s): G25.0 - ESSENTIAL TREMOR (10) Hyperlipidemia Code(s): E78.5 - HYPERLIPIDEMIA, UNSPECIFIED (11) Hypertension Code(s): I10 - ESSENTIAL (PRIMARY) HYPERTENSION Qualifiers: Hypertension type: essential hypertension Qualified Code(s): I10 - Essential (primary) hypertension (12) Lesion of lumbar spine Code(s): M89.9 - DISORDER OF BONE, UNSPECIFIED (13) 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
[2018-06-07] MEDS: DEXTROSE 5%-0.45% SALINE 1,000 ML IV SCH (16:18)
[2018-06-07 16:46] LABS: BASO % 0.2 % (0-2.0); HEMATOCRIT 24.1 % (35.4-49); HEMOGLOBIN 8.5 GM/dL (11.7-16.9); LYMPH % 8.5 % (8-40); MCH 32.7 pg (25.7-33.7); MCHC 35.3 g/dl (32.0-35.9); MEAN CELL VOLUME 92.7 fl (80-96); MEAN PLT VOLUME 7.7 fl (7.5-11.1); MONO % 6.9 % (3.8-10.2); NEUT % 84.4 % (42.8-82.8); PLATELET COUNT 254 K/MM3 (134-434); RDW 20.1 % (11.9-15.9); WHITE BLOOD COUNT 6.8 K/mm3 (4.0-10.0)
[2018-06-08] MEDS: DEXTROSE 5%-0.45% SALINE 1,000 ML IV SCH ×3 (01:33→21:33)
[2018-06-08] MEDS: DEXAMETHASONE SOD PHOSPHATE 4 MG/1 ML VIAL IVPUSH SCH ×4 (03:05→21:33)
[2018-06-08] MEDS: morphine SO4 SUSTAINED ACTING 15 MG TABLET.SA PO SCH ×2 (09:36→21:34)
[2018-06-08] MEDS: ASPIRIN COATED 81 MG TABLET.EC PO SCH (09:36)
[2018-06-08] MEDS: FINASTERIDE 5 MG TABLET (FP) PO SCH (09:36)
[2018-06-08] MEDS: PANTOPRAZOLE 40 MG TABLET (FP) PO SCH ×2 (09:36→21:34)
[2018-06-08] MEDS: levETIRAcetam 500 MG TABLET (FP) PO SCH ×2 (09:36→21:34)
[2018-06-08] MEDS: LISINOPRIL 20 MG TABLET (FP) PO SCH (09:36)
[2018-06-08 10:44] LABS: CO2 26 mmol/L (21-32); CREATININE 0.7 mg/dL (0.55-1.3)
--- NOTE | 2018-06-08 12:31 | CONSULT ---
Consult Consult Specialty:: orthopedics Reason for Consultation:: Right proximal humerus fracture - History of Present Illness History of Present Illness: 78 y/o male with hx of metastatic bone cancer c/o right arm pain which began a few days ago without specific injury or trauma. According to his brother he has a history of tremors in this arm which stopped a few years ago and had not had good use of the arm since then. He has been doing therapy for the arm and undergoing radiation treatment for cancer. - History Source History Provided By: Patient, Medical Record - Past Medical History TEST EVALUATOR: Yes: CVA (left CVA 07/18), Seizure, Other (occipital meningioma resected with residual meningioma, essential tremor) Cardio/Vascular: Yes: HTN Gastrointestinal: Yes: Cancer (cecal cancer just discovered), Diverticulosis, Other Renal/: Yes: BPH Psych: Yes: Depression Additional Medical History: Glaucoma - Past Surgical History Past Surgical History: Yes: Cataract Removal, Craniotomy (for ocipital meningioma), Joint Replacement (L THR) - Alcohol/Substance Use Hx Alcohol Use: Yes (2 glasses wine nightly) - Smoking History Smoking history: Former smoker Have you smoked in the past 12 months: No If you are a former smoker, when did you quit?: 6 years ago - Social History Usual Living Arrangement: Assisted Living ([facility]) ADL: Support Services History of Recent Travel: No Home Medications - Allergies Allergies/Adverse Reactions: Allergies Allergy/AdvReac Type Severity Reaction Status Date / Time No Known Allergies Allergy Verified 06/06/18 14:06 - Home Medications Home Medications: Ambulatory Orders Finasteride 5 mg PO DAILY #0 07/22/14 Lisinopril [Prinivil] 20 mg PO DAILY #0 07/22/14 Aspirin [Ecotrin] 81 mg PO DAILY 02/12/18 Acetaminophen [Tylenol .Regular Strength -] 650 mg PO Q4H PRN 30 Days #180 tablet 03/06/18 Aa/Hydrolyzed Collagen, Whey [Lps Neutral Flavor Liquid] 30 ml PO TID 06/06/18 HYDROmorphone [Dilaudid -] 2 mg PO Q4H PRN 06/06/18 Loperamide HCl [Imodium -] 2 mg PO DAILY PRN 06/06/18 Morphine *Sr* [Ms Contin -] 15 mg PO Q12H 06/06/18 Multivitamin [Multiple Vitamins] 1 each PO DAILY 06/06/18 Tamsulosin HCl [Flomax] 0.4 mg PO DAILY 06/06/18 levETIRAcetam [Keppra -] 500 mg PO BID 06/06/18 Family Disease History - Family Disease History Family Disease History: Diabetes: Mother ( after leg amputations), CA: Father ( lung cancer) Review of Systems - Review of Systems Constitutional: reports: No Symptoms Eyes: reports: No Symptoms HENT: reports: No Symptoms Neck: reports: No Symptoms Cardiovascular: reports: No Symptoms Respiratory: reports: No Symptoms Gastrointestinal: reports: No Symptoms Genitourinary: reports: No Symptoms Breasts: reports: No Symptoms Reported Musculoskeletal: reports: No Symptoms, Extremity Pain Integumentary: reports: No Symptoms Neurological: reports: No Symptoms Endocrine: reports: No Symptoms Hematology/Lymphatic: reports: No Symptoms Psychiatric: reports: No Symptoms Physical Exam Vital Signs: Vital Signs Temperature 98.4 F 06/08/18 10:00 Pulse Rate 73 06/08/18 10:00 Respiratory Rate 20 06/08/18 10:00 Blood Pressure 154/83 06/08/18 10:00 O2 Sat by Pulse Oximetry (%) 98 06/08/18 09:00 Constitutional: Yes: No Distress, Calm, Diaphoresis HENT: Yes: Atraumatic, Normocephalic Musculoskeletal: Yes: Other (RUE: No open wounds. Edema along the shoulder. TTP along the proximal humerus. Pain with motion of the shoulder. Mininmal use of the hand and wrist but is able to close and open fingers. Sensation intact and well perfused.) Labs: CBC, BMP 06/08/18 07:00 Imaging - Results X-ray: Report Reviewed, Image Reviewed (Pathologic fracture of the proximal humerus) Assessment/Plan #1 Right pathologic proximal humerus fracture -Recommend conservative treatment in sling. I placed him into a sling today. Follow up in 2-3 weeks with an x-ray as outpatient. Please reconsult if needed.
[2018-06-08 12:32] LABS: ANION GAP 12 MMOL/L (8-16); BLOOD UREA NITROGEN 22 mg/dL (7-18); CHLORIDE 98 mmol/L (98-107); GLUCOSE,RANDOM 103 mg/dL (74-106); POTASSIUM 3.9 mmol/L (3.5-5.1); SODIUM 136 mmol/L (136-145)
--- NOTE | 2018-06-08 13:32 | PN ---
Progress Note (short form) - Note Progress Note: Patient known to Oncology service - last seen by Dr Funes in April 2018. Oncology history as below: "02/12/18: [facility] ER for severe abdominal pain. Found to have a perforated viscus and underwent ex lap with right colectomy, drainage of abscess. Newly diagnosed with a cecal mass--invasive adenocarcinoma pT4, pN0 LVI Osteolytic lesion right 5th rib/1cm L3 vertebral body 02/14: Ct Chest: --B/L lower lobe consolidation/atelectasis with small pleural effusions. --Bulky right anterolateral 5th rib mass consistent with a metastatic lesion --Findings suspicious for additional bony mets at T2, T7 and T12 02/18: Ct A/P: --Trace ascites 02/25/18 Biopsy of lytic lesion: --Plasma cell neoplasm 03/03 MRI spine: --Multiple metastatic foci/lytic lesions in the thoracic and lumbar spine" Decision made to start treatment with Revlimid then. In interim has been receiving radiation, most recently on 06/02. Now admitted to [facility] with reported history as below: "78 y/o male presenting to [facility] ER from [facility] with complaints of right finger pain for the past 4-5 days. Pt states the pain started spontaneously and has progressively worsened to the point where he is not able to move the extremity. Initially indicates the pain is only in his right 2nd digit then states it is in his forearm, then in his elbow, then in his right shoulder. Denies trauma to the area. Known baseline tremor in right hand. Denies change in bowel or bladder habits. Denies numbness or tingling. ER had telephone conversation with Dr. Romero who reports the pt started complaining of right arm pain starting yesterday during radiation therapy. Initially believes this pain to be secondary to the treatment. Pts colleague come to Dr. Romero today and expressed concern that the pt would not come out of his room today because of pain and would not move his right arm. Concern was raised for cord compression as the pt has a known metastatic lesion at T2 that was noted on MRI in March 2018. Recommended pt receive dexamethasone 4mg q6h to reduce edema, pain management, and repeat MRI to evaluate for progression of lesion." Imaging since admission: MRI C-T spine shows multi-level vertebral fractures with progression of epidural disease at T2 causing right nerve root compression and thecal sac impingement/impending cord compression. In addition, fracture of proximal right humerus where he has known disease. Admitted for orthopedic management, and pain control. Inpatient Meds reviewed. Current Medications Generic Name Dose Route Start Last Admin Trade Name Freq PRN Reason Stop Dose Admin Aspirin 81 mg 06/07/18 10:00 06/08/18 09:36 Ecotrin - PO 81 mg DAILY BRIAN Administration Dexamethasone Sodium Phosphate 4 mg 06/06/18 23:00 06/08/18 09:36 Decadron Injection - IVPUSH 4 mg Q6H-IV [facility]RIAN Administration Finasteride 5 mg 06/06/18 21:45 06/08/18 09:36 Proscar - PO 5 mg DAILY BRIAN Administration Hydromorphone HCl 2 mg 06/06/18 16:44 Dilaudid - PO Q4HWA PRN PAIN LEVEL 4 - 6 Dextrose/Sodium Chloride 1,000 mls @ 125 mls/hr 06/07/18 16:00 06/08/18 09:37 D5-1/2ns - IV 125 mls/hr ASDIR BRIAN Administration Levetiracetam 500 mg 06/06/18 22:00 06/08/18 09:36 Keppra - PO 500 mg BID BRIAN Administration Lisinopril 20 mg 06/07/18 10:00 06/08/18 09:36 Prinivil PO 20 mg DAILY BRIAN Administration Morphine Sulfate 15 mg 06/06/18 22:00 06/08/18 09:36 Ms Contin - PO 15 mg BID BRIAN Administration Pantoprazole Sodium 40 mg 06/06/18 23:00 06/08/18 09:36 Protonix - PO 40 mg BID BRIAN Administration On Examination: Last Vital Signs Temp Pulse Resp BP Pulse Ox 98.4 F 73 20 154/83 98 06/08/18 10:00 06/08/18 10:00 06/08/18 10:00 06/08/18 10:00 06/08/18 09:00 General: In no acute distress, lying in bed. Extremities: No pallor or icterus. No pedal edema. No palpable lymphadenopathy. Senile purpurae. Chest: Breathing comfortably Abdomen: Non-distended, non-tender, no palpable organomegaly Neuro: Drowsy but rousable, confused, non-focal. Labs: CBC, BMP 06/08/18 07:00 Assessment. Recently diagnosed myeloma (IgA lambda) with significant skeletal disease, and anemia. Has apparently not yet received systemic therapy (other than steroids), ongoing RTX for multiple sites of skeletal involvement, primarily spine, and ribs. Now with R humerus fracture. Followed by radiation oncology and orthopedics for above issues. Hb adequate following transfusion. Should receive a bisphosphonate if not received within last month - will ask pharmacy. Needs to start aggressive systemic therapy sooner rather than later - may consider initiating as patient (eg cycophosphamide/bortezomib based regimen). Will follow closely - please call with interim questions.
[2018-06-08 14:07] LABS: BASO % 0.1 % (0-2.0); HEMATOCRIT 24.8 % (35.4-49); LYMPH % 10.5 % (8-40); MCH 30.7 pg (25.7-33.7); MCHC 32.4 g/dl (32.0-35.9); MEAN CELL VOLUME 94.6 fl (80-96); MEAN PLT VOLUME 8.1 fl (7.5-11.1); MONO % 6.7 % (3.8-10.2); NEUT % 82.7 % (42.8-82.8); PLATELET COUNT 238 K/MM3 (134-434); RBC 2.62 M/mm3 (4.00-5.60); RDW 19.9 % (11.9-15.9); WHITE BLOOD COUNT 7.2 K/mm3 (4.0-10.0)
--- NOTE | 2018-06-08 20:09 | PN ---
Progress Note (short form) - Note Progress Note: patient seen and examined this morning significantly more comfortable Vital Signs Period Temp Pulse Resp BP Sys/Olivo Pulse Ox Last 24 Hr 97.1 F-98.7 F 76-88 18-20 131-162/64-88 92-97 noted to have significant weight loss in pain lungs grossly clear heart S1/S2 irreg abd soft ext - right upper -in sling less pain LE moves freely / no edema / + 2 pulses s/p transfusion CBC, BMP 06/08/18 07:00 06/08/18 07:00 CBC, BMP 06/06/18 15:05 06/06/18 15:05 Active Medications Aspirin (Ecotrin -) 81 mg PO DAILY [facility] Last Admin: 06/08/18 09:36 Dose: 81 mg Dexamethasone Sodium Phosphate (Decadron Injection -) 4 mg IVPUSH Q6H-IV [facility] Last Admin: 06/08/18 14:59 Dose: 4 mg Finasteride (Proscar -) 5 mg PO DAILY [facility] Last Admin: 06/08/18 09:36 Dose: 5 mg Hydromorphone HCl (Dilaudid -) 2 mg PO Q4HWA PRN PRN Reason: PAIN LEVEL 4 - 6 Dextrose/Sodium Chloride (D5-1/2ns -) 1,000 mls @ 125 mls/hr IV ASDIR [facility] Last Admin: 06/08/18 09:37 Dose: 125 mls/hr Levetiracetam (Keppra -) 500 mg PO BID [facility] Last Admin: 06/08/18 09:36 Dose: 500 mg Lisinopril (Prinivil) 20 mg PO DAILY [facility] Last Admin: 06/08/18 09:36 Dose: 20 mg Morphine Sulfate (Ms Contin -) 15 mg PO BID [facility] Last Admin: 06/08/18 09:36 Dose: 15 mg Pantoprazole Sodium (Protonix -) 40 mg PO BID [facility] Last Admin: 06/08/18 09:36 Dose: 40 mg #pathological right humerus fracture metastatic disease ortho consult apprecited -- conservative treatment RT and heme-onc appreciated will discuss with [facility] for POC #Severe anemia s/p transfusion at ER #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 start decadron IV + PPi BID pain control # 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 -- receiving RT for pain control Heme - onc consult RT follow up Problem List - Problems (1) Cord compression Code(s): G95.20 - UNSPECIFIED CORD COMPRESSION (2) Spinal cord compression due to malignant neoplasm metastatic to spine Code(s): G95.29 - OTHER CORD COMPRESSION; C79.51 - SECONDARY MALIGNANT NEOPLASM OF BONE (3) Anemia Code(s): D64.9 - ANEMIA, UNSPECIFIED Qualifiers: Anemia type: unspecified type Qualified Code(s): D64.9 - Anemia, unspecified (4) Right arm pain Code(s): M79.601 - PAIN IN RIGHT ARM (5) CVA (cerebral infarction) Code(s): I63.9 - CEREBRAL INFARCTION, UNSPECIFIED (6) Cecal neoplasm Code(s): D49.0 - NEOPLASM OF UNSPECIFIED BEHAVIOR OF DIGESTIVE SYSTEM (7) Depression Code(s): F32.9 - MAJOR DEPRESSIVE DISORDER, SINGLE EPISODE, UNSPECIFIED (8) Epilepsy Code(s): G40.909 - EPILEPSY, UNSP, NOT INTRACTABLE, WITHOUT STATUS EPILEPTICUS (9) Essential tremor Code(s): G25.0 - ESSENTIAL TREMOR (10) Hyperlipidemia Code(s): E78.5 - HYPERLIPIDEMIA, UNSPECIFIED (11) Hypertension Code(s): I10 - ESSENTIAL (PRIMARY) HYPERTENSION Qualifiers: Hypertension type: essential hypertension Qualified Code(s): I10 - Essential (primary) hypertension (12) Lesion of lumbar spine Code(s): M89.9 - DISORDER OF BONE, UNSPECIFIED (13) 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
[2018-06-09] MEDS: DEXAMETHASONE SOD PHOSPHATE 4 MG/1 ML VIAL IVPUSH SCH ×4 (03:14→21:20)
--- NOTE | 2018-06-09 08:38 | PN ---
Progress Note (short form) - Note Progress Note: Ortho Pt seen and examined s/p right proximal humerus pathologic fx- feeling less pain Selected Entries 06/09/18 06:00 Temperature 98.6 F Pulse Rate 69 Respiratory 20 Rate Blood Pressure 165/90 Laboratory Tests 06/08/18 07:00 WBC 7.2 Hgb 8.0 L Hct 24.8 L Plt Count 238 + swelling, + ttp, decr rom, nvi xrays reviewed show pathologic fx mildly displaced but acceptable position a/p Risks and benefits were d/w pt in detail continue conservative tx RT as per heme/onc pain control d/w Dr. Montes
[2018-06-09] MEDS: morphine SO4 SUSTAINED ACTING 15 MG TABLET.SA PO SCH ×2 (09:41→21:37)
[2018-06-09] MEDS: LISINOPRIL 20 MG TABLET (FP) PO SCH (09:42)
[2018-06-09] MEDS: PANTOPRAZOLE 40 MG TABLET (FP) PO SCH ×2 (09:42→21:37)
[2018-06-09] MEDS: ASPIRIN COATED 81 MG TABLET.EC PO SCH (09:42)
[2018-06-09] MEDS: FINASTERIDE 5 MG TABLET (FP) PO SCH (09:42)
[2018-06-09] MEDS: levETIRAcetam 500 MG TABLET (FP) PO SCH ×2 (09:42→21:37)
[2018-06-09] MEDS: DEXTROSE 5%-0.45% SALINE 1,000 ML IV SCH ×2 (11:56→21:36)
--- NOTE | 2018-06-09 12:31 | PN ---
Progress Note (short form) - Note Progress Note: patient seen and examined this morning scheduled fro RT later this morning more comfortable profusely diaphoretic yet no fever or associated sx Vital Signs Period Temp Pulse Resp BP Sys/Olivo Pulse Ox Last 24 Hr 98.6 F-98.7 F 69-75 20-20 163-165/85-90 98 Vital Signs Period Temp Pulse Resp BP Sys/Olivo Pulse Ox Last 24 Hr 97.1 F-98.7 F 76-88 18-20 131-162/64-88 92-97 in less pain lungs grossly clear / anterirorly and lateral heart S1/S2 irreg abd soft ext - right upper in sling / decreased transitional care nurse LE moves freely / no edema / + 2 pulses CBC, BMP 06/08/18 07:00 06/08/18 07:00 CBC, BMP 06/06/18 15:05 06/06/18 15:05 Active Medications Aspirin (Ecotrin -) 81 mg PO DAILY [facility] Last Admin: 06/09/18 09:42 Dose: 81 mg Dexamethasone Sodium Phosphate (Decadron Injection -) 4 mg IVPUSH Q6H-IV [facility] Last Admin: 06/09/18 09:41 Dose: 4 mg Finasteride (Proscar -) 5 mg PO DAILY [facility] Last Admin: 06/09/18 09:42 Dose: 5 mg Hydromorphone HCl (Dilaudid -) 2 mg PO Q4HWA PRN PRN Reason: PAIN LEVEL 4 - 6 Dextrose/Sodium Chloride (D5-1/2ns -) 1,000 mls @ 125 mls/hr IV ASDIR [facility] Last Admin: 06/09/18 11:56 Dose: 125 mls/hr Levetiracetam (Keppra -) 500 mg PO BID [facility] Last Admin: 06/09/18 09:42 Dose: 500 mg Lisinopril (Prinivil) 20 mg PO DAILY [facility] Last Admin: 06/09/18 09:42 Dose: 20 mg Morphine Sulfate (Ms Contin -) 15 mg PO BID [facility] Last Admin: 06/09/18 09:41 Dose: 15 mg Pantoprazole Sodium (Protonix -) 40 mg PO BID [facility] Last Admin: 06/09/18 09:42 Dose: 40 mg # 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 Code(s): G95.29 - OTHER CORD COMPRESSION; C79.51 - SECONDARY MALIGNANT NEOPLASM OF BONE (3) Anemia Code(s): D64.9 - ANEMIA, UNSPECIFIED Qualifiers: Anemia type: unspecified type Qualified Code(s): D64.9 - Anemia, unspecified (4) Right arm pain Code(s): M79.601 - PAIN IN RIGHT ARM (5) CVA (cerebral infarction) Code(s): I63.9 - CEREBRAL INFARCTION, UNSPECIFIED (6) Cecal neoplasm Code(s): D49.0 - NEOPLASM OF UNSPECIFIED BEHAVIOR OF DIGESTIVE SYSTEM (7) Depression Code(s): F32.9 - MAJOR DEPRESSIVE DISORDER, SINGLE EPISODE, UNSPECIFIED (8) Epilepsy Code(s): G40.909 - EPILEPSY, UNSP, NOT INTRACTABLE, WITHOUT STATUS EPILEPTICUS (9) Essential tremor Code(s): G25.0 - ESSENTIAL TREMOR (10) Hyperlipidemia Code(s): E78.5 - HYPERLIPIDEMIA, UNSPECIFIED (11) Hypertension Code(s): I10 - ESSENTIAL (PRIMARY) HYPERTENSION Qualifiers: Hypertension type: essential hypertension Qualified Code(s): I10 - Essential (primary) hypertension (12) Lesion of lumbar spine Code(s): M89.9 - DISORDER OF BONE, UNSPECIFIED (13) 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
[2018-06-09] MEDS: HYDROmorphone HCL 2 MG TABLET PO PRN (12:42)
--- NOTE | 2018-06-09 15:19 | PN ---
Progress Note (short form) - Note Progress Note: Radiation Oncology Pain in right arm with movement 2/2 pathologic humeral neck fracture. Ortho sx consult reviewed and appreciated. No surgical intervention planned. s/p PRBC Hgb 8.0 Impression: Progressive multiple myeloma associated with RUE radiculopathy from cord impingement and a pathologic fracture of right humerus. Possible recurrent colon carcinoma with evidence of peritoneal disease on PET. Resumed RT to T1-T3 spine today (8Gy received to date, 3 more tx planned). Decadron taper to 4q12 and cont during RT. Next RT tomorrow. Rt arm to sling. Will consider RT to humerus to help promote healing. Cont pain mgt. Possible systemic tx per onc.
[2018-06-09] MEDS: amLODIPine BESYLATE 10 MG TABLET (FP) PO SCH (15:52)
--- NOTE | 2018-06-09 16:28 | PN ---
Progress Note (short form) - Note Progress Note: ID consult dictated imp/recced 78 yo man with adenocarcinoma and myeloma currently receiving RT he complains of pain rectal temp 99.4 but nurse notes he is diaphoretic and he is on steroids will get surveillance cultures as well as a cxray Problem List - Problems (1) Diaphoresis Code(s): R61 - GENERALIZED HYPERHIDROSIS (2) Low grade fever Code(s): R50.9 - FEVER, UNSPECIFIED (3) Metastatic cancer Code(s): C79.9 - SECONDARY MALIGNANT NEOPLASM OF UNSPECIFIED SITE
--- NOTE | 2018-06-09 18:39 | CONS ---
INFECTIOUS DISEASE CONSULTATION DATE OF CONSULTATION: DATE OF DICTATION: 06/09/2018 This is an 78-year-old man. 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 Recently diagnosed in the fall of 2017 with metastatic adenocarcinoma as well with myeloma. He had started radiation therapy and complained of increasing pain. Concern was for cord compression. He was recommended Decadron and admitted for further evaluation. This was on June 06. He was found to have, as well, a pathologic fracture of his right humerus. He denies to me any fevers or chills. He has pain he describes all over. PAST MEDICAL HISTORY: Notable for meningioma, CVA in 2014, hypertension, glaucoma, arthritis, colon cancer with metastatic adenocarcinoma with perforation status post resection in February 2018. At the same time, he was diagnosed with myeloma in 2017, and he was found to have multiple metastatic foci in the thoracic and lumbar spine. Decision was made to treat him with Revlimid, and he has been getting radiation which he is currently on. The nurse had noted he had been started on Decadron after admission on the . Nurses noted he had had intermittent diaphoresis, and a question of possible infection has been raised. ALLERGIES: He has no known drug allergies. MEDICATIONS: At the [facility] include multivitamins, MS Contin, Prinivil, Keppra, Imodium, Flomax, Dilaudid, finasteride, and aspirin. 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 REVIEW OF SYSTEMS: As per HPI. He complains of intermittent constipation. PHYSICAL EXAMINATION: General: He is resting comfortably. Vital Signs: Temperature is 97.2, pulse of 70, blood pressure 163/82. Respiratory rate is 18, saturating 96% on room air. HEENT: He is normocephalic. His eyes are anicteric. He has no thrush. Neck: Supple. Lungs: Scattered rhonchi. Heart: Regular rate and rhythm. Abdomen: Soft. Denies any pain on exam. Extremities: Without edema. He reports he is not ambulating. DIAGNOSTIC DATA: White count is 7.2, hemoglobin is 8, platelets are 238. His BUN is 22 and creatinine 0.7. No cultures have been sent. In summary, this is an 78-year-old man unfortunately with recent adenocarcinoma and myeloma diagnoses. He has significant bony disease from his myeloma and is currently receiving radiation therapy. Of note, he is on steroids as well. We will get surveillance cultures as well as a chest x-ray at this time with further recommendations to follow. Overall prognosis is quite poor. [place] [id number]
--- NOTE | 2018-06-09 23:18 | PN ---
Progress Note (short form) - Note Progress Note: Patient seen and examined 77 y/o patient with HTN, mild cognitive impairment perforated cecal mass , s/p rt. hemicolectomy. Path c/w T4a, N0 adenocarcinoma with LVI, margins negative, MSI high Also with lytic bone disease --? mets vs myeloma M spike with elevated Ig A--3 grams biopsy of rib lesion---c/w myeloma Rt. humeral fx--Will benefit from RT to humerus in future. -To continue RT to T-spine epidural disease, Cont decadron for impending cord compression, -Anemia likely secondary to myeloma and RT, agree with PRBC transfusion. will consider zometa ? myeloma therapy will follow
[2018-06-10] MEDS: DEXAMETHASONE SOD PHOSPHATE 4 MG/1 ML VIAL IVPUSH SCH ×4 (02:52→20:54)
[2018-06-10 08:07] LABS: BASO % 0.2 % (0-2.0); EOS % 0.1 % (0-4.5); HEMATOCRIT 26.2 % (35.4-49); HEMOGLOBIN 8.4 GM/dL (11.7-16.9); LYMPH % 12.2 % (8-40); MCH 30.7 pg (25.7-33.7); MEAN PLT VOLUME 7.6 fl (7.5-11.1); MONO % 7.1 % (3.8-10.2); NEUT % 80.4 % (42.8-82.8); PLATELET COUNT 251 K/MM3 (134-434); RBC 2.73 M/mm3 (4.00-5.60); RDW 19.6 % (11.9-15.9); WHITE BLOOD COUNT 6.7 K/mm3 (4.0-10.0)
[2018-06-10 08:37] LABS: ANION GAP 10 MMOL/L (8-16); BLOOD UREA NITROGEN 17 mg/dL (7-18); CHLORIDE 98 mmol/L (98-107); CO2 26 mmol/L (21-32); CREATININE 0.6 mg/dL (0.55-1.3); GLUCOSE,RANDOM 111 mg/dL (74-106); POTASSIUM 4.1 mmol/L (3.5-5.1); SODIUM 133 mmol/L (136-145)
[2018-06-10] MEDS: PANTOPRAZOLE 40 MG TABLET (FP) PO SCH ×3 (09:42→21:06)
[2018-06-10] MEDS: LISINOPRIL 20 MG TABLET (FP) PO SCH (09:42)
[2018-06-10] MEDS: morphine SO4 SUSTAINED ACTING 15 MG TABLET.SA PO SCH ×3 (09:43→21:05)
[2018-06-10] MEDS: FINASTERIDE 5 MG TABLET (FP) PO SCH (09:43)
[2018-06-10] MEDS: ASPIRIN COATED 81 MG TABLET.EC PO SCH (09:43)
[2018-06-10] MEDS: amLODIPine BESYLATE 10 MG TABLET (FP) PO SCH (09:43)
[2018-06-10] MEDS: levETIRAcetam 500 MG TABLET (FP) PO SCH ×3 (09:43→21:06)
[2018-06-10] MEDS: HYDROmorphone HCL 2 MG TABLET PO PRN (13:15)
[2018-06-10] MEDS: DEXTROSE 5%-0.45% SALINE 1,000 ML IV SCH ×3 (15:32→23:27)
--- NOTE | 2018-06-10 18:57 | PN ---
Progress Note (short form) - Note Progress Note: Patient seen and examined Somewhat confused Seen by RT - to expand field to include right shoulder for paathologic fx. Last Vital Signs Temp Pulse Resp BP Pulse Ox 98.3 F 76 20 162/85 96 06/10/18 14:52 06/10/18 14:52 06/10/18 14:52 06/10/18 14:52 06/09/18 22:00 Nursing aides suggest patient eats without aspiration has cough and congestion Cor: RSR, No murmurs, No gallops Lungs: rhonchi Abd: Soft, Normal bowel sounds, No organomegaly Ext:No significant edema Sling RUE Skin: No rashes, Integument intact CBC, BMP 06/10/18 07:30 06/10/18 07:30 Current Medications Generic Name Dose Route Start Last Admin Trade Name Freq PRN Reason Stop Dose Admin Amlodipine Besylate 10 mg 06/09/18 16:00 06/10/18 09:43 Norvasc - PO 10 mg DAILY BRIAN Administration Aspirin 81 mg 06/07/18 10:00 06/10/18 09:43 Ecotrin - PO 81 mg DAILY BRIAN Administration Dexamethasone Sodium Phosphate 4 mg 06/06/18 23:00 06/10/18 15:32 Decadron Injection - IVPUSH 4 mg Q6H-IV BRIAN Administration Finasteride 5 mg 06/06/18 21:45 06/10/18 09:43 Proscar - PO 5 mg DAILY BRIAN Administration Hydromorphone HCl 2 mg 06/06/18 16:44 06/10/18 13:15 Dilaudid - PO 2 mg Q4HWA PRN Administration PAIN LEVEL 4 - 6 Dextrose/Sodium Chloride 1,000 mls @ 125 mls/hr 06/07/18 16:00 06/10/18 15:32 D5-1/2ns - IV 125 mls/hr ASDIR BRIAN Administration Levetiracetam 500 mg 06/06/18 22:00 06/10/18 09:43 Keppra - PO 500 mg BID BRIAN Administration Lisinopril 20 mg 06/07/18 10:00 06/10/18 09:42 Prinivil PO 20 mg DAILY BRIAN Administration Morphine Sulfate 15 mg 06/06/18 22:00 06/10/18 09:43 Ms Contin - PO 15 mg BID BRIAN Administration Pantoprazole Sodium 40 mg 06/06/18 23:00 06/10/18 09:42 Protonix - PO 40 mg BID BRIAN Administration Impr\Metastatic prostate ca with pathologic fx of right humers; mets to right ribs , spine Plan RT for comfort. - spine and humerus
--- NOTE | 2018-06-10 22:24 | PN ---
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 06/09/18 18:30 Blood - Peripheral Venous Blood Culture - Preliminary NO GROWTH OBTAINED AFTER 24 HOURS, INCUBATION TO CONTINUE FOR 4 DAYS. Active Medications Amlodipine Besylate (Norvasc -) 10 mg PO DAILY [facility] Last Admin: 06/10/18 09:43 Dose: 10 mg Aspirin (Ecotrin -) 81 mg PO DAILY [facility] Last Admin: 06/10/18 09:43 Dose: 81 mg Dexamethasone Sodium Phosphate (Decadron Injection -) 4 mg IVPUSH Q8H-IV BRIAN Finasteride (Proscar -) 5 mg PO DAILY [facility] Last Admin: 06/10/18 09:43 Dose: 5 mg Hydromorphone HCl (Dilaudid -) 2 mg PO Q4HWA PRN PRN Reason: PAIN LEVEL 4 - 6 Last Admin: 06/10/18 13:15 Dose: 2 mg Dextrose/Sodium Chloride (D5-1/2ns -) 1,000 mls @ 125 mls/hr IV ASDIR [facility] Last Admin: 06/10/18 20:51 Dose: Not Given Levetiracetam (Keppra -) 500 mg PO BID [facility] Last Admin: 06/10/18 21:06 Dose: Not Given Lisinopril (Prinivil) 20 mg PO DAILY [facility] Last Admin: 06/10/18 09:42 Dose: 20 mg Morphine Sulfate (Ms Contin -) 15 mg PO BID [facility] Last Admin: 06/10/18 21:05 Dose: Not Given Pantoprazole Sodium (Protonix -) 40 mg PO BID [facility]RIAN Last Admin: 06/10/18 21:06 Dose: Not Given # 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 systemic TX #Severe anemia s/p transfusion at ER #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 decadron IV + PPi BID will taper today pain control #Pathological right humerus fx ortho consult appreciated - no intervention -- conservative treatment pain mangemnt Problem List - Problems (1) Cord compression Code(s): G95.20 - UNSPECIFIED CORD COMPRESSION (2) Spinal cord compression due to malignant neoplasm metastatic to spine Code(s): G95.29 - OTHER CORD COMPRESSION; C79.51 - SECONDARY MALIGNANT NEOPLASM OF BONE (3) Anemia Code(s): D64.9 - ANEMIA, UNSPECIFIED Qualifiers: Anemia type: unspecified type Qualified Code(s): D64.9 - Anemia, unspecified (4) Right arm pain Code(s): M79.601 - PAIN IN RIGHT ARM (5) CVA (cerebral infarction) Code(s): I63.9 - CEREBRAL INFARCTION, UNSPECIFIED (6) Cecal neoplasm Code(s): D49.0 - NEOPLASM OF UNSPECIFIED BEHAVIOR OF DIGESTIVE SYSTEM (7) Depression Code(s): F32.9 - MAJOR DEPRESSIVE DISORDER, SINGLE EPISODE, UNSPECIFIED (8) Epilepsy Code(s): G40.909 - EPILEPSY, UNSP, NOT INTRACTABLE, WITHOUT STATUS EPILEPTICUS (9) Essential tremor Code(s): G25.0 - ESSENTIAL TREMOR (10) Hyperlipidemia Code(s): E78.5 - HYPERLIPIDEMIA, UNSPECIFIED (11) Hypertension Code(s): I10 - ESSENTIAL (PRIMARY) HYPERTENSION Qualifiers: Hypertension type: essential hypertension Qualified Code(s): I10 - Essential (primary) hypertension (12) Lesion of lumbar spine Code(s): M89.9 - DISORDER OF BONE, UNSPECIFIED (13) 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
[2018-06-11] MEDS: DEXAMETHASONE SOD PHOSPHATE 4 MG/1 ML VIAL IVPUSH SCH ×3 (01:43→17:35)
[2018-06-11] MEDS: DEXTROSE 5%-0.45% SALINE 1,000 ML IV SCH ×2 (06:37→18:47)
[2018-06-11 07:19] LABS: BASO % 0.1 % (0-2.0); EOS % 0.1 % (0-4.5); HEMATOCRIT 26.5 % (35.4-49); HEMOGLOBIN 8.4 GM/dL (11.7-16.9); LYMPH % 11.4 % (8-40); MCH 30.7 pg (25.7-33.7); MCHC 31.8 g/dl (32.0-35.9); MEAN CELL VOLUME 96.4 fl (80-96); MEAN PLT VOLUME 7.8 fl (7.5-11.1); MONO % 7.4 % (3.8-10.2); PLATELET COUNT 288 K/MM3 (134-434); RBC 2.75 M/mm3 (4.00-5.60); RDW 19.8 % (11.9-15.9); WHITE BLOOD COUNT 7.9 K/mm3 (4.0-10.0)
[2018-06-11 07:50] LABS: ANION GAP 14 MMOL/L (8-16); BLOOD UREA NITROGEN 15 mg/dL (7-18); CALCIUM 9.5 mg/dL (8.5-10.1); CHLORIDE 98 mmol/L (98-107); CO2 23 mmol/L (21-32); CREATININE 0.6 mg/dL (0.55-1.3); GLUCOSE,RANDOM 111 mg/dL (74-106); POTASSIUM 3.7 mmol/L (3.5-5.1); SODIUM 135 mmol/L (136-145)
[2018-06-11] MEDS: ASPIRIN COATED 81 MG TABLET.EC PO SCH (10:28)
[2018-06-11] MEDS: PANTOPRAZOLE 40 MG TABLET (FP) PO SCH ×2 (10:29→21:40)
[2018-06-11] MEDS: amLODIPine BESYLATE 10 MG TABLET (FP) PO SCH (10:29)
[2018-06-11] MEDS: levETIRAcetam 500 MG TABLET (FP) PO SCH ×2 (10:29→21:40)
[2018-06-11] MEDS: LISINOPRIL 20 MG TABLET (FP) PO SCH (10:29)
[2018-06-11] MEDS: morphine SO4 SUSTAINED ACTING 15 MG TABLET.SA PO SCH ×2 (10:29→21:40)
[2018-06-11] MEDS: FINASTERIDE 5 MG TABLET (FP) PO SCH (10:30)
[2018-06-11] MEDS: HYDROmorphone HCL 2 MG TABLET PO PRN (13:39)
--- NOTE | 2018-06-11 18:33 | PN ---
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 06/09/18 18:30 Blood - Peripheral Venous Blood Culture - Preliminary NO GROWTH OBTAINED AFTER 24 HOURS, INCUBATION TO CONTINUE FOR 4 DAYS. Active Medications Amlodipine Besylate (Norvasc -) 10 mg PO DAILY [facility] Last Admin: 06/11/18 10:29 Dose: 10 mg Aspirin (Ecotrin -) 81 mg PO DAILY [facility] Last Admin: 06/11/18 10:28 Dose: 81 mg Dexamethasone Sodium Phosphate (Decadron Injection -) 4 mg IVPUSH Q8H-IV [facility] Last Admin: 06/11/18 17:35 Dose: 4 mg Finasteride (Proscar -) 5 mg PO DAILY [facility] Last Admin: 06/11/18 10:30 Dose: 5 mg Hydromorphone HCl (Dilaudid -) 2 mg PO Q4HWA PRN PRN Reason: PAIN LEVEL 4 - 6 Last Admin: 06/11/18 13:39 Dose: 2 mg Dextrose/Sodium Chloride (D5-1/2ns -) 1,000 mls @ 125 mls/hr IV ASDIR [facility] Last Admin: 06/11/18 06:37 Dose: 125 mls/hr Levetiracetam (Keppra -) 500 mg PO BID [facility] Last Admin: 06/11/18 10:29 Dose: 500 mg Lisinopril (Prinivil) 20 mg PO DAILY [facility] Last Admin: 06/11/18 10:29 Dose: 20 mg Morphine Sulfate (Ms Contin -) 15 mg PO BID [facility] Last Admin: 06/11/18 10:29 Dose: 15 mg Pantoprazole Sodium (Protonix -) 40 mg PO BID [facility] Last Admin: 06/11/18 10:29 Dose: 40 mg # 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 systemic TX #Severe anemia s/p transfusion at ER #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 decadron IV + PPi BID will taper with improved pain control pain control #Pathological right humerus fx ortho consult appreciated - no intervention -- conservative treatment pain mangemnt Problem List - Problems (1) Cord compression Code(s): G95.20 - UNSPECIFIED CORD COMPRESSION (2) Spinal cord compression due to malignant neoplasm metastatic to spine Code(s): G95.29 - OTHER CORD COMPRESSION; C79.51 - SECONDARY MALIGNANT NEOPLASM OF BONE (3) Anemia Code(s): D64.9 - ANEMIA, UNSPECIFIED Qualifiers: Anemia type: unspecified type Qualified Code(s): D64.9 - Anemia, unspecified (4) Right arm pain Code(s): M79.601 - PAIN IN RIGHT ARM (5) CVA (cerebral infarction) Code(s): I63.9 - CEREBRAL INFARCTION, UNSPECIFIED (6) Cecal neoplasm Code(s): D49.0 - NEOPLASM OF UNSPECIFIED BEHAVIOR OF DIGESTIVE SYSTEM (7) Depression Code(s): F32.9 - MAJOR DEPRESSIVE DISORDER, SINGLE EPISODE, UNSPECIFIED (8) Epilepsy Code(s): G40.909 - EPILEPSY, UNSP, NOT INTRACTABLE, WITHOUT STATUS EPILEPTICUS (9) Essential tremor Code(s): G25.0 - ESSENTIAL TREMOR (10) Hyperlipidemia Code(s): E78.5 - HYPERLIPIDEMIA, UNSPECIFIED (11) Hypertension Code(s): I10 - ESSENTIAL (PRIMARY) HYPERTENSION Qualifiers: Hypertension type: essential hypertension Qualified Code(s): I10 - Essential (primary) hypertension (12) Lesion of lumbar spine Code(s): M89.9 - DISORDER OF BONE, UNSPECIFIED (13) 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
[2018-06-12] MEDS: DEXAMETHASONE SOD PHOSPHATE 4 MG/1 ML VIAL IVPUSH SCH ×3 (01:38→17:22)
--- NOTE | 2018-06-12 09:19 | PN ---
Progress Note (short form) - Note Progress Note: Pt seen and examined. He has a right proximal humerus fracture. He is in pain, about a 4/10, not severe. He complains more of being stiff overall. I am recommending P.T. for generalized stretching and ambulation. RUE is NVI, limited but intact ROM of the right elbow, wrist, fingers. Rec: P.T. for stretching and ambulation, DC planning, no surgery needed, sling.
[2018-06-12] MEDS: morphine SO4 SUSTAINED ACTING 15 MG TABLET.SA PO SCH ×2 (09:28→21:03)
[2018-06-12] MEDS: PANTOPRAZOLE 40 MG TABLET (FP) PO SCH ×2 (09:28→21:03)
[2018-06-12] MEDS: FINASTERIDE 5 MG TABLET (FP) PO SCH (09:29)
[2018-06-12] MEDS: ASPIRIN COATED 81 MG TABLET.EC PO SCH (09:29)
[2018-06-12] MEDS: LISINOPRIL 20 MG TABLET (FP) PO SCH (09:29)
[2018-06-12] MEDS: amLODIPine BESYLATE 10 MG TABLET (FP) PO SCH (09:29)
[2018-06-12] MEDS: levETIRAcetam 500 MG TABLET (FP) PO SCH ×2 (09:29→21:04)
--- NOTE | 2018-06-12 10:25 | PN ---
Progress Note (short form) - Note Progress Note: 78 y/o male found sitting in bed. Appears comfortable. Denies pain at present. Vital Signs Period Temp Pulse Resp BP Sys/Olivo Pulse Ox Last 24 Hr 97.5 F-98.5 F 77-80 20-20 136-166/72-82 CBC, BMP 06/11/18 06:00 06/11/18 06:00 HEENT- Normocephalic Neck- Supple Lungs- CTAB Heart- S1/S2 Abd- soft, nt Ext- No LE edema, Rt humerus fx Active Medications Amlodipine Besylate (Norvasc -) 10 mg PO DAILY [facility] Last Admin: 06/12/18 09:29 Dose: 10 mg Aspirin (Ecotrin -) 81 mg PO DAILY [facility] Last Admin: 06/12/18 09:29 Dose: 81 mg Dexamethasone Sodium Phosphate (Decadron Injection -) 4 mg IVPUSH Q8H-IV [facility] Last Admin: 06/12/18 09:28 Dose: 4 mg Finasteride (Proscar -) 5 mg PO DAILY [facility] Last Admin: 06/12/18 09:29 Dose: 5 mg Hydromorphone HCl (Dilaudid -) 2 mg PO Q4HWA PRN PRN Reason: PAIN LEVEL 4 - 6 Last Admin: 06/11/18 13:39 Dose: 2 mg Levetiracetam (Keppra -) 500 mg PO BID [facility] Last Admin: 06/12/18 09:29 Dose: 500 mg Lisinopril (Prinivil) 20 mg PO DAILY [facility] Last Admin: 06/12/18 09:29 Dose: 20 mg Morphine Sulfate (Ms Contin -) 15 mg PO BID [facility] Last Admin: 06/12/18 09:28 Dose: 15 mg Pantoprazole Sodium (Protonix -) 40 mg PO BID [facility] Last Admin: 06/12/18 09:28 Dose: 40 mg # 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 -- receiving RT for pain control Heme - onc consult appreciated # HTN DC IV fluids Trend renal #Severe anemia s/p transfusion in ER #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 decadron IV + PPI BID pain controlled #Pathological right humerus fx ortho consult appreciated - no intervention -- conservative treatment pain well controlled PT eval pending Problem List - Problems (1) Cord compression Code(s): G95.20 - UNSPECIFIED CORD COMPRESSION (2) Spinal cord compression due to malignant neoplasm metastatic to spine Code(s): G95.29 - OTHER CORD COMPRESSION; C79.51 - SECONDARY MALIGNANT NEOPLASM OF BONE (3) Anemia Code(s): D64.9 - ANEMIA, UNSPECIFIED Qualifiers: Anemia type: unspecified type Qualified Code(s): D64.9 - Anemia, unspecified (4) Right arm pain Code(s): M79.601 - PAIN IN RIGHT ARM (5) CVA (cerebral infarction) Code(s): I63.9 - CEREBRAL INFARCTION, UNSPECIFIED (6) Cecal neoplasm Code(s): D49.0 - NEOPLASM OF UNSPECIFIED BEHAVIOR OF DIGESTIVE SYSTEM (7) Depression Code(s): F32.9 - MAJOR DEPRESSIVE DISORDER, SINGLE EPISODE, UNSPECIFIED (8) Epilepsy Code(s): G40.909 - EPILEPSY, UNSP, NOT INTRACTABLE, WITHOUT STATUS EPILEPTICUS (9) Essential tremor Code(s): G25.0 - ESSENTIAL TREMOR (10) Hyperlipidemia Code(s): E78.5 - HYPERLIPIDEMIA, UNSPECIFIED (11) Hypertension Code(s): I10 - ESSENTIAL (PRIMARY) HYPERTENSION Qualifiers: Hypertension type: essential hypertension Qualified Code(s): I10 - Essential (primary) hypertension (12) Lesion of lumbar spine Code(s): M89.9 - DISORDER OF BONE, UNSPECIFIED (13) 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
[2018-06-12] MEDS: HYDROmorphone HCL 2 MG TABLET PO PRN (12:47)
[2018-06-13] MEDS: DEXAMETHASONE SOD PHOSPHATE 4 MG/1 ML VIAL IVPUSH SCH ×3 (01:30→17:23)
[2018-06-13 07:20] LABS: BASO % 0.2 % (0-2.0); EOS % 0.1 % (0-4.5); HEMATOCRIT 26.4 % (35.4-49); HEMOGLOBIN 8.5 GM/dL (11.7-16.9); LYMPH % 9.3 % (8-40); MCH 30.8 pg (25.7-33.7); MCHC 32.3 g/dl (32.0-35.9); MEAN CELL VOLUME 95.2 fl (80-96); MEAN PLT VOLUME 7.3 fl (7.5-11.1); MONO % 6.4 % (3.8-10.2); PLATELET COUNT 339 K/MM3 (134-434); RBC 2.78 M/mm3 (4.00-5.60); RDW 19.6 % (11.9-15.9); WHITE BLOOD COUNT 7.6 K/mm3 (4.0-10.0)
[2018-06-13 08:59] LABS: ANION GAP 13 MMOL/L (8-16); BLOOD UREA NITROGEN 25 mg/dL (7-18); CALCIUM 9.7 mg/dL (8.5-10.1); CHLORIDE 100 mmol/L (98-107); CO2 26 mmol/L (21-32); CREATININE 0.7 mg/dL (0.55-1.3); GLUCOSE,RANDOM 91 mg/dL (74-106); SODIUM 139 mmol/L (136-145)
--- NOTE | 2018-06-13 10:26 | PN ---
Progress Note (short form) - Note Progress Note: ORTHOPEDICALLY STABLE IN RUE SLING WILL FOLLOW
[2018-06-13] MEDS: PANTOPRAZOLE 40 MG TABLET (FP) PO SCH ×2 (10:50→21:42)
[2018-06-13] MEDS: amLODIPine BESYLATE 10 MG TABLET (FP) PO SCH (10:50)
[2018-06-13] MEDS: LISINOPRIL 20 MG TABLET (FP) PO SCH (10:50)
[2018-06-13] MEDS: ASPIRIN COATED 81 MG TABLET.EC PO SCH (10:50)
[2018-06-13] MEDS: morphine SO4 SUSTAINED ACTING 15 MG TABLET.SA PO SCH ×2 (10:50→21:42)
[2018-06-13] MEDS: levETIRAcetam 500 MG TABLET (FP) PO SCH ×2 (10:50→21:42)
[2018-06-13] MEDS: FINASTERIDE 5 MG TABLET (FP) PO SCH (10:51)
--- NOTE | 2018-06-13 11:06 | PN ---
Progress Note (short form) - Note Progress Note: 78 y/o male found lying in bed. Reports feeling okay. Vital Signs Period Temp Pulse Resp BP Sys/Olivo Pulse Ox Last 24 Hr 97.7 F-98.5 F 74-84 18-20 155-165/77-91 CBC, BMP 06/13/18 06:00 06/13/18 06:00 HEENT-Normocephalic Neck-supple Lungs- CTAB Heart- S1/S2 Abd- soft, Nt Ext- No LE edema Active Medications Amlodipine Besylate (Norvasc -) 10 mg PO DAILY [facility] Last Admin: 06/13/18 10:50 Dose: 10 mg Aspirin (Ecotrin -) 81 mg PO DAILY [facility] Last Admin: 06/13/18 10:50 Dose: 81 mg Dexamethasone Sodium Phosphate (Decadron Injection -) 4 mg IVPUSH Q8H-IV [facility] Last Admin: 06/13/18 10:49 Dose: 4 mg Finasteride (Proscar -) 5 mg PO DAILY [facility] Last Admin: 06/13/18 10:51 Dose: 5 mg Hydromorphone HCl (Dilaudid -) 2 mg PO Q4HWA PRN PRN Reason: PAIN LEVEL 4 - 6 Last Admin: 06/12/18 12:47 Dose: 2 mg Levetiracetam (Keppra -) 500 mg PO BID [facility] Last Admin: 06/13/18 10:50 Dose: 500 mg Lisinopril (Prinivil) 20 mg PO DAILY [facility] Last Admin: 06/13/18 10:50 Dose: 20 mg Morphine Sulfate (Ms Contin -) 15 mg PO BID [facility] Last Admin: 06/13/18 10:50 Dose: 15 mg Pantoprazole Sodium (Protonix -) 40 mg PO BID [facility] Last Admin: 06/13/18 10:50 Dose: 40 mg # 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 -- receiving RT for pain control # HTN Trend renal #Severe anemia s/p transfusion in ER Trend H/H #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 decadron IV + PPI BID pain controlled #Pathological right humerus fx ortho consult appreciated - no intervention -- conservative treatment pain well controlled PT eval pending Problem List - Problems (1) Cord compression Code(s): G95.20 - UNSPECIFIED CORD COMPRESSION (2) Spinal cord compression due to malignant neoplasm metastatic to spine Code(s): G95.29 - OTHER CORD COMPRESSION; C79.51 - SECONDARY MALIGNANT NEOPLASM OF BONE (3) Anemia Code(s): D64.9 - ANEMIA, UNSPECIFIED Qualifiers: Anemia type: unspecified type Qualified Code(s): D64.9 - Anemia, unspecified (4) Right arm pain Code(s): M79.601 - PAIN IN RIGHT ARM (5) CVA (cerebral infarction) Code(s): I63.9 - CEREBRAL INFARCTION, UNSPECIFIED (6) Cecal neoplasm Code(s): D49.0 - NEOPLASM OF UNSPECIFIED BEHAVIOR OF DIGESTIVE SYSTEM (7) Depression Code(s): F32.9 - MAJOR DEPRESSIVE DISORDER, SINGLE EPISODE, UNSPECIFIED (8) Epilepsy Code(s): G40.909 - EPILEPSY, UNSP, NOT INTRACTABLE, WITHOUT STATUS EPILEPTICUS (9) Essential tremor Code(s): G25.0 - ESSENTIAL TREMOR (10) Hyperlipidemia Code(s): E78.5 - HYPERLIPIDEMIA, UNSPECIFIED (11) Hypertension Code(s): I10 - ESSENTIAL (PRIMARY) HYPERTENSION Qualifiers: Hypertension type: essential hypertension Qualified Code(s): I10 - Essential (primary) hypertension (12) Lesion of lumbar spine Code(s): M89.9 - DISORDER OF BONE, UNSPECIFIED (13) 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
[2018-06-13] MEDS: HYDROmorphone HCL 2 MG TABLET PO PRN ×2 (12:43→20:02)
[2018-06-14] MEDS: DEXAMETHASONE SOD PHOSPHATE 4 MG/1 ML VIAL IVPUSH SCH ×2 (02:42→09:30)
[2018-06-14] MEDS: HYDROmorphone HCL 2 MG TABLET PO PRN ×2 (06:02→10:12)
[2018-06-14 08:34] LABS: BASO % 0.1 % (0-2.0); HEMATOCRIT 26.3 % (35.4-49); HEMOGLOBIN 9.1 GM/dL (11.7-16.9); LYMPH % 7.7 % (8-40); MCH 32.6 pg (25.7-33.7); MCHC 34.5 g/dl (32.0-35.9); MEAN CELL VOLUME 94.4 fl (80-96); MEAN PLT VOLUME 7.7 fl (7.5-11.1); MONO % 6.6 % (3.8-10.2); NEUT % 85.6 % (42.8-82.8); PLATELET COUNT 398 K/MM3 (134-434); RBC 2.78 M/mm3 (4.00-5.60); RDW 20.5 % (11.9-15.9); WHITE BLOOD COUNT 7.2 K/mm3 (4.0-10.0)
[2018-06-14 09:13] LABS: ANION GAP 13 MMOL/L (8-16); BLOOD UREA NITROGEN 37 mg/dL (7-18); CHLORIDE 101 mmol/L (98-107); CO2 25 mmol/L (21-32); CREATININE 0.8 mg/dL (0.55-1.3); GLUCOSE,RANDOM 97 mg/dL (74-106); POTASSIUM 4.1 mmol/L (3.5-5.1); SODIUM 139 mmol/L (136-145)
[2018-06-14] MEDS: LISINOPRIL 20 MG TABLET (FP) PO SCH (09:30)
[2018-06-14] MEDS: morphine SO4 SUSTAINED ACTING 15 MG TABLET.SA PO SCH ×2 (09:30→22:39)
[2018-06-14] MEDS: ASPIRIN COATED 81 MG TABLET.EC PO SCH (09:30)
[2018-06-14] MEDS: amLODIPine BESYLATE 10 MG TABLET (FP) PO SCH (09:30)
[2018-06-14] MEDS: FINASTERIDE 5 MG TABLET (FP) PO SCH (09:31)
[2018-06-14] MEDS: PANTOPRAZOLE 40 MG TABLET (FP) PO SCH ×2 (09:31→22:40)
[2018-06-14] MEDS: levETIRAcetam 500 MG TABLET (FP) PO SCH ×2 (09:31→22:39)
--- NOTE | 2018-06-14 12:48 | PN ---
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 06/09/18 18:30 Blood - Peripheral Venous Blood Culture - Preliminary NO GROWTH OBTAINED AFTER 96 HOURS, INCUBATION TO CONTINUE FOR 1 DAYS. Active Medications Amlodipine Besylate (Norvasc -) 10 mg PO DAILY [facility] Last Admin: 06/14/18 09:30 Dose: 10 mg Aspirin (Ecotrin -) 81 mg PO DAILY [facility] Last Admin: 06/14/18 09:30 Dose: 81 mg Dexamethasone Sodium Phosphate (Decadron Injection -) 4 mg IM ONCE ONE Stop: 06/15/18 06:01 Finasteride (Proscar -) 5 mg PO DAILY [facility] Last Admin: 06/14/18 09:31 Dose: 5 mg Hydromorphone HCl (Dilaudid -) 2 mg PO Q4HWA PRN PRN Reason: PAIN LEVEL 4 - 6 Last Admin: 06/14/18 10:12 Dose: 2 mg Levetiracetam (Keppra -) 500 mg PO BID [facility] Last Admin: 06/14/18 09:31 Dose: 500 mg Lisinopril (Prinivil) 20 mg PO DAILY [facility] Last Admin: 06/14/18 09:30 Dose: 20 mg Morphine Sulfate (Ms Contin -) 15 mg PO BID [facility] Last Admin: 06/14/18 09:30 Dose: 15 mg Pantoprazole Sodium (Protonix -) 40 mg PO BID [facility] Last Admin: 06/14/18 09:31 Dose: 40 mg # 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 systemic TX #Severe anemia s/p transfusion at ER #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 decadron IV taper tomorrow only in am #Pathological right humerus fx ortho consult appreciated - no intervention -- conservative treatment pain mangemnt Problem List - Problems (1) Cord compression Code(s): G95.20 - UNSPECIFIED CORD COMPRESSION (2) Spinal cord compression due to malignant neoplasm metastatic to spine Code(s): G95.29 - OTHER CORD COMPRESSION; C79.51 - SECONDARY MALIGNANT NEOPLASM OF BONE (3) Anemia Code(s): D64.9 - ANEMIA, UNSPECIFIED Qualifiers: Anemia type: unspecified type Qualified Code(s): D64.9 - Anemia, unspecified (4) Right arm pain Code(s): M79.601 - PAIN IN RIGHT ARM (5) CVA (cerebral infarction) Code(s): I63.9 - CEREBRAL INFARCTION, UNSPECIFIED (6) Cecal neoplasm Code(s): D49.0 - NEOPLASM OF UNSPECIFIED BEHAVIOR OF DIGESTIVE SYSTEM (7) Depression Code(s): F32.9 - MAJOR DEPRESSIVE DISORDER, SINGLE EPISODE, UNSPECIFIED (8) Epilepsy Code(s): G40.909 - EPILEPSY, UNSP, NOT INTRACTABLE, WITHOUT STATUS EPILEPTICUS (9) Essential tremor Code(s): G25.0 - ESSENTIAL TREMOR (10) Hyperlipidemia Code(s): E78.5 - HYPERLIPIDEMIA, UNSPECIFIED (11) Hypertension Code(s): I10 - ESSENTIAL (PRIMARY) HYPERTENSION Qualifiers: Hypertension type: essential hypertension Qualified Code(s): I10 - Essential (primary) hypertension (12) Lesion of lumbar spine Code(s): M89.9 - DISORDER OF BONE, UNSPECIFIED (13) 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
[2018-06-14] MEDS: DEXTROSE 5%-0.45% SALINE 1,000 ML IV SCH (13:42)
--- NOTE | 2018-06-14 21:39 | PN ---
Progress Note, Physician Chief Complaint: cecal mass History of Present Illness: No complaints. Denies pain - Current Medication List Current Medications: Active Medications Amlodipine Besylate (Norvasc -) 10 mg PO DAILY [facility] Last Admin: 06/14/18 09:30 Dose: 10 mg Aspirin (Ecotrin -) 81 mg PO DAILY [facility] Last Admin: 06/14/18 09:30 Dose: 81 mg Dexamethasone Sodium Phosphate (Decadron Injection -) 4 mg IVPUSH ONCE ONE Stop: 06/15/18 06:01 Finasteride (Proscar -) 5 mg PO DAILY [facility] Last Admin: 06/14/18 09:31 Dose: 5 mg Hydromorphone HCl (Dilaudid -) 2 mg PO Q4HWA PRN PRN Reason: PAIN LEVEL 4 - 6 Last Admin: 06/14/18 10:12 Dose: 2 mg Dextrose/Sodium Chloride (D5-1/2ns -) 1,000 mls @ 75 mls/hr IV ASDIR [facility] Last Admin: 06/14/18 13:42 Dose: 75 mls/hr Levetiracetam (Keppra -) 500 mg PO BID [facility] Last Admin: 06/14/18 09:31 Dose: 500 mg Lisinopril (Prinivil) 20 mg PO DAILY [facility] Last Admin: 06/14/18 09:30 Dose: 20 mg Morphine Sulfate (Ms Contin -) 15 mg PO BID [facility] Last Admin: 06/14/18 09:30 Dose: 15 mg Pantoprazole Sodium (Protonix -) 40 mg PO BID [facility] Last Admin: 06/14/18 09:31 Dose: 40 mg - Objective Vital Signs: Vital Signs Temperature 98.1 F 06/14/18 18:59 Pulse Rate 77 06/14/18 18:59 Respiratory Rate 20 06/14/18 18:59 Blood Pressure 155/78 06/14/18 18:59 O2 Sat by Pulse Oximetry (%) 96 06/10/18 21:00 Constitutional: Yes: No Distress Eyes: Yes: Conjunctiva Clear Cardiovascular: Yes: Regular Rate and Rhythm Respiratory: Yes: Regular, CTA Bilaterally Gastrointestinal: Yes: Distention Edema: No Labs: CBC, BMP 06/14/18 07:45 06/14/18 07:45 INR, PTT INR 1.32 (0.83-1.09) H 06/06/18 15:05 Assessment/Plan 77M with HTN, mild cognitive, 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 So far has been treated with steroids and RT. 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 denosumab)
[2018-06-15] MEDS ORDERED: DEXAMETHASONE SOD PHOSPHATE 4 MG/1 ML VIAL IM ONE (06:00)
[2018-06-15] MEDS ORDERED: DEXAMETHASONE SOD PHOSPHATE 4 MG/1 ML VIAL IVPUSH ONE (06:00)
[2018-06-15] MEDS: HYDROmorphone HCL 2 MG TABLET PO PRN ×2 (06:56→15:30)
[2018-06-15] MEDS: ONDANSETRON 4 MG/2 ML VIAL IVPUSH PRN ×2 (09:55→16:00)
--- NOTE | 2018-06-15 10:06 | PN ---
Progress Note (short form) - Note Progress Note: Pt seen and examined. Right proximal humerus fracture. He is comfortable, not in sig pain. Not wearing a sling. Stable from an ortho pov. Can DC when medically stable, no ortho surgery indicated, rec sling, f/u in 7- 10 days as an out pt.
[2018-06-15] MEDS: morphine SO4 SUSTAINED ACTING 15 MG TABLET.SA PO SCH ×2 (11:10→22:07)
[2018-06-15] MEDS: ASPIRIN COATED 81 MG TABLET.EC PO SCH (11:10)
[2018-06-15] MEDS: levETIRAcetam 500 MG TABLET (FP) PO SCH ×2 (11:10→22:08)
[2018-06-15] MEDS: PANTOPRAZOLE 40 MG TABLET (FP) PO SCH ×2 (11:11→22:08)
[2018-06-15] MEDS: amLODIPine BESYLATE 10 MG TABLET (FP) PO SCH (11:11)
[2018-06-15] MEDS: FINASTERIDE 5 MG TABLET (FP) PO SCH (11:11)
[2018-06-15] MEDS: LISINOPRIL 20 MG TABLET (FP) PO SCH ×2 (11:11→22:08)
--- NOTE | 2018-06-15 14:37 | PN ---
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 / no edema / + 2 pulses CBC, BMP 06/14/18 07:45 06/14/18 07:45 CBC, BMP 06/10/18 07:30 06/10/18 07:30 Microbiology 06/09/18 19:00 Blood - Peripheral Venous Blood Culture - Final NO GROWTH AFTER 5 DAYS INCUBATION 06/09/18 18:30 Blood - Peripheral Venous Blood Culture - Final NO GROWTH AFTER 5 DAYS INCUBATION Active Medications Acetaminophen (Tylenol -) 650 mg PO Q4H PRN PRN Reason: PAIN LEVEL 1-5 Albuterol/Ipratropium (Duoneb -) 1 amp NEB RQID [facility] Amlodipine Besylate (Norvasc -) 10 mg PO DAILY [facility] Last Admin: 06/15/18 11:11 Dose: 10 mg Aspirin (Ecotrin -) 81 mg PO DAILY [facility] Last Admin: 06/15/18 11:10 Dose: 81 mg Finasteride (Proscar -) 5 mg PO DAILY [facility] Last Admin: 06/15/18 11:11 Dose: 5 mg Hydromorphone HCl (Dilaudid -) 2 mg PO Q4HWA PRN PRN Reason: PAIN LEVEL 4 - 6 Last Admin: 06/15/18 06:56 Dose: 2 mg Dextrose/Sodium Chloride (D5-1/2ns -) 1,000 mls @ 75 mls/hr IV ASDIR [facility] Last Admin: 06/14/18 13:42 Dose: 75 mls/hr Levetiracetam (Keppra -) 500 mg PO BID [facility] Last Admin: 06/15/18 11:10 Dose: 500 mg Lisinopril (Prinivil) 20 mg PO DAILY [facility] Last Admin: 06/15/18 11:11 Dose: 20 mg Morphine Sulfate (Ms Contin -) 15 mg PO BID [facility] Last Admin: 06/15/18 11:10 Dose: 15 mg Ondansetron HCl (Zofran Injection) 4 mg IVPUSH Q4H PRN PRN Reason: NAUSEA AND/OR VOMITING Last Admin: 06/15/18 09:55 Dose: 4 mg Pantoprazole Sodium (Protonix -) 40 mg PO BID [facility] Last Admin: 06/15/18 11:11 Dose: 40 mg # 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 systemic TX #Severe anemia s/p transfusion at ER #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 decadron IV taper tomorrow only in am #Pathological right humerus fx ortho consult appreciated - no intervention -- conservative treatment pain mangemnt Problem List - Problems (1) Cord compression Code(s): G95.20 - UNSPECIFIED CORD COMPRESSION (2) Spinal cord compression due to malignant neoplasm metastatic to spine Code(s): G95.29 - OTHER CORD COMPRESSION; C79.51 - SECONDARY MALIGNANT NEOPLASM OF BONE (3) Anemia Code(s): D64.9 - ANEMIA, UNSPECIFIED Qualifiers: Anemia type: unspecified type Qualified Code(s): D64.9 - Anemia, unspecified (4) Right arm pain Code(s): M79.601 - PAIN IN RIGHT ARM (5) CVA (cerebral infarction) Code(s): I63.9 - CEREBRAL INFARCTION, UNSPECIFIED (6) Cecal neoplasm Code(s): D49.0 - NEOPLASM OF UNSPECIFIED BEHAVIOR OF DIGESTIVE SYSTEM (7) Depression Code(s): F32.9 - MAJOR DEPRESSIVE DISORDER, SINGLE EPISODE, UNSPECIFIED (8) Epilepsy Code(s): G40.909 - EPILEPSY, UNSP, NOT INTRACTABLE, WITHOUT STATUS EPILEPTICUS (9) Essential tremor Code(s): G25.0 - ESSENTIAL TREMOR (10) Hyperlipidemia Code(s): E78.5 - HYPERLIPIDEMIA, UNSPECIFIED (11) Hypertension Code(s): I10 - ESSENTIAL (PRIMARY) HYPERTENSION Qualifiers: Hypertension type: essential hypertension Qualified Code(s): I10 - Essential (primary) hypertension (12) Lesion of lumbar spine Code(s): M89.9 - DISORDER OF BONE, UNSPECIFIED (13) 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
[2018-06-15] MEDS: DEXTROSE 5%-0.45% SALINE 1,000 ML IV SCH (15:05)
[2018-06-15] MEDS: ACETAMINOPHEN 325 MG TABLET (FP) PO PRN (15:30)
[2018-06-15] MEDS: ALBUTEROL SO4 2.5/IPRATROPIUM 0.5 INH SOL 3 ML VIAL.NEB. NEB SCH ×2 (15:39→20:52)
[2018-06-15] MEDS: BISACODYL 10 MG SUPP.RECT RC SCH ×2 (17:17→22:09)
--- NOTE | 2018-06-15 19:07 | PN ---
Progress Note, Physician Chief Complaint: cecal mass History of Present Illness: C/o right arm pain. No overnight events. - Current Medication List Current Medications: Active Medications Acetaminophen (Tylenol -) 650 mg PO Q4H PRN PRN Reason: PAIN LEVEL 1-5 Last Admin: 06/15/18 15:30 Dose: 650 mg Albuterol/Ipratropium (Duoneb -) 1 amp NEB RQID [facility] Last Admin: 06/15/18 15:39 Dose: Not Given Amlodipine Besylate (Norvasc -) 10 mg PO DAILY [facility] Last Admin: 06/15/18 11:11 Dose: 10 mg Aspirin (Ecotrin -) 81 mg PO DAILY [facility] Last Admin: 06/15/18 11:10 Dose: 81 mg Bisacodyl (Dulcolax Suppository -) 10 mg RC Q3H [facility] Stop: 06/15/18 20:16 Last Admin: 06/15/18 17:17 Dose: 10 mg Docusate Sodium (Colace -) 300 mg PO HS [facility] Finasteride (Proscar -) 5 mg PO DAILY [facility] Last Admin: 06/15/18 11:11 Dose: 5 mg Hydromorphone HCl (Dilaudid -) 2 mg PO Q4HWA PRN PRN Reason: PAIN LEVEL 4 - 6 Last Admin: 06/15/18 15:30 Dose: 2 mg Dextrose/Sodium Chloride (D5-1/2ns -) 1,000 mls @ 75 mls/hr IV ASDIR [facility] Last Admin: 06/15/18 15:05 Dose: 75 mls/hr Levetiracetam (Keppra -) 500 mg PO BID [facility] Last Admin: 06/15/18 11:10 Dose: 500 mg Lisinopril (Prinivil) 20 mg PO BID [facility] Morphine Sulfate (Ms Contin -) 15 mg PO BID [facility] Last Admin: 06/15/18 11:10 Dose: 15 mg Nystatin/Triamcinolone Acetonide (Mycolog Ii Cream -) 1 applic TP BID [facility] Ondansetron HCl (Zofran Injection) 4 mg IVPUSH Q4H PRN PRN Reason: NAUSEA AND/OR VOMITING Last Admin: 06/15/18 16:00 Dose: 4 mg Pantoprazole Sodium (Protonix -) 40 mg PO BID [facility] Last Admin: 06/15/18 11:11 Dose: 40 mg Polyethylene Glycol (Miralax (For Daily Use) -) 17 gm PO BID [facility] - Objective Vital Signs: Vital Signs Temperature 98.4 F 06/15/18 18:00 Pulse Rate 110 H 06/15/18 18:00 Respiratory Rate 20 06/15/18 18:00 Blood Pressure 168/104 H 06/15/18 18:00 O2 Sat by Pulse Oximetry (%) 96 06/10/18 21:00 Constitutional: Yes: Mild Distress (2/2 pain), Thin Eyes: Yes: Conjunctiva Clear Cardiovascular: Yes: Regular Rate and Rhythm Respiratory: Yes: CTA Bilaterally Gastrointestinal: Yes: Soft Edema: No Labs: CBC, BMP 06/14/18 07:45 06/14/18 07:45 INR, PTT INR 1.32 (0.83-1.09) H 06/06/18 15:05 Assessment/Plan 77M with HTN, mild cognitive, 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 So far has been treated with steroids and RT. 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 denosumab)
[2018-06-15] MEDS: DOCUSATE SODIUM 100 MG CAPSULE (FP) PO SCH (22:07)
[2018-06-15] MEDS: NYSTATIN/TRIAMCINOLONE TOPICAL CREAM 15 GM TUBE TP SCH (22:08)
[2018-06-15] MEDS: POLYETHYLENE GLYCOL 3350 119 GM BTL PO SCH (22:09)
[2018-06-16] MEDS: ACETAMINOPHEN 325 MG TABLET (FP) PO PRN (01:01)
[2018-06-16] MEDS: HYDROmorphone HCL 2 MG TABLET PO PRN (01:02)
[2018-06-16] MEDS: DEXTROSE 5%-0.45% SALINE 1,000 ML IV SCH ×2 (05:37→19:35)
[2018-06-16] MEDS: ALBUTEROL SO4 2.5/IPRATROPIUM 0.5 INH SOL 3 ML VIAL.NEB. NEB SCH ×4 (07:15→21:19)
[2018-06-16 07:26] LABS: BASO % 0.1 % (0-2.0); HEMATOCRIT 26.3 % (35.4-49); HEMOGLOBIN 8.1 GM/dL (11.7-16.9); LYMPH % 5.5 % (8-40); MCH 30.1 pg (25.7-33.7); MEAN CELL VOLUME 97.2 fl (80-96); MEAN PLT VOLUME 7.5 fl (7.5-11.1); MONO % 5.7 % (3.8-10.2); NEUT % 88.7 % (42.8-82.8); PLATELET COUNT 357 K/MM3 (134-434); RBC 2.71 M/mm3 (4.00-5.60); RDW 20.2 % (11.9-15.9); WHITE BLOOD COUNT 11.1 K/mm3 (4.0-10.0)
[2018-06-16 09:45] LABS: BLOOD UREA NITROGEN 38 mg/dL (7-18); CREATININE 0.6 mg/dL (0.55-1.3); GLUCOSE,RANDOM 116 mg/dL (74-106); POTASSIUM 4.2 mmol/L (3.5-5.1); SODIUM 138 mmol/L (136-145)
[2018-06-16 09:46] LABS: ANION GAP 13 MMOL/L (8-16); CALCIUM 9.3 mg/dL (8.5-10.1); CHLORIDE 100 mmol/L (98-107); CO2 25 mmol/L (21-32)
[2018-06-16] MEDS: levETIRAcetam 500 MG TABLET (FP) PO SCH ×2 (10:38→21:33)
[2018-06-16] MEDS: POLYETHYLENE GLYCOL 3350 119 GM BTL PO SCH ×2 (10:38→21:55)
[2018-06-16] MEDS: LISINOPRIL 20 MG TABLET (FP) PO SCH ×2 (10:38→21:34)
[2018-06-16] MEDS: PANTOPRAZOLE 40 MG TABLET (FP) PO SCH ×2 (10:39→21:33)
[2018-06-16] MEDS: morphine SO4 SUSTAINED ACTING 15 MG TABLET.SA PO SCH ×2 (10:39→21:33)
[2018-06-16] MEDS: ASPIRIN COATED 81 MG TABLET.EC PO SCH (10:39)
[2018-06-16] MEDS: amLODIPine BESYLATE 10 MG TABLET (FP) PO SCH (10:39)
[2018-06-16] MEDS: FINASTERIDE 5 MG TABLET (FP) PO SCH (10:40)
[2018-06-16] MEDS: NYSTATIN/TRIAMCINOLONE TOPICAL CREAM 15 GM TUBE TP SCH ×2 (10:40→21:35)
[2018-06-16] MEDS ORDERED: DEXAMETHASONE SOD PHOSPHATE 4 MG/1 ML VIAL IVPUSH ONE (11:00)
--- NOTE | 2018-06-16 12:37 | PN ---
Progress Note (short form) - Note Progress Note: Radiation Oncology Completed RT to T-spine cord compression and right proximal humerus pathologic fx. Cont pain mgt. Non surgical mgt as per ortho. Cont decadron taper. Systemic tx as per med onc.
--- NOTE | 2018-06-16 14:44 | DS ---
Physical Examination Vital Signs: Vital Signs Temperature 99.2 F 06/16/18 14:27 Pulse Rate 117 H 06/16/18 14:27 Respiratory Rate 20 06/16/18 06:48 Blood Pressure 154/88 06/16/18 14:27 O2 Sat by Pulse Oximetry (%) 96 06/10/18 21:00 Findings/Remarks: 78 y/o male presenting to [facility] ER from [facility] with complaints of right finger pain for the past 4-5 days. Pt states the pain started spontaneously and had progressively worsened to the point where he was not able to move the extremity. Initially indicates the pain was only in his right 2nd digit then states it was in his forearm, then in his elbow, then in his right shoulder. Denies trauma to the area. Known baseline tremor in right hand. Denies change in bowel or bladder habits. Denies numbness or tingling. ER had telephone conversation with Dr. Romero who reports the pt started complaining of right arm pain starting day prior to radiation therapy. Initially believes this pain to be secondary to the treatment. Pts colleague come to Dr. Romero today and expressed concern that the pt would not come out of his room today because of pain and would not move his right arm. Concern was raised for cord compression as the pt has a known metastatic lesion at T2 that was noted on MRI in March 2018. Recommended pt receive dexamethasone 4mg q6h to reduce edema, pain management, and repeat MRI to evaluate for progression of lesion. Also indicates pt had a recent PET scan with showed uptake at right distal humerus. Further evaluation showed patient to have fracture of right humerus c/w pathological fx. treatment for cord compression initiated based on PET scan and previous imaging. 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) - HTN - Glaucoma - Arthritis, depression, right hand tremor (dx in 2003) - Colon Cancer ( colonic mass with perforation s/p resection 02/2018) - Myeloma ( dx 2017) - obstructive uropathy s/p TURP 03/2018 admitted for cord compression and pathological humerus fx Treatment with decadron and RT for pian management RT completed saturday and now tapering steroids -- family discussion regarding hospice vs systemic chemo on day of admission - all questions answered / all concerns discussed arrangements for transfer to [facility] pending decision for POC. Constitutional: Yes: Mild Distress (with movement), Thin Eyes: Yes: Conjunctiva Clear, EOM Intact. No: Sclera Icterus HENT: Yes: Atraumatic, Normocephalic Neck: Yes: Supple, Trachea Midline Cardiovascular: Yes: Regular Rate and Rhythm, Pulse Irregular. No: Bruit, JVD Respiratory: Yes: Regular, CTA Bilaterally, Diminished Gastrointestinal: Yes: Normal Bowel Sounds, Soft ...Rectal Exam: Yes: Deferred Renal/: Yes: WNL Breast(s): Yes: WNL Musculoskeletal: Yes: Back Pain, Muscle Weakness Extremities: Yes: Other (right arm in sling). No: Delayed Capillary Refill, Erythema, External Rotation Edema: No Peripheral Pulses WNL: Yes Integumentary: Yes: WNL Wound/Incision: Yes: Clean/Dry Neurological: Yes: Confusion, Pre-Existing Deficit Psychiatric: Yes: Alert Labs: CBC, BMP 06/16/18 06:00 06/16/18 06:00 Discharge Summary Reason For Visit: ANEMIA/PAIN OF RIGHT UPPER EXTREMITY Current Active Problems Anemia (Acute) Cord compression (Acute) Diaphoresis (Acute) Fracture of neck of humerus (Acute) Low grade fever (Acute) Metastatic cancer (Acute) Right arm pain (Acute) Spinal cord compression due to malignant neoplasm metastatic to spine (Acute) Condition: Improved - Instructions Disposition: [facility] - Home Medications Comprehensive Discharge Medication List: Ambulatory Orders Finasteride 5 mg PO DAILY #0 07/22/14 Lisinopril [Prinivil] 20 mg PO DAILY #0 07/22/14 Aspirin [Ecotrin] 81 mg PO DAILY 02/12/18 Acetaminophen [Tylenol .Regular Strength -] 650 mg PO Q4H PRN 30 Days #180 tablet 03/06/18 Aa/Hydrolyzed Collagen, Whey [Lps Neutral Flavor Liquid] 30 ml PO TID 06/06/18 HYDROmorphone [Dilaudid -] 2 mg PO Q4H PRN 06/06/18 Loperamide HCl [Imodium -] 2 mg PO DAILY PRN 06/06/18 Morphine *Sr* [Ms Contin -] 15 mg PO Q12H 06/06/18 Multivitamin [Multiple Vitamins] 1 each PO DAILY 06/06/18 Tamsulosin HCl [Flomax] 0.4 mg PO DAILY 06/06/18 levETIRAcetam [Keppra -] 500 mg PO BID 06/06/18 prednisone 40 mg po Q day for 5 days take with food protonix 40 q day for 2 weeks
[2018-06-16] MEDS: DOCUSATE SODIUM 100 MG CAPSULE (FP) PO SCH (21:32)
[2018-06-17] MEDS: HYDROmorphone HCL 2 MG TABLET PO PRN ×2 (02:20→21:30)
[2018-06-17] MEDS: ALBUTEROL SO4 2.5/IPRATROPIUM 0.5 INH SOL 3 ML VIAL.NEB. NEB SCH ×5 (08:00→21:23)
--- NOTE | 2018-06-17 08:24 | PN ---
Progress Note (short form) - Note Progress Note: Patient seen and examined Spoke at length with HCP yesterday Father Aamir. Would consider weekly injections of velcade x 4-6 . If no response , consider hospice care Too ill for chemotherapy for colon ca. Last Vital Signs Temp Pulse Resp BP Pulse Ox 98.3 F 113 H 21 H 136/89 94 L 06/17/18 06:06 06/17/18 06:06 06/17/18 06:06 06/17/18 06:06 06/16/18 21:00 HEENT: MARIE, EOM Intact Cor: RSR, No murmurs, No gallops Lungs: Clear to P&A Abd: Soft, Normal bowel sounds, No organomegaly Ext:No significant edema Skin: No rashes, Integument intact CBC, BMP 06/16/18 06:00 06/16/18 06:00 Current Medications Generic Name Dose Route Start Last Admin Trade Name Freq PRN Reason Stop Dose Admin Acetaminophen 650 mg 06/15/18 14:34 06/16/18 01:01 Tylenol - PO 650 mg Q4H PRN Administration PAIN LEVEL 1-5 Albuterol/Ipratropium 1 amp 06/15/18 16:00 06/16/18 21:19 Duoneb - NEB 1 amp RQID [facility] Administration Amlodipine Besylate 10 mg 06/09/18 16:00 06/16/18 10:39 Norvasc - PO 10 mg DAILY [facility] Administration Aspirin 81 mg 06/07/18 10:00 06/16/18 10:39 Ecotrin - PO 81 mg DAILY [facility] Administration Docusate Sodium 300 mg 06/15/18 22:00 06/16/18 21:32 Colace - PO 300 mg HS [facility] Administration Finasteride 5 mg 06/06/18 21:45 06/16/18 10:40 Proscar - PO 5 mg DAILY [facility] Administration Hydromorphone HCl 2 mg 06/06/18 16:44 06/17/18 02:20 Dilaudid - PO 2 mg Q4HWA PRN Administration PAIN LEVEL 4 - 6 Dextrose/Sodium Chloride 1,000 mls @ 75 mls/hr 06/14/18 13:15 06/16/18 19:35 D5-1/2ns - IV 75 mls/hr ASDIR [facility] Administration Levetiracetam 500 mg 06/06/18 22:00 06/16/18 21:33 Keppra - PO 500 mg BID [facility] Administration Lisinopril 20 mg 06/15/18 22:00 06/16/18 21:34 Prinivil PO 20 mg BID [facility] Administration Morphine Sulfate 15 mg 06/06/18 22:00 06/16/18 21:33 Ms Contin - PO 15 mg BID [facility] Administration Nystatin/Triamcinolone Acetonide 1 applic 06/15/18 22:00 06/16/18 21:35 Mycolog Ii Cream - TP 1 applic BID [facility] Administration Ondansetron HCl 4 mg 06/15/18 09:45 06/15/18 16:00 Zofran Injection IVPUSH 4 mg Q4H PRN Administration NAUSEA AND/OR VOMITING Pantoprazole Sodium 40 mg 06/06/18 23:00 06/16/18 21:33 Protonix - PO 40 mg BID [facility] Administration Polyethylene Glycol 17 gm 06/15/18 22:00 06/16/18 21:55 Miralax (For Daily Use) - PO 17 gm BID [facility] Administration Impression: Myeloma Spinal cord compression Hx of colon ca RPN nodes Pathologic fx of humersu Bone mets. Consider velcade Consider change from prednisone to decadron 4 mg BID and taper 2 mg q 4 days . Then will give weekly with velcade as part of protocol.
[2018-06-17] MEDS ORDERED: PT OWN MED DRAWER 7, Y5N ONE (09:45)
[2018-06-17] MEDS: ACETAMINOPHEN 325 MG TABLET (FP) PO PRN ×2 (09:46→16:35)
[2018-06-17] MEDS: levETIRAcetam 500 MG TABLET (FP) PO SCH ×2 (09:47→23:14)
[2018-06-17] MEDS: amLODIPine BESYLATE 10 MG TABLET (FP) PO SCH (09:47)
[2018-06-17] MEDS: morphine SO4 SUSTAINED ACTING 15 MG TABLET.SA PO SCH ×2 (09:47→23:15)
[2018-06-17] MEDS: LISINOPRIL 20 MG TABLET (FP) PO SCH ×2 (09:47→23:15)
[2018-06-17] MEDS: FINASTERIDE 5 MG TABLET (FP) PO SCH (09:48)
[2018-06-17] MEDS: ASPIRIN COATED 81 MG TABLET.EC PO SCH (09:48)
[2018-06-17] MEDS: NYSTATIN/TRIAMCINOLONE TOPICAL CREAM 15 GM TUBE TP SCH ×2 (09:48→23:15)
[2018-06-17] MEDS: DEXTROSE 5%-0.45% SALINE 1,000 ML IV SCH ×2 (09:48→15:31)
[2018-06-17] MEDS: PANTOPRAZOLE 40 MG TABLET (FP) PO SCH ×2 (09:48→23:15)
--- NOTE | 2018-06-17 10:02 | PN ---
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 / no edema / + 2 pulses CBC, [facility] 06/16/18 06:00 06/16/18 06:00 CBC, [facility] 06/14/18 07:45 06/14/18 07:45 CBC, [facility] 06/10/18 07:30 06/10/18 07:30 Microbiology 06/09/18 19:00 Blood - Peripheral Venous Blood Culture - Final NO GROWTH AFTER 5 DAYS INCUBATION 06/09/18 18:30 Blood - Peripheral Venous Blood Culture - Final NO GROWTH AFTER 5 DAYS INCUBATION Active Medications Acetaminophen (Tylenol -) 650 mg PO Q4H PRN PRN Reason: PAIN LEVEL 1-5 Last Admin: 06/17/18 09:46 Dose: 650 mg Albuterol/Ipratropium (Duoneb -) 1 amp NEB RQID [facility] Last Admin: 06/16/18 21:19 Dose: 1 amp Amlodipine Besylate (Norvasc -) 10 mg PO DAILY [facility] Last Admin: 06/17/18 09:47 Dose: 10 mg Aspirin (Ecotrin -) 81 mg PO DAILY [facility] Last Admin: 06/17/18 09:48 Dose: 81 mg Dexamethasone (Decadron -) 4 mg PO BIDWM [facility] Docusate Sodium (Colace -) 300 mg PO HS [facility] Last Admin: 06/16/18 21:32 Dose: 300 mg Finasteride (Proscar -) 5 mg PO DAILY [facility] Last Admin: 06/17/18 09:48 Dose: 5 mg Hydromorphone HCl (Dilaudid -) 2 mg PO Q4HWA PRN PRN Reason: PAIN LEVEL 4 - 6 Last Admin: 06/17/18 02:20 Dose: 2 mg Dextrose/Sodium Chloride (D5-1/2ns -) 1,000 mls @ 75 mls/hr IV ASDIR [facility] Last Admin: 06/17/18 09:48 Dose: 75 mls/hr Levetiracetam (Keppra -) 500 mg PO BID [facility] Last Admin: 06/17/18 09:47 Dose: 500 mg Lisinopril (Prinivil) 20 mg PO BID [facility] Last Admin: 06/17/18 09:47 Dose: 20 mg Morphine Sulfate (Ms Contin -) 15 mg PO BID [facility] Last Admin: 06/17/18 09:47 Dose: 15 mg Nystatin/Triamcinolone Acetonide (Mycolog Ii Cream -) 1 applic TP BID [facility] Last Admin: 06/17/18 09:48 Dose: 1 applic Ondansetron HCl (Zofran Injection) 4 mg IVPUSH Q4H PRN PRN Reason: NAUSEA AND/OR VOMITING Last Admin: 06/15/18 16:00 Dose: 4 mg Pantoprazole Sodium (Protonix -) 40 mg PO BID [facility] Last Admin: 06/17/18 09:48 Dose: 40 mg Polyethylene Glycol (Miralax (For Daily Use) -) 17 gm PO BID [facility] Last Admin: 06/16/18 21:55 Dose: 17 gm #Fever today source ?-- c/s today will hold discharge re culture # 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 -- receiving RT for pain control now completed RT Heme - onc consult appreciated -- too weak for chemo recommendations reviewed and will await decision by family and HCP Patient with advance directives -- HCP will bring paperwork #Severe anemia s/p transfusion at ER #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 decadron changed to PO continue BID and taper as per recommendation #Pathological right humerus fx ortho consult appreciated - no intervention -- conservative treatment pain mangemnt advance directives to be brought in by HCP / Problem List - Problems (1) Cord compression Code(s): G95.20 - UNSPECIFIED CORD COMPRESSION (2) Spinal cord compression due to malignant neoplasm metastatic to spine Code(s): G95.29 - OTHER CORD COMPRESSION; C79.51 - SECONDARY MALIGNANT NEOPLASM OF BONE (3) Anemia Code(s): D64.9 - ANEMIA, UNSPECIFIED Qualifiers: Anemia type: unspecified type Qualified Code(s): D64.9 - Anemia, unspecified (4) Right arm pain Code(s): M79.601 - PAIN IN RIGHT ARM (5) CVA (cerebral infarction) Code(s): I63.9 - CEREBRAL INFARCTION, UNSPECIFIED (6) Cecal neoplasm Code(s): D49.0 - NEOPLASM OF UNSPECIFIED BEHAVIOR OF DIGESTIVE SYSTEM (7) Depression Code(s): F32.9 - MAJOR DEPRESSIVE DISORDER, SINGLE EPISODE, UNSPECIFIED (8) Epilepsy Code(s): G40.909 - EPILEPSY, UNSP, NOT INTRACTABLE, WITHOUT STATUS EPILEPTICUS (9) Essential tremor Code(s): G25.0 - ESSENTIAL TREMOR (10) Hyperlipidemia Code(s): E78.5 - HYPERLIPIDEMIA, UNSPECIFIED (11) Hypertension Code(s): I10 - ESSENTIAL (PRIMARY) HYPERTENSION Qualifiers: Hypertension type: essential hypertension Qualified Code(s): I10 - Essential (primary) hypertension (12) Lesion of lumbar spine Code(s): M89.9 - DISORDER OF BONE, UNSPECIFIED (13) 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
[2018-06-17] MEDS ORDERED: ACETAMINOPHEN 1000 MG/100 ML VIAL (NON FORMULARY) IVPB ONE (10:30)
[2018-06-17] MEDS: POLYETHYLENE GLYCOL 3350 119 GM BTL PO SCH ×2 (11:02→23:15)
[2018-06-17] MEDS: DEXAMETHASONE 4 MG TABLET (FP) PO SCH (16:31)
[2018-06-17] MEDS: DOCUSATE SODIUM 100 MG CAPSULE (FP) PO SCH (23:13)
[2018-06-18] MEDS: DEXAMETHASONE 4 MG TABLET (FP) PO SCH (08:01)
[2018-06-18] MEDS: ALBUTEROL SO4 2.5/IPRATROPIUM 0.5 INH SOL 3 ML VIAL.NEB. NEB SCH ×2 (08:14→12:00)
[2018-06-18] MEDS: LISINOPRIL 20 MG TABLET (FP) PO SCH (09:44)
[2018-06-18] MEDS: PANTOPRAZOLE 40 MG TABLET (FP) PO SCH (09:44)
[2018-06-18] MEDS: amLODIPine BESYLATE 10 MG TABLET (FP) PO SCH (09:44)
[2018-06-18] MEDS: morphine SO4 SUSTAINED ACTING 15 MG TABLET.SA PO SCH (09:44)
[2018-06-18] MEDS: NYSTATIN/TRIAMCINOLONE TOPICAL CREAM 15 GM TUBE TP SCH (09:44)
[2018-06-18] MEDS: levETIRAcetam 500 MG TABLET (FP) PO SCH (09:44)
[2018-06-18] MEDS: FINASTERIDE 5 MG TABLET (FP) PO SCH (09:44)
[2018-06-18] MEDS: POLYETHYLENE GLYCOL 3350 119 GM BTL PO SCH (09:44)
[2018-06-18] MEDS: ASPIRIN COATED 81 MG TABLET.EC PO SCH (09:44)
[2018-06-18 10:49] VITALS: BP 160/86; PULSE 128
--- NOTE | 2018-06-18 10:58 | PN ---
Progress Note (short form) - Note Progress Note: Pt seen and examined. He has a right proximal humerus fracture. In a shoulder sling. Has c/o pain in the right upper arm. RUE is grossly NVI. NTD from an orthopedic pov except repeat xrays in 7-14 days.
--- NOTE | 2018-06-18 11:42 | PN ---
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 / no edema / + 2 pulses CBC, BMP 06/16/18 06:00 06/16/18 06:00 CBC, BMP 06/16/18 06:00 06/16/18 06:00 Microbiology 06/09/18 19:00 Blood - Peripheral Venous Blood Culture - Final NO GROWTH AFTER 5 DAYS INCUBATION 06/09/18 18:30 Blood - Peripheral Venous Blood Culture - Final NO GROWTH AFTER 5 DAYS INCUBATION Active Medications Acetaminophen (Tylenol -) 650 mg PO Q4H PRN PRN Reason: PAIN LEVEL 1-5 Last Admin: 06/17/18 16:35 Dose: 650 mg Albuterol/Ipratropium (Duoneb -) 1 amp NEB RQID [facility] Last Admin: 06/18/18 08:14 Dose: 1 amp Amlodipine Besylate (Norvasc -) 10 mg PO DAILY [facility] Last Admin: 06/18/18 09:44 Dose: 10 mg Aspirin (Ecotrin -) 81 mg PO DAILY [facility] Last Admin: 06/18/18 09:44 Dose: 81 mg Dexamethasone (Decadron -) 4 mg PO BIDWM [facility] Last Admin: 06/18/18 08:01 Dose: 4 mg Docusate Sodium (Colace -) 300 mg PO HS [facility] Last Admin: 06/17/18 23:13 Dose: 300 mg Finasteride (Proscar -) 5 mg PO DAILY [facility] Last Admin: 06/18/18 09:44 Dose: 5 mg Hydromorphone HCl (Dilaudid -) 2 mg PO Q4HWA PRN PRN Reason: PAIN LEVEL 4 - 6 Last Admin: 06/17/18 21:30 Dose: 2 mg Dextrose/Sodium Chloride (D5-1/2ns -) 1,000 mls @ 75 mls/hr IV ASDIR [facility] Last Admin: 06/17/18 15:31 Dose: Not Given Levetiracetam (Keppra -) 500 mg PO BID [facility] Last Admin: 06/18/18 09:44 Dose: 500 mg Lisinopril (Prinivil) 20 mg PO BID [facility] Last Admin: 06/18/18 09:44 Dose: 20 mg Morphine Sulfate (Ms Contin -) 15 mg PO BID [facility] Last Admin: 06/18/18 09:44 Dose: 15 mg Nystatin/Triamcinolone Acetonide (Mycolog Ii Cream -) 1 applic TP BID [facility] Last Admin: 06/18/18 09:44 Dose: 1 applic Ondansetron HCl (Zofran Injection) 4 mg IVPUSH Q4H PRN PRN Reason: NAUSEA AND/OR VOMITING Last Admin: 06/15/18 16:00 Dose: 4 mg Pantoprazole Sodium (Protonix -) 40 mg PO BID [facility] Last Admin: 06/18/18 09:44 Dose: 40 mg Polyethylene Glycol (Miralax (For Daily Use) -) 17 gm PO BID [facility] Last Admin: 06/18/18 09:44 Dose: 17 gm # 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 -- receiving RT for pain control now completed RT Heme - onc consult appreciated -- too weak for chemo recommendations reviewed Patient with advance directives -- HCP and family discussion Comfort care -- requesting Jazmin #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 decadron changed to PO -continue BID and taper to d/c over one week #Pathological right humerus fx no intervention -- conservative treatment pain management For discharge today to [place] Problem List - Problems (1) Cord compression Code(s): G95.20 - UNSPECIFIED CORD COMPRESSION (2) Spinal cord compression due to malignant neoplasm metastatic to spine Code(s): G95.29 - OTHER CORD COMPRESSION; C79.51 - SECONDARY MALIGNANT NEOPLASM OF BONE (3) Anemia Code(s): D64.9 - ANEMIA, UNSPECIFIED Qualifiers: Anemia type: unspecified type Qualified Code(s): D64.9 - Anemia, unspecified (4) Right arm pain Code(s): M79.601 - PAIN IN RIGHT ARM (5) CVA (cerebral infarction) Code(s): I63.9 - CEREBRAL INFARCTION, UNSPECIFIED (6) Cecal neoplasm Code(s): D49.0 - NEOPLASM OF UNSPECIFIED BEHAVIOR OF DIGESTIVE SYSTEM (7) Depression Code(s): F32.9 - MAJOR DEPRESSIVE DISORDER, SINGLE EPISODE, UNSPECIFIED (8) Epilepsy Code(s): G40.909 - EPILEPSY, UNSP, NOT INTRACTABLE, WITHOUT STATUS EPILEPTICUS (9) Essential tremor Code(s): G25.0 - ESSENTIAL TREMOR (10) Hyperlipidemia Code(s): E78.5 - HYPERLIPIDEMIA, UNSPECIFIED (11) Hypertension Code(s): I10 - ESSENTIAL (PRIMARY) HYPERTENSION Qualifiers: Hypertension type: essential hypertension Qualified Code(s): I10 - Essential (primary) hypertension (12) Lesion of lumbar spine Code(s): M89.9 - DISORDER OF BONE, UNSPECIFIED (13) 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
[2018-06-18] MEDS ORDERED: CEFTRIAXONE 1 GM in DEXTROSE 5%-WATER - 100 ML IVPB SCH (12:00)
[2018-06-18 12:29] VITALS: TEMP 99.8
== END 2018-06-18 12:57 | disposition hospice, inpatient (51) | DRG 841 ==
LOC: JER 13:52 → JERBED 16:16 → J6S 06-07 00:49
PROVIDERS: ADMIT Family Medicine; ATTEND Family Medicine
PROC: 30233N1 Transfusion of Nonautologous Red Blood Cells into Peripheral Vein, Percutaneous Approach (ICD-10-PCS; principal; 2018-06-06)
DX: C90.00 Multiple myeloma not having achieved remission (principal); M84.421A Pathological fracture, right humerus, initial encounter for fracture; G95.20 Unspecified cord compression; C79.51 Secondary malignant neoplasm of bone; J98.11 Atelectasis; D64.9 Anemia, unspecified; G20 Parkinson's disease; I10 Essential (primary) hypertension; E78.5 Hyperlipidemia, unspecified; H40.9 Unspecified glaucoma; Z85.038 Personal history of other malignant neoplasm of large intestine
CPT/HCPCS: 36415; 36430; 71045-TC-FY; 72141-TC; 72146-TC; 73030-TC-RT-FY; 73060-TC-RT-FY; 80048; 80053; 82272; 85025; 85610; 86850; 86900; 86901; 86922; 87040; 93005; 93010; 94640; 97116-GP; 97161-GP; 99285-25; J0131; P9038; P9058